=== PATIENT | female | born 1955 | race Caucasian/White ===

== ENCOUNTER → 2020-05-21 | Outpatient (CLI) | payer OTHER ==
--- NOTE | 2020-05-23 15:36 | PE ---
Nuclear medicine PET/CT HISTORY: Cervical cancer, C 53.0, initial Patient received 11.3 mCi F-18 FDG intravenously in delayed scanning was performed from the skull bas e to the mid thighs. Localization and attenuation correction CT scan was performed. Correlation to CT scan 04/16/2020 Chest and neck: There is no suspicious uptake identified. No cervical or supraclavicular adenopathy. Uptake along the focal cords and LT and tonsils is likely physiologic. No mediastinal, axillary, or h ilar adenopathy. No pleural or pericardial effusion, no evident lung mass. ABDOMEN: There is right common iliac chain node with some associated uptake, the node does not appear enlarged, axial image 209. No ascites. There is a stent present in the left kidney extending to the bladder. There is a mass within the pelvis with some central lucency consistent with patient's histor y of cervical carcinoma. There is associated hypermetabolic uptake. No evident inguinal adenopathy. S tomach uptake felt likely to be physiologic. Patient is post cholecystectomy. Osseous structures show no suspicious uptake. IMPRESSION: Findings consistent with patient's history of cervical carcinoma. Right iliac chain node shows some hypermetabolic uptake.
== END | disposition home or self-care (01) ==
LOC: RADPETMAIN 12:06
PROVIDERS: ATTEND Internal Medicine Hematology & Oncology
DX: C53.0 Malignant neoplasm of endocervix (principal)
CPT/HCPCS: 78815; A9552

== ENCOUNTER 2020-08-18 09:11 | Inpatient (IN) | payer OTHER ==
[2020-08-18] MEDS ORDERED: ONDANSETRON 4 MG/2 ML VIAL IVP STA (09:32)
[2020-08-18] MEDS ORDERED: SODIUM CHLORIDE 0.9% 500 ML 500 ML IV STA (09:32)
[2020-08-18] MEDS ORDERED: SODIUM CHLORIDE 0.9% 1,000 ML IV STA (09:32)
--- NOTE | 2020-08-18 09:44 | ED ---
General Adult HPI - General Source: patient, family, RN notes reviewed Mode of arrival: ambulatory Limitations: no limitations <Mihai Abdalla - Last Filed: 08/18/20 13:24> <Mague Main - Last Filed: 08/25/20 07:41> - General Chief complaint: Weakness Stated complaint: Weak/dizzy/dehydrated Time Seen by Provider: 08/18/20 09:18 - History of Present Illness Initial comments: This is a 65-year-old female presents emergency Department chief complaint generalized weakness, dizziness, dehydration. Patient states that she had her last chemo treatment 3 weeks ago in which she's had multiple rounds of chemotherapy and radiation for cervical cancer. Patient states that she has not returned her chemotherapy because she's been so sick. Patient cannot keep anything down she was taking her Zofran and Compazine at home but states now she has ran out. She states she feels so weak that she feels dizzy, lightheaded. No chest pain or shortness of breath. Patient had no prior surgeries for her cervical cancer. Patient denies any fevers chills cough congestion. Patient states her oncologist is Dr. Vargas. Patient denies any other associated complaints. (Mihai Abdalla) - Related Data Home Medications Medication Instructions Recorded Confirmed amLODIPine [Norvasc] 5 mg PO HS 08/18/20 08/18/20 Previous Rx's Medication Instructions Recorded Amoxic-Pot Clav 500-125 mg 1 each PO BID #20 tab 08/24/20 [Augmentin 500-125 mg] Ondansetron [Zofran] 4 mg PO Q6HR PRN #20 tab 08/24/20 Allergies Allergy/AdvReac Type Severity Reaction Status Date / Time No Known Allergies Allergy Verified 08/18/20 10:43 Review of Systems ROS Other: All systems not noted in ROS Statement are negative. <Mihai Abdalla - Last Filed: 08/18/20 13:24> ROS Other: All systems not noted in ROS Statement are negative. <Mague Main - Last Filed: 08/25/20 07:41> ROS Statement: Those systems with pertinent positive or pertinent negative responses have been documented in the HPI. Past Medical History Past Medical History: Cancer, Hypertension History of Any Multi-Drug Resistant Organisms: None Reported Past Surgical History: Section, Cholecystectomy, Tubal Ligation Additional Past Surgical History / Comment(s): Stent in kidney Smoking Status: Current every day smoker Past Alcohol Use History: None Reported Past Drug Use History: None Reported <Mihai Abdalla Radha - Last Filed: 08/18/20 13:24> General Exam Limitations: no limitations General appearance: alert, in no apparent distress Head exam: Present: atraumatic, normocephalic, normal inspection Eye exam: Present: normal appearance, PERRL, EOMI. Absent: scleral icterus, conjunctival injection, periorbital swelling ENT exam: Present: normal oropharynx, mucous membranes dry. Absent: normal exam Neck exam: Present: normal inspection, full ROM. Absent: tenderness, meningismus, lymphadenopathy Respiratory exam: Present: normal lung sounds bilaterally. Absent: respiratory distress, wheezes, rales, rhonchi, stridor Cardiovascular Exam: Present: normal rhythm, tachycardia, normal heart sounds. Absent: systolic murmur, diastolic murmur, rubs, gallop, clicks GI/Abdominal exam: Present: soft, normal bowel sounds. Absent: distended, tenderness, guarding, rebound, rigid Neurological exam: Present: alert, oriented X3 Skin exam: Present: warm, dry, intact, normal color. Absent: rash <Mihai Abdalla M - Last Filed: 08/18/20 13:24> Course Vital Signs 08/18/20 08/18/20 08/18/20 09:13 11:05 16:18 Temperature 98.0 F Pulse Rate 110 H 89 98 Pulse Rate [ Pulse Oximetery ] Respiratory 16 18 18 Rate Blood Pressure 105/68 122/44 127/71 Blood Pressure [Right Arm] O2 Sat by Pulse 100 98 95 Oximetry 08/18/20 08/19/20 08/19/20 20:52 07:33 15:06 Temperature 97.9 F Pulse Rate 89 92 Pulse Rate [ 55 L Pulse Oximetery ] Respiratory 18 18 17 Rate Blood Pressure 103/39 115/59 Blood Pressure 121/55 [Right Arm] O2 Sat by Pulse 95 95 90 L Oximetry Medical Decision Making - Lab Data Result diagrams: 08/18/20 09:46 08/18/20 09:46 <Mihai Abdalla M - Last Filed: 08/18/20 13:24> - Lab Data Result diagrams: 08/24/20 06:23 08/23/20 05:57 <Mague Main - Last Filed: 08/25/20 07:41> - Medical Decision Making 65-year-old presented for nausea vomiting dehydration dizziness. Patient does show evidence of acute kidney injury., Dehydration. Patient is able take her chemotherapy secondary to her symptoms. Patient be admitted for IV fluids. (Mihai Abdalla) I was available for consultation in the emergency department. The history and physical exam were done by the midlevel provider. I was consulted for this patie nts care. I reviewed the case with the midlevel provider and based on their presentation of the patient, I agree with the assessment, medical decision making and plan of care as documented. Chart was dictated using Crosswise dictation software. Attempts were made to correct any dictation errors however some typographical errors may persist. (Mague Main) - Lab Data Lab Results 08/18/20 08/18/20 08/18/20 Range/Units 09:46 09:46 09:46 WBC 9.2 (3.8-10.6) k/uL RBC 3.16 L (3.80-5.40) m/uL Hgb 8.4 L (11.4-16.0) gm/dL Hct 26.1 L (34.0-46.0) % MCV 82.4 (80.0-100.0) fL MCH 26.6 (25.0-35.0) pg MCHC 32.3 (31.0-37.0) g/dL RDW 21.7 H (11.5-15.5) % Plt Count 242 (150-450) k/uL MPV 8.0 Neutrophils % 86 % Lymphocytes % 6 % Monocytes % 5 % Eosinophils % 2 % Basophils % 0 % Neutrophils # 7.9 H (1.3-7.7) k/uL Lymphocytes # 0.5 L (1.0-4.8) k/uL Monocytes # 0.4 (0-1.0) k/uL Eosinophils # 0.1 (0-0.7) k/uL Basophils # 0.0 (0-0.2) k/uL Anisocytosis Moderate Microcytosis Slight PT (9.0-12.0) sec INR (<1.2) APTT (22.0-30.0) sec Sodium 127 L (137-145) mmol/L Potassium 4.7 (3.5-5.1) mmol/L Chloride 93 L (98-107) mmol/L Carbon Dioxide 24 (22-30) mmol/L Anion Gap 10 mmol/L BUN 33 H (7-17) mg/dL Creatinine 1.96 H (0.52-1.04) mg/dL Est GFR (CKD-EPI)AfAm 31 (>60 ml/min/1.73 sqM) Est GFR (CKD-EPI)NonAf 27 (>60 ml/min/1.73 sqM) Glucose 216 H (74-99) mg/dL Lactic Ac Sepsis Rflx Plasma Lactic Acid Xander 2.3 H* (0.7-2.0) mmol/L Calcium 9.3 (8.4-10.2) mg/dL Phosphorus 4.2 (2.5-4.5) mg/dL Magnesium 1.8 (1.6-2.3) mg/dL Total Bilirubin 0.4 (0.2-1.3) mg/dL AST 18 (14-36) U/L ALT 16 (4-34) U/L Alkaline Phosphatase 78 (38-126) U/L Troponin I (0.000-0.034) ng/mL Total Protein 6.7 (6.3-8.2) g/dL Albumin 3.3 L (3.5-5.0) g/dL Urine Color Urine Appearance (Clear) Urine pH (5.0-8.0) Ur Specific [place] (1.001-1.035) Urine Protein (Negative) Urine Glucose (UA) (Negative) Urine Ketones (Negative) Urine Blood (Negative) Urine Nitrite (Negative) Urine Bilirubin (Negative) Urine Urobilinogen (<2.0) mg/dL Ur Leukocyte Esterase (Negative) Urine RBC (0-5) /hpf Urine WBC (0-5) /hpf Urine WBC Clumps (None) /hpf Ur Squamous Epith Cells (0-4) /hpf Urine Bacteria (None) /hpf Coronavirus (PCR) (Not Detectd) 08/18/20 08/18/20 08/18/20 Range/Units 09:46 10:36 10:50 WBC (3.8-10.6) k/uL RBC (3.80-5.40) m/uL Hgb (11.4-16.0) gm/dL Hct (34.0-46.0) % MCV (80.0-100.0) fL MCH (25.0-35.0) pg MCHC (31.0-37.0) g/dL RDW (11.5-15.5) % Plt Count (150-450) k/uL MPV Neutrophils % % Lymphocytes % % Monocytes % % Eosinophils % % Basophils % % Neutrophils # (1.3-7.7) k/uL Lymphocytes # (1.0-4.8) k/uL Monocytes # (0-1.0) k/uL Eosinophils # (0-0.7) k/uL Basophils # (0-0.2) k/uL Anisocytosis Microcytosis PT 11.0 (9.0-12.0) sec INR 1.0 (<1.2) APTT 21.8 L (22.0-30.0) sec Sodium (137-145) mmol/L Potassium (3.5-5.1) mmol/L Chloride (98-107) mmol/L Carbon Dioxide (22-30) mmol/L Anion Gap mmol/L BUN (7-17) mg/dL Creatinine (0.52-1.04) mg/dL Est GFR (CKD-EPI)AfAm (>60 ml/min/1.73 sqM) Est GFR (CKD-EPI)NonAf (>60 ml/min/1.73 sqM) Glucose (74-99) mg/dL Lactic Ac Sepsis Rflx Y Plasma Lactic Acid Xander (0.7-2.0) mmol/L Calcium (8.4-10.2) mg/dL Phosphorus (2.5-4.5) mg/dL Magnesium (1.6-2.3) mg/dL Total Bilirubin (0.2-1.3) mg/dL AST (14-36) U/L ALT (4-34) U/L Alkaline Phosphatase (38-126) U/L Troponin I <0.012 (0.000-0.034) ng/mL Total Protein (6.3-8.2) g/dL Albumin (3.5-5.0) g/dL Urine Color Urine Appearance (Clear) Urine pH (5.0-8.0) Ur Specific [place] (1.001-1.035) Urine Protein (Negative) Urine Glucose (UA) (Negative) Urine Ketones (Negative) Urine Blood (Negative) Urine Nitrite (Negative) Urine Bilirubin (Negative) Urine Urobilinogen (<2.0) mg/dL Ur Leukocyte Esterase (Negative) Urine RBC (0-5) /hpf Urine WBC (0-5) /hpf Urine WBC Clumps (None) /hpf Ur Squamous Epith Cells (0-4) /hpf Urine Bacteria (None) /hpf Coronavirus (PCR) (Not Detectd) 08/18/20 08/18/20 08/18/20 Range/Units 12:13 13:10 13:30 WBC (3.8-10.6) k/uL RBC (3.80-5.40) m/uL Hgb (11.4-16.0) gm/dL Hct (34.0-46.0) % MCV (80.0-100.0) fL MCH (25.0-35.0) pg MCHC (31.0-37.0) g/dL RDW (11.5-15.5) % Plt Count (150-450) k/uL MPV Neutrophils % % Lymphocytes % % Monocytes % % Eosinophils % % Basophils % % Neutrophils # (1.3-7.7) k/uL Lymphocytes # (1.0-4.8) k/uL Monocytes # (0-1.0) k/uL Eosinophils # (0-0.7) k/uL Basophils # (0-0.2) k/uL Anisocytosis Microcytosis PT (9.0-12.0) sec INR (<1.2) APTT (22.0-30.0) sec Sodium (137-145) mmol/L Potassium (3.5-5.1) mmol/L Chloride (98-107) mmol/L Carbon Dioxide (22-30) mmol/L Anion Gap mmol/L BUN (7-17) mg/dL Creatinine (0.52-1.04) mg/dL Est GFR (CKD-EPI)AfAm (>60 ml/min/1.73 sqM) Est GFR (CKD-EPI)NonAf (>60 ml/min/1.73 sqM) Glucose (74-99) mg/dL Lactic Ac Sepsis Rflx Plasma Lactic Acid Xander 1.0 (0.7-2.0) mmol/L Calcium (8.4-10.2) mg/dL Phosphorus (2.5-4.5) mg/dL Magnesium (1.6-2.3) mg/dL Total Bilirubin (0.2-1.3) mg/dL AST (14-36) U/L ALT (4-34) U/L Alkaline Phosphatase (38-126) U/L Troponin I (0.000-0.034) ng/mL Total Protein (6.3-8.2) g/dL Albumin (3.5-5.0) g/dL Urine Color Yellow Urine Appearance Turbid H (Clear) Urine pH 5.5 (5.0-8.0) Ur Specific [place] 1.017 (1.001-1.035) Urine Protein 1+ H (Negative) Urine Glucose (UA) Negative (Negative) Urine Ketones Negative (Negative) Urine Blood Moderate H (Negative) Urine Nitrite Positive H (Negative) Urine Bilirubin Negative (Negative) Urine Urobilinogen <2.0 (<2.0) mg/dL Ur Leukocyte Esterase Large H (Negative) Urine RBC 63 H (0-5) /hpf Urine WBC >182 H (0-5) /hpf Urine WBC Clumps Many H (None) /hpf Ur Squamous Epith Cells 2 (0-4) /hpf Urine Bacteria Moderate H (None) /hpf Coronavirus (PCR) Not Detected (Not Detectd) Disposition <Mihai Abdalla - Last Filed: 08/18/20 13:24> <Mague Main - Last Filed: 08/25/20 07:41> Clinical Impression: Acute kidney injury, Dehydration, Nausea & vomiting Disposition: ADMITTED IP TO THIS HOSP Condition: Good
[2020-08-18 10:09] LABS: Anisocytosis Moderate; Basophils % (A) 0 %; Eosinophils # (A) 0.1 k/uL (0-0.7); Eosinophils % (A) 2 %; HCT 26.1 % (34.0-46.0); HGB 8.4 gm/dL (11.4-16.0); Lymphocytes # (A) 0.5 k/uL (1.0-4.8); Lymphocytes % (A) 6 %; MCH 26.6 pg (25.0-35.0); MCHC 32.3 g/dL (31.0-37.0); MCV 82.4 fL (80.0-100.0); Microcytosis Slight; Monocytes # (A) 0.4 k/uL (0-1.0); Monocytes % (A) 5 %; Neutrophils # (A) 7.9 k/uL (1.3-7.7); Neutrophils % (A) 86 %; Platelet Count 242 k/uL (150-450); RBC 3.16 m/uL (3.80-5.40); RDW 21.7 % (11.5-15.5); WBC 9.2 k/uL (3.8-10.6)
[2020-08-18 10:18] LABS: Albumin 3.3 g/dL (3.5-5.0); Calcium 9.3 mg/dL (8.4-10.2); Magnesium 1.8 mg/dL (1.6-2.3); Phosphorus 4.2 mg/dL (2.5-4.5); Potassium 4.7 mmol/L (3.5-5.1); Total Bilirubin 0.4 mg/dL (0.2-1.3); Total Protein 6.7 g/dL (6.3-8.2)
--- NOTE | 2020-08-18 10:27 | XR ---
EXAMINATION TYPE: XR chest 2V DATE OF EXAM: 08/18/2020 COMPARISON: NONE HISTORY: Weakness, dehydration TECHNIQUE: Frontal and lateral views of the chest are obtained. FINDINGS: There is no focal air space opacity, pleural effusion, or pneumothorax seen. The cardiac silhouette size is within normal limits. The osseous structures are intact, there is thoracic spond ylosis. There are overlying leads. IMPRESSION: No acute cardiopulmonary process.
--- NOTE | 2020-08-18 10:41 | CT ---
EXAMINATION TYPE: CT brain wo con DATE OF EXAM: 08/18/2020 COMPARISON: None HISTORY: 65-year-old female dizziness, weakness, cervical CA TECHNIQUE: Examination was done in axial plane without intravenous contrast. Coronal and sagittal r econstructions performed. CT DLP: 1011.4 mGycm Automated exposure control for dose reduction was used. FINDINGS: There is no evidence of acute intracranial hemorrhage, acute ischemic changes, mass, mass-effect, or extra-axial fluid collection. There is no effacement of cerebral sulci or basal subarachnoid cister ns. There is no hydrocephalus. There is no midline shift. Marshall-white matter distinction is preserv ed. Scattered mild mucosal thickening ethmoid air cells. Slight rightward nasal septal deviation. Visuali zed orbits and globes are intact. Psoas IMPRESSION: No acute intracranial abnormality seen.
[2020-08-18 11:41] LABS: Partial Thromboplastin Time 21.8 sec (22.0-30.0)
[2020-08-18] MEDS: SODIUM CHLORIDE 0.9% 1,000 ML IV SCH (12:13)
[2020-08-18] MEDS ORDERED: NALOXONE 0.4 MG/ML 1 ML VIAL IV PRN (13:25)
[2020-08-18] MEDS ORDERED: ACETAMINOPHEN TAB 325 MG TAB PO PRN (13:25)
[2020-08-18 13:48] LABS: Appearance,Urine Turbid (Clear); Bacteria,Urine Moderate /hpf; Bilirubin,Urine Negative (Negative); Blood,Urine Moderate (Negative); Color,Urine Yellow; Glucose,Urine (UA) Negative (Negative); Ketones,Urine Negative (Negative); Leukocyte Esterase,Urine Large (Negative); Nitrite,Urine Positive (Negative); PH, Urine 5.5 (5.0-8.0); Protein,Urine 1+ (Negative); RBC,Urine 63 /hpf (0-5); Specific Gravity,Urine 1.017 (1.001-1.035); Squamous Epithelial Cell,Urine 2 /hpf (0-4); Urobilinogen,Urine <2.0 mg/dL (<2.0); WBC,Urine >182 /hpf (0-5)
[2020-08-18] MEDS: ONDANSETRON 4 MG/2 ML VIAL IVP PRN (14:59)
[2020-08-19] MEDS: ONDANSETRON 4 MG/2 ML VIAL IVP PRN ×2 (09:27→17:47)
[2020-08-19] MEDS: SODIUM CHLORIDE 0.9% 1,000 ML IV SCH ×3 (09:29→21:12)
--- NOTE | 2020-08-19 14:53 | HP ---
HISTORY AND PHYSICAL CHIEF COMPLAINT: Weakness, dizziness, nausea, vomiting, and history of cervical cancer. HISTORY OF PRESENT ILLNESS: This is another admission for this 65-year-old white female who recently was diagnosed with extensive carcinoma of the cervix for which she has undergone radiation and chemotherapy. She is not being a very compliant patient and not following up on her treatment as carefully as she should be. She has been having some dizziness, weakness and she came to emergency room very dehydrated with nausea and vomiting and she was admitted. She has not had a great deal of abdominal pain and she has had no dysuria, frequency, urgency, vaginal bleeding, rectal bleeding, etc. REVIEW OF SYSTEMS: Other than her weakness, she does not have any specific complaints. Past medical history, family history and personal and social histories reveal that she is on baclofen, Ditropan, Flomax, Norvasc, Zofran, Protonix. She is not allergic to any medication. The remainder of her history is unremarkable. PHYSICAL EXAMINATION: Blood pressure 123/74 with a pulse of 88, respirations of 34 and she is afebrile. In general, she appeared to be pale and chronically ill. She was weak. Head, ears, eyes, nose, mouth and throat were normal except for dry mucous membranes. Neck veins are not distended. Chest was clear to auscultation. Cardiac exam demonstrated sinus tachycardia with no murmurs or extra sounds. The abdomen is protuberant, soft and nontender without any masses or visceromegaly. Extremities are normal. Neurologically, she is intact. She is admitted to the hospital with diagnoses: 1. Dehydration. 2. Prerenal azotemia. 3. Carcinoma of the cervix, status post chemo and radiation. PLAN: 1. Bed rest. 2. IV fluids. 3. Rehydrate. 4. Consult with Oncology. MMODL / IJN: [id number] /
--- NOTE | 2020-08-19 14:58 | PN ---
PROGRESS NOTE DATE OF SERVICE: 08/19/2020. CHIEF COMPLAINT: Dehydration, nausea, vomiting with dizziness. HISTORY OF PRESENT ILLNESS: This lady is doing fairly well, but she still feels extremely weak. She has had no fever, headache, chest pain, abdominal pain, etc. PHYSICAL EXAMINATION: She remains pale and chronically ill in appearance. Skin is dry. Chest is clear. Cardiac exam is normal. Abdomen is soft. IMPRESSION: 1. Dehydration. 2. Nausea and vomiting. 3. Dizziness. 4. Weakness. 5. Carcinoma of the cervix. PLAN: 1. Continue with IV fluids. 2. Await any recommendations from Oncology. MMODL / IJN: [id number] /
--- NOTE | 2020-08-19 16:11 | P.CONS ---
History of Present Illness - Reason for Consult Consult date: 08/19/20 recent treatment for cervical cancer Requesting physician: Mihai Abdalla - Chief Complaint N,V dehydration, diarrhea - History of Present Illness Mrs. Izquierdo is a very pleasant female pt of Dr. Cabrera who presented last fall with urinary symptoms. She went to [facility] for persistent symptoms, found to have L hydronephrosis and large pelvic mass on CT. Referred to Dr. Joshi UX MANAGER/Onc at [facility], thought to have at least stage IIIB. Recommended concurrent chemo/rad with brachytherapy after advised. She required a ureteral stent on the left, this was placed at [facility]. Staging PET at [facility] revealed known mass with uptake, no distant mets, R common iliac chain with "some" uptake reported. She completed 6 cycles of weekly cisplatin 07/14/20, completed XRT week of 07/20/20. She was supposed to have brachytherapy sleeve but, she has been "so sick" that she has not made it back down to [facility] for the same. She c/o persistent N,V, everything smells terrible, moderate oral irritation, she was severely constipated last week, she treated and was ok, as of today had diarrhea bad. Denies fevers, chills, rigors, cough, SOB, chest pain, palpitations, abd pain, bloating, dysuria, hematuria, bleeding, swelling or pain. She will get a stabbing pain in the lower part of her abd intermittently, short duration, not progressive. In ER she told me she did feel a little better with the hydration and after the abx Review of Systems 14 point ROS is negative except as stated in HPI Past Medical History Past Medical History: Cancer, Eye Disorder, GERD/Reflux, Hypertension, Pneumonia Additional Past Medical History / Comment(s): Cervical cancer-pt states she completed chemotherapy and has had radiation treatments-she was to have a cervical sleeve inserted then more radiation but unable to insert/secure sleeve, R ureteral stent d/t cervical tumor causing obstruction, R occular stroke-caused vision changes/received injections, UTI. History of Any Multi-Drug Resistant Organisms: None Reported Past Surgical History: Section, Cholecystectomy, Tubal Ligation Additional Past Surgical History / Comment(s): R ueteral stent, D&C, Past Anesthesia/Blood Transfusion Reactions: No Reported Reaction Smoking Status: Former smoker - Past Family History Father Family Medical History: Cancer, Diabetes Mellitus Additional Family Medical History / Comment(s): Pt thinks father had prostate cancer. Mother Family Medical History: Diabetes Mellitus, Hyperlipidemia, Hypertension, Myocardial Infarction ([place]), Renal Disease Additional Family Medical History / Comment(s): Mother had a [place] in her 50s. She from renal failure during dialysis. Medications and Allergies Home Medications Medication Instructions Recorded Confirmed Type amLODIPine [Norvasc] 5 mg PO HS 08/18/20 08/18/20 History Allergies Allergy/AdvReac Type Severity Reaction Status Date / Time No Known Allergies Allergy Verified 08/18/20 10:43 Physical Exam Vitals: Vital Signs Temp Pulse Resp BP Pulse Ox 08/19/20 07:33 92 18 115/59 95 08/18/20 20:52 89 18 103/39 95 08/18/20 16:18 98 18 127/71 95 08/18/20 11:05 89 18 122/44 98 08/18/20 09:13 98.0 F 110 H 16 105/68 100 Intake and Output 08/18/20 08/19/20 08/19/20 22:59 06:59 14:59 Other: Weight 100.698 kg - Constitutional General appearance: cooperative, mild distress, obese - EENT moderate mucositis Eyes: anicteric sclerae, EOMI, dentition normal ENT: hearing grossly normal - Neck Neck: no lymphadenopathy - Respiratory Respiratory: bilateral: CTA - Cardiovascular Rhythm: regular Heart sounds: normal: S1, S2 Abnormal Heart Sounds: no systolic murmur, no diastolic murmur, no rub, no S3 Gallop, no S4 Gallop, no click, no other leg Peripheral Edema: bilateral: None - Gastrointestinal General gastrointestinal: no absent bowel sounds, no decreased bowel sounds, no distended, no hepatomegaly, no hyperactive bowel sounds, normal bowel sounds, no organomegaly, no rigid, no scaphoid, soft, no splenomegaly, no tenderness, no umbilical hernia, no ventral hernia - Integumentary Integumentary: pale - Neurologic Neurologic: CNII-XII intact - Musculoskeletal Musculoskeletal: strength equal bilaterally - Psychiatric Psychiatric: A&O x's 3, appropriate affect, intact judgment & insight Results CBC & Chem 7: 08/18/20 09:46 08/18/20 09:46 Labs: Abnormal Lab Results - Last 24 Hours (Table) 08/18/20 08/18/20 08/18/20 Range/Units 09:46 09:46 09:46 RBC 3.16 L (3.80-5.40) m/uL Hgb 8.4 L (11.4-16.0) gm/dL Hct 26.1 L (34.0-46.0) % RDW 21.7 H (11.5-15.5) % Neutrophils # 7.9 H (1.3-7.7) k/uL Lymphocytes # 0.5 L (1.0-4.8) k/uL APTT (22.0-30.0) sec Sodium 127 L (137-145) mmol/L Chloride 93 L (98-107) mmol/L BUN 33 H (7-17) mg/dL Creatinine 1.96 H (0.52-1.04) mg/dL Glucose 216 H (74-99) mg/dL Plasma Lactic Acid Xander 2.3 H* (0.7-2.0) mmol/L Albumin 3.3 L (3.5-5.0) g/dL Urine Appearance (Clear) Urine Protein (Negative) Urine Blood (Negative) Urine Nitrite (Negative) Ur Leukocyte Esterase (Negative) Urine RBC (0-5) /hpf Urine WBC (0-5) /hpf Urine WBC Clumps (None) /hpf Urine Bacteria (None) /hpf 08/18/20 08/18/20 Range/Units 10:50 13:10 RBC (3.80-5.40) m/uL Hgb (11.4-16.0) gm/dL Hct (34.0-46.0) % RDW (11.5-15.5) % Neutrophils # (1.3-7.7) k/uL Lymphocytes # (1.0-4.8) k/uL APTT 21.8 L (22.0-30.0) sec Sodium (137-145) mmol/L Chloride (98-107) mmol/L BUN (7-17) mg/dL Creatinine (0.52-1.04) mg/dL Glucose (74-99) mg/dL Plasma Lactic Acid Xander (0.7-2.0) mmol/L Albumin (3.5-5.0) g/dL Urine Appearance Turbid H (Clear) Urine Protein 1+ H (Negative) Urine Blood Moderate H (Negative) Urine Nitrite Positive H (Negative) Ur Leukocyte Esterase Large H (Negative) Urine RBC 63 H (0-5) /hpf Urine WBC >182 H (0-5) /hpf Urine WBC Clumps Many H (None) /hpf Urine Bacteria Moderate H (None) /hpf Microbiology - Last 24 Hours (Table) 08/18/20 13:10 Urine Culture - Preliminary Urine,Voided Chest x-ray: report reviewed CT Scan - head: report reviewed Assessment and Plan (1) Nausea & vomiting Narrative/Plan: IV meds ordered. Mouth care stressed. Supportive meds ordered Current Visit: Yes Status: Acute Priority: High Code(s): R11.2 - NAUSEA WITH VOMITING, UNSPECIFIED SNOMED Code(s): 70002795 (2) Dehydration Narrative/Plan: IV hydration. Diet clear liquids for now due to pt intolerance to smell Current Visit: Yes Status: Acute Priority: High Code(s): E86.0 - DEHYDRATION SNOMED Code(s): 66096589 (3) Cervical ca Narrative/Plan: Pt has completed chemo/XRT, due for brachytherapy. Post treatment restaging PET already sched for 09/03 at 9am Current Visit: Yes Status: Acute Priority: High Code(s): C53.9 - MALIGNANT NEOPLASM OF CERVIX UTERI, UNSPECIFIED SNOMED Code(s): 611177692 (4) Acute kidney injury Narrative/Plan: UA is very suspicious for infection. Pt had lt ureteral stent placed 04/27. May be infected, need removed/replaced. Renal US ordered for evaluation. BUN/Cr 121/1.47 on 07/14/20, this is pt baseline. Last dose of cisplatin-which can be nephrotoxic- 07/14/20. Current Visit: Yes Status: Acute Priority: High Code(s): N17.9 - ACUTE KIDNEY FAILURE, UNSPECIFIED SNOMED Code(s): 44693720 (5) Mucositis Narrative/Plan: Moderate-salt and soda and kools ordered. Would recommend brushing teeth twice a day Current Visit: Yes Status: Acute Priority: Medium Code(s): K12.30 - ORAL MUCOSITIS (ULCERATIVE), UNSPECIFIED SNOMED Code(s): 60879003 Plan: Agree with infection work up. Pt left ureteral stent was placed last year at [facility]. Will have ofc contact Physician who placed-may be time for exchange.
[2020-08-19] MEDS: MAG HYDROX/AL HYDROX/SIMETH 30 ML, LIDOCAINE VISCOUS 30 ML, diphenhydrAMINE ELIXIR 75 M... PO SCH ×8 (17:36→21:44)
[2020-08-19] MEDS: SALT AND SODA MOUTHWASH 1,000 ML PO SCH ×3 (17:36→23:40)
--- NOTE | 2020-08-19 20:06 | US ---
EXAMINATION TYPE: US renals and bladder DATE OF EXAM: 08/19/2020 COMPARISON: PET CT 05/21/2020 CLINICAL HISTORY: Hx of lt ureteral stent, worsening renal function Difficult exam due to patient bod y habitus. EXAM MEASUREMENTS: Right Kidney: 10.2 x 4.9 x 4.4 cm Left Kidney: 10.3 x 5.8 x 4.6 cm Right Kidney: No hydronephrosis or masses seen Left Kidney: Moderate hydronephrosis visualized Bladder: Stent visualized Bilateral Jets seen: No IMPRESSION: Moderate left hydronephrosis with ureteral stent visualized.
[2020-08-19] MEDS ORDERED: SODIUM CHLORIDE 0.9% 500 ML 250 ML IV ONE (21:37)
[2020-08-20] MEDS: SODIUM CHLORIDE 0.9% 1,000 ML IV SCH ×2 (05:22→16:35)
[2020-08-20] MEDS: SALT AND SODA MOUTHWASH 1,000 ML PO SCH ×4 (05:27→20:27)
[2020-08-20] MEDS ORDERED: PANTOPRAZOLE 40 MG/10 ML VIAL IVP SCH (09:00)
[2020-08-20 09:02] LABS: Anisocytosis Moderate; Basophils % (A) 1 %; Eosinophils # (A) 0.2 k/uL (0-0.7); Eosinophils % (A) 3 %; HCT 22.9 % (34.0-46.0); HGB 7.6 gm/dL (11.4-16.0); Hypochromasia Slight; Lymphocytes # (A) 0.4 k/uL (1.0-4.8); Lymphocytes % (A) 6 %; MCH 27.8 pg (25.0-35.0); MCHC 33.1 g/dL (31.0-37.0); Mean Platelet Volume 9.2; Microcytosis Slight; Monocytes # (A) 0.4 k/uL (0-1.0); Monocytes % (A) 6 %; Neutrophils # (A) 5.4 k/uL (1.3-7.7); Neutrophils % (A) 82 %; Platelet Count 194 k/uL (150-450); RBC 2.73 m/uL (3.80-5.40); RDW 21.6 % (11.5-15.5); WBC 6.6 k/uL (3.8-10.6)
[2020-08-20 09:10] LABS: African American GFR (CKD) 34 (>60 ml/min/1.73 sqM); Anion Gap 7 mmol/L; Blood Urea Nitrogen 18 mg/dL (7-17); Calcium 8.5 mg/dL (8.4-10.2); Carbon Dioxide 25 mmol/L (22-30); Chloride 102 mmol/L (98-107); Glucose 145 mg/dL (74-99); Magnesium 1.7 mg/dL (1.6-2.3); Non-African American GFR(CKD) 29 (>60 ml/min/1.73 sqM); Potassium 4.2 mmol/L (3.5-5.1); Sodium 134 mmol/L (137-145)
[2020-08-20] MEDS: HEPARIN SODIUM,PORCINE 5,000 UNIT/ML 1 ML VIAL SQ SCH ×2 (10:45→20:22)
[2020-08-20] MEDS ORDERED: LEVOFLOXACIN 750 MG TAB PO ONE (11:00)
[2020-08-20] MEDS: MAG HYDROX/AL HYDROX/SIMETH 30 ML, LIDOCAINE VISCOUS 30 ML, diphenhydrAMINE ELIXIR 75 M... PO SCH ×8 (11:59→15:28)
--- NOTE | 2020-08-20 12:33 | P.PN ---
Subjective Progress Note Date: 08/20/20 Principal diagnosis: N, V, D, dehydration, KEVIN In f/u today pt mouth is better, she can tolerate the clear liquid diet, she has positive orthostatics and has been placed on bedrest Objective - Vital Signs Vital signs: Vital Signs Temp 98.2 F 08/20/20 05:00 Pulse 76 08/20/20 05:00 Resp 18 08/20/20 05:00 BP 121/66 08/20/20 05:00 Pulse Ox 95 08/20/20 05:00 Intake & Output 08/19/20 08/20/20 08/20/20 18:59 06:59 18:59 Intake Total 1440 Balance 1440 Weight 100.698 kg Intake: Intake, IV Titration 1150 Amount Sodium Chloride 0.9% 1, 900 000 ml @ 100 mls/hr IV . Q10H [facility] Rx#:[id number] Sodium Chloride 0.9% 500 250 ml 250 ml @ 999 mls/hr IV .Q16M ONE Rx#:[id number] Oral 290 Other: Voiding Method Bedside Commode # Voids 1 2 - Constitutional General appearance: Present: cooperative, no acute distress, obese - EENT EENT Comment(s): coated tongue, looks better then yesterday Eyes: Present: anicteric sclerae, edentulous, poor dentition ENT: Present: hearing grossly normal - Respiratory Respiratory: bilateral: CTA - Cardiovascular Rhythm: regular Heart sounds: normal: S1, S2 Abnormal Heart Sounds: Absent: systolic murmur, diastolic murmur, rub, S3 Gallop, S4 Gallop, click, other - Peripheral edema leg Peripheral Edema: bilateral: None - Gastrointestinal General gastrointestinal: Present: normal bowel sounds, soft - Integumentary Integumentary: Present: normal - Neurologic Neurologic: Present: CNII-XII intact - Musculoskeletal Musculoskeletal: Present: strength equal bilaterally - Psychiatric Psychiatric: Present: A&O x's 3, appropriate affect, intact judgment & insight - Labs CBC & Chem 7: 08/20/20 08:43 08/20/20 08:43 Labs: Abnormal Lab Results - Last 24 Hours (Table) 08/20/20 08/20/20 Range/Units 08:43 08:43 RBC 2.73 L (3.80-5.40) m/uL Hgb 7.6 L (11.4-16.0) gm/dL Hct 22.9 L (34.0-46.0) % RDW 21.6 H (11.5-15.5) % Lymphocytes # 0.4 L (1.0-4.8) k/uL Sodium 134 L (137-145) mmol/L BUN 18 H (7-17) mg/dL Creatinine 1.81 H (0.52-1.04) mg/dL Glucose 145 H (74-99) mg/dL Microbiology - Last 24 Hours (Table) 08/19/20 06:35 Blood Culture - Preliminary Blood No Growth after 24 hours 08/18/20 13:10 Urine Culture - Preliminary Urine,Voided Gram Neg Bacilli - Imaging and Cardiology renal US report reviewed Assessment and Plan (1) Nausea & vomiting Narrative/Plan: No vomiting since admit. IV meds ordered. Mouth care stressed. Supportive meds ordered Current Visit: Yes Status: Acute Priority: High Code(s): R11.2 - NAUSEA WITH VOMITING, UNSPECIFIED SNOMED Code(s): 21174912 (2) Dehydration Narrative/Plan: IV hydration. Diet clear liquids for now due to pt intolerance to smell-she is doing ok with this diet Current Visit: Yes Status: Acute Priority: High Code(s): E86.0 - DEHYDRATION SNOMED Code(s): 99956487 (3) Cervical ca Narrative/Plan: Pt has completed chemo/XRT. Pt clarified today that she is not having brachytherapy. Post treatment restaging PET already sched for 09/03 at 9am, f/u with Dr. Cabrera 09/07/20 at 11AM Current Visit: Yes Status: Acute Priority: High Code(s): C53.9 - MALIGNANT NEOPLASM OF CERVIX UTERI, UNSPECIFIED SNOMED Code(s): 597791068 (4) Acute kidney injury Narrative/Plan: Acute on chronic,BUN/Cr 121/1.47 on 07/14/20, this is pt baseline. Nephrology consulted. Renal US shows only mild hydronephrosis on the left. UA is very suspicious for infection. Levaquin started. Pt had lt ureteral stent placed 04/27. Urology consulted. May be infected, need removed/replaced. Last dose of cisplatin-which can be nephrotoxic-1/6/21. Current Visit: Yes Status: Acute Priority: High Code(s): N17.9 - ACUTE KIDNEY FAILURE, UNSPECIFIED SNOMED Code(s): 81478596 (5) Mucositis Narrative/Plan: Looks better today, cont salt and soda and kools. Recommend brushing teeth twice a day. Current Visit: Yes Status: Acute Priority: Medium Code(s): K12.30 - ORAL MUCOSITIS (ULCERATIVE), UNSPECIFIED SNOMED Code(s): 28502146 Plan: Agree with infection work up. Pt left ureteral stent was placed last year at [facility]. Physician who placed stent ofc contacted, may be time for exchange or removal.
[2020-08-20 14:55] VITALS: BMI 43.3
--- NOTE | 2020-08-20 19:33 | CONS ---
CONSULTATION REASON FOR CONSULTATION: Renal failure. HISTORY OF PRESENT ILLNESS: Patient is a 65-year-old female with history of cervical cancer and left hydronephrosis, status post ureteral stent placed at an outside facility at [facility]. The patient was admitted to the hospital with complaints of increasing weakness. She had some diarrhea as well and she felt she was dehydrated. The patient denies having seen a director of student services previously. Her serum creatinine was 1.9 on initial admission, and it is down to 1.8 now. Previous labs show serum creatinine of 1.[address] back to June of 2020. Patient also has an underlying urinary tract infection. She is maintained on radiation therapy for the cervical cancer and is in the midst of chemotherapy. The patient denied use of any nonsteroidal anti-inflammatory agents prior to admission. Her blood pressure has been on the lower side, with systolic around 101 mmHg. She was as low as 83 mmHg on standing for systolic blood pressure. Urine output is well maintained. The patient has a bedside commode. PAST MEDICAL HISTORY: Cervical cancer, left hydronephrosis, status post ureteral stent placement, history of hypertension, possible CKD, history of UTI previously, history of CVA, right ocular stroke. PAST SURGICAL HISTORY: , cholecystectomy, tubal ligation, right ureteral stent, D and C. MEDICATIONS: Medications prior to admission included Norvasc. Patient was maintained on chemotherapy and radiation therapy for cervical cancer. ALLERGIES: NONE. REVIEW OF SYSTEMS: As per HPI. Other systems negative. PHYSICAL EXAMINATION: Patient is comfortable, awake. She is not in any acute distress. Blood pressure was 110/68, heart rate 82 per minute. She is afebrile. EXAMINATION OF THE HEART: S1 and S2. EXAMINATION OF LUNGS: Bilateral breath sounds are heard. ABDOMEN: Soft, obese, non-tender. Examination of lower extremities shows no significant edema. There is no CVA tenderness noted. 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 LABS: Labs show sodium of 134, potassium 4.2, chloride 102, BUN 18, creatinine 1.8, hemoglobin 7.6 g/dL. Coronavirus PCR is negative. UA shows 1+ protein, large leukocyte esterase, WBCs more than 182. ASSESSMENT: 1. Acute kidney injury, prerenal, currently maintained on IV fluids. I will continue with the IV fluids. Check ultrasound of the kidneys. Rule out any other underlying hydronephrosis. 2. History of left hydronephrosis with ureteral obstruction secondary to the cervical cancer, status post left ureteral stent placement. The ultrasound shows moderate hydronephrosis on the left side. 3. Pyuria; rule out underlying urinary tract infection. Patient has been started on antibiotics. 4. Cervical cancer, maintained on chemotherapy and radiation therapy. 5. Anemia, multifactorial. PLAN: Continue IV fluids. Continue antibiotics. Consult Urology. The patient states that she would like to see the urologist locally and does not want to travel out of town. Follow up on the urine cultures. Avoid nephrotoxic agents. Avoid hypotension. Repeat labs in a.m. Thank you for this consultation. Will continue to follow the patient with you during her hospitalization. MMODL / IJN: [id number] /
--- NOTE | 2020-08-20 20:35 | XR ---
EXAM: Abdomen radiograph. HISTORY: Hydronephrosis with left ureteral stent. TECHNIQUE: Supine AP view. COMPARISON: Ultrasound 08/19/2020. FINDINGS: There is insertion of a left ureteral stent. There are nondilated bowel loops with a nonobstructive p attern. There are no obvious pathologic calcifications. No acute osseous abnormality seen. Cholecyste ctomy is seen. IMPRESSION: Left ureteral stent. Otherwise no obvious acute process.
[2020-08-20] MEDS: ONDANSETRON 4 MG TAB PO PRN (21:17)
[2020-08-21] MEDS: MAG HYDROX/AL HYDROX/SIMETH 30 ML, LIDOCAINE VISCOUS 30 ML, diphenhydrAMINE ELIXIR 75 M... PO SCH ×16 (02:46→21:14)
[2020-08-21] MEDS: SALT AND SODA MOUTHWASH 1,000 ML PO SCH ×5 (02:47→21:14)
[2020-08-21] MEDS: SODIUM CHLORIDE 0.9% 1,000 ML IV SCH ×2 (03:22→12:26)
--- NOTE | 2020-08-21 03:33 | P.PN ---
Subjective This is a pleasant 65 years old female with past medical history of cervical cancer with chemo and radiotherapy also she has a right ureter stent which was placed at 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 She presents on 08/18 for generalized weakness and dizziness. Last chemotherapy was 3 weeks earlier, complicated with recurrent nausea vomiting and was taking Zofran and Compazine at home where she ran out of her medication Patient has no vomiting since yesterday however she feels extremely fatigued, her dizziness is better Patient is complaining of from mouth burn but there is no evidence of ulcers or thrush. She is with no respiratory symptoms, no chest pain. But she has some dysuria Her orthostatic hypotension is also improving Vitals are 1 postural hypotension, patient is somewhat tachycardic, resting blood pressure is 121/66. Patient is afebrile. CBC showing only mild anemia. With left shift although WBC is within the reference range at 9.2K. INR is 1.0. Sodium 1 admission was 127 which WILL be 129 if corrected for hyperglycemia. High lactic acid came back to normal. Troponin is negative. Liver enzymes not elevated. Urinalysis is suspicious for infection, coronavirus is not detected. Oncology service already on the case and evaluated the patient Renal ultrasound showing left ureteral stent with moderate hydronephrosis Review of systems Review of systems CONSTITUTIONAL: No fever, no malaise, no fatigue. HEENT: No recent visual problems or hearing problems. Denied any sore throat. CARDIOVASCULAR: No orthopnea, PND, no palpitations, no syncope. PULMONARY: No shortness of breath, no cough, no hemoptysis. GASTROINTESTINAL: No diarrhea, no nausea, no vomiting, no abdominal pain. Normoactive bowel sounds. Active Medications Generic Name Dose Route Start Last Admin Trade Name Freq PRN Reason Stop Dose Admin Acetaminophen 650 mg 08/18/20 13:25 Acetaminophen Tab 325 Mg Tab PO Q6HR PRN Mild Pain or Fever > 100.5 Al Hydroxide/Mg Hydroxide 30 0 ml 08/19/20 17:00 08/21/20 02:46 ml/ Lidocaine HCl 30 ml/ PO Not Given Diphenhydramine HCl 75 mg/ TID [facility] Nystatin 3,000,000 unit Heparin Sodium (Porcine) 5,000 unit 08/20/20 09:00 08/20/20 20:22 Heparin Sodium,Porcine 5,000 Unit/Ml 1 Ml Vial SQ 5,000 unit Q12HR [facility] Administration Sodium Chloride 1,000 mls @ 100 mls/hr 08/18/20 12:15 08/21/20 03:22 Saline 0.9% IV 100 mls/hr .Q10H [facility] Administration Levofloxacin 750 mg 08/21/20 09:00 Levofloxacin 750 Mg Tab PO Q48H [facility] Naloxone HCl 0.2 mg 08/18/20 13:25 Naloxone 0.4 Mg/Ml 1 Ml Vial IV Q2M PRN Opioid Reversal Ondansetron HCl 4 mg 08/19/20 15:50 08/19/20 17:47 Ondansetron 4 Mg/2 Ml Vial IVP 4 mg Q4HR PRN Administration Nausea And Vomiting Ondansetron HCl 4 mg 08/20/20 21:03 08/20/20 21:17 Ondansetron 4 Mg Tab PO 4 mg Q6HR PRN Administration Nausea And Vomiting Pantoprazole Sodium 40 mg 08/21/20 07:30 Pantoprazole 40 Mg Tablet PO AC-BRKFST [facility] Sodium Bicarbonate 5 ml 08/19/20 17:00 08/21/20 02:47 Salt And Soda Mouthwash 1,000 Ml PO Not Given 5XD [facility] Objective - Vital Signs Vital signs: Vital Signs Temp 98.2 F 08/20/20 05:00 Pulse 76 08/20/20 05:00 Resp 18 08/20/20 05:00 BP 121/66 08/20/20 05:00 Pulse Ox 95 08/20/20 05:00 Intake & Output 08/19/20 08/20/20 08/20/20 18:59 06:59 18:59 Intake Total 1440 Balance 1440 Weight 100.698 kg Intake: Intake, IV Titration 1150 Amount Sodium Chloride 0.9% 1, 900 000 ml @ 100 mls/hr IV . Q10H [facility] Rx#:[id number] Sodium Chloride 0.9% 500 250 ml 250 ml @ 999 mls/hr IV .Q16M ONE Rx#:[id number] Oral 290 Other: Voiding Method Bedside Commode # Voids 1 2 - Exam GENERAL: The patient is alert and oriented x3, not in any acute distress. Well developed, well nourished. HEENT: Pupils are round and equally reacting to light. EOMI. No scleral icterus. No conjunctival pallor. Normocephalic, atraumatic. No pharyngeal erythema. No thyromegaly. CARDIOVASCULAR: S1 and S2 present. No murmurs, rubs, or gallops. PULMONARY: Chest is clear to auscultation, no wheezing or crackles. ABDOMEN: Soft, nontender, nondistended, normoactive bowel sounds. No palpable organomegaly. MUSCULOSKELETAL: No joint swelling or deformity. EXTREMITIES: No cyanosis, clubbing, or pedal edema. NEUROLOGICAL: Gross neurological examination did not reveal any focal deficits. SKIN: No rashes. no petechiae. - Labs CBC & Chem 7: 08/20/20 08:43 08/20/20 08:43 Labs: Microbiology - Last 24 Hours (Table) 08/18/20 13:10 Urine Culture - Preliminary Urine,Voided Gram Neg Bacilli Assessment and Plan Assessment: Acute urinary tract infection with moderate left hydronephrosis and status post previous ureteral stent Recurrent nausea and vomiting related to her chemotherapy treatment and infection severe dehydration and hypovolemia with resultant postural hypotension, Possibly secondary to above Moderate left hydronephrosis, with history of ureter stent due to cervical tumor causing obstruction cervical cancer with chemo and radiotherapy history of stroke with resultant vision changes History of gastroesophageal reflux disease Hypertension Plan: This is pleasant 65 years old female who presents with UTI, dehydration and dizziness with postural hypotension. Also she has left hydronephrosis. Currently she is on ceftriaxone with urine culture showing gram-negative bacilli, follow-up final results of the urine culture. Oncology and nephrology team on the case as well. We will consult urologist for her hydronephrosis. Continue with IV fluids. Start the patient on Protonix . Discontinue Norvasc continue with antiemetic medication, clear liquid diet Check labs today and tomorrow Labs and medication were reviewed.. Continue same treatment. Continue with symptomatic treatment. Resume home medication. Monitor lytes and vitals. DVT and GI prophylaxis. Further recommendations depends on the clinical course of the patient DVT prophylaxis: Subcutaneous heparin GI Prophylaxis: Ppi PT/OT: Pending Prognosis is guarded
[2020-08-21] MEDS: HEPARIN SODIUM,PORCINE 5,000 UNIT/ML 1 ML VIAL SQ SCH ×2 (08:51→20:59)
[2020-08-21] MEDS: PANTOPRAZOLE 40 MG TABLET PO SCH (08:51)
[2020-08-21] MEDS ORDERED: LEVOFLOXACIN 750 MG TAB PO SCH (09:00)
[2020-08-21] MEDS ORDERED: ALPRAZolam 0.5 MG TAB PO PRN (09:34)
--- NOTE | 2020-08-21 09:41 | P.PN ---
Subjective Progress Note Date: 08/21/20 Principal diagnosis: N, V, D, dehydration, KEVIN In f/u today pt mouth continues to improve, she asked for advance in her diet, states "pressure" in the suprapubic area after urinating is gone, vomited 1 time yesterday Objective - Vital Signs Vital signs: Vital Signs Temp 97.7 F 08/21/20 04:08 Pulse 78 08/21/20 04:08 Resp 17 08/21/20 04:08 BP 139/67 08/21/20 04:08 Pulse Ox 98 08/21/20 04:08 Intake & Output 08/20/20 08/21/20 08/21/20 18:59 06:59 18:59 Intake Total 120 Output Total 500 Balance 120 -500 Weight 100.698 kg Intake: Oral 120 Output: Urine 500 Other: Voiding Method Bedside Commode Bedside Commode # Voids 3 2 # Bowel Movements 1 - Constitutional General appearance: Present: cooperative, no acute distress, obese - EENT EENT Comment(s): tongue has superficial ulcerations, coated Eyes: Present: anicteric sclerae, EOMI, dentition normal ENT: Present: hearing grossly normal - Respiratory Respiratory: bilateral: CTA - Cardiovascular Rhythm: regular Heart sounds: normal: S1, S2 Abnormal Heart Sounds: Absent: systolic murmur, diastolic murmur, rub, S3 Gallop, S4 Gallop, click, other - Peripheral edema leg Peripheral Edema: bilateral: None - Gastrointestinal General gastrointestinal: Present: normal bowel sounds, soft - Neurologic Neurologic: Present: CNII-XII intact - Musculoskeletal Musculoskeletal: Present: strength equal bilaterally - Psychiatric Psychiatric: Present: A&O x's 3, appropriate affect, intact judgment & insight - Labs CBC & Chem 7: 08/20/20 08:43 08/20/20 08:43 Labs: Microbiology - Last 24 Hours (Table) 08/19/20 06:35 Blood Culture - Preliminary Blood No Growth after 48 hours 08/18/20 13:10 Urine Culture - Final Urine,Voided Escherichia coli - Imaging and Cardiology Abdominal x-ray: report reviewed Assessment and Plan (1) Nausea & vomiting Narrative/Plan: Vomit 1 time last evening, pt attributed to activity, none since IV meds ordered. Mouth care again reviewed Current Visit: Yes Status: Acute Priority: High Code(s): R11.2 - NAUSEA WITH VOMITING, UNSPECIFIED SNOMED Code(s): 42610451 (2) Dehydration Narrative/Plan: IV hydration. Pt requested advancement of her diet to full liquids. Pt still intolerant to smells Current Visit: Yes Status: Acute Priority: High Code(s): E86.0 - DEHYDRATION SNOMED Code(s): 66782515 (3) Cervical ca Narrative/Plan: Pt has completed chemo/XRT. Pt clarified today that she is not having brachytherapy. Post treatment restaging PET already sched for 09/03 at 9am, f/u with Dr. Cabrera 09/07/20 at 11AM Current Visit: Yes Status: Acute Priority: High Code(s): C53.9 - MALIGNANT NEOPLASM OF CERVIX UTERI, UNSPECIFIED SNOMED Code(s): 541307069 (4) Acute kidney injury Narrative/Plan: Acute on chronic, BUN/Cr 121/1.47 on 07/14/20, this is pt baseline. Nephrology consulted. Pt had lt ureteral stent placed 04/27. Urology consulted. May be infected, need removed/replaced. Last dose of cisplatin-which can be nephrotoxic-07/14/20. Current Visit: Yes Status: Acute Priority: High Code(s): N17.9 - ACUTE KIDNEY FAILURE, UNSPECIFIED SNOMED Code(s): 27928214 (5) Mucositis Narrative/Plan: Stable, cont salt and soda and kools. Recommend brushing teeth twice a day. Current Visit: Yes Status: Acute Priority: Medium Code(s): K12.30 - ORAL MUCOSITIS (ULCERATIVE), UNSPECIFIED SNOMED Code(s): 22669497 Plan: Stool specimen ordered as pt states watery diarrhea. Pancultures-urine shows e-coli infection. Abx choice discussed with Nephrology, renal dose adjusted by Pharmacy. Xanax ordered for anxiety
--- NOTE | 2020-08-21 12:07 | P.PN ---
Subjective Patient is seen in follow-up for acute kidney injury. Creatinine 1.8 as of yesterday. Oral intake is fair. No vomiting. Does have intermittent loose bowel movements. Blood pressure stable. Receiving IV fluids. Vital signs are stable. General: The patient appeared well nourished and normally developed. HEENT: Head exam is unremarkable. Neck is without jugular venous distension. LUNGS: Breath sounds decreased. HEART: Rate and Rhythm are regular. ABDOMEN: Soft, nontender. EXTREMITITES: No clubbing, cyanosis, or edema. Objective - Vital Signs Vital signs: Vital Signs Temp 97.7 F 08/21/20 04:08 Pulse 78 08/21/20 04:08 Resp 17 08/21/20 04:08 BP 139/67 08/21/20 04:08 Pulse Ox 98 08/21/20 04:08 Intake & Output 08/20/20 08/21/20 08/21/20 18:59 06:59 18:59 Intake Total 120 Output Total 500 Balance 120 -500 Weight 100.698 kg Intake: Oral 120 Output: Urine 500 Other: Voiding Method Bedside Commode Bedside Commode # Voids 3 2 # Bowel Movements 1 - Labs CBC & Chem 7: 08/20/20 08:43 08/20/20 08:43 Labs: Microbiology - Last 24 Hours (Table) 08/19/20 06:35 Blood Culture - Preliminary Blood No Growth after 48 hours 08/18/20 13:10 Urine Culture - Final Urine,Voided Escherichia coli Assessment and Plan Plan: Assessment: 1. Acute kidney injury mostly prerenal secondary to hypovolemia. Creatinine 1.81 as of yesterday. 2. Left-sided hydronephrosis with history of ureteral stent placement in April 2020. Ultrasound this admission shows left-sided hydronephrosis. 3. Cervical cancer. Last chemotherapy 3 weeks ago. 4. Hypovolemic hyponatremia improved with IV hydration. 5. E. coli UTI maintained on antibiotics. Plan: Maintain IV fluids. Encourage oral intake. Avoid nephrotoxins. Urology has been consulted. Patient states she has not followed up with urology since the left ureteral stent was placed. Labs from today pending
[2020-08-21 12:34] LABS: African American GFR (CKD) 39.3 (60.0-200.0); Anion Gap 6.2 mmol/L (4.00-12.00); BUN/Creat Ratio 8.13 Ratio (12.00-20.00); Calcium 8.1 mg/dL (8.7-10.3); Carbon Dioxide 23.8 mmol/L (21.6-31.8); Magnesium 1.6 mg/dL (1.5-2.4); Non-African American GFR(CKD) 33.9 (60.0-200.0); Potassium 4.1 mmol/L (3.5-5.5)
[2020-08-21 13:12] LABS: Basophils # (A) 0.03 X 10*3/uL (0.00-0.10); Basophils % (A) 0.5 %; Eosinophils % (A) 3.6 %; Lymphocytes # (A) 0.45 X 10*3/uL (0.90-5.00); Monocytes # (A) 0.56 X 10*3/uL (0.20-1.00); Neutrophils # (A) 4.26 X 10*3/uL (1.80-7.70); Neutrophils % (A) 75.8 %
[2020-08-21 13:15] LABS: HCT 20.6 % (37.2-46.3); MCH 27.7 pg (27.0-32.0); MCV 86.6 fL (80.0-97.0); Mean Platelet Volume 10.7 fL (9.5-12.2); Platelet Count 194 X 10*3/uL (140-440); RBC 2.38 X 10*6/uL (4.10-5.20); RDW 22.3 % (11.5-14.5); WBC 5.62 X 10*3/uL (4.50-10.00)
[2020-08-21 13:16] LABS: Acanthocytes 2+; Anisocytosis (M) 2+; Microcytosis (M) 2+
[2020-08-21] MEDS ORDERED: FUROSEMIDE 10 MG/ML 2 ML VIAL IV ONE (14:47)
--- NOTE | 2020-08-21 15:44 | P.GSCN ---
History of Present Illness Consult date: 08/21/20 Reason for Consult: Hydronephrosis Requesting physician: Dontae Cuadra History of present illness: The patient is a 65-year-old white female who presented last fall with urinary symptoms. She was found to have left hydronephrosis and a large pelvic mass on CT scan. She was diagnosed with Cervical Cancer. She was referred to Dr. Joshi SPECIALIST PHYSICIAN/Onc at [facility] and thought to have at least stage IIIB. Recommended concurrent chemoradiation with brachytherapy after advised. She underwent left ureteral stent insertion in April 2020 at [facility] by Dr. Seals. She completed chemoradiation on 07/20/2020. She was supposed to have brachytherapy performed, but she has not been able to undergo this due to persistent nausea, vomiting, lower abdominal pain, and bowel changes. She has experienced pain following micturition for the past 2 weeks, but states that today this has resolved. She denies hematuria. A urine culture has shown pansensitive E. coli. She is currently receiving Levaquin. Review of Systems - Constitutional Denies chills, Denies fever - Genitourinary Genitourinary: Denies dysuria, Denies hematuria Past Medical History Past Medical History: Cancer, Eye Disorder, GERD/Reflux, Hypertension, Pneumonia Additional Past Medical History / Comment(s): Cervical cancer-pt states she completed chemotherapy and has had radiation treatments-she was to have a cervical sleeve inserted then more radiation but unable to insert/secure sleeve, R ureteral stent d/t cervical tumor causing obstruction, R occular stroke-caused vision changes/received injections, UTI. History of Any Multi-Drug Resistant Organisms: None Reported Past Surgical History: Section, Cholecystectomy, Tubal Ligation Additional Past Surgical History / Comment(s): R ueteral stent, D&C, Past Anesthesia/Blood Transfusion Reactions: No Reported Reaction Smoking Status: Former smoker - Past Family History Father Family Medical History: Cancer, Diabetes Mellitus Additional Family Medical History / Comment(s): Pt thinks father had prostate cancer. Mother Family Medical History: Diabetes Mellitus, Hyperlipidemia, Hypertension, Myoca rdial Infarction ([place]), Renal Disease Additional Family Medical History / Comment(s): Mother had a [place] in her 50s. She from renal failure during dialysis. Medications and Allergies Home Medications Medication Instructions Recorded Confirmed Type amLODIPine [Norvasc] 5 mg PO HS 08/18/20 08/18/20 History Allergies Allergy/AdvReac Type Severity Reaction Status Date / Time No Known Allergies Allergy Verified 08/18/20 10:43 Surgical - Exam Vital Signs Temp Pulse Resp BP Pulse Ox 98.0 F 110 H 16 105/68 100 08/18/20 09:13 08/18/20 09:13 08/18/20 09:13 08/18/20 09:13 08/18/20 09:13 - General well developed, well nourished, no distress - Respiratory normal respiratory effort - Abdomen Abdomen: soft, non tender, no guarding, no rigid, no rebound - Psychiatric oriented to time, oriented to person, oriented to place, speech is normal, memory intact Results - Labs 08/21/20 06:32 08/21/20 06:32 Abnormal Lab Results - Last 24 Hours (Table) 08/20/20 08/20/20 Range/Units 08:43 08:43 RBC 2.73 L (3.80-5.40) m/uL Hgb 7.6 L (11.4-16.0) gm/dL Hct 22.9 L (34.0-46.0) % RDW 21.6 H (11.5-15.5) % Lymphocytes # 0.4 L (1.0-4.8) k/uL Sodium 134 L (137-145) mmol/L BUN 18 H (7-17) mg/dL Creatinine 1.81 H (0.52-1.04) mg/dL Glucose 145 H (74-99) mg/dL Microbiology - Last 24 Hours (Table) 08/18/20 13:10 Urine Culture - Final Urine,Voided Escherichia coli 08/19/20 06:35 Blood Culture - Preliminary Blood No Growth after 24 hours Diabetes panel 08/20/20 Range/Units 08:43 Sodium 134 L (137-145) mmol/L Potassium 4.2 (3.5-5.1) mmol/L Chloride 102 (98-107) mmol/L Carbon Dioxide 25 (22-30) mmol/L BUN 18 H (7-17) mg/dL Creatinine 1.81 H (0.52-1.04) mg/dL Glucose 145 H (74-99) mg/dL Calcium 8.5 (8.4-10.2) mg/dL Calcium panel 08/20/20 Range/Units 08:43 Calcium 8.5 (8.4-10.2) mg/dL Pituitary panel 08/20/20 Range/Units 08:43 Sodium 134 L (137-145) mmol/L Potassium 4.2 (3.5-5.1) mmol/L Chloride 102 (98-107) mmol/L Carbon Dioxide 25 (22-30) mmol/L BUN 18 H (7-17) mg/dL Creatinine 1.81 H (0.52-1.04) mg/dL Glucose 145 H (74-99) mg/dL Calcium 8.5 (8.4-10.2) mg/dL Adrenal panel 08/20/20 Range/Units 08:43 Sodium 134 L (137-145) mmol/L Potassium 4.2 (3.5-5.1) mmol/L Chloride 102 (98-107) mmol/L Carbon Dioxide 25 (22-30) mmol/L BUN 18 H (7-17) mg/dL Creatinine 1.81 H (0.52-1.04) mg/dL Glucose 145 H (74-99) mg/dL Calcium 8.5 (8.4-10.2) mg/dL - Imaging US - kidney/bladder: report reviewed Assessment and Plan Plan: Ms. Izquierdo developed left hydronephrosis due to a pelvic mass resulting from her cervical cancer. She has been treated with chemoradiation. It is unclear whether or not she will undergo brachytherapy. She is currently being treated for an E. coli UTI. Based on symptoms, it is much more likely that she has cystitis rather than pyelonephritis. She believes she is scheduled to undergo repeat imaging at the end of this month. Management of the stent will depend on the results of this imaging. If the pelvic mass has resolved, it would be re asonable to remove her stent in the office and monitor her hydronephrosis. Conversely, if a mass is still present, arrangements will be made for her to undergo a stent change. Ultrasound performed during this hospitalization showed moderate left hydronephrosis, but this may be chronic and I do not feel there is an absolute indication for emergent stent change. Incidentally, her E. coli UTI is pansensitive and I would suggest the antibiotics be changed to amoxicillin, which she states she tolerates better. Time with Patient: Greater than 30
--- NOTE | 2020-08-21 16:23 | PN ---
PROGRESS NOTE DATE OF SERVICE: 08/21/2020 I am covering for Dr. Cuadra. INTERVAL HISTORY: This 65-year-old woman was admitted with weakness, dizziness, nausea, dehydration, also had history of cervical cancer. The patient also had chemotherapy and radiation. The patient had diminished p.o. intake. Hemoglobin was found to be 6.6 this morning and 1 unit transfusion is being ordered. No obvious bleeding was noted. Creatinine is 1.96, improved to 1.6. The patient is complaining of weakness. Sodium is also improved from 127-138. UA shows definitely evidence of UTI. PAST MEDICAL HISTORY: Reviewed. REVIEW OF SYSTEM: CARDIOVASCULAR: No angina. RESPIRATORY: As mentioned earlier. GI: As mentioned earlier. : As mentioned earlier. NERVOUS SYSTEM: No numbness or weakness. HEMATOLOGY: As mentioned earlier. CURRENT MEDICATIONS: Reviewed and include Xanax, heparin, Levaquin, Narcan, Zofran, Protonix. PHYSICAL EXAM: GENERAL: Patient is alert, oriented x3. VITAL SIGNS: Pulse is 74, blood pressure is 170/70, respiration 16, temperature 97.4, pulse ox 99% on room air. HEENT: Conjunctivae pale. NECK: No jugular venous distention. No carotid bruits. No lymph node enlargement. RESPIRATORY: Breath sounds diminished at the bases. No rhonchi, no crackles. HEART: S1 and S2, muffled. ABDOMEN: Soft, obese, no tenderness. EXTREMITIES: No edema, no swelling. NERVOUS: No focal deficits. LABS: WBC 5.62, hemoglobin 6.6, sodium 138, potassium 4.1. ASSESSMENT: 1. Dehydration with acute prerenal and acute renal failure possibly acute tubular necrosis. 2. Cancer of the cervix status post chemotherapy and radiation. 3. Anemia multifactorial possibly secondary to malignancy and chemotherapy, status post transfusion. 4. Hyponatremia possibly hypovolemic. 5. Elevated random blood glucose. 6. Acute urinary tract infection present on admission with E-coli. 7. History of gastroesophageal reflux disease. 8. Hypertension. 9. History of pneumonia. 10.History of depression. 11.FULL CODE. 12.Obesity. RECOMMENDATIONS AND DISCUSSION: In this 65-year-old woman who presented with multiple medical problems, we will monitor the patient closely. Continue the current management, continue symptomatic treatment. Continue the antibiotics. The urine culture showed E coli which is poly sensitive. One unit transfusion with Lasix 20 mg after that and repeat CBC in the morning. Closely monitor. Further recommendations to follow. MMODL / IJN: [id number] /
[2020-08-22] MEDS: SALT AND SODA MOUTHWASH 1,000 ML PO SCH ×5 (01:55→22:26)
[2020-08-22] MEDS: SODIUM CHLORIDE 0.9% 1,000 ML IV SCH ×3 (04:15→17:49)
[2020-08-22] MEDS: ONDANSETRON 4 MG/2 ML VIAL IVP PRN (04:35)
[2020-08-22] MEDS: PANTOPRAZOLE 40 MG TABLET PO SCH (08:42)
[2020-08-22] MEDS: HEPARIN SODIUM,PORCINE 5,000 UNIT/ML 1 ML VIAL SQ SCH ×2 (08:43→22:24)
[2020-08-22] MEDS: MAG HYDROX/AL HYDROX/SIMETH 30 ML, LIDOCAINE VISCOUS 30 ML, diphenhydrAMINE ELIXIR 75 M... PO SCH ×12 (08:44→22:26)
--- NOTE | 2020-08-22 09:44 | P.PN ---
Subjective Patient is seen in follow-up for acute kidney injury. Renal function gradually improving. She received a unit of blood yesterday. No active bleeding. Oral intake is fair. No vomiting. Does have intermittent loose bowel movements. Blood pressure stable. Receiving IV fluids. Vital signs are stable. General: The patient appeared well nourished and normally developed. HEENT: Head exam is unremarkable. Neck is without jugular venous distension. LUNGS: Breath sounds decreased. HEART: Rate and Rhythm are regular. ABDOMEN: Soft, nontender. EXTREMITITES: No clubbing, cyanosis, or edema. Objective - Vital Signs Vital signs: Vital Signs Temp 97.8 F 08/22/20 05:00 Pulse 83 08/22/20 05:00 Resp 19 08/22/20 05:00 BP 116/61 08/22/20 05:00 Pulse Ox 100 08/22/20 05:00 Intake & Output 08/21/20 08/22/20 08/22/20 18:59 06:59 18:59 Intake Total 0 273 Balance 0 273 Intake: Blood Product 0 273 Rc Pheresis 2 As3 Unit 0 273 [id number] Other: Voiding Method Bedside Commode # Voids 2 # Bowel Movements 1 - Labs CBC & Chem 7: 08/21/20 06:32 08/21/20 06:32 Labs: Abnormal Lab Results - Last 24 Hours (Table) 08/21/20 08/21/20 08/21/20 Range/Units 06:32 06:32 13:57 RBC 2.38 L (4.10-5.20) X 10*6/uL Hgb 6.6 L* (12.0-15.0) g/dL Hct 20.6 L (37.2-46.3) % RDW 22.3 H (11.5-14.5) % Immature Gran # 0.12 H (0.00-0.04) X 10*3/uL Lymphocytes # 0.45 L (0.90-5.00) X 10*3/uL Creatinine 1.6 H (0.6-1.5) mg/dL Est GFR (CKD-EPI)AfAm 39.3 L (60.0-200.0) Est GFR (CKD-EPI)NonAf 33.9 L (60.0-200.0) BUN/Creatinine Ratio 8.13 L (12.00-20.00) Ratio Calcium 8.1 L (8.7-10.3) mg/dL Crossmatch See Detail Microbiology - Last 24 Hours (Table) 08/19/20 06:35 Blood Culture - Preliminary Blood No Growth after 72 hours 08/21/20 14:18 Stool Culture - Preliminary Stool Assessment and Plan Plan: Assessment: 1. Acute kidney injury mostly prerenal secondary to hypovolemia. Creatinine 1.6 as of yesterday. Creatinine as of 07/07/2020 was 1.49. 2. Left-sided hydronephrosis with history of ureteral stent placement in April 2020. Ultrasound this admission shows left-sided hydronephrosis. Seen by urology. 3. Cervical cancer. Last chemotherapy 3 weeks ago. 4. Hypovolemic hyponatremia improved with IV hydration. 5. E. coli UTI maintained on antibiotics. 6. Acute blood loss anemia status post blood transfusion on August 21. Rule out iron deficiency. Plan: Decrease normal saline to 50 mL an hour. Encourage oral intake. Avoid nephrotoxins. Labs from today pending. Check iron studies.
[2020-08-22 09:59] LABS: Basophils # (A) 0.03 X 10*3/uL (0.00-0.10); Basophils % (A) 0.6 %; Eosinophils # (A) 0.17 X 10*3/uL (0.04-0.35); Eosinophils % (A) 3.3 %; HGB 7.3 g/dL (12.0-15.0); Lymphocytes # (A) 0.43 X 10*3/uL (0.90-5.00); Lymphocytes % (A) 8.4 %; MCH 27.4 pg (27.0-32.0); MCHC 31.7 g/dL (32.0-37.0); MCV 86.5 fL (80.0-97.0); Mean Platelet Volume 10.4 fL (9.5-12.2); Monocytes % (A) 9.8 %; Neutrophils # (A) 3.83 X 10*3/uL (1.80-7.70); Neutrophils % (A) 75.3 %; Platelet Count 198 X 10*3/uL (140-440); RBC 2.66 X 10*6/uL (4.10-5.20); RDW 21.2 % (11.5-14.5); WBC 5.09 X 10*3/uL (4.50-10.00)
[2020-08-22 10:12] LABS: African American GFR (CKD) 39.3 (60.0-200.0); Anion Gap 6.6 mmol/L (4.00-12.00); BUN/Creat Ratio 6.88 Ratio (12.00-20.00); Calcium 8.2 mg/dL (8.7-10.3); Carbon Dioxide 24.4 mmol/L (21.6-31.8); Magnesium 1.5 mg/dL (1.5-2.4); Non-African American GFR(CKD) 33.9 (60.0-200.0)
[2020-08-22 11:37] LABS: % Iron Saturation 21.72 (12.00-45.00)
[2020-08-22 11:52] LABS: Ferritin 487.7 ng/mL (10.0-291.0)
[2020-08-22] MEDS ORDERED: LOPERAMIDE 2 MG CAP PO PRN (12:05)
--- NOTE | 2020-08-22 12:22 | P.PN ---
Subjective Progress Note Date: 08/22/20 Principal diagnosis: N, V, D, dehydration, KEVIN In f/u today pt is feeling much better, mouth, taste and smell are better, she is wanting to advance her diet, no vomiting, she cont to have imcontinence of stool-likely r/t local XRT but, she is noting that stool is less watery. She is up in chair and wants to get moving around. Objective - Vital Signs Vital signs: Vital Signs Temp 97.8 F 08/22/20 05:00 Pulse 83 08/22/20 05:00 Resp 19 08/22/20 05:00 BP 116/61 08/22/20 05:00 Pulse Ox 100 08/22/20 05:00 Intake & Output 08/21/20 08/22/20 08/22/20 18:59 06:59 18:59 Intake Total 0 273 Balance 0 273 Intake: Blood Product 0 273 Rc Pheresis 2 As3 Unit 0 273 [id number] Other: Voiding Method Bedside Commode # Voids 2 # Bowel Movements 1 - Constitutional General appearance: Present: cooperative, no acute distress, obese - EENT EENT Comment(s): scant thrush on the tongue, superficial ulceration Eyes: Present: anicteric sclerae, EOMI ENT: Present: hearing grossly normal - Respiratory Respiratory: bilateral: CTA - Cardiovascular Rhythm: regular Heart sounds: normal: S1, S2 Abnormal Heart Sounds: Absent: systolic murmur, diastolic murmur, rub, S3 Gallop , S4 Gallop, click, other - Peripheral edema leg Peripheral Edema: bilateral: None - Gastrointestinal General gastrointestinal: Present: normal bowel sounds, scaphoid - Neurologic Neurologic: Present: CNII-XII intact - Musculoskeletal Musculoskeletal: Present: generalized weakness - Psychiatric Psychiatric: Present: A&O x's 3, appropriate affect, intact judgment & insight - Labs CBC & Chem 7: 08/22/20 05:18 08/22/20 05:18 Labs: Abnormal Lab Results - Last 24 Hours (Table) 08/21/20 08/21/20 08/21/20 Range/Units 06:32 06:32 13:57 RBC 2.38 L (4.10-5.20) X 10*6/uL Hgb 6.6 L* (12.0-15.0) g/dL Hct 20.6 L (37.2-46.3) % MCHC (32.0-37.0) g/dL RDW 22.3 H (11.5-14.5) % Immature Gran # 0.12 H (0.00-0.04) X 10*3/uL Lymphocytes # 0.45 L (0.90-5.00) X 10*3/uL Creatinine 1.6 H (0.6-1.5) mg/dL Est GFR (CKD-EPI)AfAm 39.3 L (60.0-200.0) Est GFR (CKD-EPI)NonAf 33.9 L (60.0-200.0) BUN/Creatinine Ratio 8.13 L (12.00-20.00) Ratio Glucose (70-110) mg/dL Calcium 8.1 L (8.7-10.3) mg/dL Iron (50-170) ug/dL TIBC (228-460) ug/dL Ferritin (10.0-291.0) ng/mL Crossmatch See Detail 08/22/20 08/22/20 08/22/20 Range/Units 05:18 05:18 05:18 RBC 2.66 L (4.10-5.20) X 10*6/uL Hgb 7.3 L (12.0-15.0) g/dL Hct 23.0 L (37.2-46.3) % MCHC 31.7 L (32.0-37.0) g/dL RDW 21.2 H (11.5-14.5) % Immature Gran # 0.13 H (0.00-0.04) X 10*3/uL Lymphocytes # 0.43 L (0.90-5.00) X 10*3/uL Creatinine 1.6 H (0.6-1.5) mg/dL Est GFR (CKD-EPI)AfAm 39.3 L (60.0-200.0) Est GFR (CKD-EPI)NonAf 33.9 L (60.0-200.0) BUN/Creatinine Ratio 6.88 L (12.00-20.00) Ratio Glucose 117 H (70-110) mg/dL Calcium 8.2 L (8.7-10.3) mg/dL Iron 48 L (50-170) ug/dL TIBC 221 L (228-460) ug/dL Ferritin 487.7 H (10.0-291.0) ng/mL Crossmatch Microbiology - Last 24 Hours (Table) 08/19/20 06:35 Blood Culture - Preliminary Blood No Growth after 72 hours 08/21/20 14:18 Stool Culture - Preliminary Stool Assessment and Plan (1) Nausea & vomiting Narrative/Plan: No further Vomiting to report, pt wanting to advance diet IV meds ordered. Mouth care cont Current Visit: Yes Status: Acute Priority: High Code(s): R11.2 - NAUSEA WITH VOMITING, UNSPECIFIED SNOMED Code(s): 44826319 (2) Dehydration Current Visit: Yes Status: Resolved Priority: High Code(s): E86.0 - DEH YDRATION SNOMED Code(s): 79516787 (3) Cervical ca Narrative/Plan: Pt has completed chemo/XRT. Pt clarified today that she is not having brachytherapy. Post treatment restaging PET already sched for 09/03 at 9am, f/u with Dr. Cabrera 09/07/20 at 11AM Current Visit: Yes Status: Acute Priority: High Code(s): C53.9 - MALIGNANT NEOPLASM OF CERVIX UTERI, UNSPECIFIED SNOMED Code(s): 525752914 (4) Acute kidney injury Narrative/Plan: Acute on chronic, BUN/Cr 121/1.47 on 07/14/20, this is pt baseline. Nephrology has seen pt and monitoring nephrotoxic meds and fluid balance. Pt had lt ureteral stent placed 04/27. Urology seen pt and will decide, based on treatment f/u scans, if pt can have stent removed or if it needs to be exchanged. Abx adjusted based on recommendations. Will send pt info to Urology ofc. Last dose of cisplatin-which can be nephrotoxic-07/14/20. Current Visit: Yes Status: Acute Priority: High Code(s): N17.9 - ACUTE KIDNEY FAILURE, UNSPECIFIED SNOMED Code(s): 16679962 (5) Mucositis Narrative/Plan: Stable, cont salt and soda and kools. Cont diligent oral care Current Visit: Yes Status: Acute Priority: Medium Code(s): K12.30 - ORAL MUCOSITIS (ULCERATIVE), UNSPECIFIED SNOMED Code(s): 43195693 (6) Anemia Narrative/Plan: Unfortunately, anemia work up drawn after transfusion. Suspect iron deficiency. Transfuse to keep Hgb above 7. Will f/u with iron studies outpt and administer iron as appropriate Current Visit: Yes Status: Chronic Priority: Medium Code(s): D64.9 - ANEMIA, UNSPECIFIED SNOMED Code(s): 209079835 Plan: Stool specimen ordered as pt states watery diarrhea, neg for c-diff, culture pending, PRN imodium added as pt states stool consistency is improving. She does have incontinence of stool likely 2/2 radiation Pancultures-urine shows e-coli infection. Nephrology recs for renal dosing, U rology recs for abx adjustment. Cont Xanax ordered for anxiety
[2020-08-22] MEDS: AMOXIC-POT CLAV 500-125 MG 1 EACH TAB PO SCH ×2 (14:16→22:27)
--- NOTE | 2020-08-22 18:35 | PN ---
PROGRESS NOTE DATE OF SERVICE: 08/22/2020 I am covering for Dr. Cuadra. This 65-year-old woman who was admitted with weakness, dizziness, nausea and dehydration is being closely monitored. The patient had anemia. The patient received one unit transfusion. Hemoglobin is currently 7.2, improved from 6.6. The patient also had elevated creatinine 1.6. C difficile negative. PAST MEDICAL HISTORY: Reviewed. REVIEW OF SYSTEMS: CARDIOVASCULAR SYSTEM: No angina. RESPIRATORY: As mentioned earlier. GI: As mentioned earlier. : No dysuria. NERVOUS SYSTEM: No numbness, weakness. CURRENT MEDICATIONS: Reviewed include Tylenol, amoxicillin, Imodium, Narcan, Zofran doses reviewed. PHYSICAL EXAMINATION: Alert and oriented. Pulse 87, blood pressure 120/67, respiration 20, temp 97.2, pulse ox 98% on room air. HEENT: Conjunctivae normal. Oral mucosa moist. NECK: No jugular venous distention. No lymph node enlargement. CARDIOVASCULAR: S1, S2, muffled. No S3, no S4, RESPIRATORY: Diminished breath sounds at the bases. ABDOMEN: Soft, nontender. LEGS: No edema, no swelling. NERVOUS SYSTEM: No focal deficits. LAB: Hemoglobin 7.2. Other labs are noted. Creatinine 1.6. ASSESSMENT: 1. Dehydration with acute prerenal acute tubular necrosis, acute renal failure, present on admission. 2. Anemia, multifactorial, possibly secondary to malignancy status post blood transfusion. 3. Carcinoma of the cervix status post chemotherapy and radiation. 4. Hyponatremia, possibly hypovolemic, present on admission. 5. Elevated random blood glucose. 6. Acute urinary tract infection present on admission with Escherichia coli. 7. History of gastroesophageal reflux disease. 8. Hypertension. 9. History of pneumonia. 10.History of depression. 11.Obesity. 12.FULL CODE. RECOMMENDATIONS AND DISCUSSION: I recommend to continue current management and continue symptomatic treatment. Continue with current medications. Monitor creatinine closely. Otherwise, avoid nephrotoxic medications and I would continue with Protonix and Dr. Cuadra will follow. MMODL / IJN: [id number] /
[2020-08-23] MEDS: SALT AND SODA MOUTHWASH 1,000 ML PO SCH ×5 (00:13→20:47)
[2020-08-23] MEDS: MAG HYDROX/AL HYDROX/SIMETH 30 ML, LIDOCAINE VISCOUS 30 ML, diphenhydrAMINE ELIXIR 75 M... PO SCH ×8 (08:01→15:23)
[2020-08-23] MEDS: AMOXIC-POT CLAV 500-125 MG 1 EACH TAB PO SCH ×2 (08:01→20:47)
[2020-08-23] MEDS: HEPARIN SODIUM,PORCINE 5,000 UNIT/ML 1 ML VIAL SQ SCH ×2 (08:01→20:48)
[2020-08-23] MEDS: PANTOPRAZOLE 40 MG TABLET PO SCH (08:01)
[2020-08-23 09:23] LABS: Basophils # (A) 0.03 X 10*3/uL (0.00-0.10); Basophils % (A) 0.5 %; Eosinophils # (A) 0.24 X 10*3/uL (0.04-0.35); Eosinophils % (A) 4.1 %; HCT 24.2 % (37.2-46.3); HGB 7.5 g/dL (12.0-15.0); Lymphocytes # (A) 0.52 X 10*3/uL (0.90-5.00); Lymphocytes % (A) 8.9 %; MCH 27.1 pg (27.0-32.0); MCV 87.4 fL (80.0-97.0); Mean Platelet Volume 10.5 fL (9.5-12.2); Monocytes # (A) 0.44 X 10*3/uL (0.20-1.00); Monocytes % (A) 7.5 %; Neutrophils # (A) 4.41 X 10*3/uL (1.80-7.70); Neutrophils % (A) 75.7 %; Platelet Count 222 X 10*3/uL (140-440); RBC 2.77 X 10*6/uL (4.10-5.20); RDW 21.9 % (11.5-14.5); WBC 5.83 X 10*3/uL (4.50-10.00)
[2020-08-23 09:42] LABS: African American GFR (CKD) 36.6 (60.0-200.0); BUN/Creat Ratio 5.29 Ratio (12.00-20.00); Calcium 8.4 mg/dL (8.7-10.3); Magnesium 1.6 mg/dL (1.5-2.4); Non-African American GFR(CKD) 31.5 (60.0-200.0); Potassium 3.9 mmol/L (3.5-5.5)
[2020-08-23] MEDS ORDERED: SODIUM FERRIC GLUCONAT-SUCROSE 125 MG in SODIUM CHLORIDE 0.9% 100 ML IVPB ONE (10:40)
--- NOTE | 2020-08-23 10:41 | P.PN ---
Subjective Patient is seen in follow-up for acute kidney injury. Renal function now stable with creatinine in the range of 1.6-1.7 the last 2 days. Diarrhea mostly resolved. Oral intake is good. Vital signs are stable. General: The patient appeared well nourished and normally developed. HEENT: Head exam is unremarkable. Neck is without jugular venous distension. LUNGS: Breath sounds decreased. HEART: Rate and Rhythm are regular. ABDOMEN: Soft, nontender. EXTREMITITES: No clubbing, cyanosis, or edema. Objective - Vital Signs Vital signs: Vital Signs Temp 97.6 F 08/23/20 05:00 Pulse 76 08/23/20 05:00 Resp 16 08/23/20 05:00 BP 161/83 08/23/20 05:00 Pulse Ox 97 08/23/20 05:00 Intake & Output 08/22/20 08/23/20 08/23/20 18:59 06:59 18:59 Intake Total 400 120 Output Total 500 Balance 400 120 -500 Intake: Intake, IV Titration 400 120 Amount Sodium Chloride 0.9% 1, 400 120 000 ml @ 50 mls/hr IV . Q20H [facility] Rx#:[id number] Output: Urine 500 Other: Voiding Method Bedside Commode Bedside Commode # Voids 2 2 # Bowel Movements 0 1 - Labs CBC & Chem 7: 08/23/20 05:57 08/23/20 05:57 Labs: Abnormal Lab Results - Last 24 Hours (Table) 08/22/20 08/22/20 08/23/20 Range/Units 05:18 05:18 05:57 RBC 2.77 L (4.10-5.20) X 10*6/uL Hgb 7.5 L (12.0-15.0) g/dL Hct 24.2 L (37.2-46.3) % MCHC 31.0 L (32.0-37.0) g/dL RDW 21.9 H (11.5-14.5) % Immature Gran # 0.19 H (0.00-0.04) X 10*3/uL Lymphocytes # 0.52 L (0.90-5.00) X 10*3/uL Chloride (96-109) mmol/L Creatinine (0.6-1.5) mg/dL Est GFR (CKD-EPI)AfAm (60.0-200.0) Est GFR (CKD-EPI)NonAf (60.0-200.0) BUN/Creatinine Ratio (12.00-20.00) Ratio Glucose (70-110) mg/dL Calcium (8.7-10.3) mg/dL Iron 48 L (50-170) ug/dL TIBC 221 L (228-460) ug/dL Erythropoietin 32.40 H (2.00-30.00) mIU/mL Ferritin 487.7 H (10.0-291.0) ng/mL 08/23/20 Range/Units 05:57 RBC (4.10-5.20) X 10*6/uL Hgb (12.0-15.0) g/dL Hct (37.2-46.3) % MCHC (32.0-37.0) g/dL RDW (11.5-14.5) % Immature Gran # (0.00-0.04) X 10*3/uL Lymphocytes # (0.90-5.00) X 10*3/uL Chloride 111 H (96-109) mmol/L Creatinine 1.7 H (0.6-1.5) mg/dL Est GFR (CKD-EPI)AfAm 36.6 L (60.0-200.0) Est GFR (CKD-EPI)NonAf 31.5 L (60.0-200.0) BUN/Creatinine Ratio 5.29 L (12.00-20.00) Ratio Glucose 113 H (70-110) mg/dL Calcium 8.4 L (8.7-10.3) mg/dL Iron (50-170) ug/dL TIBC (228-460) ug/dL Erythropoietin (2.00-30.00) mIU/mL Ferritin (10.0-291.0) ng/mL Microbiology - Last 24 Hours (Table) 08/19/20 06:35 Blood Culture - Preliminary Blood No Growth after 96 hours Assessment and Plan Plan: Assessment: 1. Acute kidney injury mostly prerenal secondary to hypovolemia. Creatinine stable at 1.7 today. Creatinine as of 07/07/2020 was 1.49. 2. Left-sided hydronephrosis with history of ureteral stent placement in April 2020. Ultrasound this admission shows left-sided hydronephrosis. Seen by urology. 3. Cervical cancer. Last chemotherapy 3 weeks ago. 4. Hypovolemic hyponatremia improved with IV hydration. 5. E. coli UTI maintained on antibiotics. 6. Acute blood loss anemia status post blood transfusion on August 21. Mild iron deficiency noted. Plan: Hep-Lock IV fluids. Encourage oral intake. Avoid nephrotoxins. I will give her a dose of IV iron today.
--- NOTE | 2020-08-23 12:46 | P.PN ---
Subjective Progress Note Date: 08/23/20 Principal diagnosis: N, V, D, dehydration, KEVIN In f/u today pt is feeling much better, oral "burning" and bad taste is much improved, she is tolerating most oral intake (textures cause her irritability), N,V are controlled, stool is starting to firm up. Objective - Vital Signs Vital signs: Vital Signs Temp 97.8 F 08/23/20 12:08 Pulse 73 08/23/20 12:08 Resp 17 08/23/20 12:08 BP 169/81 08/23/20 12:08 Pulse Ox 99 08/23/20 12:08 Intake & Output 08/22/20 08/23/20 08/23/20 18:59 06:59 18:59 Intake Total 400 120 Output Total 500 Balance 400 120 -500 Intake: Intake, IV Titration 400 120 Amount Sodium Chloride 0.9% 1, 400 120 000 ml @ 50 mls/hr IV . Q20H [facility] Rx#:[id number] Output: Urine 500 Other: Voiding Method Bedside Commode Bedside Commode # Voids 2 2 # Bowel Movements 0 1 - Constitutional General appearance: Present: cooperative, no acute distress, obese - EENT EENT Comment(s): tongue has superficial ulcerations-improving Eyes: Present: anicteric sclerae, EOMI ENT: Present: hearing grossly normal - Respiratory Respiratory: bilateral: CTA - Cardiovascular Rhythm: regular Heart sounds: normal: S1, S2 Abnormal Heart Sounds: Absent: systolic murmur, diastolic murmur, rub, S3 Gallop, S4 Gallop, click, other - Gastrointestinal General gastrointestinal: Present: normal bowel sounds, soft - Integumentary Integumentary: Present: normal, pale - Neurologic Neurologic: Present: CNII-XII intact - Musculoskeletal Musculoskeletal: Present: generalized weakness, strength equal bilaterally - Psychiatric Psychiatric: Present: A&O x's 3, appropriate affect, intact judgment & insight - Labs CBC & Chem 7: 08/23/20 05:57 08/23/20 05:57 Labs: Abnormal Lab Results - Last 24 Hours (Table) 08/22/20 08/23/20 08/23/20 Range/Units 05:18 05:57 05:57 RBC 2.77 L (4.10-5.20) X 10*6/uL Hgb 7.5 L (12.0-15.0) g/dL Hct 24.2 L (37.2-46.3) % MCHC 31.0 L (32.0-37.0) g/dL RDW 21.9 H (11.5-14.5) % Immature Gran # 0.19 H (0.00-0.04) X 10*3/uL Lymphocytes # 0.52 L (0.90-5.00) X 10*3/uL Chloride 111 H (96-109) mmol/L Creatinine 1.7 H (0.6-1.5) mg/dL Est GFR (CKD-EPI)AfAm 36.6 L (60.0-200.0) Est GFR (CKD-EPI)NonAf 31.5 L (60.0-200.0) BUN/Creatinine Ratio 5.29 L (12.00-20.00) Ratio Glucose 113 H (70-110) mg/dL Calcium 8.4 L (8.7-10.3) mg/dL Erythropoietin 32.40 H (2.00-30.00) mIU/mL Microbiology - Last 24 Hours (Table) 08/19/20 06:35 Blood Culture - Preliminary Blood No Growth after 96 hours Assessment and Plan (1) Nausea & vomiting Current Visit: Yes Status: Resolved Priority: High Code(s): R11.2 - NAUSEA WITH VOMITING, UNSPECIFIED SNOMED Code(s): 73246660 (2) Dehydration Current Visit: Yes Status: Resolved Priority: High Code(s): E86.0 - DEHYDRATION SNOMED Code(s): 56781523 (3) Cervical ca Narrative/Plan: Pt has completed chemo/XRT. Pt clarified today that she is not having brachytherapy. Post treatment restaging PET already sched for 09/03 at 9am, f/u with Dr. Cabrera 09/07/20 at 11AM Current Visit: Yes Status: Acute Priority: High Code(s): C53.9 - MALIGNANT NEOPLASM OF CERVIX UTERI, UNSPECIFIED SNOMED Code(s): 923270618 (4) Acute kidney injury Current Visit: Yes Status: Resolved Priority: High Code(s): N17.9 - ACUTE KIDNEY FAILURE, UNSPECIFIED SNOMED Code(s): 90511019 (5) Mucositis Narrative/Plan: Stable, cont salt and soda and kools. Cont diligent oral care Current Visit: Yes Status: Acute Priority: Medium Code(s): K12.30 - ORAL MUCOSITIS (ULCERATIVE), UNSPECIFIED SNOMED Code(s): 12018996 (6) Anemia Narrative/Plan: Unfortunately, anemia work up drawn after transfusion. Suspect iron deficiency. Transfuse to keep Hgb above 7. Nephrology following, ordered parenteral iron. Epo level noted. Level not reflective of degree of anemia. Pt could benefit from epo supplementation but, pending f/u scans for malignancy and will see how iron supplement improves Hgb acutely. Current Visit: Yes Status: Chronic Priority: Medium Code(s): D64.9 - ANEMIA, UNSPECIFIED SNOMED Code(s): 801003251 Plan: Stool specimen ordered as pt states watery diarrhea, neg for c-diff, culture still pending. Stool is stating to firm, PRN imodium. She does have incontinence of stool likely 2/2 radiation, anticipate improvement over time Pancultures-urine shows e-coli infection. Nephrology recs for renal dosing, Urology recs for abx adjustment. Cont Xanax ordered for anxiety
[2020-08-23 13:52] LABS: HGB 6.6 g/dL (12.0-15.0)
[2020-08-24] MEDS: MAG HYDROX/AL HYDROX/SIMETH 30 ML, LIDOCAINE VISCOUS 30 ML, diphenhydrAMINE ELIXIR 75 M... PO SCH ×12 (00:44→15:21)
[2020-08-24] MEDS: SALT AND SODA MOUTHWASH 1,000 ML PO SCH ×4 (03:46→15:21)
[2020-08-24 05:17] VITALS: RESP 16
[2020-08-24] MEDS: ONDANSETRON 4 MG TAB PO PRN (06:11)
[2020-08-24] MEDS: AMOXIC-POT CLAV 500-125 MG 1 EACH TAB PO SCH (07:45)
[2020-08-24] MEDS: HEPARIN SODIUM,PORCINE 5,000 UNIT/ML 1 ML VIAL SQ SCH (07:45)
[2020-08-24] MEDS: PANTOPRAZOLE 40 MG TABLET PO SCH (07:45)
[2020-08-24 11:59] LABS: Basophils # (A) 0.05 X 10*3/uL (0.00-0.10); Basophils % (A) 0.8 %; Eosinophils # (A) 0.24 X 10*3/uL (0.04-0.35); Eosinophils % (A) 3.6 %; HCT 26.1 % (37.2-46.3); HGB 8.3 g/dL (12.0-15.0); Lymphocytes # (A) 0.59 X 10*3/uL (0.90-5.00); Lymphocytes % (A) 8.9 %; MCH 27.6 pg (27.0-32.0); MCHC 31.8 g/dL (32.0-37.0); MCV 86.7 fL (80.0-97.0); Mean Platelet Volume 10.3 fL (9.5-12.2); Monocytes # (A) 0.41 X 10*3/uL (0.20-1.00); Monocytes % (A) 6.2 %; Neutrophils # (A) 5.07 X 10*3/uL (1.80-7.70); Neutrophils % (A) 76.9 %; Platelet Count 262 X 10*3/uL (140-440); RBC 3.01 X 10*6/uL (4.10-5.20); RDW 22.2 % (11.5-14.5)
--- NOTE | 2020-08-24 12:07 | P.PN ---
Subjective Patient is seen in follow-up for acute kidney injury. Renal function now stable with creatinine in the range of 1.6-1.7 the last 2 days. Oral intake fair. Doesn't like the food here. Vital signs are stable. General: The patient appeared well nourished and normally developed. HEENT: Head exam is unremarkable. Neck is without jugular venous distension. LUNGS: Breath sounds decreased. HEART: Rate and Rhythm are regular. ABDOMEN: Soft, nontender. EXTREMITITES: No clubbing, cyanosis, or edema. Objective - Vital Signs Vital signs: Vital Signs Temp 97.9 F 08/24/20 05:00 Pulse 16 L 08/24/20 05:00 Resp 16 08/24/20 05:00 BP 127/82 08/24/20 05:00 Pulse Ox 98 08/24/20 05:00 Intake & Output 08/23/20 08/24/20 08/24/20 18:59 06:59 18:59 Intake Total 1006 590 Output Total 500 Balance 506 590 Weight 100.698 kg Intake: Intake, IV Titration 256 Amount Sodium Chloride 0.9% 1, 150 000 ml @ 50 mls/hr IV . Q20H [facility] Rx#:[id number] Sodium Ferric Gluconat- 106 Sucrose 125 mg In Sodium Chloride 0.9% 100 ml @ 100 mls/hr IVPB ONCE ONE Rx#:[id number] Oral 750 590 Output: Urine 500 Other: Voiding Method Bedside Commode Bedside Commode # Voids 4 2 # Bowel Movements 1 1 - Labs CBC & Chem 7: 08/24/20 06:23 08/23/20 05:57 Labs: Abnormal Lab Results - Last 24 Hours (Table) 08/21/20 08/24/20 Range/Units 06:32 06:23 RBC 3.01 L (4.10-5.20) X 10*6/uL Hgb 6.6 L* 8.3 L (12.0-15.0) g/dL Hct 26.1 L (37.2-46.3) % MCHC 31.8 L (32.0-37.0) g/dL RDW 22.2 H (11.5-14.5) % Immature Gran # 0.24 H (0.00-0.04) X 10*3/uL Lymphocytes # 0.59 L (0.90-5.00) X 10*3/uL Microbiology - Last 24 Hours (Table) 08/19/20 06:35 Blood Culture - Preliminary Blood No Growth after 120 hours 08/21/20 14:18 Stool Culture - Preliminary Stool Assessment and Plan Plan: Assessment: 1. Acute kidney injury mostly prerenal secondary to hypovolemia. Creatinine stable at 1.7 as of yesterday. Creatinine as of 07/07/2020 was 1.49. 2. Left-sided hydronephrosis with history of ureteral stent placement in April 2020. Ultrasound this admission shows left-sided hydronephrosis. Seen by urology. 3. Cervical cancer. Last chemotherapy 3 weeks ago. 4. Hypovolemic hyponatremia improved with IV hydration. 5. E. coli UTI maintained on antibiotics. 6. Acute blood loss anemia status post blood transfusion on August 21. Mild iron deficiency noted Status post IV iron yesterday.- Plan: Encourage oral intake. Avoid nephrotoxins. Anticipate discharge soon. Follow up outpatient in 2 weeks.
[2020-08-24 12:08] VITALS: BP 150/80; PULSE 82; TEMP 97.8
--- NOTE | 2020-08-24 14:32 | P.PN ---
Subjective Progress Note Date: 08/24/20 Principal diagnosis: N, V, D, dehydration, KEVIN In f/u today pt having mild diarrhea, some nausea and dry heaves, feels that she could maybe eat better at home, she is in general feeling decent. Objective - Vital Signs Vital signs: Vital Signs Temp 97.9 F 08/24/20 05:00 Pulse 16 L 08/24/20 05:00 Resp 16 08/24/20 05:00 BP 127/82 08/24/20 05:00 Pulse Ox 98 08/24/20 05:00 Intake & Output 08/23/20 08/24/20 08/24/20 18:59 06:59 18:59 Intake Total 1006 590 Output Total 500 Balance 506 590 Weight 100.698 kg Intake: Intake, IV Titration 256 Amount Sodium Chloride 0.9% 1, 150 000 ml @ 50 mls/hr IV . Q20H [facility] Rx#:[id number] Sodium Ferric Gluconat- 106 Sucrose 125 mg In Sodium Chloride 0.9% 100 ml @ 100 mls/hr IVPB ONCE ONE Rx#:[id number] Oral 750 590 Output: Urine 500 Other: Voiding Method Bedside Commode Bedside Commode # Voids 4 2 # Bowel Movements 1 1 - Constitutional General appearance: Present: cooperative, no acute distress, obese - EENT Eyes: Present: anicteric sclerae, EOMI, poor dentition ENT: Present: hearing grossly normal - Respiratory Respiratory: bilateral: CTA - Cardiovascular Rhythm: regular Heart sounds: normal: S1, S2 Abnormal Heart Sounds: Absent: systolic murmur, diastolic murmur, rub, S3 Gallop, S4 Gallop, click, other - Peripheral edema leg Peripheral Edema: bilateral: None - Gastrointestinal General gastrointestinal: Present: normal bowel sounds, soft - Neurologic Neurologic: Present: CNII-XII intact - Musculoskeletal Musculoskeletal: Present: strength equal bilaterally - Psychiatric Psychiatric: Present: A&O x's 3, appropriate affect, intact judgment & insight - Labs CBC & Chem 7: 08/24/20 06:23 08/23/20 05:57 Labs: Abnormal Lab Results - Last 24 Hours (Table) 08/21/20 Range/Units 06:32 Hgb 6.6 L* (12.0-15.0) g/dL Microbiology - Last 24 Hours (Table) 08/19/20 06:35 Blood Culture - Preliminary Blood No Growth after 120 hours 08/21/20 14:18 Stool Culture - Preliminary Stool Assessment and Plan (1) Nausea & vomiting Narrative/Plan: Pt states nausea and dry heaves attributing to food. Cont antiemetics PRN. Tolerant of most fluids Current Visit: Yes Status: Acute Priority: High Code(s): R11.2 - NAUSEA WITH VOMITING, UNSPECIFIED SNOMED Code(s): 70325933 (2) Dehydration Current Visit: Yes Status: Resolved Priority: High Code(s): E86.0 - DEHYDRATION SNOMED Code(s): 85329794 (3) Cervical ca Narrative/Plan: Pt has completed chemo/XRT. Pt clarified today that she is not having brachytherapy. Post treatment restaging PET already sched for 09/03 at 9am, f/u with Dr. Cabrera 09/07/20 at 11AM Current Visit: Yes Status: Acute Priority: High Code(s): C53.9 - MALIGNANT NEOPLASM OF CERVIX UTERI, UNSPECIFIED SNOMED Code(s): 269607906 (4) Acute kidney injury Narrative/Plan: Acute on chronic, BUN/Cr 121/1.47 on 07/14/20, this is pt baseline. Nephrology has seen and treated pt, improvement of cr back to baseline. Pt had lt ureteral stent placed 04/27. Urology seen pt and will decide, based on treatment f/u scans, if pt can have stent removed or if it needs to be exchanged. Abx adjusted based on recommendations. Pt info/referral sent to [facility]. Last dose of cisplatin-which can be nephrotoxic-07/14/20. Current Visit: Yes Status: Resolved Priority: High Code(s): N17.9 - ACUTE KIDNEY FAILURE, UNSPECIFIED SNOMED Code(s): 76537279 (5) Mucositis Narrative/Plan: Stable, better then on admit, cont salt and soda and kools. Cont oral care. Current Visit: Yes Status: Acute Priority: Medium Code(s): K12.30 - ORAL MUCOSITIS (ULCERATIVE), UNSPECIFIED SNOMED Code(s): 80496098 (6) Anemia Narrative/Plan: Unfortunately, anemia work up drawn after transfusion. Suspect iron deficiency. Transfuse to keep Hgb above 7. Nephrology following, ordered parenteral iron. Epo level noted. Level not reflective of degree of anemia. Pt could benefit from epo supplementation but, pending f/u scans for malignancy and will see how iron supplement improves Hgb acutely. Current Visit: Yes Status: Chronic Priority: Medium Code(s): D64.9 - ANEMIA, UNSPECIFIED SNOMED Code(s): 434620678 Plan: Stool specimen ordered as pt states watery diarrhea, neg for c-diff, culture still pending. PRN imodium. She does have some incontinence of stool, likely 2/2 radiation, anticipate improvement over time Pancultures-urine shows e-coli infection. Nephrology recs for renal dosing, Urology recs for abx adjustment. Cont Xanax ordered for anxiety Doctor attests: I performed a history and physical examination of this patient, developed im pression and plan of care, discussed with dictator. I agree with dictators note, documented as a scribe.
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
--- NOTE | 2020-08-24 20:01 | DS ---
DISCHARGE SUMMARY CHIEF COMPLAINT: Intractable nausea and vomiting and dehydration with a history of carcinoma of the cervix. HISTORY OF PRESENT ILLNESS AND PHYSICAL EXAMINATION: Details of this lady's history and physical can be found in the initial workup. LABORATORY STUDIES: While she was in the hospital she had laboratory studies, details of which can be found in the laboratory section of her chart. COURSE IN THE HOSPITAL: After admission she was placed on bedrest and started on intravenous fluids and antiemetics. Nausea and vomiting stopped. She was rehydrated. She did require transfusion of one unit of packed cells. She was seen by Oncology. She was doing well and was eating and it was felt that she could be discharged on 08/24. She will go home on her usual activity, diet as tolerated, and we will set her up with home care. FINAL DIAGNOSES: 1. Dehydration. 2. Intractable nausea, vomiting, diarrhea. 3. History of carcinoma of the cervix. 4. Anemia. OPERATIONS: None. CONSULTATION: Oncology. She is improved. MMODL / IJN: [id number] /
[2020-08-25 07:01] LABS: Methylmalonic Acid 0.22 umol/L (<0.40)
== END 2020-08-24 16:08 | disposition home health service (06) | DRG 683 ==
LOC: EC 09:11 → 6NMEDSUR 14:07 → OBSVTOIN 14:07 → 6NMEDSUR 16:13 → 5NMEDONC 16:35 → 6NMEDSUR 08-19 08:13 → 5NMEDONC 08-19 09:27
PROVIDERS: ADMIT Family Medicine; ATTEND Family Medicine
PROC: 30233N1 Transfusion of Nonautologous Red Blood Cells into Peripheral Vein, Percutaneous Approach (ICD-10-PCS; principal; 2020-08-18)
DX: N17.0 Acute kidney failure with tubular necrosis (principal); D62 Acute posthemorrhagic anemia; E87.1 Hypo-osmolality and hyponatremia; Z68.41 Body mass index [BMI] 40.0-44.9, adult; C53.9 Malignant neoplasm of cervix uteri, unspecified; B96.20 Unspecified Escherichia coli [E. coli] as the cause of diseases classified elsewhere; D50.9 Iron deficiency anemia, unspecified; N13.6 Pyonephrosis; E86.0 Dehydration; E66.9 Obesity, unspecified; K12.30 Oral mucositis (ulcerative), unspecified; E86.1 Hypovolemia; T45.1X5A Adverse effect of antineoplastic and immunosuppressive drugs, initial encounter; K59.00 Constipation, unspecified; H54.7 Unspecified visual loss; D64.9 Anemia, unspecified; Z20.822 Contact with and (suspected) exposure to COVID-19; I95.1 Orthostatic hypotension; R00.0 Tachycardia, unspecified; K21.9 Gastro-esophageal reflux disease without esophagitis; I10 Essential (primary) hypertension; F32.9 Major depressive disorder, single episode, unspecified; R26.9 Unspecified abnormalities of gait and mobility; F17.200 Nicotine dependence, unspecified, uncomplicated; Z91.14 Patient's other noncompliance with medication regimen; I69.812 Visuospatial deficit and spatial neglect following other cerebrovascular disease; Z96.89 Presence of other specified functional implants; Z90.49 Acquired absence of other specified parts of digestive tract; Z98.891 History of uterine scar from previous surgery; Z98.51 Tubal ligation status; Z79.899 Other long term (current) drug therapy; Z87.01 Personal history of pneumonia (recurrent); Z87.440 Personal history of urinary (tract) infections; Z92.21 Personal history of antineoplastic chemotherapy; Z92.3 Personal history of irradiation; Z83.3 Family history of diabetes mellitus; Z80.42 Family history of malignant neoplasm of prostate; Z82.49 Family history of ischemic heart disease and other diseases of the circulatory system; Z86.73 Personal history of transient ischemic attack (TIA), and cerebral infarction without residual deficits
CPT/HCPCS: 36415; 70450; 71046; 74018; 76770; 80048; 80053; 81001; 82607; 82668; 82728; 82747; 83540; 83550; 83605; 83735; 83921; 84100; 84484; 85025; 85610; 85730; 86850; 86900; 86901; 86920; 87040; 87045; 87046; 87077; 87086; 87186; 87324; 87635; 93005; 96361; 96365; 96375; 96376; 99285

== ENCOUNTER → 2020-10-15 | Outpatient (CLI) | payer OTHER ==
--- NOTE | 2020-10-17 13:52 | CT ---
"EXAMINATION TYPE: CT ChestAbdPelvis w con DATE OF EXAM: 10/15/2020 INDICATION: cervical CA COMPARISON: PET scan 05/21/2020 CT DLP: 2193.2 mGycm CONTRAST: Performed with Oral Contrast and with IV Contrast, patient injected with 100 mL of Isovue 300. TECHNIQUE: Axial images at 5 mm thick sections. Reconstructed images in the coronal plane. Delayed images through the kidneys. FINDINGS: CT CHEST: Portion of the thyroid visualized is normal. There is a 0.7 cm nodule within the posterior. There is a 1 cm nodule within the peripheral posterior right upper lung field. Series 4 image 21. There is a nodule within the anterior left midlung measur ing 1.6 cm. Series 4 image 24. There is a 0.8 cm nodule within the right midlung. Series 4 image 29. There is a 1.2 cm nodule along the major fissure periphery right midlung. Series 4 image 38. Nodules are an interval development of these can be reevaluated and confirmed metastatic with PET scan. No enlarged mediastinal or hilar adenopathy is evident. The ascending aorta diameter at the level of the main pulmonary artery is 3.3 cm. The main pulmonary artery diameter at the bifurcation is 0.[address] ABDOMEN: Liver: Mild fatty infiltration within the liver. Spleen: Normal Pancreas: Normal Adrenal glands: Mild thickening of the adrenal glands is present and appears stable. Gallbladder: Normal Kidneys: No masses are evident. No hydronephrosis is present. No cysts are present. Delayed images were obtained through the kidneys, which remain unremarkable. Left ureteral stent is present. Left k idney is smaller than the right. Aorta: Vascular calcification is within the aorta. Inferior vena cava: Normal. CT PELVIS: Anterior abdominal wall hernia in the upper pelvis with an opening of 4.2 cm. This contain s mesenteric fat. No loops of bowel are involved. Loops of bowel within the abdomen and pelvis are normal. There are loops of bowel which are incom pletely distended or lack oral contrast limiting their evaluation. Appendix: Normal as visualized. Urinary bladder: Normal. Genitourinary structures: Uterus and ovaries appear normal Osseous structures: No suspicious lytic or sclerotic lesions. Advanced Degenerative changes are at th e right hip. Degenerative disc changes are within the lumbar spine. IMPRESSIONS: 1. New lung nodules present bilaterally patible with metastatic disease. Consider restaging with PET/ CT. 2. Mild fatty infiltration of liver. 3. Anterior abdominal wall hernia containing mesenteric fat. A Yellow level critical message alert has been initiated for Pineda Cabrera MD via the [employer] 36 0 | Critical Results System on 10/17/2020 1:50 PM. This message alert has been sent to Pineda Cabrera MD via the preferences provided by the clinician for the receipt of Radiology Critical Findings. [facility] ID [id number]."
== END | disposition home or self-care (01) ==
LOC: RADCTMAIN 08:10
PROVIDERS: ATTEND Internal Medicine Hematology & Oncology
DX: C53.9 Malignant neoplasm of cervix uteri, unspecified (principal); K43.9 Ventral hernia without obstruction or gangrene; K76.0 Fatty (change of) liver, not elsewhere classified
CPT/HCPCS: 71260; 74177; Q9967

== ENCOUNTER → 2021-02-14 | Outpatient (CLI) | payer OTHER ==
--- NOTE | 2021-02-15 08:24 | CT ---
EXAMINATION TYPE: CT ChestAbdPelvis wo con DATE OF EXAM: 02/14/2021 COMPARISON: 10/15/2020 and 05/21/2020 HISTORY: 66-year-old female C53.1 follow-up cervical cancer, Z03.89. TECHNIQUE: Contiguous axial scanning of the chest, abdomen, and pelvis without IV contrast. Coronal a nd sagittal reconstructions performed. IV contrast was not administered due to patient's kidney funct ion. CT DLP: 1499 mGycm Automated exposure control for dose reduction was used. FINDINGS: CHEST: Heart normal size without pericardial effusion. Aorta normal caliber with minimal atherosclerotic arch calcifications and conventional branching linda vivien. No thoracic lymphadenopathy by CT size criteria. Pulmonary nodules are improving, for example, posterior right mid lung measures 5 mm now versus 8 mm, previously. 1 cm right middle lobe nodule previously measured 1.3 cm. 7 mm subpleural posterior right midlung pulmonary nodule previously measured 1 cm. Dominant 1.6 cm anterior left midlung pulmonary nodule while larger 1.9 cm now shows extensive internet marketing consultant al cavitation. No consolidation or pleural effusion. ABDOMEN: Liver enlarged at 20.7 cm. Otherwise, noncontrast appearance of the liver, right adrenal gland, splee n, pancreas within normal limits. Cholecystectomy clips. Interval removal of the left ureteral stent now with at least moderate left hydronephrosis and mild h ydroureter. Moderate-sized periumbilical hernia measuring 5.1 cm wide redemonstrated. No dilated small bowel, fluid, or free air. Low-density 1.6 cm left adrenal nodularity is unchanged suggesting a lipid rich adrenal adenoma. The previously hypermetabolic right common iliac chain lymph node shows further decrease in size now measuring 5 mm, axial image 97 versus 7 mm on 10/15/2020. No progressive mesenteric or retroperitoneal lymphadenopathy. Normal appendix. Oral contrast progressed to the ascending colon. Mild stool burden. The anterior wall of the upper rectum focally contacts the cervix, refer to axial image 110 and 111. There is some air within the upper vaginal canal. In addition, the left ureter extends into some irregular thickening just adjacent, reference axial im ages 107 through 110. PELVIS: Bladder urine distended. Mild periventricular haziness/fat stranding. No abnormal fluid collection in the pelvis. No pelvic lymphadenopathy seen. Uterus anteverted. Ovaries are visualized. Pelvic phlebo lith. Changes to the distal left ureter and anterior wall of the upper rectum as mentioned above. BONES: Moderate degenerative change at the hips. Hypertrophic facet arthropathy mid to lower lumbar spine wi th grade 1 anterolisthesis L4-L5. Anterior endplate spondylosis lower thoracic spine. No osseous dest ructive process. IMPRESSION: 1. PARTIAL TREATMENT RESPONSE. THE PATIENT'S BILATERAL PULMONARY NODULES ARE DECREASING IN SIZE. THE DOMINANT LEFT UPPER LOBE NODULE, WHILE SLIGHTLY LARGER SHOWS EXTENSIVE NEW CENTRAL CAVITATION ALSO FA VORED TO REPRESENT TREATMENT RESPONSE. 2. THE PREVIOUSLY HYPERMETABOLIC RIGHT COMMON ILIAC CHAIN LYMPH NODE SHOWS FURTHER DECREASE IN SIZE N OW 5 MM VERSUS 7 MM, PREVIOUSLY. NO NEW OR PROGRESSIVE LYMPHADENOPATHY. 3. INTERVAL REMOVAL OF THE PATIENT'S LEFT URETERAL STENT NOW WITH NEW MODERATE HYDRONEPHROSIS. URETER AL OBSTRUCTION LIKELY OCCURRING IN THE LEFT SIDE OF THE PELVIS WHERE WE SUSPECT PRIOR NEOPLASTIC INVA CURTIS AND NOW WITH RESIDUAL IRREGULAR TISSUE WHICH COULD REPRESENT TREATED DISEASE/SCAR. 4. FOCAL CONTACT OF THE ANTERIOR WALL OF THE UPPER RECTUM TO THE POSTERIOR WALL OF THE CERVIX. THE PO SSIBILITY OF A SUBTLE UNDERLYING FISTULA HERE IS NOT EXCLUDED AT THIS TIME. OVERALL APPEARANCE IS [facility] HANGED FROM 10/25/2020.
== END | disposition home or self-care (01) ==
LOC: RADCTMAIN 12:48
PROVIDERS: ATTEND Internal Medicine Hematology & Oncology
DX: C53.9 Malignant neoplasm of cervix uteri, unspecified (principal); N13.1 Hydronephrosis with ureteral stricture, not elsewhere classified
CPT/HCPCS: 36415; 71250; 74176; 82565; 84520

== ENCOUNTER → 2021-05-20 | Outpatient (CLI) | payer OTHER ==
--- NOTE | 2021-05-20 14:42 | CT ---
EXAMINATION TYPE: CT ChestAbdPelvis wo con DATE OF EXAM: 05/20/2021 COMPARISON: 02/14/2021 HISTORY: Cervical cancer. CT DLP: 1518.4 mGycm. Automated Exposure Control for Dose Reduction was Utilized. TECHNIQUE: CT scan of the thorax, abdomen and pelvis is performed without IV contrast. FINDINGS: CHEST: Heart normal size without pericardial effusion. Aorta normal caliber with minimal atherosclero tic arch calcifications and conventional branching anatomy. No thoracic lymphadenopathy by CT size cr iteria. Pulmonary nodules are improving, for example, posterior right mid lung measures 4 mm now versus 5 mm, previously. 1 cm right middle lobe nodule previously measured now measures 0.7 cm. 7 mm subpleural posterior right midlung pulmonary nodule now measures 0.4 cm. Dominant 1.5 cm anterior left midlung pulmonary nodule and previously measured 1.8 cm and continues t o show internal cavitation. No consolidation or pleural effusion. Findings a single new area of nodul arity in the right lower lobe axial image 40 measuring 1.2 cm with central lucency. Possibly inflamma tory although neoplastic process not excluded. Subtle groundglass changes in the periphery of the lung could represent atelectasis rather than pneum onitis correlate clinically. ABDOMEN: Liver enlarged at 20.7 cm. Otherwise, noncontrast appearance of the liver, right adrenal gla nd, spleen, pancreas within normal limits. Cholecystectomy clips. Stable left-sided hydronephrosis wi th atrophic change of the left kidney. Moderate-sized periumbilical hernia measuring 5.1 cm wide redemonstrated. No dilated small bowel, flu id, or free air. Low-density 1.6 cm left adrenal nodularity is unchanged suggesting a lipid rich adre nal adenoma. The previously hypermetabolic right common iliac chain lymph node now measuring 5 mm, is stable. No p rogressive mesenteric or retroperitoneal lymphadenopathy. Normal appendix. Bowel gas pattern nonspecific. PELVIS: Bladder urine distended. Mild periventricular haziness/fat stranding. No abnormal fluid colle ction in the pelvis. No pelvic lymphadenopathy seen. Uterus anteverted. Ovaries are visualized. Pelvi c phlebolith. Changes to the distal left ureter and anterior wall of the upper rectum as mentioned ab ove. BONES: Arthropathy of the hips. Hypertrophic facet. Anterior endplate spondylosis lower thoracic spin e. No osseous destructive process. IMPRESSION: 1. PARTIAL TREATMENT RESPONSE. THE PATIENT'S BILATERAL PULMONARY NODULES ARE DECREASING IN SIZE. THE DOMINANT LEFT UPPER LOBE NODULE, NOW SMALLER AND CONTINUES TO DEMONSTRATE NEW CENTRAL CAVITATION ALSO FAVORED TO REPRESENT TREATMENT RESPONSE. THERE IS A SINGLE NEW NODULE SEEN IN THE RIGHT LOWER LOBE A XIAL IMAGE 41 MEASURING 1.2 CM WITH CENTRAL LUCENCY IS NOT DEFINITIVELY SEEN ON PRIOR EXAM POSSIBLY P OSTINFLAMMATORY AND SHORT-TERM FOLLOW-UP RECOMMENDED.. 2. THE PREVIOUSLY HYPERMETABOLIC RIGHT COMMON ILIAC CHAIN LYMPH NODE SHOWS STABLE AND NONPATHOLOGIC I N SIZE. THE. NO NEW OR PROGRESSIVE LYMPHADENOPATHY. 3. STABLE LEFT HYDRONEPHROSIS.
== END | disposition home or self-care (01) ==
LOC: RADCTMAIN 11:56
PROVIDERS: ATTEND Internal Medicine Hematology & Oncology
DX: C53.9 Malignant neoplasm of cervix uteri, unspecified (principal); R91.8 Other nonspecific abnormal finding of lung field; N13.30 Unspecified hydronephrosis
CPT/HCPCS: 82565; 84520; 71250; 74176; 36415; Q9967

== ENCOUNTER → 2021-10-03 | Outpatient (CLI) | payer OTHER ==
--- NOTE | 2021-10-03 20:26 | CT ---
EXAMINATION TYPE: CT ChestAbdPelvis wo con DATE OF EXAM: 10/03/2021 COMPARISON: CT dated 05/20/2021 HISTORY: cervical CA CT DLP: 669 mGycm. Automated Exposure Control for Dose Reduction was Utilized. TECHNIQUE: CT scan of the thorax, abdomen and pelvis is performed without IV contrast. FINDINGS: Suboptimal CT scan with ring artifacts. LUNGS: Smaller left upper lobe anterior cavitary lesion measuring 15 mm compared to 18 mm previously yet with some density within. Stable 7 mm nodule in the right lung base. The described irregular nodu le in the right lung base posteriorly has almost completely resolved in the interim likely represente d an inflammatory/infectious process. Stable 3 mm nodule along the superior aspect of the left obliqu e fissure. The previously seen scattered pulmonary areas of infiltration and groundglass opacities jacinto ve almost completely resolved with residual minimal fibrotic changes/atelectasis at these locations. No new or progressive lung lesion. Patent trachea and main bronchi. No pleural effusion. MEDIASTINUM: No gross cardiomegaly. Scattered arterial atherosclerotic calcifications. No pathologica lly enlarged lymph nodes in the chest. OTHER: No aggressive bone lesion. LIVER/GB: No definite hepatic focal lesion by this nonenhanced CT scan. Previous cholecystectomy. PANCREAS: Atrophic. SPLEEN: No significant abnormality is seen. ADRENALS: No significant abnormality is seen. KIDNEYS: Atrophic left kidney with chronic left-sided hydronephrosis. Unremarkable right kidney with no right-sided hydroureter or hydronephrosis. Grossly unremarkable urinary bladder. BOWEL: Unremarkable stomach, duodenum and small bowel. Scattered uncomplicated colonic diverticulosi s. Normal appendix. REPRODUCTIVE ORGANS: Small uterine cervix. No gross uterine body mass. No gross adnexal mass. LYMPH NODES: No greater than 1 cm abdominal or pelvic lymph nodes are appreciated. OSSEOUS STRUCTURES: Osteopenia. Degenerative changes of the lumbar spine. Severe degenerative changes of the right hip joint. No aggressive bone lesion. OTHER: Scattered arterial atherosclerotic calcifications. No sizable ascites. Large fat-containing um bilical hernia. IMPRESSION: Stable right lung base and left oblique fissure nodules with a smaller left upper lobe cavitary lesio n as described above. Regression of the previously seen bilateral pulmonary areas of infiltration and groundglass opacities with residual changes as described above. No evidence of metastatic disease seen in the chest, abdomen or the pelvis otherwise with the limitat ion of this nonenhanced artifactual CT images. Other interval changes and incidental findings as desc ribed above.
== END | disposition home or self-care (01) ==
LOC: RADCTMAIN 13:08
PROVIDERS: ATTEND Internal Medicine Hematology & Oncology
DX: C53.1 Malignant neoplasm of exocervix (principal); R91.8 Other nonspecific abnormal finding of lung field; J98.4 Other disorders of lung
CPT/HCPCS: 36415; 71250; 74176; 82565; 84520

== ENCOUNTER → 2022-05-02 | Outpatient (CLI) | payer MEDICARE, OTHER ==
--- NOTE | 2022-05-02 11:40 | CT ---
EXAMINATION TYPE: CT ChestAbdPelvis wo con DATE OF EXAM: 05/02/2022 COMPARISON: 10/03/2021, 05/20/2021 HISTORY: 67-year-old female C53.1, cervical cancer, Follow up on cervical ca and spots found on lungs . TECHNIQUE: Contiguous axial scanning of the chest, abdomen, and pelvis without IV contrast. Coronal a nd sagittal reconstructions performed. CT DLP: 2126.3 mGycm Automated exposure control for dose reduction was used. FINDINGS: Lack of IV contrast limits assessment of the mediastinal/hilar structures, solid abdominal viscera, l ymph nodes, and vascular structures. CHEST: Heart normal size without pericardial effusion. Mild LAD coronary artery calcifications are present. Mild atherosclerotic arch calcifications. Conventional arch vessel branching anatomy. No thoracic lymphadenopathy by CT size criteria. Lungs show mild emphysematous change. Mild diffuse bronchial wall thickening. Some strandy and slight ly groundglass areas of probable scarring noted in the lungs, similar to prior. -An 8 to 9 mm nodule lateral right middle lobe axial image 35 is unchanged. -A 4 mm pulmonary nodule left upper lung along the major fissure remains unchanged. -The previous cavitary nodule anterior left upper lobe now shows only minimal residual patchy density , axial image 19. -A 4 mm right upper lobe pulmonary nodule, axial image 18 not seen previously. No new consolidation or pleural effusion. ABDOMEN: A 6 mm right retrocrural lymph node remains unchanged. No other mesenteric or retroperitoneal lymphad enopathy is seen. There is a tight fatty umbilical hernia measuring 5.5 cm wide versus 5.3 cm wide, previously. No asso ciated inflammatory changes. Liver enlarged at 23.0 cm. Otherwise, noncontrast appearance of the liver, right adrenal gland, splee n, and mildly atrophic pancreas show no gross abnormal body. Cholecystectomy clips. Similar nodular thickening of the left adrenal gland. There is persistent moderate to severe left-sided hydronephrosis and left-sided hydroureter with a cu t off of the dilated left ureter near the level of the left lateral cervical fornix, axial image 114. Left kidney is measuring relatively smaller. There is newly developed moderate hydronephrosis on the right with mild perinephric edema. No obstruc ting stone is seen. No dilated small bowel, free fluid, or free air. Normal appendix. Mild to moderate stool burden. Mildly redundant sigmoid colon. Mild proximal to mid sigmoid diverticulosis. No pericolic inflammatory change. PELVIS: There is some pelvic floor relaxation. Bladder is minimally distended. Uterus appears anteverted. Sma ll bilateral ovaries. A few small bilateral pelvic phleboliths. No abnormal fluid collection in the p nuria or pelvic lymphadenopathy seen. Some fluid density again noted at the perineum, either distal u rethra or near the lower vagina. BONES: Moderate to severe degenerative change right hip and moderate at the left hip. Advanced hypertrophic facet arthropathy mid to lower lumbar spine. Moderate degenerative disc disease mid and lower lumbar spine. Trace grade 1 anterolisthesis L4-L5 and L5-S1. Prominent anterior endplate spondylosis lower t horacic spine. No osseous destructive process is seen. IMPRESSION: 1. TWO OF THE PULMONARY NODULES MEASURING UP TO 9 MM REMAIN UNCHANGED. PREVIOUS LEFT UPPER LOBE CAVIT TINO NODULE HAS LARGELY RESOLVED. 2. HOWEVER, THERE IS A 4 MM RIGHT UPPER LOBE PULMONARY NODULE, AXIAL IMAGE 18, NOT CLEARLY SEEN PREVI OUSLY. THIS IS NONSPECIFIC AND ONGOING CLOSE FOLLOW-UP RECOMMENDED. NO OTHER METASTATIC DISEASE SEEN WITHIN THE CHEST, ABDOMEN, OR PELVIS. 3. ONGOING MODERATE TO SEVERE LEFT-SIDED HYDRONEPHROSIS. POSSIBLE DISTAL LEFT URETERAL OBSTRUCTION FR OM SCARRING/STRICTURE. HOWEVER, THERE IS NEW MODERATE RIGHT SIDED HYDRONEPHROSIS. NO OBSTRUCTING STON E IS SEEN. RECOMMEND FURTHER UROLOGY EVALUATION. 4. INCIDENTAL: TIGHT FATTY UMBILICAL HERNIA AT 5.5 CM WIDE VERSUS 5.3 CM, PREVIOUSLY. SIGMOID DIVERTI CULOSIS. MILD PELVIC FLOOR RELAXATION
== END | disposition home or self-care (01) ==
LOC: RADCTMAIN 09:12
PROVIDERS: ATTEND Internal Medicine Hematology & Oncology
DX: Z03.89 Encounter for observation for other suspected diseases and conditions ruled out (principal); C53.1 Malignant neoplasm of exocervix
CPT/HCPCS: 36415; 71250; 74176; 82565; 84520

== ENCOUNTER 2022-05-10 11:39 | Inpatient (IN) | payer MEDICARE, OTHER ==
[2022-05-10 12:16] LABS: Basophils # (A) 0.1 k/uL (0-0.2); Basophils % (A) 2 %; Eosinophils # (A) 0.2 k/uL (0-0.7); Eosinophils % (A) 3 %; HCT 38.9 % (34.0-46.0); HGB 13.1 gm/dL (11.4-16.0); Lymphocytes # (A) 1.2 k/uL (1.0-4.8); Lymphocytes % (A) 17 %; MCH 28.9 pg (25.0-35.0); MCHC 33.7 g/dL (31.0-37.0); MCV 85.7 fL (80.0-100.0); Mean Platelet Volume 8.8; Monocytes # (A) 0.3 k/uL (0-1.0); Monocytes % (A) 5 %; Neutrophils # (A) 4.8 k/uL (1.3-7.7); Neutrophils % (A) 71 %; Platelet Count 369 k/uL (150-450); RBC 4.54 m/uL (3.80-5.40); RDW 14.1 % (11.5-15.5); WBC 6.8 k/uL (3.8-10.6)
[2022-05-10 12:27] LABS: Calcium 9.3 mg/dL (8.4-10.2); Magnesium 1.6 mg/dL (1.6-2.3); Potassium 5.2 mmol/L (3.5-5.1); Total Bilirubin 0.3 mg/dL (0.2-1.3); Total Protein 7.2 g/dL (6.3-8.2)
--- NOTE | 2022-05-10 12:28 | ED ---
Chest Pain HPI - General Chief Complaint: Chest Pain Stated Complaint: chest pain Time Seen by Provider: 05/10/22 12:03 Source: patient Mode of arrival: wheelchair Limitations: no limitations - History of Present Illness Initial Comments: This patient is a 67-year-old woman who presents with complaint that she has not felt well going back approximately 2 weeks now. The patient complains of fatigue, chest pain, nausea and vomiting. She was seen and diagnosed with urinary tract infection then and did have course of antibiotics and states that had cleared her urine but she is not feeling well. She went to follow up and was directed to come to the emergency department. Complaint: chest pain Onset/Timin -: week(s) Onset: during rest Pain Location: substernal Pain Radiation: LUE Severity: mild Quality: heaviness Consistency: intermittent Improves With: nothing Worsens With: nothing Treatments Prior to Arrival: none - Related Data Home Medications Medication Instructions Recorded Confirmed amLODIPine [Norvasc] 5 mg PO HS 08/18/20 05/10/22 Ondansetron [Zofran] 4 mg PO TID PRN 05/10/22 05/10/22 Pantoprazole Sodium [Protonix] 20 mg PO BID 05/10/22 05/10/22 lisinopriL [Zestril] 10 mg PO DAILY 05/10/22 05/10/22 Allergies Allergy/AdvReac Type Severity Reaction Status Date / Time No Known Allergies Allergy Verified 05/10/22 14:40 Review of Systems ROS Statement: Those systems with pertinent positive or pertinent negative responses have been documented in the HPI. ROS Other: All systems not noted in ROS Statement are negative. Constitutional: Reports: weakness. Denies: fever, chills Respiratory: Denies: cough, dyspnea Cardiovascular: Reports: chest pain. Denies: palpitations, orthopnea, edema Gastrointestinal: Reports: nausea, vomiting. Denies: abdominal pain, diarrhea Genitourinary: Denies: dysuria, hematuria Musculoskeletal: Denies: back pain Skin: Denies: rash Neurological: Denies: headache, weakness, numbness EKG Findings - EKG Comments: EKG Findings:: Possible old anterior infarct. - EKG Results: EKG: interpreted by GUCCI, sinus rhythm (Rate 84 bpm) - Blocks, [place], Hypertrophy, ST Abn: QRS axis and voltage: left axis deviation (-30 to -90) Past Medical History Past Medical History: Cancer, CVA/TIA, Eye Disorder, GERD/Reflux, Hypertension, Pneumonia Additional Past Medical History / Comment(s): Cervical cancer-pt states she completed chemotherapy and has had radiation treatments-she was to have a cervical sleeve inserted then more radiation but unable to insert/secure sleeve, R ureteral stent d/t cervical tumor causing obstruction, R occular stroke- caused vision changes/received injections, UTI. History of Any Multi-Drug Resistant Organisms: None Reported Past Surgical History: Section, Cholecystectomy, Tubal Ligation Additional Past Surgical History / Comment(s): R ueteral stent, D&C, Past Anesthesia/Blood Transfusion Reactions: No Reported Reaction Past Psychological History: Depression Smoking Status: Current every day smoker Past Alcohol Use History: None Reported Past Drug Use History: None Reported - Past Family History Father Family Medical History: Cancer, Diabetes Mellitus Additional Family Medical History / Comment(s): Pt thinks father had prostate cancer. Mother Family Medical History: Diabetes Mellitus, Hyperlipidemia, Hypertension, Myocardial Infarction ([place]), Renal Disease Additional Family Medical History / Comment(s): Mother had a [place] in her 50s. She from renal failure during dialysis. General Exam Limitations: no limitations General appearance: alert, in no apparent distress Head exam: Present: atraumatic, normocephalic Eye exam: Present: normal appearance. Absent: scleral icterus, conjunctival injection Neck exam: Present: normal inspection Respiratory exam: Present: normal lung sounds bilaterally. Absent: respiratory distress, wheezes, rales, rhonchi, stridor Cardiovascular Exam: Present: regular rate, normal rhythm, normal heart sounds. Absent: systolic murmur, diastolic murmur, rubs, gallop GI/Abdominal exam: Present: soft. Absent: distended, tenderness, guarding, rebound, rigid, mass Extremities exam: Present: normal inspection, normal capillary refill. Absent: pedal edema, calf tenderness Back exam: Present: normal inspection. Absent: CVA tenderness (R), CVA tenderness (L) Neurological exam: Present: alert Skin exam: Present: warm, dry, intact, normal color. Absent: rash Course Vital Signs 05/10/22 05/10/22 05/10/22 11:42 14:46 17:14 Temperature 97.9 F Pulse Rate 105 H 85 Pulse Rate [ 92 Pulse Oximetery ] Respiratory 18 20 Rate Blood Pressure 95/66 116/66 O2 Sat by Pulse 97 98 Oximetry Disposition Clinical Impression: COVID-19, Dehydration, Acute on chronic renal failure Disposition: ADMITTED IP TO THIS HOSP Condition: Fair Is patient prescribed a controlled substance at d/c from ED?: No
[2022-05-10 12:34] LABS: Partial Thromboplastin Time 24.7 sec (22.0-30.0); Prothrombin Time 11.2 sec (9.0-12.0)
--- NOTE | 2022-05-10 13:10 | XR ---
EXAMINATION TYPE: XR chest 2V DATE OF EXAM: 05/10/2022 COMPARISON: 08/18/2020 TECHNIQUE: PA and lateral views submitted. HISTORY: Chest pain FINDINGS: The lungs are clear and there is no pneumothorax, pleural effusion, or focal pneumonia. Heart size normal. No overt failure. Hypertrophic and degenerative changes of the spine. Arthropathy of the shou lders. Surgical clips in the abdomen. IMPRESSION: 1. No acute process.
[2022-05-10] MEDS ORDERED: NALOXONE 0.4 MG/ML 1 ML VIAL IV PRN (15:52)
[2022-05-10] MEDS ORDERED: MAG HYDROX/AL HYDROX/SIMETH 30 ML CUP PO PRN (15:52)
[2022-05-10] MEDS ORDERED: ACETAMINOPHEN TAB 325 MG TAB PO PRN (15:52)
[2022-05-10] MEDS ORDERED: TEMAZEPAM 15 MG CAP PO PRN (15:52)
[2022-05-10] MEDS: ONDANSETRON 4 MG TAB PO PRN (17:10)
[2022-05-10] MEDS: SODIUM CHLORIDE 0.9% 1,000 ML IV SCH (17:10)
[2022-05-10 17:33] LABS: Creatinine,Urine Random 204.2 mg/dL
[2022-05-10 18:14] LABS: Appearance,Urine Cloudy (Clear); Bacteria,Urine Rare /hpf; Bilirubin,Urine Negative (Negative); Blood,Urine Small (Negative); Color,Urine Yellow; Glucose,Urine (UA) Negative (Negative); Ketones,Urine Negative (Negative); Leukocyte Esterase,Urine Negative (Negative); Mucus,Urine Rare /hpf; Nitrite,Urine Negative (Negative); Protein,Urine 1+ (Negative); RBC,Urine 4 /hpf (0-5); Specific Gravity,Urine 1.015 (1.001-1.035); Squamous Epithelial Cell,Urine 1 /hpf (0-4); Urobilinogen,Urine <2.0 mg/dL (<2.0); WBC,Urine 3 /hpf (0-5)
[2022-05-10] MEDS: FAMOTIDINE 20 MG TAB PO SCH (20:38)
[2022-05-11] MEDS: SODIUM CHLORIDE 0.9% 1,000 ML IV SCH ×2 (04:17→17:21)
[2022-05-11] MEDS: FAMOTIDINE 20 MG TAB PO SCH (08:22)
[2022-05-11] MEDS ORDERED: ONDANSETRON 4 MG TAB PO PRN (11:11)
[2022-05-11 12:54] VITALS: BMI 37.4
[2022-05-11] MEDS: amLODIPine 5 MG TAB PO SCH (20:52)
[2022-05-12] MEDS: SODIUM CHLORIDE 0.9% 1,000 ML IV SCH ×2 (02:59→15:56)
[2022-05-12] MEDS: PANTOPRAZOLE 40 MG TABLET PO SCH (05:47)
[2022-05-12] MEDS: ONDANSETRON 4 MG TAB PO PRN (05:55)
--- NOTE | 2022-05-12 06:40 | HP ---
HISTORY AND PHYSICAL CHIEF COMPLAINT: Dehydration and renal failure. HISTORY OF PRESENT ILLNESS: This is another admission for this 67-year-old somewhat noncompliant female. She presented to the office and then was transferred to the emergency room due to her dehydration and deteriorating renal function. She has been having difficulty with nausea, vomiting, and diarrhea. She has had no hematemesis, melena, or hematochezia. She has a history of having GFR down as low as 21. It recently was up to around 32. She has refused to go to Nephrology. REVIEW OF SYSTEMS: She has had no headaches, neurologic problems, chest pain, shortness of breath, history of heart disease, jaundice, acholic stools, dark urine, diabetes. Past medical history, family history, personal and social histories reveal that she is not allergic to any medication. MEDICATIONS: She is currently on, 1. Ondansetron p.r.n. 2. ProAir HFA. 3. Protonix 20 mg twice a day. 4. Symbicort 160-4.5 two puffs twice a day. 5. Lisinopril 10 mg once a day. 6. Vitamin D. 7. Flexeril. 8. Vicodin. 9. Amlodipine. SOCIAL HISTORY: She does still smoke, but she does not drink. PHYSICAL EXAMINATION: VITAL SIGNS: Blood pressure is 102/60 with a pulse of 95 and regular, respirations of 36, and she is afebrile. GENERAL: She appeared to be pale and chronically ill. HEENT: Head, ears, eyes, nose, mouth and throat were normal except for a cyst on the right lower eyelid and a nevus on her left cheek. NECK: Carotids are normal. Neck veins are not distended. CHEST: Clear. CARDIAC: Exam was normal, sinus rhythm. ABDOMEN: Soft and nontender. There are no masses or visceromegaly. EXTREMITIES: Normal. NEUROLOGICAL: She is intact. DIAGNOSES: She is admitted to the hospital with diagnoses, 1. Nausea, vomiting, diarrhea. 2. Dehydration. 3. Stage IV chronic kidney disease. PLAN: 1. Bedrest. 2. IV fluids. 3. Rehydrate. 4. Consult with Nephrology. MMODL / IJN: [id number] /
[2022-05-12] MEDS: FAMOTIDINE 20 MG TAB PO SCH (08:33)
[2022-05-12] MEDS ORDERED: lisinopriL 10 MG TAB PO SCH (09:00)
[2022-05-12 10:23] LABS: African American GFR (CKD) 16 (>60 ml/min/1.73 sqM); Anion Gap 8 mmol/L; Blood Urea Nitrogen 35 mg/dL (7-17); Calcium 8.5 mg/dL (8.4-10.2); Carbon Dioxide 20 mmol/L (22-30); Chloride 109 mmol/L (98-107); Glucose 107 mg/dL (74-99); Non-African American GFR(CKD) 14 (>60 ml/min/1.73 sqM); Sodium 137 mmol/L (137-145)
--- NOTE | 2022-05-12 11:30 | P.NPCON ---
History of Present Illness - Reason for Consult acute renal failure - History of Present Illness Patient is a 67-year-old female who is admitted to the hospital with complaints of nausea vomiting and diarrhea. She tested positive for COVID-19. Chest x-ray does not show any significant findings. O2 sats are 97% on room air. Patient has underlying CK D and was seen at our office about a year ago. She h as not followed up. Patient states that she she would like to be seen sooner than in July which is her next scheduled appointment. No history of use of NSAIDs No urinary symptoms Serum creatinine was 3.79 admission and decreased to 3.28 today. Maintained on IV fluids. Blood pressure is on the lower side and patient was maintained on SHANE inhibitor's. Previous creatinine 1.8-1.9 from December 2020 and September 2021 Review of Systems As per HPI. Other systems negative Past Medical History Past Medical History: Cancer, CVA/TIA, Eye Disorder, GERD/Reflux, Hypertension, Pneumonia Additional Past Medical History / Comment(s): Cervical cancer-pt states she completed chemotherapy and has had radiation treatments-she was to have a cervical sleeve inserted then more radiation but unable to insert/secure sleeve, R ureteral stent d/t cervical tumor causing obstruction, R occular stroke-caused vision changes/received injections, UTI, walks with walker History of Any Multi-Drug Resistant Organisms: None Reported Past Surgical History: Section, Cholecystectomy, Tubal Ligation Additional Past Surgical History / Comment(s): R ueteral stent, D&C, Past Anesthesia/Blood Transfusion Reactions: No Reported Reaction Past Psychological History: Depression Additional Psychological History / Comment(s): Pt resides with her [facility] and her family. Pt has been very weak, mostly staying in bed. Her heather and family members are her caregivers, manage her meds and take her to appts. Pt states she has increased depression r/t cancer diagnosis and being weak for so long. She denies any thoughts/plans of suicide. Smoking Status: Current every day smoker Past Alcohol Use History: None Reported Additional Past Alcohol Use History / Comment(s): Pt started smoking in 1971 but has not smoked in past 2 months. Past Drug Use History: None Reported - Past Family History Father Family Medical History: Cancer, Diabetes Mellitus Additional Family Medical History / Comment(s): Pt thinks father had prostate cancer. Mother Family Medical History: Diabetes Mellitus, Hyperlipidemia, Hypertension, Myocardial Infarction ([place]), Renal Disease Additional Family Medical History / Comment(s): Mother had a [place] in her 50s. She from renal failure during dialysis. Medications and Allergies Home Medications Medication Instructions Recorded Confirmed Type amLODIPine [Norvasc] 5 mg PO HS 08/18/20 05/10/22 History Ondansetron [Zofran] 4 mg PO TID PRN 05/10/22 05/10/22 History Pantoprazole Sodium [Protonix] 20 mg PO BID 05/10/22 05/10/22 History lisinopriL [Zestril] 10 mg PO DAILY 05/10/22 05/10/22 History Allergies Allergy/AdvReac Type Severity Reaction Status Date / Time No Known Allergies Allergy Verified 05/10/22 14:40 Physical Exam Vitals: Vital Signs Temp Pulse Resp BP Pulse Ox 05/12/22 06:11 97.6 F 73 20 125/69 97 05/12/22 01:24 98.1 F 71 20 110/60 95 05/11/22 22:36 97.6 F 79 16 117/71 96 05/11/22 20:00 97.9 F 76 18 131/76 94 L 05/11/22 14:00 97.7 F 65 18 100/53 96 Intake and Output 05/11/22 05/12/22 05/12/22 22:59 06:59 14:59 Intake Total 1260 Output Total 3 Balance -3 1260 Intake: Intake, IV Titration 900 Amount Sodium Chloride 0.9% 1, 900 000 ml @ 75 mls/hr IV . [id number] [facility] Rx#:[id number] Oral 360 Output: Urine 3 Other: # Voids 3 Patient is comfortable, awake no acute distress Examination of the heart S1 and S2 Examination of the lungs decreased breath sounds at the bases Abdomen is soft nontender Examination lower extremity shows no significant edema [employer] exam grossly intact Results - Lab Results Most recent lab results Calcium 8.5 mg/dL (8.4-10.2) 05/12/22 09:32 Magnesium 1.6 mg/dL (1.6-2.3) 05/10/22 12:08 05/10/22 12:08 05/12/22 09:32 Assessment and Plan Assessment: 1. Acute kidney injury associated with volume depletion and hypotension in the setting of use of SHANE inhibitor's. Currently nonoliguric. UA shows 1+ protein and small blood. Ultrasound of the kidneys in August 2020 showed moderate left hydronephrosis. 2. Chronic kidney disease NKF stage IIIB with baseline creatinine about 1.8-1.9 mg/dL with baseline GFR about 3134 mL per minute. Etiology is likely nephrosclerosis. 3. Left hydronephrosis noted on ultrasound in August 2020. Imaging will be repeated 4. COVID-19 infection with negative chest x-ray. Mostly GI symptoms 5. Hypertension with CK D controlled Plan: Hold Shane inhibitors Continue with IV fluids Repeat ultrasound of the kidneys Repeat labs in a.m. Avoid nephrotoxic agents Patient is advised that she will need follow-up in about 1-2 weeks post discharge. Next Thank you for the consultation. We will continue to follow the patient with you during her hospitalization
--- NOTE | 2022-05-12 12:09 | PN ---
PROGRESS NOTE CHIEF COMPLAINT: Dehydration, nausea, vomiting, diarrhea, and CKD. HISTORY OF PRESENT ILLNESS: This lady is feeling a little bit better. The diarrhea has stopped and nausea is getting better. PHYSICAL EXAMINATION: VITAL SIGNS: Normal. CHEST: Clear. CARDIAC: Normal. ABDOMEN: Soft, nontender. IMPRESSION: 1. Gastroenteritis. 2. Dehydration. 3. Stage IV chronic kidney disease. PLAN: Continue with IV fluids and consult Nephrology. MMODL / IJN: [id number] /
--- NOTE | 2022-05-12 13:08 | US ---
EXAMINATION TYPE: US kidneys/renal and bladder DATE OF EXAM: 05/12/2022 COMPARISON: NONE CLINICAL HISTORY: left hydronephrosis. history of hydronephrosis EXAM MEASUREMENTS: Right Kidney: 11.5 x 5.2 x 4.7 cm Left Kidney: 11.8 x 6.0 x 5.0 cm *technical limitations due to patient's body habitus and large amount of overlying bowel content Right Kidney: mild hydronephrosis Left Kidney: limited evaluation, moderate to severe hydronephrosis Bladder: appears wnl Bilateral Jets seen: no No nephrolithiasis is seen. No masses are identified. The urinary bladder is anechoic. IMPRESSION: Mild right-sided hydronephrosis. Moderate to severe left-sided hydronephrosis.
[2022-05-12] MEDS: amLODIPine 5 MG TAB PO SCH (20:27)
[2022-05-13] MEDS: FAMOTIDINE 20 MG TAB PO SCH (09:27)
[2022-05-13] MEDS: PANTOPRAZOLE 40 MG TABLET PO SCH (09:27)
[2022-05-13] MEDS: SODIUM CHLORIDE 0.9% 1,000 ML IV SCH (13:48)
--- NOTE | 2022-05-13 17:26 | P.PN ---
Subjective Progress Note Date: 05/13/22 Follow-up for acute kidney injury. Denies any nausea vomiting diarrhea. Wants to go home. Tolerating diet. Objective - Vital Signs Vital signs: Vital Signs Temp 98.2 F 05/13/22 14:00 Pulse 64 05/13/22 14:00 Resp 17 05/13/22 14:00 BP 126/60 05/13/22 14:00 Pulse Ox 98 05/13/22 14:00 FiO2 Intake & Output 05/12/22 05/13/22 05/13/22 18:59 06:59 18:59 Other: # Voids 3 1 - Exam No acute distress S1-S2 heard Lungs clear Abdomen soft No edema - Labs CBC & Chem 7: 05/10/22 12:08 05/12/22 09:32 Assessment and Plan Assessment: #1 acute kidney injury suspect prerenal physiology/COVID-19 ATN. -Obstructive uropathy with bilateral hydronephrosis. #2 chronic kidney disease stage IIIB with a baseline creatinine of 1.9 MG per DL. #3 COVID-19 pneumonia #4 hydronephrosis, rule out bladder outlet obstruction Plan: #1 place Sims catheter #2 Urology evaluation #3 agree with holding ELLA inhibitor's. #4 labs in the morning
--- NOTE | 2022-05-13 18:07 | PN ---
PROGRESS NOTE DATE OF SERVICE: 05/12/2022 CHIEF COMPLAINT: Dehydration, COVID, and renal failure. HISTORY OF PRESENT ILLNESS: This lady is doing fairly well. She has had no fever, chills, nausea, vomiting, etc. BUN and creatinine have dropped slightly. She is being seen and followed by Nephrology. PHYSICAL EXAMINATION: GENERAL: She is awake and alert. VITAL SIGNS: Normal. CHEST: Clear. CARDIAC: Normal. ABDOMEN: Soft and nontender. IMPRESSION: 1. Dehydration. 2. Prerenal azotemia. 3. Chronic renal failure. PLAN: Await further recommendations from Nephrology. MMODL / IJN: [id number] /
--- NOTE | 2022-05-13 18:14 | PN ---
PROGRESS NOTE CHIEF COMPLAINT: Dehydration and chronic renal failure. HISTORY OF PRESENT ILLNESS: This lady is being followed by Nephrology. Ultrasound reveals that she has bilateral hydronephrosis. PHYSICAL EXAMINATION: CHEST: Clear. CARDIAC: Normal. ABDOMEN: Soft and nontender. IMPRESSION: 1. Dehydration. 2. Prerenal azotemia. 3. Chronic renal failure. 4. Bilateral hydronephrosis. PLAN: Urology consult. MMODL / IJN: [id number] /
[2022-05-13] MEDS: amLODIPine 5 MG TAB PO SCH (20:54)
[2022-05-14] MEDS: SODIUM CHLORIDE 0.9% 1,000 ML IV SCH ×2 (09:32→15:06)
[2022-05-14] MEDS: FAMOTIDINE 20 MG TAB PO SCH (09:34)
[2022-05-14] MEDS: PANTOPRAZOLE 40 MG TABLET PO SCH (09:34)
--- NOTE | 2022-05-14 10:06 | P.GSCN ---
History of Present Illness Consult date: 05/14/22 History of present illness: 67-year-old female in the hospital with dehydration and apparent positive: With pneumonia. She is found to have renal insufficiency the creatinine in the high 3 range. The patient has a known history of cervical cancer treated at [facility] chemotherapy and radiation therapy in early 2020. She was initially diagnosed her and transferred to [place] because of a large pelvic mass. She had left-sided hydronephrosis at that point in time. Apparently stent was placed but subsequently has been removed. She had a computed tomography scan on this admission showing the chronic hydronephrosis on the left but does not appear to be any worse but some mild hydronephrosis which is new on the right. She is relatively asymptomatic at this point in time. She is being treated with keytruda by Dr. Cabrera. The status of her cancer is clear to me at this point in time. Review of Systems All systems: negative - Constitutional Denies fever, Denies weight loss - EENT Eyes: denies blurred vision Ears, nose, mouth and throat: Denies dysphagia - Cardiovascular Denies chest pain, Denies shortness of breath - Respiratory Denies cough, Denies 7 - Gastrointestinal Reports as per HPI - Genitourinary Genitourinary: Denies dysuria, Denies hematuria - Integumentary Denies rash, Denies unusual bruising - Neurological Denies headaches, Denies syncope - Hematologic/Lymphatic Denies easy bleeding, Denies easy bruising Past Medical History Past Medical History: Cancer, CVA/TIA, Eye Disorder, GERD/Reflux, Hypertension, Pneumonia Additional Past Medical History / Comment(s): Cervical cancer-pt states she completed chemotherapy and has had radiation treatments-she was to have a cervical sleeve inserted then more radiation but unable to insert/secure sleeve, R ureteral stent d/t cervical tumor causing obstruction, R occular stroke-caused vision changes/received injections, UTI, walks with walker History of Any Multi-Drug Resistant Organisms: None Reported Past Surgical History: Section, Cholecystectomy, Tubal Ligation Additional Past Surgical History / Comment(s): R ueteral stent, D&C, Past Anesthesia/Blood Transfusion Reactions: No Reported Reaction Past Psychological History: Depression Additional Psychological History / Comment(s): Pt resides with her Loren romero and her family. Pt has been very weak, mostly staying in bed. Her heather and family members are her caregivers, manage her meds and take her to appts. Pt states she has increased depression r/t cancer diagnosis and being weak for so long. She denies any thoughts/plans of suicide. Smoking Status: Current every day smoker Past Alcohol Use History: None Reported Additional Past Alcohol Use History / Comment(s): Pt started smoking in 1971 but has not smoked in past 2 months. Past Drug Use History: None Reported - Past Family History Father Family Medical History: Cancer, Diabetes Mellitus Additional Family Medical History / Comment(s): Pt thinks father had prostate cancer. Mother Family Medical History: Diabetes Mellitus, Hyperlipidemia, Hypertension, Myocardial Infarction (PR), Renal Disease Additional Family Medical History / Comment(s): Mother had a PR in her 50s. She from renal failure during dialysis. Medications and Allergies Home Medications Medication Instructions Recorded Confirmed Type amLODIPine [Norvasc] 5 mg PO HS 08/18/20 05/10/22 History Ondansetron [Zofran] 4 mg PO TID PRN 05/10/22 05/10/22 History Pantoprazole Sodium [Protonix] 20 mg PO BID 05/10/22 05/10/22 History lisinopriL [Zestril] 10 mg PO DAILY 05/10/22 05/10/22 History Allergies Allergy/AdvReac Type Severity Reaction Status Date / Time No Known Allergies Allergy Verified 05/10/22 14:40 Surgical - Exam Vital Signs Temp Pulse Resp BP Pulse Ox 97.9 F 105 H 18 95/66 97 05/10/22 11:42 05/10/22 11:42 05/10/22 11:42 05/10/22 11:42 05/10/22 11:42 - General well developed, well nourished, no distress - Eyes PERRL - ENT no hearing loss - Neck trachea midline - Respiratory normal expansion, normal respiratory effort - Cardiovascular Rhythm: regular - Abdomen Abdomen: soft, non tender - Neurologic normal sensation - Musculoskeletal normal posture - Psychiatric oriented to time, oriented to person, oriented to place, speech is normal, memory intact Results - Labs 05/10/22 12:08 05/12/22 09:32 - Imaging CT scan - abdomen: report reviewed, image reviewed CT scan - pelvis: report reviewed, image reviewed Assessment and Plan Assessment: Impression: Dehydration resolving. Positive: covid , cervical carcinoma status post radiation and chemotherapy. Chronic left hydronephrosis no onset right hydronephrosis. Renal insufficiency. Recommendations: The patient's labs from today are pending. Assuming her cancer is still in remission then she would probably benefit from double-J catheters to relieve the obstruction which could either be due to metastatic disease or as a result of treatment for the cervical carcinoma. We will discuss with oncology the status of her cancer. The cancer is still treatable then stents at some point in time in the relatively near future would be appropriate. This has been discussed with the patient. If the patient is discharged home today the stent could be done as an outpatient.
[2022-05-14 12:52] LABS: African American GFR (CKD) 17.6 (60.0-200.0); Anion Gap 12.4 mmol/L (10.00-18.00); BUN/Creat Ratio 10.19 Ratio (12.00-20.00); Blood Urea Nitrogen 31.4 mg/dL (9.0-27.0); Calcium 8.5 mg/dL (8.7-10.3); Non-African American GFR(CKD) 15.2 (60.0-200.0); Potassium 5.2 mmol/L (3.5-5.5)
--- NOTE | 2022-05-14 16:45 | P.PN ---
Subjective Progress Note Date: 05/14/22 Follow-up for acute kidney injury. Denies any nausea vomiting diarrhea. Wants to go home. Tolerating diet. Objective - Vital Signs Vital signs: Vital Signs Temp 98.1 F 05/14/22 14:00 Pulse 72 05/14/22 14:00 Resp 18 05/14/22 14:00 BP 167/80 05/14/22 14:00 Pulse Ox 99 05/14/22 14:00 FiO2 Intake & Output 05/13/22 05/14/22 05/14/22 19:59 06:59 18:59 Intake Total Output Total 800 Balance -800 Intake: Intake, IV Titration Amount Sodium Chloride 0.9% 1, 000 ml @ 75 mls/hr IV . [id number] [facility] Rx#:[id number] Oral Output: Urine 800 Other: Voiding Method Indwelling Catheter # Bowel Movements - Exam No acute distress S1-S2 heard Lungs clear Abdomen soft No edema - Labs CBC & Chem 7: 05/10/22 12:08 05/14/22 07:21 Labs: Abnormal Lab Results - Last 24 Hours (Table) 05/14/22 Range/Units 07:21 Chloride 112 H (96-109) mmol/L Carbon Dioxide 13.0 L (20.0-27.5) mmol/L BUN 31.4 H (9.0-27.0) mg/dL Creatinine 3.1 H (0.6-1.5) mg/dL Est GFR (CKD-EPI)AfAm 17.6 L (60.0-200.0) Est GFR (CKD-EPI)NonAf 15.2 L (60.0-200.0) BUN/Creatinine Ratio 10.19 L (12.00-20.00) Ratio Glucose 114 H (70-110) mg/dL Calcium 8.5 L (8.7-10.3) mg/dL Assessment and Plan Assessment: #1 acute kidney injury suspect prerenal physiology/COVID-19 ATN. -Obstructive uropathy with bilateral hydronephrosis. #2 chronic kidney disease stage IIIB with a baseline creatinine of 1.9 MG per DL. #3 COVID-19 pneumonia #4 cervical cancer status post radiation Plan: #1 renal function slightly improvement. #2 appreciate urology input #3 agree with holding ELLA inhibitor's. #4 avoid nephrotoxic agents and hypotensive episodes.
[2022-05-14] MEDS: amLODIPine 5 MG TAB PO SCH (20:01)
[2022-05-15] MEDS: SODIUM CHLORIDE 0.9% 1,000 ML IV SCH (02:30)
[2022-05-15] MEDS: PANTOPRAZOLE 40 MG TABLET PO SCH (08:26)
[2022-05-15] MEDS: FAMOTIDINE 20 MG TAB PO SCH (08:26)
--- NOTE | 2022-05-15 08:58 | P.PN ---
Subjective Progress Note Date: 05/15/22 Principal diagnosis: Pneumonia The patient is [id number] female in the hospital with dehydration and pneumonia. She did test positive for COVID. She wass found to have renal in sufficiency the creatinine in the high 3 range. The patient has a known history of cervical cancer treated at [facility] chemotherapy and radiation therapy in early 2020. She was initially diagnosed her and transferred to [place] because of a large pelvic mass. She had left-sided hydronephrosis at that point in time. Apparently stent was placed but subsequently has been removed. She had a computed tomography scan on this admission showing the chronic hydronephrosis on the left, but does not appear to be any worse. Ther is also some mild hydronephrosis on the right, which is new. She is being treated with keytruda by Dr. Cabrera. Objective - Vital Signs Vital signs: Vital Signs Temp 98.1 F 05/15/22 08:00 Pulse 76 05/15/22 08:00 Resp 18 05/15/22 08:00 BP 145/85 05/15/22 08:00 Pulse Ox 98 05/15/22 08:00 FiO2 Intake & Output 05/14/22 05/15/22 05/15/22 18:59 06:59 18:59 Output Total 1400 1100 Balance -1400 -1100 Output: Urine 1400 1100 Other: Voiding Method Indwelling Catheter Indwelling Catheter # Voids 2 - Exam General: Well developed, well nourished. No acute distress. Chronically ill appearing HEENT: Head is atraumatic, normocephalic. Lungs: Respirations even and nonlabored. Abdomen/GI: Soft. No guarding, rigidity, or abdominal tenderness. : Braden catheter in place draining clear, yellow urine Musculoskeletal/ Extremities: PADILLA, no joint deformity or swelling. No gross atrophy. Skin: Warm and dry, No rash or lesions. Neurologic: Awake, alert and oriented times 3. CN II-XII grossly intact. No focal deficits. Psychiatric: Emotional - Labs CBC & Chem 7: 05/10/22 12:08 05/15/22 09:09 Labs: Abnormal Lab Results - Last 24 Hours (Table) 05/14/22 Range/Units 07:21 Chloride 112 H (96-109) mmol/L Carbon Dioxide 13.0 L (20.0-27.5) mmol/L BUN 31.4 H (9.0-27.0) mg/dL Creatinine 3.1 H (0.6-1.5) mg/dL Est GFR (CKD-EPI)AfAm 17.6 L (60.0-200.0) Est GFR (CKD-EPI)NonAf 15.2 L (60.0-200.0) BUN/Creatinine Ratio 10.19 L (12.00-20.00) Ratio Glucose 114 H (70-110) mg/dL Calcium 8.5 L (8.7-10.3) mg/dL Assessment and Plan Assessment: The patient is sitting on the bedside. She is emotional and stating she just wants to go home. She is afebrile and vitals are stable. She is requesting that her braden catheter be taken out. She reports that she was voiding fine before it was put in. From our stand point it can be removed, but explained to her that nephrology would decide when it can come out. She would probably benefit from double-J catheters to relieve the obstruction which could either be due to metastatic disease or as a result of treatment for the cervical carcinoma. We will discuss with oncology the status of her cancer. If the cancer is still treatable, then stents at some point in time in the relatively near future would be appropriate. This can be done as an outpatient surgery. Plan: - Ok to remove braden from urology standpoint - Monitor Serum Creatinine, BMP ordered for today - Stent placement as outpatient Impression and plan of care have been directed as dictated by the signing physician. Rossy Reid nurse practitioner acting as scribe for signing physician. Rossy Reid [facility] Palliative Care/Urology Spectralink [id number] Email: [email or web address] I personally performed and participated in the history, physical, the decision making, I agree with the assessment and plan of [employer]EL[employer] Time with Patient: Less than 30
[2022-05-15] MEDS ORDERED: SODIUM BICARB 8.4% 50 ML SYR (1 MEQ/ML) IV STA (10:23)
--- NOTE | 2022-05-15 10:24 | P.PN ---
Subjective Patient is seen in follow-up for acute kidney injury on chronic kidney disease. Has a Sims catheter. Nonoliguric. Oral intake fair. No vomiting or diarrhea. Hemodynamically stable. On room air. Vital signs are stable. General: Awake. No acute distress. HEENT: Head exam is unremarkable. LUNGS: Breath sounds decreased. HEART: Rate and Rhythm are regular. ABDOMEN: Soft, obese. EXTREMITITES: No edema. Objective - Vital Signs Vital signs: Vital Signs Temp 98.1 F 05/15/22 08:00 Pulse 76 05/15/22 08:00 Resp 18 05/15/22 08:00 BP 145/85 05/15/22 08:00 Pulse Ox 98 05/15/22 08:00 FiO2 Intake & Output 05/14/22 05/15/22 05/15/22 18:59 06:59 18:59 Output Total 1400 1100 800 Balance -1400 -1100 -800 Output: Urine 1400 1100 800 Uretheral (Sims) 800 Other: Voiding Method Indwelling Catheter Indwelling Catheter # Voids 2 - Labs CBC & Chem 7: 05/10/22 12:08 05/14/22 07:21 Labs: Abnormal Lab Results - Last 24 Hours (Table) 05/14/22 Range/Units 07:21 Chloride 112 H (96-109) mmol/L Carbon Dioxide 13.0 L (20.0-27.5) mmol/L BUN 31.4 H (9.0-27.0) mg/dL Creatinine 3.1 H (0.6-1.5) mg/dL Est GFR (CKD-EPI)AfAm 17.6 L (60.0-200.0) Est GFR (CKD-EPI)NonAf 15.2 L (60.0-200.0) BUN/Creatinine Ratio 10.19 L (12.00-20.00) Ratio Glucose 114 H (70-110) mg/dL Calcium 8.5 L (8.7-10.3) mg/dL Assessment and Plan Plan: Assessment: 1. Acute kidney injury secondary to ATN secondary to COVID-19 infection. Creatinine 3.1 yesterday. 2. Chronic kidney disease stage III. Baseline creatinine near 1.9 secondary to nephrosclerosis. 3. COVID-19 pneumonia. 4. Bilateral hydronephrosis. Urology following. Possible intervention outpati ent. 5. History of cervical cancer. 6. Metabolic acidosis secondary to acute kidney injury and IV fluids. Plan: Decrease rate of normal saline to 50 mL an hour. DC Sims catheter. Monitor bladder scans to make sure no retention. Add oral bicarb. 2 A sodium bicarbonate IV push now. Follow-up morning labs. Avoid nephrotoxins. Continue to hold lisinopril. Increase dose of amlodipine to 5 mg twice daily.
[2022-05-15] MEDS ORDERED: SODIUM BICARBONATE TAB 650 MG TAB PO SCH (10:30)
[2022-05-15 15:52] VITALS: BP 165/58; PULSE 85; RESP 16; TEMP 98.2
[2022-05-15 16:16] LABS: African American GFR (CKD) 18.5 (60.0-200.0); Anion Gap 11.1 mmol/L (10.00-18.00); BUN/Creat Ratio 8.51 Ratio (12.00-20.00); Blood Urea Nitrogen 25.1 mg/dL (9.0-27.0); Calcium 8.7 mg/dL (8.7-10.3); Carbon Dioxide 16.2 mmol/L (20.0-27.5); Potassium 4.6 mmol/L (3.5-5.5)
[2022-05-15] MEDS ORDERED: DEXTROSE 5% IN WATER 1,000 ML with SODIUM BICARB (1 MEQ/ML) 150 ML IV SCH (18:00)
[2022-05-15] MEDS ORDERED: amLODIPine 5 MG TAB PO SCH (21:00)
--- NOTE | 2022-05-16 06:30 | DS ---
DISCHARGE SUMMARY CHIEF COMPLAINT: COVID-19, dehydration, and renal failure. HISTORY OF PRESENT ILLNESS: This lady is feeling chronic. She has had no nausea, back pain, chest pain, etc. She is probably able to go home. Her initial history and physical can be found in her original dictation. LABORATORY STUDIES: Can be found in the laboratory section of her chart. COURSE IN THE HOSPITAL: After admission, she was placed on bedrest, started on intravenous fluids. BUN and creatinine came down slightly. She was seen by Nephrology. It was discovered that she had bilateral hydronephrosis and she was seen by Urology. It was concurred that she could go home, but she may require stenting of the ureters in the future. She will go home on light activity and her Sims catheter will be removed. She will be followed up in the office in several days and then referred to both Nephrology and Urology. FINAL DIAGNOSES: 1. Dehydration. 2. Prerenal azotemia. 3. Chronic kidney disease, stage 5. 4. COVID. OPERATIONS: None. CONSULTATIONS: Urology and Nephrology. MMODL / IJN: [id number] /
--- NOTE | 2022-05-16 12:00 | PN ---
PROGRESS NOTE DATE OF SERVICE: 05/14/2022 CHIEF COMPLAINT: COVID and renal failure. HISTORY OF PRESENT ILLNESS: This lady is doing fairly well. She feels well. GFR has risen slightly. It looks as though she has bilateral hydronephrosis; however, she will be referred to Nephrology. REVIEW OF SYSTEMS: She has had no abdominal pain, chest pain, flank pain, etc. PHYSICAL EXAMINATION: CHEST: Clear. CARDIAC: Normal. ABDOMEN: Soft, nontender. EXTREMITIES: Normal. IMPRESSION: 1. Exacerbation of chronic renal failure. 2. Bilateral hydronephrosis. 3. History of carcinoma of cervix. PLAN: Urology consult regarding the hydronephrosis. MMODL / IJN: [id number] /
== END 2022-05-15 18:45 | disposition home or self-care (01) | DRG 177 ==
LOC: EC 11:39 → 4SSUR 16:05
PROVIDERS: ADMIT Family Medicine; ATTEND Family Medicine
DX: U07.1 COVID-19 (principal); J12.82 Pneumonia due to coronavirus disease 2019; N17.0 Acute kidney failure with tubular necrosis; E87.20 Acidosis, unspecified; I12.0 Hypertensive chronic kidney disease with stage 5 chronic kidney disease or end stage renal disease; N13.6 Pyonephrosis; N18.5 Chronic kidney disease, stage 5; I12.9 Hypertensive chronic kidney disease with stage 1 through stage 4 chronic kidney disease, or unspecified chronic kidney disease; R17 Unspecified jaundice; N13.9 Obstructive and reflux uropathy, unspecified; N18.32 Chronic kidney disease, stage 3b; E11.22 Type 2 diabetes mellitus with diabetic chronic kidney disease; K52.9 Noninfective gastroenteritis and colitis, unspecified; E66.9 Obesity, unspecified; E86.0 Dehydration; K21.9 Gastro-esophageal reflux disease without esophagitis; F32.A Depression, unspecified; F17.210 Nicotine dependence, cigarettes, uncomplicated; Z87.440 Personal history of urinary (tract) infections; Z86.73 Personal history of transient ischemic attack (TIA), and cerebral infarction without residual deficits; Z87.01 Personal history of pneumonia (recurrent); Z85.41 Personal history of malignant neoplasm of cervix uteri; Z92.21 Personal history of antineoplastic chemotherapy; Z92.3 Personal history of irradiation; Z83.3 Family history of diabetes mellitus; Z80.42 Family history of malignant neoplasm of prostate; Z82.49 Family history of ischemic heart disease and other diseases of the circulatory system; Z79.899 Other long term (current) drug therapy; Z91.199 Patient's noncompliance with other medical treatment and regimen due to unspecified reason; Z68.37 Body mass index [BMI] 37.0-37.9, adult; C53.9 Malignant neoplasm of cervix uteri, unspecified; Z90.49 Acquired absence of other specified parts of digestive tract; Z98.51 Tubal ligation status
CPT/HCPCS: 36415; 71046; 76770; 80048; 80053; 81001; 81003; 82570; 83735; 83930; 83935; 84133; 84300; 84484; 85025; 85379; 85610; 85730; 87635; 93005; 99285

== ENCOUNTER → 2022-06-26 | Outpatient (CLI) | payer MEDICARE, OTHER ==
[2022-06-26 14:41] LABS: African American GFR (CKD) 18.9 (60.0-200.0); Blood Urea Nitrogen 33.5 mg/dL (9.0-27.0); Non-African American GFR(CKD) 16.3 (60.0-200.0)
== END | disposition home or self-care (01) ==
LOC: LABWHC1 08:36
PROVIDERS: ATTEND Urology
DX: N13.30 Unspecified hydronephrosis (principal)
CPT/HCPCS: 36415; 82565; 84520

== ENCOUNTER → 2022-08-10 | Outpatient (CLI) | payer MEDICARE, OTHER ==
--- NOTE | 2022-08-10 10:12 | CT ---
EXAMINATION TYPE: CT abdomen pelvis wo con DATE OF EXAM: 08/10/2022 HISTORY: Follow up for cervical and lung cancer. CT DLP: 1247.2 mGycm. Automated Exposure Control for Dose Reduction was Utilized. TECHNIQUE: CT scan of the abdomen and pelvis is performed with oral but without IV contrast. COMPARISON: Prior CT May 02, 2022 and older studies. FINDINGS: Within the limitations of a non-contrast study, the following observations are made. LUNG BASES: Right basilar 10 x 5 mm metastatic nodule axial image 7 is unchanged in size from most re cent CT, smaller in size from much earlier studies LIVER/GB: Cholecystectomy clips are redemonstrated. Prominent right hepatic lobe redemonstrated. PANCREAS: No significant abnormality is seen. SPLEEN: No significant abnormality is seen. ADRENALS: Stable slight thickening to left adrenal gland favoring benign lipid rich hyperplasia. KIDNEYS: Persistent moderate to severe left-sided hydronephrosis. There is new right double-J ureter stent with mild right-sided hydronephrosis though this is improved from prior exam. BOWEL: Oral contrast reaches level of the proximal colon. No suspicious small or large bowel dilatati on. Some diverticula in the left and sigmoid colon are present. No CT evidence for acute diverticulit is. GENITAL ORGANS: Anteverted uterus. Small sized bilateral ovaries redemonstrated. LYMPH NODES: No new greater than 1cm abdominal or pelvic lymph nodes are appreciated. OSSEOUS STRUCTURES: Severe narrowing of the right hip joint with subchondral cystic change and acetab ular spurring is redemonstrated. Multilevel facet arthropathy in the mid to lower lumbar spine is aga in seen. Multilevel spurring in the spine redemonstrated. OTHER: Persistent fat containing ventral wall hernia over the upper pelvis near the midline likely um bilical hernia. IMPRESSION: Stable fairly severe left-sided hydronephrosis not significantly changed from most recent CT. Mild right-sided hydronephrosis is improved from recent CT after ureter stent insertion. Stable right basilar metastatic pulmonary nodule from most recent CT. No new mass or adenopathy seen on curr ent study.
== END | disposition home or self-care (01) ==
LOC: RADCTMAIN 08:13
PROVIDERS: ATTEND Internal Medicine Hematology & Oncology
DX: C78.01 Secondary malignant neoplasm of right lung (principal); C53.1 Malignant neoplasm of exocervix; N13.30 Unspecified hydronephrosis
CPT/HCPCS: 74176

== ENCOUNTER 2022-10-19 13:04 | Inpatient (IN) | payer MEDICARE, OTHER ==
--- NOTE | 2022-10-19 14:01 | ED ---
General Adult HPI - General Source: patient Mode of arrival: wheelchair Limitations: no limitations <Alexis Torres - Last Filed: 10/19/22 15:29> <Mague Main - Last Filed: 10/25/22 12:27> - General Chief complaint: Urogenital Stated complaint: abn labs Time Seen by Provider: 10/19/22 13:40 - History of Present Illness Initial comments: Dictation was produced using [employer] dictation software. please excuse any grammatical, word or spelling errors. Chief Complaint: 67-year-old female with complex pelvic history presents to the ER for elevated renal function History of Present Illness: This 67-year-old female she has past medical history of pseudomonas UTI, bilateral hydronephrosis secondary to cervical cancer, poor functioning left renal system. She had outpatient blood work drawn. She received a call from nephrology stating that she should contact her urologist as soon as possible. Patient's urologist was not in the office. Patient called primary care doctor who then instructed patient that she should come to the emergency department right away. Patient states she's been having dysuria for the last 1-2 days. Denies any fever, chills or night sweats. No flank pain. The ROS documented in this emergency department record has been reviewed and confirmed by me. Those systems with pertinent positive or negative responses have been documented in the HPI. All other systems are other negative and/or noncontributory. (Alexis Torres) - Related Data Home Medications Medication Instructions Recorded Confirmed amLODIPine [Norvasc] 10 mg PO HS 09/05/22 10/19/22 Fluconazole [Diflucan] 150 mg PO ONCE PRN 10/19/22 10/19/22 Previous Rx's Medication Instructions Recorded Cefuroxime [Ceftin] 250 mg PO BID 3 Days #6 tab 10/23/22 Famotidine [Pepcid] 10 mg PO Q12HR #60 tab 10/23/22 Sodium Bicarbonate Tab 650 mg PO BID #60 tab 10/23/22 Allergies Allergy/AdvReac Type Severity Reaction Status Date / Time No Known Allergies Allergy Verified 10/19/22 16:19 Review of Systems ROS Other: All systems not noted in ROS Statement are negative. <Alexis Torres - Last Filed: 10/19/22 15:29> ROS Other: All systems not noted in ROS Statement are negative. <Mague Main Shruti - Last Filed: 10/25/22 12:27> ROS Statement: Those systems with pertinent positive or pertinent negative responses have been documented in the HPI. Past Medical History Past Medical History: Cancer, CVA/TIA, Eye Disorder, GERD/Reflux, Hypertension, Pneumonia Additional Past Medical History / Comment(s): Cervical cancer-pt states she completed chemotherapy and has had radiation treatments-she was to have a cervical sleeve inserted then more radiation but unable to insert/secure sleeve, R ureteral stent d/t cervical tumor causing obstruction, R occular stroke-cau sed vision changes/received injections, UTI. History of Any Multi-Drug Resistant Organisms: None Reported Past Surgical History: Section, Cholecystectomy, Tubal Ligation Additional Past Surgical History / Comment(s): R ueteral stent, D&C, Past Anesthesia/Blood Transfusion Reactions: No Reported Reaction Past Psychological History: Depression Smoking Status: Current every day smoker Past Alcohol Use History: None Reported Past Drug Use History: None Reported - Past Family History Father Family Medical History: Cancer, Diabetes Mellitus Additional Family Medical History / Comment(s): Pt thinks father had prostate cancer. Mother Family Medical History: Diabetes Mellitus, Hyperlipidemia, Hypertension, Myocardial Infarction (ME), Renal Disease Additional Family Medical History / Comment(s): Mother had a ME in her 50s. She from renal failure during dialysis. <Alexis Torres - Last Filed: 10/19/22 15:29> General Exam Limitations: no limitations <Alexis Torres - Last Filed: 10/19/22 15:29> - General Exam Comments Initial Comments: PHYSICAL EXAM: General Impression: Alert and oriented x3, not in acute distress HEENT: Normocephalic atraumatic, extra-ocular movements intact, pupils equal and reactive to light bilaterally, mucous membranes moist. Cardiovascular: Heart regular rate and rhythm Chest: Able to complete full sentences, no retractions, no tachypnea Abdomen: abdomen soft, non-tender, non-distended, no organomegaly Musculoskeletal: Pulses present and equal in all extremities, no peripheral edema Motor: no focal deficits noted Neurological: CN II-XII grossly intact, no focal motor or sensory deficits noted Skin: Intact with no visualized rashes Psych: Normal affect and mood (Alexis Torres) Course Vital Signs 10/19/22 10/19/22 13:32 16:35 Temperature 98.2 F Pulse Rate 90 88 Respiratory 16 18 Rate Blood Pressure 125/78 132/78 O2 Sat by Pulse 97 98 Oximetry Medical Decision Making <Alexis Torres - Last Filed: 10/19/22 15:29> - Lab Data Result diagrams: 10/22/22 11:38 10/23/22 10:13 <EtelvinaMague Shruti - Last Filed: 10/25/22 12:27> - Medical Decision Making Was pt. sent in by a medical professional or institution (, PA, SCHOOL GUIDANCE COUNSELOR, urgent care, hospital, or fdc...) When possible be specific @ -Sent in per instruction by PCPs office Did you speak to anyone other than the patient for history (EMS, parent, family, police, friend...)? What history was obtained from this source @ -No Did you review nursing and triage notes (agree or disagree)? Why? @ -I reviewed and agree with nursing and triage notes Were old charts reviewed (outside hosp., previous admission, EMS record, old EKG, old radiological studies, urgent care reports/EKG's, fdc records)? Report findings @ -Prior urology and discharge summary notes reviewed. Patient has history of chronic kidney disease and complex pelvic history secondary to cervical cancer and bilateral hydronephrosis. Apparently there were multiple times to try and place a stent in the left ureter however unsuccessful. Previous urine studies shows the patient has history of pseudomonas UTI Differential Diagnosis (chest pain, altered mental status, abdominal pain women, abdominal pain men, vaginal bleeding, musculoskeletal, weakness, fever, dyspnea, syncope, headache, dizziness, GI bleed, back pain, seizure, CVA, palpatations, mental health)? @ -Pyelonephritis, cystitis, sepsis EKG interpreted by me (3pts min.). @ -None done X-rays interpreted by me (1pt min.). @ -None done CT interpreted by me (1pt min.). @ -None done U/S interpreted by me (1pt. min.). @ -None done What testing was considered but not performed or refused? (CT, X-rays, U/S, labs)? Why? @ -None What meds were considered but not given or refused? Why? @ -None Did you discuss the management of the patient with other professionals (professionals i.e. , PA, SCHOOL GUIDANCE COUNSELOR, lab, RT, psych nurse, social group worker, medical detail representative, teacher, special assets officer, case management specialist)? Give summary @ -No Was smoking cessation discussed for >3mins.? @ -No Was critical care preformed (if so, how long)? @ -No Were there social determinants of health that impacted care today? How? (Homelessness, low income, unemployed, alcoholism, drug addiction, transportation, low edu. Level, literacy, decrease access to med. care, [place] [facility], rehab)? @ -No Was there de-escalation of care discussed even if they declined (Discuss DNR or withdrawal of care, Hospice)? DNR status @ -No What co-morbidities impacted this encounter? (DM, HTN, Smoking, COPD, CAD, Cancer, CVA, ARF, Chemo, Hep., AIDS, mental health diagnosis, sleep apnea, morbid obesity)? @ -Complex pelvic history Was patient admitted / discharged? Hospital course, mention meds given and route, prescriptions, significant lab abnormalities, going to OR and other pertinent info. @ -67-year-old female sent in prescription by primary care physician's office for abnormal kidney function. Patient has urinary symptoms. Pending urine studies and blood work. Undiagnosed new problem with uncertain prognosis? @ -No Drug Therapy requiring intensive monitoring for toxicity (Heparin, Nitro, Insulin, Cardizem)? @ -No Were any procedures done? @ -No Diagnosis/symptom? Acute, or Chronic, or Acute on Chronic? Uncomplicated (without systemic symptoms) or Complicated (systemic symptoms)? @ -1. Acute dysuria, 2. Acute kidney injury Side effects of treatment? @ -No Exacerbation, Progression, or Severe Exacerbation? @ -No Poses a threat to life or bodily function? How? (Chest pain, USA, ME, pneumonia, PE, COPD, DKA, ARF, appy, cholecystitis, CVA, Diverticulitis, Homicidal, Suicidal, threat to staff... and all critical care pts) @ -yes Patient care signed out to Dr. Main at 3:30 PM (Alexis Torres) Patient was signed out to me. Laboratory studies are remarkable for a creatinine of 5.1. Spoke with the patient's daughter who states that her creatinine was in the threes at her outpatient nephrology appointment a couple weeks ago. She does have a urine which is concerning for urinary tract infection. Patient will be admitted to Dr. Cuadra. Blood cultures obtained and she is started on Zosyn. Nephrology will be consulted (Mague Main) - Lab Data Lab Results 10/19/22 10/19/22 10/19/22 Range/Units 15:13 15:13 15:13 WBC 11.8 H (3.8-10.6) k/uL RBC 3.42 L (3.80-5.40) m/uL Hgb 10.1 L (11.4-16.0) gm/dL Hct 29.0 L (34.0-46.0) % MCV 84.8 (80.0-100.0) fL MCH 29.5 (25.0-35.0) pg MCHC 34.8 (31.0-37.0) g/dL RDW 15.1 (11.5-15.5) % Plt Count 382 (150-450) k/uL MPV 8.2 Neutrophils % 79 % Lymphocytes % 11 % Monocytes % 5 % Eosinophils % 3 % Basophils % 0 % Neutrophils # 9.3 H (1.3-7.7) k/uL Lymphocytes # 1.3 (1.0-4.8) k/uL Monocytes # 0.6 (0-1.0) k/uL Eosinophils # 0.4 (0-0.7) k/uL Basophils # 0.1 (0-0.2) k/uL Sodium 138 (137-145) mmol/L Potassium 4.2 (3.5-5.1) mmol/L Chloride 108 H (98-107) mmol/L Carbon Dioxide 17 L (22-30) mmol/L Anion Gap 13 mmol/L BUN 50 H (7-17) mg/dL Creatinine 5.18 H (0.52-1.04) mg/dL Est GFR (CKD-EPI)AfAm 9 (>60 ml/min/1.73 sqM) Est GFR (CKD-EPI)NonAf 8 (>60 ml/min/1.73 sqM) Glucose 133 H (74-99) mg/dL Calcium 8.8 (8.4-10.2) mg/dL Urine Color Light Yellow Urine Appearance Cloudy H (Clear) Urine pH 5.5 (5.0-8.0) Ur Specific [place] 1.011 (1.001-1.035) Urine Protein 2+ H (Negative) Urine Glucose (UA) Negative (Negative) Urine Ketones Negative (Negative) Urine Blood Moderate H (Negative) Urine Nitrite Negative (Negative) Urine Bilirubin Negative (Negative) Urine Urobilinogen <2.0 (<2.0) mg/dL Ur Leukocyte Esterase Large H (Negative) Urine RBC 12 H (0-5) /hpf Urine WBC >182 H (0-5) /hpf Urine WBC Clumps Many H (None) /hpf Ur Squamous Epith Cells 4 (0-4) /hpf Urine Bacteria Occasional H (None) /hpf Urine Mucus Rare H (None) /hpf Disposition <Alexis Torres - Last Filed: 10/19/22 15:29> Is patient prescribed a controlled substance at d/c from ED?: No Time of Disposition: 16:25 Decision to Admit Reason: Admit from EC Decision Date: 10/19/22 Decision Time: 16:25 <Mague Main - Last Filed: 10/25/22 12:27> Clinical Impression: Acute on chronic renal failure, UTI (urinary tract infection) Disposition: ADMITTED IP TO THIS [facility] Condition: Serious
[2022-10-19] MEDS ORDERED: SODIUM CHLORIDE 0.9% 500 ML 500 ML IV STA (14:05)
[2022-10-19 15:41] LABS: Basophils # (A) 0.1 k/uL (0-0.2); Basophils % (A) 0 %; Eosinophils # (A) 0.4 k/uL (0-0.7); Eosinophils % (A) 3 %; HGB 10.1 gm/dL (11.4-16.0); Lymphocytes # (A) 1.3 k/uL (1.0-4.8); Lymphocytes % (A) 11 %; MCH 29.5 pg (25.0-35.0); MCHC 34.8 g/dL (31.0-37.0); MCV 84.8 fL (80.0-100.0); Mean Platelet Volume 8.2; Monocytes # (A) 0.6 k/uL (0-1.0); Monocytes % (A) 5 %; Neutrophils # (A) 9.3 k/uL (1.3-7.7); Neutrophils % (A) 79 %; Platelet Count 382 k/uL (150-450); RBC 3.42 m/uL (3.80-5.40); RDW 15.1 % (11.5-15.5); WBC 11.8 k/uL (3.8-10.6)
[2022-10-19 15:47] LABS: Appearance,Urine Cloudy (Clear); Bacteria,Urine Occasional /hpf; Bilirubin,Urine Negative (Negative); Blood,Urine Moderate (Negative); Color,Urine Light Yellow; Glucose,Urine (UA) Negative (Negative); Ketones,Urine Negative (Negative); Leukocyte Esterase,Urine Large (Negative); Mucus,Urine Rare /hpf; Nitrite,Urine Negative (Negative); PH, Urine 5.5 (5.0-8.0); Protein,Urine 2+ (Negative); RBC,Urine 12 /hpf (0-5); Specific Gravity,Urine 1.011 (1.001-1.035); Squamous Epithelial Cell,Urine 4 /hpf (0-4); Urobilinogen,Urine <2.0 mg/dL (<2.0); WBC,Urine >182 /hpf (0-5)
[2022-10-19 15:54] LABS: Calcium 8.8 mg/dL (8.4-10.2); Potassium 4.2 mmol/L (3.5-5.1)
[2022-10-19] MEDS ORDERED: PIPERACILLIN-TAZOBACTAM 3.375 GM in SODIUM CHLORIDE 0.9% 100 ML IVPB STA (16:22)
[2022-10-19] MEDS ORDERED: NALOXONE 0.4 MG/ML 1 ML VIAL IV PRN (16:27)
[2022-10-19] MEDS: SODIUM CHLORIDE 0.9% 1,000 ML IV SCH (17:05)
--- NOTE | 2022-10-19 21:06 | US ---
EXAMINATION TYPE: US renals and bladder DATE OF EXAM: 10/19/2022 COMPARISON: 09/06/22 CLINICAL HISTORY: caty. caty EXAM MEASUREMENTS: Right Kidney: 10.8 x 5.1 x 6.0 cm Left Kidney: 11.3 x 3.2 x 5.4 cm Right Kidney: Mildly distended renal pelvis. Left Kidney: Moderate hydronephrosis. Bladder: wnl Bilateral Doppler ureteral Jets seen: No IMPRESSION: Moderate left hydronephrosis.
[2022-10-20] MEDS: PIPERACILLIN-TAZOBACTAM 3.375 GM in SODIUM CHLORIDE 0.9% 100 ML IVPB SCH ×2 (08:38→18:08)
[2022-10-20] MEDS: SODIUM CHLORIDE 0.9% 1,000 ML IV SCH ×2 (08:38→18:29)
--- NOTE | 2022-10-20 10:37 | P.NPCON ---
History of Present Illness - Reason for Consult acute renal failure - History of Present Illness Patient is a 67-year-old male with history of chronic kidney disease NKF stage IV with serum creatinine about 2.8-3 mg/dL as of May 2022. Patient has obstructive uropathy with right ureteral stent which was recently exchanged about a month ago. Patient also has moderate to severe left hydronephrosis but a stent could not be placed on the left side due to significant scarring. Patient follows with Dr. Sheppard. Patient is admitted to the hospital due to worsening labs. She has also been feeling extremely weak and did admit to burning sensation during urination. Serum creatinine has recently been elevated at 6.8 mg/dL in early September and patient was admitted. She had a cystoscopy right stent exchange done on 09/07/2022. Her serum creatinine had decreased to 3.7 mg/dL following discharge from her hospitalization at that time. Repeat labs done during this visit a couple of days ago showed serum creatinine back up to 5 mg/dL and therefore patient was advised admission. Blood pressure has not been significantly low Patient admits to voiding UA shows more than 182 WBCs. Patient is currently maintained on antibiotics and IV fluids. Review of Systems As per HPI Past Medical History Past Medical History: Cancer, CVA/TIA, Eye Disorder, GERD/Reflux, Hypertension, Pneumonia Additional Past Medical History / Comment(s): Cervical cancer-pt states she completed chemotherapy and has had radiation treatments-she was to have a cervical sleeve inserted then more radiation but unable to insert/secure sleeve, R ureteral stent d/t cervical tumor causing obstruction, R occular stroke-caused vision changes/received injections, UTI. History of Any Multi-Drug Resistant Organisms: None Reported Past Surgical History: Section, Cholecystectomy, Tubal Ligation Additional Past Surgical History / Comment(s): R ueteral stent, D&C, Past Anesthesia/Blood Transfusion Reactions: No Reported Reaction Past Psychological History: Depression Additional Psychological History / Comment(s): Pt resides with her daughter, Loren and her family. Histrory of depression. No thoughts of suicide when asked. Smoking Status: Current every day smoker Past Alcohol Use History: None Reported Additional Past Alcohol Use History / Comment(s): Pt started smoking in 1971 but has not smoked in past 2 months. Past Drug Use History: None Reported - Past Family History Father Family Medical History: Cancer, Diabetes Mellitus Additional Family Medical History / Comment(s): Pt thinks father had prostate cancer. Mother Family Medical History: Diabetes Mellitus, Hyperlipidemia, Hypertension, Myocardial Infarction (MS), Renal Disease Additional Family Medical History / Comment(s): Mother had a MS in her 50s. She from renal failure during dialysis. Medications and Allergies Home Medications Medication Instructions Recorded Confirmed Type amLODIPine [Norvasc] 10 mg PO HS 09/05/22 10/19/22 History Ciprofloxacin HCl [Cipro] 500 mg PO BID 10/19/22 10/19/22 History Fluconazole [Diflucan] 150 mg PO ONCE PRN 10/19/22 10/19/22 History Allergies Allergy/AdvReac Type Severity Reaction Status Date / Time No Known Allergies Allergy Verified 10/19/22 16:19 Physical Exam Vitals: Vital Signs Temp Pulse Pulse Resp BP BP Pulse Ox 10/20/22 07:28 97.7 F 72 18 124/74 96 10/20/22 01:48 97.6 F 80 16 133/60 97 10/19/22 20:00 82 16 10/19/22 19:42 97.7 F 82 16 134/71 98 10/19/22 18:10 98.2 F 72 18 120/62 98 10/19/22 16:35 88 18 132/78 98 10/19/22 13:32 98.2 F 90 16 125/78 97 Intake and Output 10/19/22 10/20/22 10/20/22 22:59 06:59 14:59 Intake Total 540 Balance 540 Intake: Oral 540 Other: # Voids 3 Weight 104.326 kg Awake, comfortable, in no acute distress Alert oriented 3 Examination of the heart S1 and S2 Examination of the lungs bilateral breath sounds are heard Abdomen is soft nontender Examination lower extremity shows no edema [employer] exam grossly intact Results - Lab Results Most recent lab results Calcium 8.8 mg/dL (8.4-10.2) 10/19/22 15:13 10/19/22 15:13 10/19/22 15:13 Assessment and Plan Assessment: 1. Acute kidney injury rule possibly related to underlying infection, rule out obstructive uropathy. Ultrasound shows moderate left hydronephrosis with no hydronephrosis on the right side. Status post recent right ureteral stent placement on 09/07/2022. Serum creatinine had decreased from 6.8-3.7 at that ti me. 2.Bilateral hydronephrosis status post right ureteral stent placement on 09/07/[address] left ureteral stent due to scarring. 3. CK D stage IV with baseline creatinine 2.8-3 mg/dL secondary to obstructive uropathy and nephrosclerosis 4. Pyuria rule out UTI 5. Metabolic acidosis associated with acute kidney injury Plan: Continue IV fluids Continue with IV antibiotics Await surgical input Add oral sodium bicarb next Thank you for the consultation. We will continue to follow the patient with you during her hospitalization
[2022-10-20 11:15] LABS: Basophils # (A) 0.09 X 10*3/uL (0.00-0.10); Basophils % (A) 0.9 %; Eosinophils # (A) 0.56 X 10*3/uL (0.04-0.35); Eosinophils % (A) 5.7 %; HCT 25.4 % (37.2-46.3); HGB 8.3 g/dL (12.0-15.0); Immature Grans, Automated 0.4 %; Lymphocytes # (A) 1.22 X 10*3/uL (0.90-5.00); Lymphocytes % (A) 12.3 %; MCHC 32.7 g/dL (32.0-37.0); MCV 85.8 fL (80.0-97.0); Mean Platelet Volume 10.2 fL (9.5-12.2); Monocytes % (A) 6.1 %; NRBC Per 100 WBC 0 /100 WBCS (0.0-0.0); Neutrophils % (A) 74.6 %; Platelet Count 349 X 10*3/uL (140-440); RBC 2.96 X 10*6/uL (4.10-5.20); RDW 14.9 % (11.5-14.5); WBC 9.91 X 10*3/uL (4.50-10.00)
[2022-10-20 11:27] LABS: African American GFR (CKD) 9.9 (60.0-200.0); Anion Gap 12.1 mmol/L (10.00-18.00); BUN/Creat Ratio 9.27 Ratio (12.00-20.00); Blood Urea Nitrogen 45.8 mg/dL (9.0-27.0); Calcium 8.6 mg/dL (8.7-10.3); Carbon Dioxide 15.8 mmol/L (20.0-27.5); Non-African American GFR(CKD) 8.6 (60.0-200.0); Potassium 4.5 mmol/L (3.5-5.5)
--- NOTE | 2022-10-20 13:14 | P.GSCN ---
History of Present Illness Consult date: 10/20/22 Reason for Consult: Hydronephrosis Requesting physician: Moreno E Sheet History of present illness: The patient is a 67-year-old female with past medical history of, hypertension, CKD stage IV, recurrent UTI's, and cervical cancer. The patient had outpatient blood work drawn. She was contacted by her funeral service practitioner/embalmer to see her urologist as soon as possible. The patient has a known history of cercival cancer diagnosed in early 2020 and treated with chemotherapy and radiation at [facility]. She had left-sided hydronephrosis at that point in time. Apparently a left ureteral stent was placed in April 2021, but subsequently had been removed. In May 2022 the patient had obstructive uropathy with right ureteral stent placement. She also had moderate to severe left hydronephrosis but a stent could not be placed due to significant scarring. In September 2022 the patient was admitted with concerns of renal failure and UTI. Her serum creatinine was 6.8. Ultrasound kidneys/bladder was performed that showed no evidence of nephrolithiasis, moderate right hydronephrosis and severe left hydronephrosis. However, A CT revealed her left kidney was atrophic and with minimal function. The right stent was in good position, but was due to be exchanged. The patient underwent a right ureteral stent exchange and attempted left stent placement with Dr. Tomlinson on 09/14/2022. Her serum creatinine had decreased to 3.7 following the stent exchange. Her creatinine was back up to 5.18 upon presentation to the emergency department. The patient also reports burning with urination for the past 1-2 days and generalized weakness. Review of Systems - Constitutional Reports fatigue, Reports weakness, Denies chills, Denies fever - Cardiovascular Denies chest pain - Gastrointestinal Denies nausea, Denies vomiting - Genitourinary Genitourinary: Reports dysuria, Reports urinary frequency, Denies flank pain, Denies hematuria Past Medical History Past Medical History: Cancer, CVA/TIA, Eye Disorder, GERD/Reflux, Hypertension, Pneumonia Additional Past Medical History / Comment(s): Cervical cancer-pt states she completed chemotherapy and has had radiation treatments-she was to have a cervical sleeve inserted then more radiation but unable to insert/secure sleeve, R ureteral stent d/t cervical tumor causing obstruction, R occular stroke-caused vision changes/received injections, UTI. History of Any Multi-Drug Resistant Organisms: None Reported Past Surgical History: Section, Cholecystectomy, Tubal Ligation Additional Past Surgical History / Comment(s): R ueteral stent, D&C, Past Anesthesia/Blood Transfusion Reactions: No Reported Reaction Past Psychological History: Depression Additional Psychological History / Comment(s): Pt resides with her daughter, Loren and her family. Histrory of depression. No thoughts of suicide when asked. Smoking Status: Current every day smoker Past Alcohol Use History: None Reported Additional Past Alcohol Use History / Comment(s): Pt started smoking in 1971 but has not smoked in past 2 months. Past Drug Use History: None Reported - Past Family History Father Family Medical History: Cancer, Diabetes Mellitus Additional Family Medical History / Comment(s): Pt thinks father had prostate cancer. Mother Family Medical History: Diabetes Mellitus, Hyperlipidemia, Hypertension, Myocardial Infarction ([place]), Renal Disease Additional Family Medical History / Comment(s): Mother had a [place] in her 50s. She from renal failure during dialysis. Medications and Allergies Home Medications Medication Instructions Recorded Confirmed Type amLODIPine [Norvasc] 10 mg PO HS 09/05/22 10/19/22 History Ciprofloxacin HCl [Cipro] 500 mg PO BID 10/19/22 10/19/22 History Fluconazole [Diflucan] 150 mg PO ONCE PRN 10/19/22 10/19/22 History Allergies Allergy/AdvReac Type Severity Reaction Status Date / Time No Known Allergies Allergy Verified 10/19/22 16:19 Surgical - Exam Vital Signs Temp Pulse Resp BP Pulse Ox 98.2 F 90 16 125/78 97 10/19/22 13:32 10/19/22 13:32 10/19/22 13:32 10/19/22 13:32 10/19/22 13:32 General: Well developed, well nourished. No acute distress. HEENT: Head is atraumatic, normocephalic. Lungs: Respirations even and nonlabored. On RA. Abdomen/GI: Soft, obese, non-distended. No abdominal tenderness. : Suprapubic tenderness. Skin: Warm and dry Neurologic: Alert and oriented 3, CN II-XII grossly intact. No focal deficits. Psychiatric: Appropriate mood and affect. Results - Labs 10/20/22 06:19 10/20/22 06:19 Abnormal Lab Results - Last 24 Hours (Table) 10/19/22 10/19/22 10/19/22 Range/Units 15:13 15:13 15:13 WBC 11.8 H (3.8-10.6) k/uL RBC 3.42 L (3.80-5.40) m/uL Hgb 10.1 L (11.4-16.0) gm/dL Hct 29.0 L (34.0-46.0) % RDW (11.5-14.5) % Neutrophils # 9.3 H (1.3-7.7) k/uL Eosinophils # (0.04-0.35) X 10*3/uL Chloride 108 H (98-107) mmol/L Carbon Dioxide 17 L (22-30) mmol/L BUN 50 H (7-17) mg/dL Creatinine 5.18 H (0.52-1.04) mg/dL Est GFR (CKD-EPI)AfAm (60.0-200.0) Est GFR (CKD-EPI)NonAf (60.0-200.0) BUN/Creatinine Ratio (12.00-20.00) Ratio Glucose 133 H (74-99) mg/dL Calcium (8.7-10.3) mg/dL Urine Appearance Cloudy H (Clear) Urine Protein 2+ H (Negative) Urine Blood Moderate H (Negative) Ur Leukocyte Esterase Large H (Negative) Urine RBC 12 H (0-5) /hpf Urine WBC >182 H (0-5) /hpf Urine WBC Clumps Many H (None) /hpf Urine Bacteria Occasional H (None) /hpf Urine Mucus Rare H (None) /hpf 10/20/22 10/20/22 Range/Units 06:19 06:19 WBC (3.8-10.6) k/uL RBC 2.96 L (3.80-5.40) m/uL Hgb 8.3 L (11.4-16.0) gm/dL Hct 25.4 L (34.0-46.0) % RDW 14.9 H (11.5-14.5) % Neutrophils # (1.3-7.7) k/uL Eosinophils # 0.56 H (0.04-0.35) X 10*3/uL Chloride 111 H (98-107) mmol/L Carbon Dioxide 15.8 L (22-30) mmol/L BUN 45.8 H (7-17) mg/dL Creatinine 4.9 H (0.52-1.04) mg/dL Est GFR (CKD-EPI)AfAm 9.9 L (60.0-200.0) Est GFR (CKD-EPI)NonAf 8.6 L (60.0-200.0) BUN/Creatinine Ratio 9.27 L (12.00-20.00) Ratio Glucose (74-99) mg/dL Calcium 8.6 L (8.7-10.3) mg/dL Urine Appearance (Clear) Urine Protein (Negative) Urine Blood (Negative) Ur Leukocyte Esterase (Negative) Urine RBC (0-5) /hpf Urine WBC (0-5) /hpf Urine WBC Clumps (None) /hpf Urine Bacteria (None) /hpf Urine Mucus (None) /hpf Microbiology - Last 24 Hours (Table) 10/19/22 15:13 Urine Culture - Preliminary Urine,Voided Diabetes panel 10/19/22 10/20/22 Range/Units 15:13 06:19 Sodium 138 139 (137-145) mmol/L Potassium 4.2 4.5 (3.5-5.1) mmol/L Chloride 108 H 111 H (98-107) mmol/L Carbon Dioxide 17 L 15.8 L (22-30) mmol/L BUN 50 H 45.8 H (7-17) mg/dL Creatinine 5.18 H 4.9 H (0.52-1.04) mg/dL Glucose 133 H 92 (74-99) mg/dL Calcium 8.8 8.6 L (8.4-10.2) mg/dL Calcium panel 10/19/22 10/20/22 Range/Units 15:13 06:19 Calcium 8.8 8.6 L (8.4-10.2) mg/dL Pituitary panel 10/19/22 10/20/22 Range/Units 15:13 06:19 Sodium 138 139 (137-145) mmol/L Potassium 4.2 4.5 (3.5-5.1) mmol/L Chloride 108 H 111 H (98-107) mmol/L Carbon Dioxide 17 L 15.8 L (22-30) mmol/L BUN 50 H 45.8 H (7-17) mg/dL Creatinine 5.18 H 4.9 H (0.52-1.04) mg/dL Glucose 133 H 92 (74-99) mg/dL Calcium 8.8 8.6 L (8.4-10.2) mg/dL Adrenal panel 10/19/22 10/20/22 Range/Units 15:13 06:19 Sodium 138 139 (137-145) mmol/L Potassium 4.2 4.5 (3.5-5.1) mmol/L Chloride 108 H 111 H (98-107) mmol/L Carbon Dioxide 17 L 15.8 L (22-30) mmol/L BUN 50 H 45.8 H (7-17) mg/dL Creatinine 5.18 H 4.9 H (0.52-1.04) mg/dL Glucose 133 H 92 (74-99) mg/dL Calcium 8.8 8.6 L (8.4-10.2) mg/dL - Imaging US - kidney/bladder: report reviewed Assessment and Plan Assessment: The patient denies any hematuria. She reports burning with urination, frequency, and cloudy urine with a strong odor. She states she feels as if the infection never cleared since her last admission. She denies any abdominal pain or flank pain. She does have some incontinence and states she leaks all the time. She is afebrile and vitals are stable. Her WBC is trending down and is 9.91 today. Urinalysis is suggestive of infection, culture pending. She has been started on Zosyn. Creatinine was 5.18 on admission and is 4.9 today. Renal ultrasound is showing moderate left hydronephrosis, no right sided hydronephrosis. She has a known atrophic minimally functioning left kidney with chronic left hydronephrosis due to extrinsic compression from her turmor. No surgical intervention warranted at this time. She will need her right ureteral stent exchanged in 3-6 months. (1) Hydronephrosis Current Visit: No Status: Acute Code(s): N13.30 - UNSPECIFIED HYDRONEPHROSIS SNOMED Code(s): 46469127 Plan: - Awaiting urine culture - Antibiotics per ID - Monitor serum creatinine - No surgical interventions at this time - Right stent exchange in 3-6 months - Further recommendations forthcoming from surgeon Thank you for this consultation Impression and plan of care have been directed as dictated by the signing physician. Rossy Reid nurse practitioner acting as scribe for signing physician. Rossy Reid [facility] Palliative Care/Urology Spectralink [phone] Email: [email or web address] I have personally seen and examined the patient, reviewed the documentation and agree with the assessment and plan as written. Number of minutes spent on the visit: 30. Narayan Garzon MD
--- NOTE | 2022-10-20 21:13 | P.CONS ---
History of Present Illness - Reason for Consult Consult date: 10/20/22 - History of Present Illness Patient is a 67-year-old female with a past medical history significant for hypertension cervical cancer history of chronic kidney disease patient did have a history of bilateral hydronephrosis and did have a right ureteral stent placement previous history of left ureteral stent which was subsequently removed however apparently the patient did have significant scarring and repeat stenting could not be done patient apparently was noticed to have a worsening of her kidney function for the patient was advised to go to the hospital patient also complaining of urinary burning and pain on urination symptom has been going on for the last few days describes the pain to be sharp and was almost 10 or 10 in severity with no radiation denies any blood in the urine or any flank pain some nausea but no vomiting no chest pain shortness of breath or cough no diarrhea on presentation to the hospital the patient was afebrile and no fever has been recorded subsequently patient did have white count of 11.8 with a left shift did have elevated BUN/creatinine urine was positive cultures are pending patient did have a kidney ultrasound moderate left hydronephrosis patient was started on Zosyn infectious disease was consulted for further management of antibiotic therapy Past Medical History Past Medical History: Cancer, CVA/TIA, Eye Disorder, GERD/Reflux, Hypertension, Pneumonia Additional Past Medical History / Comment(s): Cervical cancer-pt states she completed chemotherapy and has had radiation treatments-she was to have a cervical sleeve inserted then more radiation but unable to insert/secure sleeve, R ureteral stent d/t cervical tumor causing obstruction, R occular stroke-caused vision changes/received injections, UTI. History of Any Multi-Drug Resistant Organisms: None Reported Past Surgical History: Section, Cholecystectomy, Tubal Ligation Additional Past Surgical History / Comment(s): R ueteral stent, D&C, Past Anesthesia/Blood Transfusion Reactions: No Reported Reaction Past Psychological History: Depression Additional Psychological History / Comment(s): Pt resides with her daughter, Loren and her family. Histrory of depression. No thoughts of suicide when asked. Smoking Status: Current every day smoker Past Alcohol Use History: None Reported Additional Past Alcohol Use History / Comment(s): Pt started smoking in 1971 but has not smoked in past 2 months. Past Drug Use History: None Reported - Past Family History Father Family Medical History: Cancer, Diabetes Mellitus Additional Family Medical History / Comment(s): Pt thinks father had prostate c ancer. Mother Family Medical History: Diabetes Mellitus, Hyperlipidemia, Hypertension, Myocardial Infarction ([place]), Renal Disease Additional Family Medical History / Comment(s): Mother had a [place] in her 50s. She from renal failure during dialysis. Medications and Allergies Home Medications Medication Instructions Recorded Confirmed Type amLODIPine [Norvasc] 10 mg PO HS 09/05/22 10/19/22 History Ciprofloxacin HCl [Cipro] 500 mg PO BID 10/19/22 10/19/22 History Fluconazole [Diflucan] 150 mg PO ONCE PRN 10/19/22 10/19/22 History Allergies Allergy/AdvReac Type Severity Reaction Status Date / Time No Known Allergies Allergy Verified 10/19/22 16:19 Physical Exam Vitals: Vital Signs Temp Pulse Pulse Resp BP BP Pulse Ox 10/20/22 07:28 97.7 F 72 18 124/74 96 10/20/22 01:48 97.6 F 80 16 133/60 97 10/19/22 20:00 82 16 10/19/22 19:42 97.7 F 82 16 134/71 98 10/19/22 18:10 98.2 F 72 18 120/62 98 10/19/22 16:35 88 18 132/78 98 10/19/22 13:32 98.2 F 90 16 125/78 97 Intake and Output 10/19/22 10/20/22 10/20/22 22:59 06:59 14:59 Intake Total 540 Balance 540 Intake: Oral 540 Other: # Voids 3 1 Weight 104.326 kg Results CBC & Chem 7: 10/20/22 06:19 10/20/22 06:19 Labs: Abnormal Lab Results - Last 24 Hours (Table) 10/19/22 10/19/22 10/19/22 Range/Units 15:13 15:13 15:13 WBC 11.8 H (3.8-10.6) k/uL RBC 3.42 L (3.80-5.40) m/uL Hgb 10.1 L (11.4-16.0) gm/dL Hct 29.0 L (34.0-46.0) % RDW (11.5-14.5) % Neutrophils # 9.3 H (1.3-7.7) k/uL Eosinophils # (0.04-0.35) X 10*3/uL Chloride 108 H (98-107) mmol/L Carbon Dioxide 17 L (22-30) mmol/L BUN 50 H (7-17) mg/dL Creatinine 5.18 H (0.52-1.04) mg/dL Est GFR (CKD-EPI)AfAm (60.0-200.0) Est GFR (CKD-EPI)NonAf (60.0-200.0) BUN/Creatinine Ratio (12.00-20.00) Ratio Glucose 133 H (74-99) mg/dL Calcium (8.7-10.3) mg/dL Urine Appearance Cloudy H (Clear) Urine Protein 2+ H (Negative) Urine Blood Moderate H (Negative) Ur Leukocyte Esterase Large H (Negative) Urine RBC 12 H (0-5) /hpf Urine WBC >182 H (0-5) /hpf Urine WBC Clumps Many H (None) /hpf Urine Bacteria Occasional H (None) /hpf Urine Mucus Rare H (None) /hpf 10/20/22 10/20/22 Range/Units 06:19 06:19 WBC (3.8-10.6) k/uL RBC 2.96 L (3.80-5.40) m/uL Hgb 8.3 L (11.4-16.0) gm/dL Hct 25.4 L (34.0-46.0) % RDW 14.9 H (11.5-14.5) % Neutrophils # (1.3-7.7) k/uL Eosinophils # 0.56 H (0.04-0.35) X 10*3/uL Chloride 111 H (98-107) mmol/L Carbon Dioxide 15.8 L (22-30) mmol/L BUN 45.8 H (7-17) mg/dL Creatinine 4.9 H (0.52-1.04) mg/dL Est GFR (CKD-EPI)AfAm 9.9 L (60.0-200.0) Est GFR (CKD-EPI)NonAf 8.6 L (60.0-200.0) BUN/Creatinine Ratio 9.27 L (12.00-20.00) Ratio Glucose (74-99) mg/dL Calcium 8.6 L (8.7-10.3) mg/dL Urine Appearance (Clear) Urine Protein (Negative) Urine Blood (Negative) Ur Leukocyte Esterase (Negative) Urine RBC (0-5) /hpf Urine WBC (0-5) /hpf Urine WBC Clumps (None) /hpf Urine Bacteria (None) /hpf Urine Mucus (None) /hpf Microbiology - Last 24 Hours (Table) 10/19/22 15:13 Urine Culture - Preliminary Urine,Voided Assessment and Plan Plan: 1patient with a history of complicated urinary tract infection as a patient to have a history of bilateral hydronephrosis with right ureteral stent however left sided stent could not be placed because of the scarring now with the ultrasound shows significant hydronephrosis and a positive UA likely from enteric gram-negative pathogen 2-patient to continue with the Zosyn while waiting for the culture to finalize in the patient having previous exposed antibiotics and possible resistant pathogen We will follow on clinical condition and cultures to further adjust medication if needed Thank you for this consultation we will follow the patient along with you Time with Patient: Greater than 30
[2022-10-20] MEDS: SODIUM BICARBONATE TAB 650 MG TAB PO SCH (21:44)
[2022-10-20] MEDS: amLODIPine 10 MG TAB PO SCH (21:44)
--- NOTE | 2022-10-20 22:53 | HP ---
HISTORY AND PHYSICAL CHIEF COMPLAINT: Chronic renal failure and carcinoma of the cervix. HISTORY OF PRESENT ILLNESS: This is another admission for this 67-year-old unfortunate female. She has carcinoma of the cervix, spread through the pelvis which caused ureteral obstruction and secondary renal failure. One ureter was completely blocked and the stent was recently placed in the other. However, her creatinine is continuing to rise and it was 5.1 in the emergency room. She also has urinary tract infection, dysuria, and hematuria. REVIEW OF SYSTEMS: Otherwise unremarkable, noncontributory. She has had no confusion, headaches, chest pain, nausea, vomiting, diarrhea, melena, constipation, etc. Past medical history, family history, personal and social histories are all otherwise unremarkable and unchanged from her recent admitting and discharge summaries. PHYSICAL EXAMINATION: VITAL SIGNS: Blood pressure 136/80 with a pulse of 79, respirations of 34, and she is afebrile. GENERAL: She appeared to be overweight, in no acute distress. SKIN: Color is normal. Skin is warm and dry. LYMPHATICS: Lymph nodes are not enlarged. HEENT: Head, ears, eyes, nose, mouth and throat are normal. NECK: Veins are not distended. Thyroid is not enlarged. CHEST: Clear. CARDIAC: Normal. ABDOMEN: Soft and slightly protuberant. She is not tender. EXTREMITIES: Normal. Neurologically, she is intact. IMPRESSION: 1. 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 2. Carcinoma of the cervix. 3. History of chronic obstructive pulmonary disease. 4. Hypertension. PLAN: 1. Bedrest. 2. IV fluids. 3. Consult with Urology and Nephrology. MMODL / IJN: [id number] /
--- NOTE | 2022-10-20 22:56 | PN ---
PROGRESS NOTE DATE OF SERVICE: 10/20/2022 CHIEF COMPLAINT: Chronic renal failure and carcinoma of the cervix. HISTORY OF PRESENT ILLNESS: This lady is doing fairly well. She is not nauseated. She is not having any pain. PHYSICAL EXAMINATION: VITAL SIGNS: Normal. CHEST: Clear. CARDIAC: Normal. ABDOMEN: Soft and nontender. IMPRESSION: 1. Chronic renal failure. 2. Carcinoma of the cervix. PLAN: Await consults from both Urology and Nephrology. MMODL / IJN: [id number] /
[2022-10-21] MEDS: SODIUM BICARBONATE TAB 650 MG TAB PO SCH ×2 (08:25→22:44)
[2022-10-21] MEDS: SODIUM CHLORIDE 0.9% 1,000 ML IV SCH ×2 (08:25→22:45)
[2022-10-21] MEDS: PIPERACILLIN-TAZOBACTAM 3.375 GM in SODIUM CHLORIDE 0.9% 100 ML IVPB SCH ×2 (08:25→18:48)
--- NOTE | 2022-10-21 15:56 | P.PN ---
Subjective Progress Note Date: 10/21/22 Principal diagnosis: UTI and bacteremia Patient is a 67-year-old female with a past medical history significant for hypertension cervical cancer history of chronic kidney disease patient did have a history of bilateral hydronephrosis and did have a right ureteral stent placement previous history of left ureteral stent which was subsequently removed however apparently the patient did have significant scarring and repeat stenting could not be done , patient presented to the hospital with worsening of the kidney function and did have urinary symptoms suggestive of complicated UTI. On today's evaluation that is 10/22/2019, the patient denies having any fever or any chills, the patient is still complaining of urinary burning but overall pain has decreased in intensity no chest pain shortness of breath or cough no abdominal pain or diarrhea Objective - Vital Signs Vital signs: Vital Signs Temp 97.9 F 10/21/22 13:35 Pulse 71 10/21/22 13:35 Resp 18 10/21/22 13:35 BP 155/76 10/21/22 13:35 Pulse Ox 97 10/21/22 13:35 FiO2 Intake & Output 10/20/22 10/21/22 10/21/22 18:59 06:59 18:59 Intake Total 900 Balance 900 Intake: Intake, IV Titration 900 Amount Sodium Chloride 0.9% 1, 900 000 ml @ 75 mls/hr IV . [id number] Rx#:[id number] Other: # Voids 3 3 - Exam GENERAL DESCRIPTION: An elderly female lying in bed in no distress RESPIRATORY SYSTEM: Unlabored breathing , decreased breath sounds at bases HEART: S1 S2 regular rate and rhythm , ABDOMEN: Soft , no tenderness EXTREMITIES: No edema feet - Labs CBC & Chem 7: 10/20/22 06:19 10/20/22 06:19 Labs: Microbiology - Last 24 Hours (Table) 10/19/22 16:50 Blood Culture Gram Stain - Preliminary Blood Blood Culture - Preliminary Staphylococcus epidermidis 10/19/22 15:13 Urine Culture - Final Urine,Voided 10/19/22 16:50 Blood Culture - Final Blood Assessment and Plan (1) Positive blood culture Current Visit: Yes Status: Acute Code(s): R78.81 - BACTEREMIA SNOMED Code(s): 261039525 (2) UTI (urinary tract infection) Current Visit: Yes Status: Acute Code(s): N39.0 - URINARY TRACT INFECTION, SITE NOT SPECIFIED SNOMED Code(s): 41036584 Plan: 1patient with a history of complicated urinary tract infection as a patient to have a history of bilateral hydronephrosis with right ureteral stent however left sided stent could not be placed because of the scarring now with the ultrasound shows significant hydronephrosis and a positive UA likely from enteric gram-negative pathogen, culture however has been reported negative we will repeat her UA in view of the clinical response to continue with the Zosyn 2-patient did have a positive blood culture with staph epi possibly skin contamination as the patient seemed to have shown clinical improvement without any treatment for it blood cultures will be repeated document clearance Time with Patient: Less than 30
--- NOTE | 2022-10-21 16:27 | P.PN ---
Subjective Progress Note Date: 10/21/22 Principal diagnosis: Dysuria, renal failure The patient is currently receiving Zosyn. She states that her dysuria is considerably improved. Objective - Vital Signs Vital signs: Vital Signs Temp 97.9 F 10/21/22 13:35 Pulse 71 10/21/22 13:35 Resp 18 10/21/22 13:35 BP 155/76 10/21/22 13:35 Pulse Ox 97 10/21/22 13:35 FiO2 Intake & Output 10/20/22 10/21/22 10/21/22 18:59 06:59 18:59 Intake Total 900 Balance 900 Intake: Intake, IV Titration 900 Amount Sodium Chloride 0.9% 1, 900 000 ml @ 75 mls/hr IV . [id number] COUNT INCLUDES THE [facility] Rx#:[id number] Other: # Voids 3 3 - Constitutional General appearance: Present: average body habitus, no acute distress - Gastrointestinal Gastrointestinal Comment(s): Soft, non-distended, non-tender, no mass. - Psychiatric Psychiatric: Present: A&O x's 3 - Labs CBC & Chem 7: 10/20/22 06:19 10/20/22 06:19 Labs: Microbiology - Last 24 Hours (Table) 10/19/22 16:50 Blood Culture Gram Stain - Preliminary Blood Blood Culture - Preliminary Staphylococcus epidermidis 10/19/22 15:13 Urine Culture - Final Urine,Voided 10/19/22 16:50 Blood Culture - Final Blood Assessment and Plan Assessment: The patient reports burning with urination, frequency, and cloudy urine with a strong odor. She states she feels as if the infection never cleared since her last admission. Her urine culture showed mixed genital rick, but she states that her symptoms have improved significantly as a result of taking Zosyn. Renal ultrasound shows minimal fullness of the right renal pelvis, moderate left hydronephrosis. The serum creatinine level was somewhat improved yesterday at 4.9. (1) Hydronephrosis Current Visit: No Status: Acute Code(s): N13.30 - UNSPECIFIED HYDRONEPHROSIS SNOMED Code(s): 44813601 Plan: - Continue Zosyn - Monitor serum creatinine - No surgical interventions at this time - Right stent exchange in 3-6 months
--- NOTE | 2022-10-21 16:49 | P.PN ---
Subjective Pt is seen for f/u for KEVIN on top of CKD. No hydronephrosis on R kidney. Left kidney shows hydronephrosis, not new. Stent placement in left ureter was unsuccessful last month. Maintained on IVF. U/A is suggestive of UTI. Labs not done today. Feels better. Good UOP. Objective - Vital Signs Vital signs: Vital Signs Temp 97.9 F 10/21/22 13:35 Pulse 71 10/21/22 13:35 Resp 18 10/21/22 13:35 BP 155/76 10/21/22 13:35 Pulse Ox 97 10/21/22 13:35 FiO2 Intake & Output 10/20/22 10/21/22 10/21/22 18:59 06:59 18:59 Intake Total 900 Balance 900 Intake: Intake, IV Titration 900 Amount Sodium Chloride 0.9% 1, 900 000 ml @ 75 mls/hr IV . [id number] [facility] Rx#:[id number] Other: # Voids 3 3 - Exam Awake, comfortable. A and O x3 Euvolemic No edema Abdomen is soft, obese. - Labs CBC & Chem 7: 10/20/22 06:19 10/20/22 06:19 Labs: Microbiology - Last 24 Hours (Table) 10/19/22 16:50 Blood Culture Gram Stain - Preliminary Blood Blood Culture - Preliminary Staphylococcus epidermidis 10/19/22 15:13 Urine Culture - Final Urine,Voided 10/19/22 16:50 Blood Culture - Final Blood Assessment and Plan Assessment: 1. Acute kidney injury rule possibly related to underlying infection, rule out obstructive uropathy. Ultrasound shows moderate left hydronephrosis with no hydronephrosis on the right side. Status post recent right ureteral stent placement on 09/07/2022. Serum creatinine had decreased from 6.8-3.7 at that time. 2.Bilateral hydronephrosis status post right ureteral stent placement on 09/07/[address] left ureteral stent due to scarring. 3. CK D stage IV with baseline creatinine 2.8-3 mg/dL secondary to obstructive uropathy and nephrosclerosis 4. Pyuria rule out UTI 5. Metabolic acidosis associated with acute kidney injury Plan: Check labs today Continue IVF and IV antibiotics. F/u on urine culture.
[2022-10-21 17:21] LABS: African American GFR (CKD) 13 (>60 ml/min/1.73 sqM); Anion Gap 8 mmol/L; Blood Urea Nitrogen 39 mg/dL (7-17); Calcium 8.3 mg/dL (8.4-10.2); Carbon Dioxide 18 mmol/L (22-30); Chloride 113 mmol/L (98-107); Glucose 103 mg/dL (74-99); Non-African American GFR(CKD) 11 (>60 ml/min/1.73 sqM); Potassium 4.1 mmol/L (3.5-5.1); Sodium 139 mmol/L (137-145)
[2022-10-21 17:21] LABS: Appearance,Urine Cloudy (Clear); Bacteria,Urine Few /hpf; Bilirubin,Urine Negative (Negative); Blood,Urine Small (Negative); Color,Urine Light Yellow; Glucose,Urine (UA) Negative (Negative); Ketones,Urine Negative (Negative); Leukocyte Esterase,Urine Large (Negative); Mucus,Urine Rare /hpf; Nitrite,Urine Negative (Negative); Protein,Urine 1+ (Negative); RBC,Urine 11 /hpf (0-5); Specific Gravity,Urine 1.008 (1.001-1.035); Squamous Epithelial Cell,Urine <1 /hpf (0-4); Urobilinogen,Urine <2.0 mg/dL (<2.0); WBC,Urine >182 /hpf (0-5)
--- NOTE | 2022-10-21 20:15 | P.PN ---
Subjective This is a pleasant 67 years old female with past medical history of Cancer, CVA/TIA, GERD/Reflux, Hypertension, Cervical cancer-pt states she completed chemotherapy and has had radiation treatments-, R ureteral stent d/t cervical tumor causing obstruction, , Current every day smoker Patient was sent by her doctor Venecia for elevated creatinine. It was progressive over 4-5 days. Patient was informed dysuria on admission and she has some evidence of UTI and she is currently covered with Zosyn, her dysuria states is improving to great extent. No abdominal pain or vomiting. No chest pain. No headache weakness or perfusion. No change in bowel habits. Vitas looks stable and patient is afebrile CBC showed marked leukocytosis of 11.8, hemoglobin 10.1 BMP showing elevated creatinine 5.1 however last month her creatinine was sent in 5-6 Urine analysis is suspicious for infection Renal ultrasound showing moderate left hydronephrosis Emergency room patient was started on Zosyn and normal saline 75 mL/h neurologis t was consulted Objective - Vital Signs Vital signs: Vital Signs Temp 97.6 F 10/21/22 07:50 Pulse 75 10/21/22 07:50 Resp 18 10/21/22 07:50 BP 124/55 10/21/22 07:50 Pulse Ox 96 10/21/22 07:50 FiO2 Intake & Output 10/20/22 10/21/22 10/21/22 18:59 06:59 18:59 Intake Total 900 Balance 900 Intake: Intake, IV Titration 900 Amount Sodium Chloride 0.9% 1, 900 000 ml @ 75 mls/hr IV . [id number] [facility] Rx#:[id number] Other: # Voids 3 3 - Exam GENERAL: The patient is alert and oriented x3, not in any acute distress. Well developed, well nourished. HEENT: Pupils are round and equally reacting to light. EOMI. No scleral icterus. No conjunctival pallor. Normocephalic, atraumatic. No pharyngeal erythema. No thyromegaly. CARDIOVASCULAR: S1 and S2 present. No murmurs, rubs, or gallops. PULMONARY: Chest is clear to auscultation, no wheezing or crackles. ABDOMEN: Soft, nontender, nondistended, normoactive bowel sounds. No palpable organomegaly. MUSCULOSKELETAL: No joint swelling or deformity. EXTREMITIES: No cyanosis, clubbing, or pedal edema. NEUROLOGICAL: Gross neurological examination did not reveal any focal deficits. SKIN: No rashes. no petechiae. - Labs CBC & Chem 7: 10/20/22 06:19 10/21/22 16:37 Labs: Abnormal Lab Results - Last 24 Hours (Table) 10/20/22 10/20/22 Range/Units 06:19 06:19 RBC 2.96 L (4.10-5.20) X 10*6/uL Hgb 8.3 L (12.0-15.0) g/dL Hct 25.4 L (37.2-46.3) % RDW 14.9 H (11.5-14.5) % Eosinophils # 0.56 H (0.04-0.35) X 10*3/uL Chloride 111 H (96-109) mmol/L Carbon Dioxide 15.8 L (20.0-27.5) mmol/L BUN 45.8 H (9.0-27.0) mg/dL Creatinine 4.9 H (0.6-1.5) mg/dL Est GFR (CKD-EPI)AfAm 9.9 L (60.0-200.0) Est GFR (CKD-EPI)NonAf 8.6 L (60.0-200.0) BUN/Creatinine Ratio 9.27 L (12.00-20.00) Ratio Calcium 8.6 L (8.7-10.3) mg/dL Microbiology - Last 24 Hours (Table) 10/19/22 16:50 Blood Culture Gram Stain - Preliminary Blood Blood Culture - Preliminary Staphylococcus epidermidis 10/19/22 15:13 Urine Culture - Final Urine,Voided 10/19/22 16:50 Blood Culture - Final Blood Assessment and Plan Assessment: Acute kidney injury Acute urinary tract infection Moderate left hydronephrosis History of right ureteral stent History of cervical cancer status post chemotherapy and radiation therapy Hypertension History of GERD History of CVA/TIA Plan: Continue with Zosyn Continue with normal saline 75 mL/h Follow-up creatinine Consulting urologist Infectious disease and hydro generation manager on the case as well Continue with antibiotic and switch antibiotics to ceftriaxone and follow-up urine culture Labs and medication were reviewed.. Continue same treatment. Continue with symptomatic treatment. Resume home medication. Monitor labs and vitals. DVT and GI prophylaxis. Further recommendations as per clinical course of the patient DVT prophylaxis: Subcutaneous heparin GI Prophylaxis: Pepcid PT/OT: Pending Prognosis is guarded
[2022-10-21] MEDS: HEPARIN SODIUM,PORCINE/PF 5,000 UNIT/0.5 ML SYRINGE SQ SCH (22:43)
[2022-10-21] MEDS: FAMOTIDINE 20 MG/2 ML VIAL IV SCH (22:44)
[2022-10-21] MEDS: amLODIPine 10 MG TAB PO SCH (22:44)
[2022-10-22] MEDS: PIPERACILLIN-TAZOBACTAM 3.375 GM in SODIUM CHLORIDE 0.9% 100 ML IVPB SCH ×2 (06:18→17:06)
[2022-10-22] MEDS: SODIUM BICARBONATE TAB 650 MG TAB PO SCH ×2 (08:26→21:31)
[2022-10-22] MEDS: FAMOTIDINE 20 MG/2 ML VIAL IV SCH (08:26)
[2022-10-22] MEDS: HEPARIN SODIUM,PORCINE/PF 5,000 UNIT/0.5 ML SYRINGE SQ SCH ×2 (08:27→21:30)
[2022-10-22 09:34] LABS: ALT 7 U/L (4-34); AST 12 U/L (14-36); African American GFR (CKD) 13 (>60 ml/min/1.73 sqM); Albumin 2.9 g/dL (3.5-5.0); Alkaline Phosphatase 73 U/L (38-126); Anion Gap 10 mmol/L; Blood Urea Nitrogen 35 mg/dL (7-17); C Reactive Protein 4.1 mg/dL (<1.0); Calcium 8.4 mg/dL (8.4-10.2); Carbon Dioxide 14 mmol/L (22-30); Chloride 116 mmol/L (98-107); Globulin 2.8 g/dL; Glucose 90 mg/dL (74-99); Non-African American GFR(CKD) 11 (>60 ml/min/1.73 sqM); Potassium 4.5 mmol/L (3.5-5.1); Sodium 140 mmol/L (137-145); Total Bilirubin 0.2 mg/dL (0.2-1.3); Total Protein 5.7 g/dL (6.3-8.2)
--- NOTE | 2022-10-22 10:11 | P.PN ---
Subjective Progress Note Date: 10/22/22 Principal diagnosis: Dysuria, renal failure The patient is currently receiving Zosyn. She states that her dysuria is considerably improved. Objective - Vital Signs Vital signs: Vital Signs Temp 97.5 F L 10/22/22 07:44 Pulse 66 10/22/22 07:44 Resp 18 10/22/22 07:44 BP 148/76 10/22/22 07:44 Pulse Ox 92 L 10/22/22 07:44 FiO2 Intake & Output 10/21/22 10/22/22 10/22/22 18:59 06:59 18:59 Intake Total 1000 Balance 1000 Intake: Intake, IV Titration 1000 Amount Piperacillin-Tazobactam 3 100 .375 gm In Sodium Chloride 0.9% 100 ml @ 25 mls/hr IVPB Q12H [facility] Rx# :[id number] Sodium Chloride 0.9% 1, 900 000 ml @ 75 mls/hr IV . [id number] [facility] Rx#:[id number] Other: # Voids 3 3 - Constitutional General appearance: Present: average body habitus, no acute distress - Respiratory Details: Normal respiratory effort. Breathing is non-labored. - Gastrointestinal Gastrointestinal Comment(s): Soft, non-tender, non-distended. - Psychiatric Psychiatric: Present: A&O x's 3 - Labs CBC & Chem 7: 10/20/22 06:19 10/22/22 07:36 Labs: Abnormal Lab Results - Last 24 Hours (Table) 10/21/22 10/21/22 10/22/22 Range/Units 16:37 16:50 07:36 Chloride 113 H 116 H (98-107) mmol/L Carbon Dioxide 18 L 14 L (22-30) mmol/L BUN 39 H 35 H (7-17) mg/dL Creatinine 4.06 H 3.93 H (0.52-1.04) mg/dL Glucose 103 H (74-99) mg/dL Calcium 8.3 L (8.4-10.2) mg/dL AST 12 L (14-36) U/L C-Reactive Protein 4.1 H (<1.0) mg/dL Total Protein 5.7 L (6.3-8.2) g/dL Albumin 2.9 L (3.5-5.0) g/dL Urine Appearance Cloudy H (Clear) Urine Protein 1+ H (Negative) Urine Blood Small H (Negative) Ur Leukocyte Esterase Large H (Negative) Urine RBC 11 H (0-5) /hpf Urine WBC >182 H (0-5) /hpf Urine WBC Clumps Many H (None) /hpf Urine Bacteria Few H (None) /hpf Urine Mucus Rare H (None) /hpf Microbiology - Last 24 Hours (Table) 10/19/22 16:50 Blood Culture Gram Stain - Final Blood Blood Culture - Final Staphylococcus epidermidis Coagulase Negative Staph 10/19/22 15:13 Urine Culture - Final Urine,Voided Assessment and Plan Assessment: The patient reported burning with urination, frequency, and cloudy urine with a strong odor. She states she feels as if the infection never cleared since her last admission. Her urine culture showed mixed genital rick, but she states that her symptoms have improved significantly as a result of taking Zosyn. Renal ultrasound shows minimal fullness of the right renal pelvis, moderate left hydronephrosis. The serum creatinine level improved today to 3.93. (1) Hydronephrosis Current Visit: No Status: Acute Code(s): N13.30 - UNSPECIFIED HYDRONEPHROSIS SNOMED Code(s): 20379097 Plan: From a urologic standpoint, the patient may be discharged home on oral antibio tics. Unfortunately, her urine culture was non-diagnostic. Previous cultures here at [facility] which have shown infection have revealed organisms sensitive to ciprofloxacin. It would be my suggestion that she be empirically discharged home on ciprofloxacin, though I will defer to Dr. Morris.
--- NOTE | 2022-10-22 10:58 | P.PN ---
Subjective Pt is seen for f/u for KEVIN on top of CKD. No hydronephrosis on R kidney. Left kidney shows hydronephrosis, not new. Stent placement in left ureter was unsuccessful last month. Maintained on IVF. U/A is suggestive of UTI. Creatinine decreased to 3.9 Feels better. Good UOP. Objective - Vital Signs Vital signs: Vital Signs Temp 97.5 F L 10/22/22 07:44 Pulse 66 10/22/22 07:44 Resp 18 10/22/22 07:44 BP 148/76 10/22/22 07:44 Pulse Ox 92 L 10/22/22 07:44 FiO2 Intake & Output 10/21/22 10/22/22 10/22/22 18:59 06:59 18:59 Intake Total 1000 Balance 1000 Intake: Intake, IV Titration 1000 Amount Piperacillin-Tazobactam 3 100 .375 gm In Sodium Chloride 0.9% 100 ml @ 25 mls/hr IVPB Q12H [facility] Rx# :[id number] Sodium Chloride 0.9% 1, 900 000 ml @ 75 mls/hr IV . [id number] [facility] Rx#:[id number] Other: # Voids 3 3 - Exam Awake, comfortable. A and O x3 Euvolemic No edema Abdomen is soft, obese. - Labs CBC & Chem 7: 10/20/22 06:19 10/22/22 07:36 Labs: Abnormal Lab Results - Last 24 Hours (Table) 10/21/22 10/21/22 10/22/22 Range/Units 16:37 16:50 07:36 Chloride 113 H 116 H (98-107) mmol/L Carbon Dioxide 18 L 14 L (22-30) mmol/L BUN 39 H 35 H (7-17) mg/dL Creatinine 4.06 H 3.93 H (0.52-1.04) mg/dL Glucose 103 H (74-99) mg/dL Calcium 8.3 L (8.4-10.2) mg/dL AST 12 L (14-36) U/L C-Reactive Protein 4.1 H (<1.0) mg/dL Total Protein 5.7 L (6.3-8.2) g/dL Albumin 2.9 L (3.5-5.0) g/dL Urine Appearance Cloudy H (Clear) Urine Protein 1+ H (Negative) Urine Blood Small H (Negative) Ur Leukocyte Esterase Large H (Negative) Urine RBC 11 H (0-5) /hpf Urine WBC >182 H (0-5) /hpf Urine WBC Clumps Many H (None) /hpf Urine Bacteria Few H (None) /hpf Urine Mucus Rare H (None) /hpf Microbiology - Last 24 Hours (Table) 10/19/22 16:50 Blood Culture Gram Stain - Final Blood Blood Culture - Final Staphylococcus epidermidis Coagulase Negative Staph 10/19/22 15:13 Urine Culture - Final Urine,Voided Assessment and Plan Assessment: 1. Acute kidney injury rule possibly related to underlying infection, rule out obstructive uropathy. Ultrasound shows moderate left hydronephrosis with no hydronephrosis on the right side. Status post recent right ureteral stent placement on 09/07/2022. Serum creatinine had decreased from 6.8-3.7 at that time. 2.Bilateral hydronephrosis status post right ureteral stent placement on [address] left ureteral stent due to scarring. 3. CK D stage IV with baseline creatinine 2.8-3 mg/dL secondary to obstructive uropathy and nephrosclerosis 4. Pyuria rule out UTI. Urine culture showed skin rick 5. Metabolic acidosis associated with acute kidney injury and IV fluids 6. Staph epi bacteremia Plan: Switch to IV bicarb Continue with oral sodium bicarb as well
[2022-10-22 12:15] LABS: Basophils % (A) 0 %; Eosinophils # (A) 0.5 k/uL (0-0.7); Eosinophils % (A) 6 %; HCT 30.1 % (34.0-46.0); HGB 9.7 gm/dL (11.4-16.0); Lymphocytes # (A) 1.4 k/uL (1.0-4.8); Lymphocytes % (A) 16 %; MCH 28.5 pg (25.0-35.0); MCHC 32.4 g/dL (31.0-37.0); MCV 87.8 fL (80.0-100.0); Mean Platelet Volume 7.9; Monocytes # (A) 0.4 k/uL (0-1.0); Monocytes % (A) 4 %; Neutrophils # (A) 6.4 k/uL (1.3-7.7); Neutrophils % (A) 72 %; Platelet Count 406 k/uL (150-450); RBC 3.42 m/uL (3.80-5.40); RDW 15.3 % (11.5-15.5); WBC 8.8 k/uL (3.8-10.6)
[2022-10-22] MEDS: DEXTROSE 5% IN WATER 1,000 ML with SODIUM BICARB (1 MEQ/ML) 150 ML IV SCH (12:25)
--- NOTE | 2022-10-22 17:01 | P.PN ---
Subjective Progress Note Date: 10/22/22 Principal diagnosis: UTI and bacteremia Patient is a 67-year-old female with a past medical history significant for hypertension cervical cancer history of chronic kidney disease patient did have a history of bilateral hydronephrosis and did have a right ureteral stent placement previous history of left ureteral stent which was subsequently removed however apparently the patient did have significant scarring and repeat stenting could not be done , patient presented to the hospital with worsening of the kidney function and did have urinary symptoms suggestive of complicated UTI. On today's evaluation that is 10/22/2022, the patient remains to be afebrile, the patient symptom of urinary burning seems to have decreased in intensity , the patient denies chest pain shortness of breath or cough no abdominal pain or diarrhea Objective - Vital Signs Vital signs: Vital Signs Temp 97.5 F L 10/22/22 07:44 Pulse 66 10/22/22 08:40 Resp 18 10/22/22 08:40 BP 148/76 10/22/22 07:44 Pulse Ox 92 L 10/22/22 07:44 FiO2 Intake & Output 10/21/22 10/22/22 10/22/22 18:59 06:59 18:59 Intake Total 1000 Balance 1000 Intake: Intake, IV Titration 1000 Amount Piperacillin-Tazobactam 3 100 .375 gm In Sodium Chloride 0.9% 100 ml @ 25 mls/hr IVPB Q12H [facility] Rx# :[id number] Sodium Chloride 0.9% 1, 900 000 ml @ 75 mls/hr IV . [id number] [facility] Rx#:[id number] Other: # Voids 3 3 2 - Exam GENERAL DESCRIPTION: An elderly female lying in bed in no distress RESPIRATORY SYSTEM: Unlabored breathing , decreased breath sounds at bases HEART: S1 S2 regular rate and rhythm , ABDOMEN: Soft , no tenderness EXTREMITIES: No edema feet - Labs CBC & Chem 7: 10/22/22 11:38 10/22/22 07:36 Labs: Abnormal Lab Results - Last 24 Hours (Table) 10/21/22 10/21/22 10/22/22 Range/Units 16:37 16:50 07:36 RBC (3.80-5.40) m/uL Hgb (11.4-16.0) gm/dL Hct (34.0-46.0) % Chloride 113 H 116 H (98-107) mmol/L Carbon Dioxide 18 L 14 L (22-30) mmol/L BUN 39 H 35 H (7-17) mg/dL Creatinine 4.06 H 3.93 H (0.52-1.04) mg/dL Glucose 103 H (74-99) mg/dL Calcium 8.3 L (8.4-10.2) mg/dL AST 12 L (14-36) U/L C-Reactive Protein 4.1 H (<1.0) mg/dL Total Protein 5.7 L (6.3-8.2) g/dL Albumin 2.9 L (3.5-5.0) g/dL Urine Appearance Cloudy H (Clear) Urine Protein 1+ H (Negative) Urine Blood Small H (Negative) Ur Leukocyte Esterase Large H (Negative) Urine RBC 11 H (0-5) /hpf Urine WBC >182 H (0-5) /hpf Urine WBC Clumps Many H (None) /hpf Urine Bacteria Few H (None) /hpf Urine Mucus Rare H (None) /hpf 10/22/22 Range/Units 11:38 RBC 3.42 L (3.80-5.40) m/uL Hgb 9.7 L (11.4-16.0) gm/dL Hct 30.1 L (34.0-46.0) % Chloride (98-107) mmol/L Carbon Dioxide (22-30) mmol/L BUN (7-17) mg/dL Creatinine (0.52-1.04) mg/dL Glucose (74-99) mg/dL Calcium (8.4-10.2) mg/dL AST (14-36) U/L C-Reactive Protein (<1.0) mg/dL Total Protein (6.3-8.2) g/dL Albumin (3.5-5.0) g/dL Urine Appearance (Clear) Urine Protein (Negative) Urine Blood (Negative) Ur Leukocyte Esterase (Negative) Urine RBC (0-5) /hpf Urine WBC (0-5) /hpf Urine WBC Clumps (None) /hpf Urine Bacteria (None) /hpf Urine Mucus (None) /hpf Microbiology - Last 24 Hours (Table) 10/19/22 16:50 Blood Culture Gram Stain - Final Blood Blood Culture - Final Staphylococcus epidermidis Coagulase Negative Staph Assessment and Plan (1) Positive blood culture Current Visit: Yes Status: Acute Code(s): R78.81 - BACTEREMIA SNOMED Code(s): 939565426 (2) UTI (urinary tract infection) Current Visit: Yes Status: Acute Code(s): N39.0 - URINARY TRACT INFECTION, SITE NOT SPECIFIED SNOMED Code(s): 19912156 Plan: 1patient with a history of complicated urinary tract infection as a patient to have a history of bilateral hydronephrosis with right ureteral stent however left sided stent could not be placed because of the scarring now with the ultrasound shows significant hydronephrosis and a positive UA likely from enteric gram-negative pathogen, culture however has been reported negative , repeat UA still positive cultures are pending antibiotic was switched over to Rocephin and see clinical response 2-patient did have a positive blood culture with staph epi possibly skin contamination as the patient seemed to have shown clinical improvement without any treatment for it blood cultures has been repeated and will follow the results Time with Patient: Less than 30
[2022-10-22] MEDS: amLODIPine 10 MG TAB PO SCH (21:31)
[2022-10-22] MEDS: FAMOTIDINE 20 MG TAB PO SCH (21:31)
--- NOTE | 2022-10-23 00:31 | P.PN ---
Subjective Progress Note Date: 10/22/22 This is a pleasant 67 years old female with past medical history of Cancer, CVA/TIA, GERD/Reflux, Hypertension, Cervical cancer-pt states she completed chemotherapy and has had radiation treatments-, R ureteral stent d/t cervical tumor causing obstruction, , Current every day smoker Patient was sent by her doctor Venecia for elevated creatinine. It was progressive over 4-5 days. Patient was informed dysuria on admission and she has some evidence of UTI and she is currently covered with Zosyn, her dysuria states is improving to great extent. No abdominal pain or vomiting. No chest pain. No headache weakness or perfusion. No change in bowel habits. Vitas looks stable and patient is afebrile CBC showed marked leukocytosis of 11.8, hemoglobin 10.1 BMP showing elevated creatinine 5.1 however last month her creatinine was sent in 5-6 Urine analysis is suspicious for infection Renal ultrasound showing moderate left hydronephrosis Emergency room patient was started on Zosyn and normal saline 75 mL/h gun barrel finisher was consulted 10/22/2022 Patient is currently resting in the bed. Awake alert and oriented x3. No complaints of abdominal pain. No nausea or vomiting. Symptomatically improving. Urine culture showed skin rick. Blood culture showed Staph epidermidis. Antibiotics changed to ceftriaxone. Patient has been afebrile. Renal function is improving with creatinine level 3.98 today. Laboratory showed WBC 8.8 hemoglobin 9.7 and platelets 406 Sodium 140 potassium 4.5 chloride 116 bicarb is 14 BUN 35 and creatinine 3.93 CRP 4.1 Current medications reviewed. Objective - Vital Signs Vital signs: Vital Signs Temp 97.5 F L 10/22/22 07:44 Pulse 66 10/22/22 08:40 Resp 18 10/22/22 08:40 BP 148/76 10/22/22 07:44 Pulse Ox 92 L 10/22/22 07:44 FiO2 Intake & Output 10/21/22 10/22/22 10/22/22 18:59 06:59 18:59 Intake Total 1000 Balance 1000 Intake: Intake, IV Titration 1000 Amount Piperacillin-Tazobactam 3 100 .375 gm In Sodium Chloride 0.9% 100 ml @ 25 mls/hr IVPB Q12H [facility] Rx# :[id number] Sodium Chloride 0.9% 1, 900 000 ml @ 75 mls/hr IV . [id number] [facility] Rx#:[id number] Other: # Voids 3 3 2 - Exam PHYSICAL EXAMINATION: Patient is lying in the bed comfortably, no acute distress, awake alert and oriented.. HEENT: Normocephalic. Neck is supple. Pupils reactive. Nostrils clear. Oral cavity is moist. Neck reveals no JVD, carotid bruits, or thyromegaly. CHEST EXAMINATION: Trachea is central. Symmetrical expansion. Lung navarro clear to auscultation and percussion. CARDIAC: Normal S1, S2 with no gallops. No murmurs ABDOMEN: Soft. Bowel sounds present. Nontender. No organomegaly. No abdominal bruits. Extremities: reveal no edema. No clubbing or cyanosis Neurologically awake, alert, oriented x3 with well-coordinated movements. No focal deficits noted Skin: No rash or skin lesions. Psychiatric: Coperative. Nonsuicidal, Musculoskeletal: No joint swelling or deformity. Normal range of motion. - Labs CBC & Chem 7: 10/22/22 11:38 10/22/22 07:36 Labs: Abnormal Lab Results - Last 24 Hours (Table) 10/21/22 10/21/22 10/22/22 Range/Units 16:37 16:50 07:36 RBC (3.80-5.40) m/uL Hgb (11.4-16.0) gm/dL Hct (34.0-46.0) % Chloride 113 H 116 H (98-107) mmol/L Carbon Dioxide 18 L 14 L (22-30) mmol/L BUN 39 H 35 H (7-17) mg/dL Creatinine 4.06 H 3.93 H (0.52-1.04) mg/dL Glucose 103 H (74-99) mg/dL Calcium 8.3 L (8.4-10.2) mg/dL AST 12 L (14-36) U/L C-Reactive Protein 4.1 H (<1.0) mg/dL Total Protein 5.7 L (6.3-8.2) g/dL Albumin 2.9 L (3.5-5.0) g/dL Urine Appearance Cloudy H (Clear) Urine Protein 1+ H (Negative) Urine Blood Small H (Negative) Ur Leukocyte Esterase Large H (Negative) Urine RBC 11 H (0-5) /hpf Urine WBC >182 H (0-5) /hpf Urine WBC Clumps Many H (None) /hpf Urine Bacteria Few H (None) /hpf Urine Mucus Rare H (None) /hpf 10/22/22 Range/Units 11:38 RBC 3.42 L (3.80-5.40) m/uL Hgb 9.7 L (11.4-16.0) gm/dL Hct 30.1 L (34.0-46.0) % Chloride (98-107) mmol/L Carbon Dioxide (22-30) mmol/L BUN (7-17) mg/dL Creatinine (0.52-1.04) mg/dL Glucose (74-99) mg/dL Calcium (8.4-10.2) mg/dL AST (14-36) U/L C-Reactive Protein (<1.0) mg/dL Total Protein (6.3-8.2) g/dL Albumin (3.5-5.0) g/dL Urine Appearance (Clear) Urine Protein (Negative) Urine Blood (Negative) Ur Leukocyte Esterase (Negative) Urine RBC (0-5) /hpf Urine WBC (0-5) /hpf Urine WBC Clumps (None) /hpf Urine Bacteria (None) /hpf Urine Mucus (None) /hpf Microbiology - Last 24 Hours (Table) 10/19/22 16:50 Blood Culture Gram Stain - Final Blood Blood Culture - Final Staphylococcus epidermidis Coagulase Negative Staph Assessment and Plan Assessment: Acute kidney injury due to underlying infection. Rule out obstructive uropathy. Creatinine 6.8 improved to 3.7 today. Moderate left hydronephrosis with no hydronephrosis on the right side. Recent history of right ureteral stent placement. On 09/07/2022. Acute urinary tract infection culture showed normal rick. History of cervical cancer status post chemotherapy and radiation therapy Hypertension History of GERD History of CVA/TIA Plan: Patient will be continued on antibiotics in the form of ceftriaxone. Dose Zosyn has been discontinued. Patient was started on bicarb drip. Follow-up renal function closely. Nephrology and ID is on board. DVT and GI prophylaxis. DVT prophylaxis: Subcutaneous heparin GI Prophylaxis: Pepcid PT/OT: Pending Prognosis is guarded Time with Patient: Greater than 30
[2022-10-23] MEDS: DEXTROSE 5% IN WATER 1,000 ML with SODIUM BICARB (1 MEQ/ML) 150 ML IV SCH (01:36)
[2022-10-23] MEDS: FAMOTIDINE 20 MG TAB PO SCH (09:12)
[2022-10-23] MEDS: SODIUM BICARBONATE TAB 650 MG TAB PO SCH (09:13)
[2022-10-23] MEDS: HEPARIN SODIUM,PORCINE/PF 5,000 UNIT/0.5 ML SYRINGE SQ SCH (09:13)
[2022-10-23 11:21] LABS: African American GFR (CKD) 15 (>60 ml/min/1.73 sqM); Anion Gap 10 mmol/L; Blood Urea Nitrogen 32 mg/dL (7-17); Calcium 8.5 mg/dL (8.4-10.2); Carbon Dioxide 21 mmol/L (22-30); Chloride 109 mmol/L (98-107); Glucose 157 mg/dL (74-99); Non-African American GFR(CKD) 13 (>60 ml/min/1.73 sqM); Potassium 3.9 mmol/L (3.5-5.1); Sodium 140 mmol/L (137-145)
--- NOTE | 2022-10-23 12:10 | P.PN ---
Subjective Patient is seen in follow-up for acute kidney injury on chronic kidney disease. Renal function better. Has been waiting. Hemodynamically stable. No vomiting or diarrhea. Vital signs are stable. General: No acute distress. HEENT: Head exam is unremarkable. LUNGS: No audible rhonchi or wheezes. HEART: Rate and Rhythm are regular. ABDOMEN: Nontender. EXTREMITITES: No edema. Objective - Vital Signs Vital signs: Vital Signs Temp 97.5 F L 10/23/22 07:41 Pulse 69 10/23/22 07:41 Resp 18 10/23/22 07:41 BP 146/68 10/23/22 07:41 Pulse Ox 96 10/23/22 07:41 FiO2 Intake & Output 10/22/22 10/23/22 10/23/22 18:59 06:59 18:59 Intake Total 480 1700 Balance 480 1700 Intake: Intake, IV Titration 900 Amount Sodium Chloride 0.9% 1, 900 000 ml @ 75 mls/hr IV . [id number] [facility] Rx#:[id number] Oral 480 800 Other: # Voids 3 3 - Labs CBC & Chem 7: 10/22/22 11:38 10/23/22 10:13 Labs: Abnormal Lab Results - Last 24 Hours (Table) 10/22/22 10/23/22 Range/Units 11:38 10:13 RBC 3.42 L (3.80-5.40) m/uL Hgb 9.7 L (11.4-16.0) gm/dL Hct 30.1 L (34.0-46.0) % Chloride 109 H (98-107) mmol/L Carbon Dioxide 21 L (22-30) mmol/L BUN 32 H (7-17) mg/dL Creatinine 3.56 H (0.52-1.04) mg/dL Glucose 157 H (74-99) mg/dL Microbiology - Last 24 Hours (Table) 10/21/22 16:50 Urine Culture - Final Urine,Clean Catch 10/21/22 16:37 Blood Culture - Preliminary Blood No Growth after 24 hours 10/19/22 16:50 Blood Culture Gram Stain - Final Blood Blood Culture - Final Staphylococcus epidermidis Coagulase Negative Staph Assessment and Plan Plan: Assessment: 1. Acute kidney injury mostly prerenal secondary to infection improved with IV hydration. Creatinine was 5.18 on admission and is 3.56 today 2. Chronic bilateral hydronephrosis with right ureteral stent placed 09/07/2022 . Left stent could not be placed due to scarring. Urology following. 3. Chronic kidney disease stage IV with baseline creatinine near 3 secondary to obstructive uropathy and nephrosclerosis. 4. Complicated UTI with bacteremia being followed by infectious disease. On antibiotics. 5. Hypertension with chronic any disease. Stable. 6. Metabolic acidosis secondary to acute kidney injury. On bicarb drip. Better. Also on oral bicarbonate. Plan: Change IV fluids to normal saline at 50 mL an hour. Encourage oral intake. Avoid nephrotoxins. Repeat BMP and magnesium level 2-3 days postdischarge. Follow-up outpatient in 1 week.
[2022-10-23] MEDS ORDERED: SODIUM CHLORIDE 0.9% 1,000 ML IV SCH (12:15)
[2022-10-23 12:56] VITALS: BP 160/79; PULSE 66; RESP 16; TEMP 97.8
--- NOTE | 2022-10-25 08:35 | DS ---
DISCHARGE SUMMARY CHIEF COMPLAINT: Renal failure. HISTORY OF PRESENT ILLNESS AND PHYSICAL EXAMINATION: Details of this lady's history and physical can be found in the initial workup. LABORATORY STUDIES: While she was in the hospital, she had laboratory studies, details of which can be found in the laboratory section of her chart. COURSE IN THE HOSPITAL: After admission, she was placed on bedrest, started on intravenous fluids and frequent monitoring of her renal function. She was seen and followed by Nephrology. While in the hospital, her urinary output started to increase and her GFR rickie slightly. She is also seen by Urology, who plan nothing further and her stent was still open and draining. She is doing well. It was felt that she could go home on the and she will go home on her usual activity, diet, and medication and she will follow up with us in several days. FINAL DIAGNOSES: 1. Chronic renal failure. 2. Advanced carcinoma of the cervix. 3. Anemia. OPERATIONS: None. CONSULTATIONS: Nephrology and urology. She is improved. MMODL / IJN: [id number] /
== END 2022-10-23 18:48 | disposition home or self-care (01) | DRG 683 ==
LOC: EC 13:04 → 5NMEDONC 16:29
PROVIDERS: ADMIT Family Medicine; ATTEND Family Medicine
DX: N17.9 Acute kidney failure, unspecified (principal); E87.20 Acidosis, unspecified; E11.22 Type 2 diabetes mellitus with diabetic chronic kidney disease; N13.6 Pyonephrosis; C53.9 Malignant neoplasm of cervix uteri, unspecified; Z92.21 Personal history of antineoplastic chemotherapy; Z92.3 Personal history of irradiation; I12.9 Hypertensive chronic kidney disease with stage 1 through stage 4 chronic kidney disease, or unspecified chronic kidney disease; Z87.891 Personal history of nicotine dependence; Z87.01 Personal history of pneumonia (recurrent); R32 Unspecified urinary incontinence; N18.4 Chronic kidney disease, stage 4 (severe); Z82.49 Family history of ischemic heart disease and other diseases of the circulatory system; Z83.3 Family history of diabetes mellitus; I69.398 Other sequelae of cerebral infarction; H53.9 Unspecified visual disturbance
CPT/HCPCS: 36415; 76770; 80048; 80053; 81001; 85025; 86140; 87040; 87086; 96361; 96365; 99285

== ENCOUNTER 2022-12-13 17:43 | Inpatient (IN) | payer MEDICARE, OTHER ==
--- NOTE | 2022-12-13 18:21 | ED ---
General Adult HPI - General Source: patient, RN notes reviewed Mode of arrival: ambulatory Limitations: no limitations <Helen Cortez - Last Filed: 12/13/22 18:23> - General Source: RN notes reviewed, old records reviewed Limitations: no limitations - History of Present Illness -: hour(s) Location: head (No complaints) Radiation: non-radiation Severity scale (1-10): 0 Consistency: constant Improves with: none Worsens with: none Associated Symptoms: denies other symptoms <Eliu Bustamante - Last Filed: 12/16/22 15:03> - General Chief complaint: Recheck/Abnormal Lab/Rx Stated complaint: kidney Failure - History of Present Illness Initial comments: 67-year-old female presents to the emergency department chief complaint of low kidney function. Patient states that she was sent in by her doctor. She states that her GFR was 5 when it was checked. Patient reports pain with urination. Patient denies urinary retention, hematuria, fever, chills. (Helen Cortez) This is a 67-year-old female to the emergency department for evaluation of abnormal outpatient lab studies regards to kidney function, kidney failure patient states his acidosis. Patient was sent to ER for admission (Gale Bustamante) - Related Data Home Medications Medication Instructions Recorded Confirmed amLODIPine [Norvasc] 10 mg PO HS 09/05/22 12/13/22 Allergies Allergy/AdvReac Type Severity Reaction Status Date / Time No Known Allergies Allergy Verified 12/13/22 21:42 Review of Systems ROS Other: All systems not noted in ROS Statement are negative. <Helen Cortez - Last Filed: 12/13/22 18:23> ROS Other: All systems not noted in ROS Statement are negative. <Eliu Bustamante - Last Filed: 12/16/22 15:03> ROS Statement: Those systems with pertinent positive or pertinent negative responses have been documented in the HPI. Past Medical History Past Medical History: Cancer, CVA/TIA, Eye Disorder, GERD/Reflux, Hypertension, Pneumonia Additional Past Medical History / Comment(s): Cervical cancer-pt states she completed chemotherapy and has had radiation treatments-she was to have a cervical sleeve inserted then more radiation but unable to insert/secure sleeve, R ureteral stent d/t cervical tumor causing obstruction, R occular stroke- caused vision changes/received injections, UTI. History of Any Multi-Drug Resistant Organisms: None Reported Past Surgical History: Section, Cholecystectomy, Tubal Ligation Additional Past Surgical History / Comment(s): R ueteral stent, D&C, Past Anesthesia/Blood Transfusion Reactions: No Reported Reaction Past Psychological History: Depression Smoking Status: Current every day smoker Past Alcohol Use History: None Reported Past Drug Use History: None Reported - Past Family History Father Family Medical History: Cancer, Diabetes Mellitus Additional Family Medical History / Comment(s): Pt thinks father had prostate cancer. Mother Family Medical History: Diabetes Mellitus, Hyperlipidemia, Hypertension, Myocardial Infarction ([place]), Renal Disease Additional Family Medical History / Comment(s): Mother had a [place] in her 50s. She from renal failure during dialysis. <Helen Cortez - Last Filed: 12/13/22 18:23> General Exam Limitations: no limitations <Helen Cortez - Last Filed: 12/13/22 18:23> General appearance: alert, in no apparent distress Head exam: Present: atraumatic, normocephalic, normal inspection Eye exam: Present: normal appearance, PERRL, EOMI. Absent: scleral icterus, conjunctival injection, periorbital swelling ENT exam: Present: normal exam, mucous membranes moist Neck exam: Present: normal inspection. Absent: tenderness, meningismus, lymphadenopathy Respiratory exam: Present: normal lung sounds bilaterally. Absent: respiratory distress, wheezes, rales, rhonchi, stridor Cardiovascular Exam: Present: regular rate, normal rhythm, normal heart sounds. Absent: systolic murmur, diastolic murmur, rubs, gallop, clicks GI/Abdominal exam: Present: soft, normal bowel sounds. Absent: distended, tenderness, guarding, rebound, rigid Extremities exam: Present: normal inspection, full ROM, normal capillary refill. Absent: tenderness, pedal edema, joint swelling, calf tenderness Back exam: Present: normal inspection Neurological exam: Present: alert, oriented X3, CN II-XII intact Psychiatric exam: Present: normal affect, normal mood Skin exam: Present: warm, dry, intact, normal color. Absent: rash <Eliu Bustamante - Last Filed: 12/16/22 15:03> - General Exam Comments Initial Comments: Visual Physical Exam Vital signs reviewed General: Well-appearing, nontoxic, no acute distress. Head: Normocephalic, atraumatic Eyes: PERRLA, EOMI ENT: Airway patent Chest: Nonlabored breathing Skin: No visual rash, normal skin tone Neuro: Alert and oriented 3 Musculoskeletal: No gross abnormalities (Helen Cortez) Course <Eilu Bustamante - Last Filed: 12/16/22 15:03> Vital Signs 12/13/22 12/14/22 12/14/22 18:06 01:18 08:52 Temperature 97.9 F Pulse Rate 109 H 85 Respiratory 22 18 Rate Blood Pressure 138/75 118/65 O2 Sat by Pulse 99 96 98 Oximetry 12/14/22 12/14/22 12/14/22 09:00 10:00 11:00 Temperature 97.5 F L Pulse Rate 82 82 Respiratory 18 Rate Blood Pressure 137/59 137/59 158/88 O2 Sat by Pulse 98 97 Oximetry 12/14/22 13:00 Temperature 97.2 F L Pulse Rate 80 Respiratory 18 Rate Blood Pressure 141/59 O2 Sat by Pulse 94 L Oximetry - Reevaluation(s) Reevaluation #1: 12/13/22 22:54 Medical records reviewed (Eliu Bustamante) Reevaluation #2: 12/13/22 22:54 Patient has no changes symptoms remains asymptomatic (Eliu Bustamante) Reevaluation #3: 12/13/22 22:55 Patient informed results questions answered (Eliu Bustamante) Reevaluation #4: 12/13/22 22:54 Was pt. sent in by a medical professional or institution? 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 @ -no Did you review nursing and triage notes? @ -agree Were old charts reviewed? @ -no Differential Diagnosis? @ -prior EKG interpreted by me (3pts min.)? @ -yes X-rays interpreted by me (1pt min.)? @ -no CT interpreted by me (1pt min.)? @ -no U/S interpreted by me (1pt. min.)? @ -no What testing was considered but not performed? (CT, X-rays, U/S, labs)? Why? @ -no What meds were considered but not given? Why? @ -no Did you discuss the management of the patient with other professionals? @ -no Did you reconcile home meds? @ -no Was smoking cessation discussed for >3mins.? @ -no Was critical care preformed (if so, how long)? @ -no Were there social determinants of health that impacted care today? How? (Homelessness, low income, unemployed, alcoholism, drug addiction, villalobos sportation, low edu. Level, literacy, decrease access to med. care, usp, rehab)? @ -no Was there de-escalation of care discussed even if they declined? (Discuss DNR or withdrawal of care, Hospice)? @ -no What co-morbidities impacted this encounter? (DM, HTN, Smoking, COPD, CAD, Cancer, CVA, Hep., AIDS, mental health diagnosis, sleep apnea, morbid obesity)? @ -none Was patient admitted / discharged? @ -67 female to the emergency department for evaluation regarding renal failure and acidosis abnormal outpatient lab testing. Patient's labs continue to be abnormal here in the ER and will admit for nephrology to evaluate and treat Admitted Undiagnosed new problem with uncertain prognosis? @ -no Drug Therapy requiring intensive monitoring for toxicity (Heparin, Nitro, Insulin, Cardizem)? @ -no Were any procedures done? @ -no Diagnosis/symptom? @ -Acute renal failure and acidosis Acute, or Chronic, or Acute on Chronic? @ -no Uncomplicated (without systemic symptoms) or Complicated (systemic symptoms)? @ -uncomplicated Side effects of treatment? @ -no Exacerbation, Progression, or Severe Exacerbation] @ -no Poses a threat to life or bodily function? @ -yes secondary to electrolyte derangement (Eliu Bustamante) Reevaluation #5: 12/13/22 22:55 Differential Weakness: Hypoglycemia, shock, sepsis, hyponatremia, anemia, infection, [place], ETOH, adverse medicine reaction, overdose, stroke, this is not meant to be an all-inclusive list. (Eliu Bustamante) - Consultations Consultation #1: Spoke with admitting physicians who agree to admit this patient (Eliu Bustamante) EKG Findings - EKG Comments: EKG Findings:: EKG shows sinus rate of 91 MS 153 QRS86 QTc 412 - EKG Results: EKG: interpreted by ERMD <Eliu Bustamante - Last Filed: 12/16/22 15:03> Medical Decision Making - Lab Data Result diagrams: 12/13/22 19:10 12/16/22 11:01 - EKG Data -: EKG Interpreted by Me (EKG shows sinus rhythm rate of 91 MS 153 QRS 86 QTc 422) <Eliu Bustamante - Last Filed: 12/16/22 15:03> - Medical Decision Making 67 female ER. Patient has known history of kidney disease and kidney failure which she believes maybe related to chemotherapy versus cervical tumor and cancer. Patient will be admitted for further evaluation monitoring regarding kidney failure (Eliu Bustamante) - Lab Data Lab Results 12/13/22 12/13/22 12/13/22 Range/Units 19:10 19:10 20:20 WBC 13.9 H (3.8-10.6) k/uL RBC 3.67 L (3.80-5.40) m/uL Hgb 10.3 L (11.4-16.0) gm/dL Hct 31.1 L (34.0-46.0) % MCV 84.7 (80.0-100.0) fL MCH 28.1 (25.0-35.0) pg MCHC 33.1 (31.0-37.0) g/dL RDW 14.2 (11.5-15.5) % Plt Count 491 H (150-450) k/uL MPV 8.1 Neutrophils % 79 % Lymphocytes % 10 % Monocytes % 5 % Eosinophils % 5 % Basophils % 0 % Neutrophils # 10.9 H (1.3-7.7) k/uL Lymphocytes # 1.4 (1.0-4.8) k/uL Monocytes # 0.6 (0-1.0) k/uL Eosinophils # 0.7 (0-0.7) k/uL Basophils # 0.0 (0-0.2) k/uL Sodium 139 (137-145) mmol/L Potassium 4.5 (3.5-5.1) mmol/L Chloride 107 (98-107) mmol/L Carbon Dioxide 16 L (22-30) mmol/L Anion Gap 16 mmol/L BUN 78 H (7-17) mg/dL Creatinine 7.30 H* (0.52-1.04) mg/dL Est GFR (CKD-EPI)AfAm 6 (>60 ml/min/1.73 sqM) Est GFR (CKD-EPI)NonAf 5 (>60 ml/min/1.73 sqM) Glucose 113 H (74-99) mg/dL Calcium 9.2 (8.4-10.2) mg/dL Total Bilirubin 0.2 (0.2-1.3) mg/dL AST 12 L (14-36) U/L ALT 10 (4-34) U/L Alkaline Phosphatase 90 (38-126) U/L Total Protein 7.2 (6.3-8.2) g/dL Albumin 3.7 (3.5-5.0) g/dL Urine Color Light Yellow Urine Appearance Turbid H (Clear) Urine pH 5.5 (5.0-8.0) Ur Specific [place] 1.015 (1.001-1.035) Urine Protein 2+ H (Negative) Urine Glucose (UA) 1+ H (Negative) Urine Ketones Negative (Negative) Urine Blood Moderate H (Negative) Urine Nitrite Negative (Negative) Urine Bilirubin Negative (Negative) Urine Urobilinogen <2.0 (<2.0) mg/dL Ur Leukocyte Esterase Large H (Negative) Urine RBC 15 H (0-5) /hpf Urine WBC >182 H (0-5) /hpf Urine WBC Clumps Many H (None) /hpf Ur Squamous Epith Cells 2 (0-4) /hpf Urine Bacteria Occasional H (None) /hpf Disposition <Helen Cortez - Last Filed: 12/13/22 18:23> Is patient prescribed a controlled substance at d/c from ED?: No Time of Disposition: 21:30 <Eliu Bustamante - Last Filed: 12/16/22 15:03> Clinical Impression: Dehydration, UTI (urinary tract infection), Acute on chronic renal failure, Acute renal failure, Cervical ca Disposition: ADMITTED IP TO THIS HOSP Condition: Fair
[2022-12-13 19:31] LABS: Basophils % (A) 0 %; Eosinophils # (A) 0.7 k/uL (0-0.7); Eosinophils % (A) 5 %; HCT 31.1 % (34.0-46.0); HGB 10.3 gm/dL (11.4-16.0); Lymphocytes # (A) 1.4 k/uL (1.0-4.8); Lymphocytes % (A) 10 %; MCH 28.1 pg (25.0-35.0); MCHC 33.1 g/dL (31.0-37.0); MCV 84.7 fL (80.0-100.0); Mean Platelet Volume 8.1; Monocytes # (A) 0.6 k/uL (0-1.0); Monocytes % (A) 5 %; Neutrophils # (A) 10.9 k/uL (1.3-7.7); Neutrophils % (A) 79 %; Platelet Count 491 k/uL (150-450); RBC 3.67 m/uL (3.80-5.40); RDW 14.2 % (11.5-15.5); WBC 13.9 k/uL (3.8-10.6)
[2022-12-13 19:54] LABS: ALT 10 U/L (4-34); AST 12 U/L (14-36); African American GFR (CKD) 6 (>60 ml/min/1.73 sqM); Albumin 3.7 g/dL (3.5-5.0); Alkaline Phosphatase 90 U/L (38-126); Anion Gap 16 mmol/L; Blood Urea Nitrogen 78 mg/dL (7-17); Calcium 9.2 mg/dL (8.4-10.2); Carbon Dioxide 16 mmol/L (22-30); Chloride 107 mmol/L (98-107); Glucose 113 mg/dL (74-99); Non-African American GFR(CKD) 5 (>60 ml/min/1.73 sqM); Potassium 4.5 mmol/L (3.5-5.1); Sodium 139 mmol/L (137-145); Total Bilirubin 0.2 mg/dL (0.2-1.3); Total Protein 7.2 g/dL (6.3-8.2)
[2022-12-13 20:40] LABS: Appearance,Urine Turbid (Clear); Bacteria,Urine Occasional /hpf; Bilirubin,Urine Negative (Negative); Blood,Urine Moderate (Negative); Color,Urine Light Yellow; Glucose,Urine (UA) 1+ (Negative); Ketones,Urine Negative (Negative); Leukocyte Esterase,Urine Large (Negative); Nitrite,Urine Negative (Negative); PH, Urine 5.5 (5.0-8.0); Protein,Urine 2+ (Negative); RBC,Urine 15 /hpf (0-5); Specific Gravity,Urine 1.015 (1.001-1.035); Squamous Epithelial Cell,Urine 2 /hpf (0-4); Urobilinogen,Urine <2.0 mg/dL (<2.0); WBC,Urine >182 /hpf (0-5)
[2022-12-13] MEDS ORDERED: SODIUM CHLORIDE 0.9% 1,000 ML IV STA ×2 (21:35)
[2022-12-14] MEDS ORDERED: NALOXONE 0.4 MG/ML 1 ML VIAL IV PRN (03:03)
[2022-12-14] MEDS ORDERED: ONDANSETRON 4 MG/2 ML VIAL IVP PRN (23:29)
[2022-12-15] MEDS: SODIUM CHLORIDE 0.9% 1,000 ML IV SCH ×2 (01:56→13:46)
--- NOTE | 2022-12-15 10:39 | US ---
EXAMINATION TYPE: US kidneys/renal and bladder DATE OF EXAM: 12/15/2022 COMPARISON: 10/19/2022 CLINICAL INDICATION: Female, 67 years old with history of hydronephrosis; known hydronephrosis bilate rally, stent on the right renal, UTI, RF EXAM MEASUREMENTS: Right Kidney: 10.4 x 5.0 x 5.4 cm Left Kidney: 9.4 x 4.4 x 5.9 cm Right Kidney: [id number] hydronephrosis with stent seen. The degree of hydronephrosis appears t o be worsened from 10/19/2022. Left Kidney: Moderate to severe left-sided hydronephrosis, similar to slightly increased from prior e xam. Bladder: Partial distention Limited evaluation. IMPRESSION: 1. Right-sided ureteral stent seen. There is mild to moderate hydronephrosis on the right that appear s to have worsened from 10/19/2022. 2. Moderate to severe left-sided hydronephrosis, similar to slightly increased from prior exam.
--- NOTE | 2022-12-15 12:01 | P.NPCON ---
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 Patient is status post right ureteral stent placement on 09/07/[address] left ureteral stent due to scarring during that admission in October. Serum creatinine had decreased to 3.5 mg/dL on 10/23/2022. On Outpatient labs showed serum creatinine of 7.3 and therefore patient was advised to come into the hospital. Patient denies any fever chills nausea vomiting abdominal pain or diarrhea. She states she has had good urine output. Blood pressure is not low. No new medications noted. UA is suggestive of UTI and patient is started on antibiotics. Review of Systems As per HPI Past Medical History Past Medical History: Cancer, CVA/TIA, Eye Disorder, GERD/Reflux, Hypertension, Pneumonia, Renal Disease Additional Past Medical History / Comment(s): Cervical cancer diagnosed 2019-pt states she completed chemotherapy and has had radiation treatments in 2019&2020- she was to have a cervical sleeve inserted then more radiation but the doctors were unable to insert/secure sleeve, Adm. 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, R occular stroke-caused vision changes/received injections, UTI, CKD stage 4, neuropathy in legs and walks with a walker History of Any Multi-Drug Resistant Organisms: None Reported Past Surgical History: Section, Cholecystectomy, Tubal Ligation Additional Past Surgical History / Comment(s): Right ureteral stent, D&C Past Anesthesia/Blood Transfusion Reactions: No Reported Reaction Past Psychological History: Depression Additional Psychological History / Comment(s): Pt resides with her daughter, Loren and her family. Histrory of depression. No thoughts of suicide when asked. Smoking Status: Current every day smoker Past Alcohol Use History: None Reported Additional Past Alcohol Use History / Comment(s): Pt started smoking in 1971 but has not smoked in past 2 months. Past Drug Use History: None Reported - Past Family History Father Family Medical History: Cancer, Diabetes Mellitus Additional Family Medical History / Comment(s): Pt thinks father had prostate cancer. Mother Family Medical History: Diabetes Mellitus, Hyperlipidemia, Hypertension, Myocardial Infarction ([place]), Renal Disease Additional Family Medical History / Comment(s): Mother had a [place] in her 50s. She from renal failure during dialysis. Medications and Allergies Home Medications Medication Instructions Recorded Confirmed Type amLODIPine [Norvasc] 10 mg PO HS 09/05/22 12/13/22 History Allergies Allergy/AdvReac Type Severity Reaction Status Date / Time No Known Allergies Allergy Verified 12/13/22 21:42 Physical Exam Vitals: Vital Signs Temp Pulse Pulse Resp BP BP Pulse Ox 12/15/22 07:46 98.1 F 85 18 134/55 97 12/15/22 02:58 97.9 F 86 16 146/68 98 12/14/22 20:00 98 16 12/14/22 19:10 97.9 F 98 16 132/69 97 12/14/22 14:35 97.5 F L 83 18 161/82 95 12/14/22 14:15 80 18 134/74 99 12/14/22 13:00 97.2 F L 80 18 141/59 94 L Intake and Output 12/14/22 12/15/22 12/15/22 22:59 06:59 14:59 Intake Total 900 Balance 900 Intake: Intake, IV Titration 900 Amount Sodium Chloride 0.9% 1, 900 000 ml @ 75 mls/hr IV . 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 Acute kidney injury secondary to most likely obstructive uropathy as well as UTI. Repeat labs are pending from today. Continue with IV fluids and IV antibiotics and check ultrasound of the kidneys. Urology has been consulted as well. 2. Chronic kidney disease NKF stage 4-5. Baseline creatinine around 3 mg/dL with multiple episodes of acute kidney injury mostly related to obstructive uropathy 3. Obstructive uropathy with history of bilateral hydronephrosis status post right ureteral stent placement in September [address] left ureteral stent due to scarring. 4. Pyuria rule out UTI 5. Metabolic acidosis secondary to acute kidney injury Plan: Continue with IV fluids Add oral sodium bicarb Continue with IV antibiotics Consult urology Okay an ultrasound of the kidneys No indication for acute hemodialysis. Thank you for the consultation. We will continue to follow the patient with you during
[2022-12-15 13:23] LABS: African American GFR (CKD) 8 (>60 ml/min/1.73 sqM); Anion Gap 14 mmol/L; Blood Urea Nitrogen 65 mg/dL (7-17); Calcium 8.6 mg/dL (8.4-10.2); Carbon Dioxide 14 mmol/L (22-30); Chloride 112 mmol/L (98-107); Glucose 136 mg/dL (74-99); Non-African American GFR(CKD) 7 (>60 ml/min/1.73 sqM); Sodium 140 mmol/L (137-145)
[2022-12-15] MEDS: SODIUM BICARBONATE TAB 650 MG TAB PO SCH ×2 (13:45→21:30)
--- NOTE | 2022-12-15 16:39 | P.GSCN ---
History of Present Illness Reason for Consult: bilateral hydronephrosis History of present illness: The patient is a 67-year-old female patient of Dr Mejia. The patient has a known history of cercival cancer diagnosed in early 2020 and treated with chemotherapy and radiation at [facility]. She had left-sided hydronephrosis at that point in time. Apparently a left ureteral stent was placed in April 2021, but subsequently had been removed. In May 2022 the patient had obstructive uropathy with right ureteral stent placement. She also had moderate to severe left hydronephrosis but a stent could not be placed due to significant scarring. Patient stent on right was last changed in 09/2022. At that time minimal encrustation of the stent. She is admitted to the hospital with renal failure and creat of 7.3, which improved today at 6.2. Her baseline is around 4. Patient also had evidence of UTI.. Renal U/S on admission showed slight worsening of hydronephrosis on the right sided compared to U/S from 10/2022. She denies any flank pain, and indicated is having adequate urine output Review of Systems - Constitutional Denies fever, Denies weight loss - Respiratory Denies cough, Denies 7 - Gastrointestinal Reports as per HPI - Genitourinary Genitourinary: Reports dysuria, Reports pelvic pain, Denies flank pain - Integumentary Denies rash, Denies unusual bruising - Neurological Denies headaches, Denies syncope - Hematologic/Lymphatic Denies easy bleeding, Denies easy bruising Past Medical History Past Medical History: Cancer, CVA/TIA, Eye Disorder, GERD/Reflux, Hypertension, Pneumonia, Renal Disease Additional Past Medical History / Comment(s): Cervical cancer diagnosed 2019-pt states she completed chemotherapy and has had radiation treatments in 2019&2020- she was to have a cervical sleeve inserted then more radiation but the doctors were unable to insert/secure sleeve, Adm. 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, R occular stroke-caused vision changes/received injections, UTI, CKD stage 4, neuropathy in legs and walks with a walker History of Any Multi-Drug Resistant Organisms: None Reported Past Surgical History: Section, Cholecystectomy, Tubal Ligation Additional Past Surgical History / Comment(s): Right ureteral stent, D&C Past Anesthesia/Blood Transfusion Reactions: No Reported Reaction Past Psychological History: Depression Additional Psychological History / Comment(s): Pt resides with her daughterLoren and her family. Histrory of depression. No thoughts of suicide when asked. Smoking Status: Current every day smoker Past Alcohol Use History: None Reported Additional Past Alcohol Use History / Comment(s): Pt started smoking in 1971 but has not smoked in past 2 months. Past Drug Use History: None Reported - Past Family History Father Family Medical History: Cancer, Diabetes Mellitus Additional Family Medical History / Comment(s): Pt thinks father had prostate cancer. Mother Family Medical History: Diabetes Mellitus, Hyperlipidemia, Hypertension, Myocardial Infarction ([place]), Renal Disease Additional Family Medical History / Comment(s): Mother had a [place] in her 50s. She from renal failure during dialysis. Medications and Allergies Home Medications Medication Instructions Recorded Confirmed Type amLODIPine [Norvasc] 10 mg PO HS 09/05/22 12/13/22 History Allergies Allergy/AdvReac Type Severity Reaction Status Date / Time No Known Allergies Allergy Verified 12/13/22 21:42 Surgical - Exam Vital Signs Temp Pulse Resp BP Pulse Ox 97.9 F 109 H 22 138/75 99 12/13/22 18:06 12/13/22 18:06 12/13/22 18:06 12/13/22 18:06 12/13/22 18:06 - General no distress, no pain - Eyes normal ocular movement, no pale - ENT normal nares, normal mucosa - Respiratory normal expansion, normal respiratory effort - Abdomen Abdomen: soft, non tender - Psychiatric oriented to time, oriented to person, oriented to place Results - Labs 12/13/22 19:10 12/15/22 12:34 Abnormal Lab Results - Last 24 Hours (Table) 12/15/22 Range/Units 01:05 Plasma Lactic Acid Xander <0.5 L (0.7-2.0) mmol/L Assessment and Plan Assessment: 67-year-old female history of cervical cancer, and chronic right-sided hydronephrosis being managed with stemt amd atrophy of the left kidney. admitted to the hospital with a UTI and acute kidney injury, creatinine of 7.3 which improved 6.2 today her baseline is around 4., stent was last changed 3/2/23. -Continue to trend creatinine, if creatinine returns back to baseline then we'll plan on doing stent exchange as an outpatient in 1-2 months , but if creatinine is persistently elevated and fails to return to her baseline then we will plan on changing the stent during his hospital admission. -Recommend treatment of the UTI prior stent exchange
--- NOTE | 2022-12-16 00:31 | PN ---
PROGRESS NOTE DATE OF SERVICE: 12/15/2022 CHIEF COMPLAINT: Chronic renal failure and nausea. HISTORY OF PRESENT ILLNESS: This lady is having some nausea. She has not had any significant abdominal or back pain. PHYSICAL EXAMINATION: CHEST: Clear. CARDIAC: Normal. ABDOMEN: Protuberant and soft. IMPRESSION: 1. Chronic renal failure due to ureteral obstruction secondary to carcinoma of the cervix. 2. Nausea. PLAN: 1. Antiemetics. 2. Wait further recommendations from Nephrology and Urology. Her prognosis is definitely concerning. MMODL / IJN: [id number] /
[2022-12-16] MEDS: SODIUM CHLORIDE 0.9% 1,000 ML IV SCH (00:40)
--- NOTE | 2022-12-16 09:56 | P.PN ---
Subjective Patient is seen in follow-up for acute kidney injury on chronic kidney. Creatinine 7.3 on admission and was down to 6.2 yesterday. Admits to good urine output. Oral intake fair. No vomiting or diarrhea. Hemodynamically stable. Vital signs are stable. General: No acute distress. HEENT: Head exam is unremarkable. LUNGS: No audible rhonchi or wheezes. HEART: Rate and Rhythm are regular. ABDOMEN: Nontender. EXTREMITITES: No edema. Objective - Vital Signs Vital signs: Vital Signs Temp 97.5 F L 12/16/22 07:25 Pulse 81 12/16/22 07:25 Resp 18 12/16/22 07:25 BP 145/75 12/16/22 07:25 Pulse Ox 98 12/16/22 07:25 FiO2 Intake & Output 12/15/22 12/16/22 12/16/22 18:59 06:59 18:59 Intake Total 1200 900 Balance 1200 900 Intake: Intake, IV Titration 900 Amount Sodium Chloride 0.9% 1, 900 000 ml @ 75 mls/hr IV . [id number] [facility] Rx#:[id number] Oral 1200 Other: Voiding Method Diaper Toilet Diaper Incontinent - Labs CBC & Chem 7: 12/13/22 19:10 12/15/22 12:34 Labs: Abnormal Lab Results - Last 24 Hours (Table) 12/15/22 Range/Units 12:34 Chloride 112 H (98-107) mmol/L Carbon Dioxide 14 L (22-30) mmol/L BUN 65 H (7-17) mg/dL Creatinine 6.22 H (0.52-1.04) mg/dL Glucose 136 H (74-99) mg/dL Assessment and Plan Plan: Assessment: 1. Acute kidney injury secondary to obstructive uropathy as well as UTI. Creatinine 7.3 on admission and was 6.2 yesterday. Renal ultrasound shows mild to moderate right hydronephrosis and moderate to severe left hydronephrosis. 2. 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 3. Status post right ureteral stent. 4. Metabolic acidosis secondary to acute kidney injury. 5. Hypertension with chronic kidney disease. 6. UTI on antibiotics. Plan: Change IV fluids to bicarb drip. Resume amlodipine. Follow-up cultures. Avoid nephrotoxins. Continue to monitor renal function and urine output. Continue to assess daily for need for renal replacement therapy. Check phosphorus level.
[2022-12-16] MEDS: SODIUM BICARBONATE TAB 650 MG TAB PO SCH ×2 (09:59→20:54)
[2022-12-16] MEDS: amLODIPine 5 MG TAB PO SCH (10:06)
[2022-12-16] MEDS: DEXTROSE 5% IN WATER 1,000 ML with SODIUM BICARB (1 MEQ/ML) 150 ML IV SCH (11:50)
[2022-12-16 12:07] LABS: African American GFR (CKD) 8 (>60 ml/min/1.73 sqM); Anion Gap 14 mmol/L; Blood Urea Nitrogen 58 mg/dL (7-17); Calcium 8.5 mg/dL (8.4-10.2); Carbon Dioxide 13 mmol/L (22-30); Chloride 113 mmol/L (98-107); Glucose 85 mg/dL (74-99); Magnesium 1.6 mg/dL (1.6-2.3); Non-African American GFR(CKD) 7 (>60 ml/min/1.73 sqM); Potassium 4.6 mmol/L (3.5-5.1); Sodium 140 mmol/L (137-145)
[2022-12-16] MEDS ORDERED: SODIUM BICARB 8.4% 50 ML SYR (1 MEQ/ML) IV STA (14:44)
[2022-12-17 01:13] VITALS: RESP 18
[2022-12-17] MEDS: DEXTROSE 5% IN WATER 1,000 ML with SODIUM BICARB (1 MEQ/ML) 150 ML IV SCH ×2 (02:03→18:09)
[2022-12-17] MEDS: SODIUM BICARBONATE TAB 650 MG TAB PO SCH ×2 (09:15→21:11)
[2022-12-17] MEDS: amLODIPine 5 MG TAB PO SCH (09:15)
--- NOTE | 2022-12-17 10:36 | P.PN ---
Subjective Patient is seen in follow-up for acute kidney injury on chronic kidney. Creatinine 7.3 on admission and was down to 5.9 yesterday. Admits to good urine output. Oral intake fair. No vomiting or diarrhea. Hemodynamically stable. Vital signs are stable. General: No acute distress. HEENT: Head exam is unremarkable. LUNGS: No audible rhonchi or wheezes. HEART: Rate and Rhythm are regular. ABDOMEN: Nontender. EXTREMITITES: No edema. Objective - Vital Signs Vital signs: Vital Signs Temp 97.9 F 12/17/22 07:30 Pulse 83 12/17/22 07:30 Resp 18 12/17/22 07:30 BP 139/62 12/17/22 07:30 Pulse Ox 95 12/17/22 07:30 FiO2 Intake & Output 12/16/22 12/17/22 12/17/22 18:59 06:59 18:59 Intake Total 960 Balance 960 Intake: Intake, IV Titration 960 Amount Dextrose 5% in Water 1, 960 000 ml @ 80 mls/hr IV . [id number] [facility] with Sodium Bicarb (1 Meq/ml) 150 ml Rx#:[id number] Other: Voiding Method Toilet Toilet Diaper Diaper Incontinent Incontinent # Voids 3 # Bowel Movements 1 - Labs CBC & Chem 7: 12/13/22 19:10 12/16/22 11:01 Labs: Abnormal Lab Results - Last 24 Hours (Table) 12/16/22 Range/Units 11:01 Chloride 113 H (98-107) mmol/L Carbon Dioxide 13 L (22-30) mmol/L BUN 58 H (7-17) mg/dL Creatinine 5.90 H (0.52-1.04) mg/dL Microbiology - Last 24 Hours (Table) 12/15/22 01:05 Blood Culture - Preliminary Blood 12/13/22 20:20 Urine Culture - Final Urine,Voided Assessment and Plan Plan: Assessment: 1. Acute kidney injury secondary to obstructive uropathy as well as UTI. Creatinine 7.3 on admission and was 5.9 yesterday. Renal ultrasound shows mild to moderate right hydronephrosis and moderate to severe left hydronephrosis. Urology following. 2. 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 3. Status post right ureteral stent. 4. Metabolic acidosis secondary to acute kidney injury. On bicarb drip and oral bicarb as well. 5. Hypertension with chronic kidney disease. Stable. 6. UTI on antibiotics. Plan: Maintain bicarb drip. Avoid nephrotoxins. Continue to monitor renal function and urine output. Continue to assess daily for need for renal replacement therapy. Follow-up morning labs. Consult ID due to recurrent UTIs.
--- NOTE | 2022-12-17 11:30 | P.PN ---
Subjective Creatinine yesterday was 5.9, continues to have good urine output denies any gross hematuria, dysuria bladder pressure improved with antibiotics Objective - Vital Signs Vital signs: Vital Signs Temp 97.9 F 12/17/22 07:30 Pulse 83 12/17/22 07:30 Resp 18 12/17/22 07:30 BP 139/62 12/17/22 07:30 Pulse Ox 95 12/17/22 07:30 FiO2 Intake & Output 12/16/22 12/17/22 12/17/22 18:59 06:59 18:59 Intake Total 960 Balance 960 Intake: Intake, IV Titration 960 Amount Dextrose 5% in Water 1, 960 000 ml @ 80 mls/hr IV . [id number] [facility] with Sodium Bicarb (1 Meq/ml) 150 ml Rx#:[id number] Other: Voiding Method Toilet Toilet Toilet Diaper Diaper Diaper Incontinent Incontinent Incontinent # Voids 3 # Bowel Movements 1 - Labs CBC & Chem 7: 12/13/22 19:10 12/16/22 11:01 Labs: Abnormal Lab Results - Last 24 Hours (Table) 12/16/22 Range/Units 11:01 Chloride 113 H (98-107) mmol/L Carbon Dioxide 13 L (22-30) mmol/L BUN 58 H (7-17) mg/dL Creatinine 5.90 H (0.52-1.04) mg/dL Microbiology - Last 24 Hours (Table) 12/15/22 01:05 Blood Culture - Preliminary Blood 12/13/22 20:20 Urine Culture - Final Urine,Voided Assessment and Plan Assessment: 67-year-old female history of cervical cancer, and chronic right-sided hydronephrosis being managed with stent and atrophy of the left kidney. admitted to the hospital with a UTI and acute kidney injury, creatinine of 7.3 which improved 5.9 to yesterday her baseline is around 4., stent was last changed 09/07/22. -Advised to follow-up as an outpatient with Dr. Mejia, we will she will need stent exchange in the next 1-3 months
[2022-12-17 13:45] LABS: African American GFR (CKD) 9 (>60 ml/min/1.73 sqM); Anion Gap 11 mmol/L; Blood Urea Nitrogen 55 mg/dL (7-17); Calcium 8.3 mg/dL (8.4-10.2); Carbon Dioxide 21 mmol/L (22-30); Chloride 106 mmol/L (98-107); Glucose 130 mg/dL (74-99); Magnesium 1.5 mg/dL (1.6-2.3); Non-African American GFR(CKD) 8 (>60 ml/min/1.73 sqM); Phosphorus 5.3 mg/dL (2.5-4.5); Potassium 3.6 mmol/L (3.5-5.1); Sodium 138 mmol/L (137-145)
[2022-12-17] MEDS: MAGNESIUM OXIDE 400 MG TAB PO SCH (21:11)
--- NOTE | 2022-12-17 22:33 | P.CONS ---
History of Present Illness - Reason for Consult Consult date: 12/17/22 Recurrent UTI, stents Requesting physician: Jm Easton - Chief Complaint Burning of urine and not feeling well x days - History of Present Illness Patient is a 67-year-old female with a past medical history negative for cervical cancer diagnosed early 2020 patient did have a chemoradiation therapy subsidy developing left-sided hydronephrosis that has been treated with left ureteral stent subsequently removed however patient subsequently have a obstructive uropathy and right ureteral stent placement and the right stent was changed in September 2022 left sided stent could not be placed because of the significant scarring patient did have admission to the hospital back in October 2022 urine culture negative blood culture with staph epi likely contamination t he patient was discharged on oral Ceftin patient now presenting back to the hospital about 4 days ago patient was sent in by her physician as the patient was noted to have worsening of the kidney function patient has been complaining of pain on urination however denies any suprapubic or flank pain some nausea but no vomiting no chest pain no shortness of breath or cough on presentation to the hospital the patient was afebrile in the fair have been recorded subsequently patient did however count 13.9 with a left shift creatinine was 7.30 subsequently creatinine has improved down to 5.49 patient did have a positive UA however culture has been negative so far and blood cultures been negative lissa urvashi is currently treated with Rocephin 2 g daily infectious disease was consulted today concern for recurrent UTI with the right-sided ureteral stent patient did have a abdominal bladder ultrasound during this admission which shows right-sided ureteral stone seen mild to moderate hydronephrosis moderate to severe left-sided hydronephrosis patient has been evaluated by urology recommending no surgical intervention at this point Review of Systems Positive point and negatives has been mentioned in the HPI, complete review of systems was performed and all other systems are negative Past Medical History Past Medical History: Cancer, CVA/TIA, Eye Disorder, GERD/Reflux, Hypertension, Pneumonia, Renal Disease Additional Past Medical History / Comment(s): Cervical cancer diagnosed 2019-pt states she completed chemotherapy and has had radiation treatments in 2019&2020- she was to have a cervical sleeve inserted then more radiation but the doctors were unable to insert/secure sleeve, Adm. 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, R occular stroke-caused vision changes/received injections, UTI, CKD stage 4, neuropathy in legs and walks with a walker History of Any Multi-Drug Resistant Organisms: None Reported Past Surgical History: Section, Cholecystectomy, Tubal Ligation Additional Past Surgical History / Comment(s): Right ureteral stent, D&C Past Anesthesia/Blood Transfusion Reactions: No Reported Reaction Past Psychological History: Depression Additional Psychological History / Comment(s): Pt resides with her daughterLoren and her family. Histrory of depression. No thoughts of suicide when asked. Smoking Status: Current every day smoker Past Alcohol Use History: None Reported Additional Past Alcohol Use History / Comment(s): Pt started smoking in 1971 but has not smoked in past 2 months. Past Drug Use History: None Reported - Past Family History Father Family Medical History: Cancer, Diabetes Mellitus Additional Family Medical History / Comment(s): Pt thinks father had prostate cancer. Mother Family Medical History: Diabetes Mellitus, Hyperlipidemia, Hypertension, Myocardial Infarction ([place]), Renal Disease Additional Family Medical History / Comment(s): Mother had a [place] in her 50s. She from renal failure during dialysis. Medications and Allergies Home Medications Medication Instructions Recorded Confirmed Type amLODIPine [Norvasc] 10 mg PO HS 09/05/22 12/20/22 History Cefuroxime [Ceftin] 250 mg PO DAILY #14 tab 12/18/22 12/20/22 Rx Magnesium Oxide [Mag-Ox] 400 mg PO BID #60 tab 12/18/22 12/20/22 Rx Sodium Bicarbonate Tab 650 mg PO BID #60 tab 12/18/22 12/20/22 Rx Allergies Allergy/AdvReac Type Severity Reaction Status Date / Time No Known Allergies Allergy Verified 12/20/22 09:54 Physical Exam Vitals: Vital Signs Temp Pulse Resp BP Pulse Ox 12/17/22 13:08 98.4 F 72 18 164/71 98 12/17/22 07:30 97.9 F 83 18 139/62 95 12/17/22 01:12 97.9 F 89 18 145/78 98 12/16/22 20:24 98.8 F 75 16 153/75 97 Intake and Output 12/16/22 12/17/22 12/17/22 22:59 06:59 14:59 Intake Total 960 Balance 960 Intake: Intake, IV Titration 960 Amount Dextrose 5% in Water 1, 960 000 ml @ 80 mls/hr IV . [id number] [facility] with Sodium Bicarb (1 Meq/ml) 150 ml Rx#:[id number] Other: Voiding Method Toilet Toilet Diaper Diaper Incontinent Incontinent # Voids 3 # Bowel Movements 1 GENERAL DESCRIPTION: Elderly female lying in bed, no distress. No tachypnea or accessory muscle of respiration use. HEENT: Shows Pallor , no scleral icterus. Oral mucous membrane is dry. No pharyngeal erythema or thrush NECK: Trachea central, no thyromegaly. LUNGS: Unlabored breathing. Clear to auscultation anteriorly. No wheeze or crack le. HEART: S1, S2, regular rate and rhythm. No loud murmur ABDOMEN: Soft, no tenderness , guarding or rigidity, no organomegaly EXTREMITIES: No edema of feet. SKIN: No rash, no masses palpable. NEUROLOGICAL: The patient is awake, alert, oriented x3, mood and affect normal. Results CBC & Chem 7: 12/13/22 19:10 12/18/22 04:51 Labs: Microbiology - Last 24 Hours (Table) 12/15/22 01:05 Blood Culture - Preliminary Blood 12/13/22 20:20 Urine Culture - Final Urine,Voided Assessment and Plan (1) UTI (urinary tract infection) Status: Acute Code(s): N39.0 - URINARY TRACT INFECTION, SITE NOT SPECIFIED SNOMED Code(s): 05300848 Plan: 1patient with recurrent worsening of her kidney function which apparently has been intubated to the recurrent infection patient did have a history of cervical cancer treated with chemoradiation therapy and did have a bilateral hydronephrosis left side stenting could not be done because of scarring in the right ureter stent was changed on September of 2022 subsequently admitted to the hospital with worsening kidney function positive UA did have elevated white count however subsequently a culture has been negative so far 2-we will repeat a UA and a culture 3-check inflammatory markers 4-continue with Rocephin 2 g daily 5-May suggest long antibiotic course if infection is being planned for these recurrent worsening of the kidney function and will see clinical response to it versus change of her stent and possible left-sided percutaneous drainage We will follow on clinical condition and cultures to further adjust medication if needed Thank you for this consultation we will follow the patient along with you Time with Patient: Greater than 30
[2022-12-18] MEDS: DEXTROSE 5% IN WATER 1,000 ML with SODIUM BICARB (1 MEQ/ML) 150 ML IV SCH (03:40)
[2022-12-18 06:24] LABS: African American GFR (CKD) 9 (>60 ml/min/1.73 sqM); Anion Gap 10 mmol/L; Blood Urea Nitrogen 50 mg/dL (7-17); Calcium 8.4 mg/dL (8.4-10.2); Carbon Dioxide 22 mmol/L (22-30); Chloride 108 mmol/L (98-107); Glucose 87 mg/dL (74-99); Magnesium 1.6 mg/dL (1.6-2.3); Non-African American GFR(CKD) 8 (>60 ml/min/1.73 sqM); Potassium 3.7 mmol/L (3.5-5.1); Sodium 140 mmol/L (137-145)
--- NOTE | 2022-12-18 08:14 | PN ---
PROGRESS NOTE DATE OF SERVICE: 12/17/2022 CHIEF COMPLAINT: Acute on chronic renal failure. HISTORY OF PRESENT ILLNESS: This lady is doing fairly well and she has had no abdominal pain, shortness of breath, nausea, etc. GFR remains about the same. She is being seen and followed by Nephrology and Urology. She may require a changing of the right stent. PHYSICAL EXAMINATION: GENERAL: She is awake and alert. She is not nauseated. CHEST: Clear. CARDIAC: Normal. ABDOMEN: Protuberant. There are no masses. IMPRESSION: 1. Chronic renal failure. 2. Nausea. 3. CA of the cervix. PLAN: No change in program and await any further recommendations from Urology or Nephrology. MMODL / IJN: [id number] /
[2022-12-18 08:22] VITALS: TEMP 97.9
--- NOTE | 2022-12-18 08:30 | PN ---
PROGRESS NOTE DATE OF SERVICE: 12/16/2022 CHIEF COMPLAINT: Chronic renal failure due to ureteral obstruction secondary to carcinoma of the cervix. HISTORY OF PRESENT ILLNESS: This lady is doing fairly well and is anxious to get more information from Urology and Nephrology. She is complaining a little bit of back pain, but has no other complaints. She is no longer nauseated. PHYSICAL EXAMINATION: CHEST: Clear. CARDIAC: Normal. ABDOMEN: Soft and protuberant. IMPRESSION: 1. Chronic renal failure. 2. Ureteral obstruction. 3. CA of the cervix. PLAN: Repeat laboratory studies, and Nephrology and Urology are considering whether or not to intervene and possibly change the right ureteral stent. MMODL / IJN: [id number] /
[2022-12-18] MEDS: MAGNESIUM OXIDE 400 MG TAB PO SCH (08:38)
[2022-12-18] MEDS: SODIUM BICARBONATE TAB 650 MG TAB PO SCH (08:38)
[2022-12-18] MEDS: amLODIPine 5 MG TAB PO SCH (08:38)
--- NOTE | 2022-12-18 08:38 | HP ---
HISTORY AND PHYSICAL CHIEF COMPLAINT: Renal failure. 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 The left ureter is blocked. Right ureter has a stent placed. Kidney function has been deteriorating and Nephrology sent to the hospital. REVIEW OF SYSTEMS: She has had some nausea, but no other complaints. She has had no headaches, chest pain, shortness of breath, abdominal pain, pruritus, etc. PAST MEDICAL HISTORY, FAMILY HISTORY, AND PERSONAL AND SOCIAL HISTORIES: All otherwise unchanged and unremarkable from her recent admitting and discharge summaries. In the emergency room, her BUN was 78 with a creatinine of 7.3. PHYSICAL EXAMINATION: GENERAL: She appeared to be obese, in no acute distress. SKIN: Color is normal. Skin is warm, dry. LYMPHATICS: Lymph nodes are not enlarged. HEENT: Head, ears, eyes, nose, mouth and throat were normal. NECK: Veins are not distended. Thyroid was not enlarged. CHEST: Clear. CARDIAC: Normal. ABDOMEN: Slightly distended, protuberant, soft and nontender without any masses. EXTREMITIES: Normal. NEUROLOGIC: She is intact. DIAGNOSES: She is admitted to the hospital with diagnoses: 1. Acute exacerbation of chronic renal failure. 2. CA of the cervix with ureteral obstruction. PLAN: 1. Bedrest. 2. IV fluids. 3. Consult with Nephrology and Urology. NICO / CARLOYNEN: [id number] /
[2022-12-18 11:40] VITALS: BP 138/69; PULSE 84
--- NOTE | 2022-12-18 12:36 | P.PN ---
Subjective Patient is seen in follow-up for acute kidney injury on chronic kidney. Creatinine 7.3 on admission and is stable at 5.52 today. Admits to good urine output. Oral intake fair. No vomiting or diarrhea. Hemodynamically stable. Wants to go home. Vital signs are stable. General: No acute distress. HEENT: Head exam is unremarkable. LUNGS: No audible rhonchi or wheezes. HEART: Rate and Rhythm are regular. ABDOMEN: Nontender. EXTREMITITES: No edema. Objective - Vital Signs Vital signs: Vital Signs Temp 97.9 F 12/18/22 11:25 Pulse 84 12/18/22 11:25 Resp 18 12/18/22 11:25 BP 138/69 12/18/22 11:25 Pulse Ox 98 12/18/22 11:25 FiO2 Intake & Output 12/17/22 12/18/22 12/18/22 18:59 06:59 18:59 Intake Total 120 Balance 120 Intake: Oral 120 Other: Voiding Method Toilet Toilet Toilet Diaper Diaper Diaper Incontinent Incontinent Incontinent # Voids 2 - Labs CBC & Chem 7: 12/13/22 19:10 12/18/22 04:51 Labs: Abnormal Lab Results - Last 24 Hours (Table) 12/17/22 12/18/22 Range/Units 13:25 04:51 Chloride 108 H (98-107) mmol/L Carbon Dioxide 21 L (22-30) mmol/L BUN 55 H 50 H (7-17) mg/dL Creatinine 5.49 H 5.52 H (0.52-1.04) mg/dL Glucose 130 H (74-99) mg/dL Calcium 8.3 L (8.4-10.2) mg/dL Phosphorus 5.3 H (2.5-4.5) mg/dL Magnesium 1.5 L (1.6-2.3) mg/dL Microbiology - Last 24 Hours (Table) 12/15/22 01:05 Blood Culture - Preliminary Blood Assessment and Plan Plan: Assessment: 1. Acute kidney injury secondary to obstructive uropathy as well as UTI. Creatinine 7.3 on admission and is 5.52 today. Renal ultrasound shows mild to moderate right hydronephrosis and moderate to severe left hydronephrosis. Urology following. 2. 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 3. Status post right ureteral stent. 4. Metabolic acidosis secondary to acute kidney injury. On bicarb drip and oral bicarb as well. 5. Hypertension with chronic kidney disease. Stable. 6. UTI on antibiotics. ID following. Plan: Maintain bicarb drip for another day. Encouraged oral intake. Avoid nephrotoxins. Maintain oral magnesium oxide. Continue to monitor renal function and urine output. Case discussed with urology. Plan to exchange ureteral stent in the next 1-2 weeks while she is on antibiotics. I discussed initiating replacement therapy now due to significantly depressed GFR. Patient states she feels well and is refusing to start dialysis at this time. Continue to monitor renal function and expect some improvement after catheter exchanged. Advised to follow up outpatient 1 week post discharge. To return to ER if develops any signs or symptoms of uremia which were discussed in detail with the patient.
[2022-12-18 14:22] LABS: Appearance,Urine Cloudy (Clear); Bilirubin,Urine Negative (Negative); Blood,Urine Small (Negative); Color,Urine Colorless; Glucose,Urine (UA) Trace (Negative); Ketones,Urine Negative (Negative); Leukocyte Esterase,Urine Large (Negative); Nitrite,Urine Negative (Negative); PH, Urine 7.5 (5.0-8.0); Protein,Urine 1+ (Negative); RBC,Urine 4 /hpf (0-5); Specific Gravity,Urine 1.007 (1.001-1.035); Squamous Epithelial Cell,Urine <1 /hpf (0-4); Urobilinogen,Urine <2.0 mg/dL (<2.0); WBC,Urine >182 /hpf (0-5)
--- NOTE | 2022-12-18 20:30 | P.PN ---
Subjective Progress Note Date: 12/18/22 Principal diagnosis: Hydronephrosis, renal failure The patient is a 67-year-old white female with chronic hydronephrosis. She has a right ureteral stent in place. Renal ultrasound earlier this hospitalization have shown mild to moderate right hydronephrosis, moderate to severe left hydronephrosis. She has been treated for recurrent UTIs and currently reports a feeling of "itching". Objective - Vital Signs Vital signs: Vital Signs Temp 98.7 F 12/18/22 01:41 Pulse 81 12/18/22 01:41 Resp 18 12/18/22 01:41 BP 160/70 12/18/22 01:41 Pulse Ox 100 12/18/22 01:41 FiO2 Intake & Output 12/17/22 12/18/22 12/18/22 18:59 06:59 18:59 Intake Total 120 Balance 120 Intake: Oral 120 Other: Voiding Method Toilet Toilet Diaper Diaper Incontinent Incontinent # Voids 2 - Constitutional General appearance: Present: average body habitus, no acute distress - Psychiatric Psychiatric: Present: A&O x's 3 - Labs CBC & Chem 7: 12/13/22 19:10 12/18/22 04:51 Labs: Abnormal Lab Results - Last 24 Hours (Table) 12/17/22 12/18/22 Range/Units 13:25 04:51 Chloride 108 H (98-107) mmol/L Carbon Dioxide 21 L (22-30) mmol/L BUN 55 H 50 H (7-17) mg/dL Creatinine 5.49 H 5.52 H (0.52-1.04) mg/dL Glucose 130 H (74-99) mg/dL Calcium 8.3 L (8.4-10.2) mg/dL Phosphorus 5.3 H (2.5-4.5) mg/dL Magnesium 1.5 L (1.6-2.3) mg/dL Microbiology - Last 24 Hours (Table) 12/15/22 01:05 Blood Culture - Preliminary Blood Assessment and Plan (1) Hydronephrosis Status: Acute Code(s): N13.30 - UNSPECIFIED HYDRONEPHROSIS SNOMED Code(s): 63053414 Plan: Urine culture shows mixed general rick. The serum creatinine level has failed to decline as desired. The patient may be discharged home, and arrangements will be made for her to undergo outpatient right ureteral stent change soon. Time with Patient: Less than 30
--- NOTE | 2022-12-19 23:12 | DS ---
DISCHARGE SUMMARY CHIEF COMPLAINT: CKD. HISTORY OF PRESENT ILLNESS AND PHYSICAL EXAMINATION: Details of this lady's history and physical can be found in the initial workup. LABORATORY STUDIES: While she is in the hospital, she had laboratory studies, details of which can be found in laboratory section of her chart. COURSE IN THE HOSPITAL: After admission, she was placed on bedrest on intravenous fluids. She had some difficulty initially with nausea, however, this cleared. She was seen and followed by Urology and Nephrology. Her numbers stabilized and she is doing well and it was felt that she could go home and be followed. She may require replacement of the stent in the right ureter and she may eventually be going on dialysis, which she understands. FINAL DIAGNOSES: 1. Stage 5 CKD. 2. Carcinoma of the cervix. 3. Obstructive nephropathy. OPERATIONS: None. CONSULTATIONS: Nephrology and urology, she is improved. MMKEVINL / CAROLYNEN: [id number] /
--- NOTE | 2022-12-20 07:06 | CDI ---
Documentation Clarification Form Date: 12/20/2022 06:45:52 AM From: Glenny Franco RN CCDS Phone: [phone] Admit Date: 12/14/2022 03:04:00 AM Patient Name: Monika Izquierdo Visit Number: [id number] Discharge Date: 12/18/2022 04:51:00 PM ATTENTION: The Clinical Documentation Specialists (CDI) and [facility] Coding Staff appreciate your assistance in clarifying documentation. Please respond to the clarification below the line at the bottom and electronically sign. The CDI & [facility] Coding staff will review the response and follow-up if needed. Please note: Queries are made part of the Legal Health Record. If you have any questions, please contact the author of this message via ITS. Dr. Dontae Cuadra UTI is documented 12/15, Urology consult. Additional clarification regarding this diagnosis is requested. History/Risk Factors: 67-year-old female admitted with renal failure and worsening hydronephrosis. Medical history: Cervical cancer, chemotherapy and radiation, chronic right sided hydronephrosis being managed with stent and atrophy of the kidney, last stent exchange 09/2022. 12/15, Urology consult. Clinical Indicators: 12/15, Urology consult: Recommend treatment of the UTI prior to stent exchange. Vital Signs: 12/13 B/P 138/75; HR 109; Temp 97.9 F Oral; RR 22; SpO2 99% ra WBC, 12/13: 13.9 Creatinine, 12/13: 7.30 Urinalysis, 12/13: Color, light yellow; appearance, turbid; Protein 2+ glucose 1+; Blood, moderate; Leukocyte esterase, Large; Rbc, 15; Wbc >182; Wbc clumps, many: urine bacteria, Occasional. Urine Culture, 12/13: >1000,000 CFU/mL apparent skin and or genital rick Treatment: 12/13 0.9NS 1L bolus followed by 130cc/hr; Antibiotics 12/13 Ceftriaxone IVPB x 1; 12/14 -12/18 Ceftriaxone IVPB Q12HR Please clarify if there is an additional diagnosis associated with the UTI: [ ] UTI secondary to ureteral stent poa [ ] UTI only poa [ ] Other, please specify [ ] Unable to determine (Template Last Revised: September 2020) MTDD
--- NOTE | 2022-12-24 16:51 | P.PN ---
Subjective Progress Note Date: 12/18/22 Principal diagnosis: Recurrent urinary tract infection Patient is a 67-year-old female with a past medical history negative for cervical cancer diagnosed early 2020 patient did have a chemoradiation therapy subsidy developing left-sided hydronephrosis that has been treated with left ureteral stent subsequently removed however patient subsequently have a obstructive uropathy and right ureteral stent placement and the right stent was changed in September 2022 left sided stent could not be placed because of the significant scarring, patient did have history of recurrent worsening of the kidney function that has been attributed recurrent UTIs and was admitted with another such episode. On today's evaluation and that is 12/18/2022, the patient denies having any fever, chills, the patient is feeling better, denies any chest pain or shortness of cough no nausea no vomiting no abdominal pain or diarrhea Objective - Vital Signs Vital signs: Vital Signs Temp 97.9 F 12/18/22 08:20 Pulse 79 12/18/22 08:20 Resp 18 12/18/22 08:20 BP 133/69 12/18/22 08:20 Pulse Ox 97 12/18/22 08:20 FiO2 Intake & Output 12/17/22 12/18/22 12/18/22 18:59 06:59 18:59 Intake Total 120 Balance 120 Intake: Oral 120 Other: Voiding Method Toilet Toilet Diaper Diaper Incontinent Incontinent # Voids 2 - Labs CBC & Chem 7: 12/13/22 19:10 12/18/22 04:51 Labs: Abnormal Lab Results - Last 24 Hours (Table) 12/17/22 12/18/22 Range/Units 13:25 04:51 Chloride 108 H (98-107) mmol/L Carbon Dioxide 21 L (22-30) mmol/L BUN 55 H 50 H (7-17) mg/dL Creatinine 5.49 H 5.52 H (0.52-1.04) mg/dL Glucose 130 H (74-99) mg/dL Calcium 8.3 L (8.4-10.2) mg/dL Phosphorus 5.3 H (2.5-4.5) mg/dL Magnesium 1.5 L (1.6-2.3) mg/dL Microbiology - Last 24 Hours (Table) 12/15/22 01:05 Blood Culture - Preliminary Blood Assessment and Plan (1) UTI (urinary tract infection) Status: Acute Code(s): N39.0 - URINARY TRACT INFECTION, SITE NOT SPECIFIED SNOMED Code(s): 69525916 Plan: 1patient with recurrent worsening of her kidney function which apparently has been intubated to the recurrent infection patient did have a history of cervical cancer treated with chemoradiation therapy and did have a bilateral hydronephrosis left side stenting could not be done because of scarring in the right ureter stent was changed on September of 2022 subsequently admitted to the [facility] with worsening kidney function positive UA did have elevated white count however subsequently a culture has been negative so far 2-plan is for exchange of the ureteral stent in the outpatient setting he will consider suppressive oral antibiotic therapy in the form of Ceftin, prescription was sent to the pharmacy and close outpatient follow-up discussed with the patient Time with Patient: Less than 30
--- NOTE | 2023-01-04 15:59 | MISC ---
MISCELLANOUS REPORT ADDITIONAL DIAGNOSIS: Metastatic cervical carcinoma with ureteral obstruction. MMODL / IJN: [id number] /
== END 2022-12-18 16:51 | disposition home or self-care (01) | DRG 683 ==
LOC: EC 17:43 → 5NMEDONC 12-14 03:04
PROVIDERS: ADMIT Family Medicine; ATTEND Family Medicine
DX: N17.9 Acute kidney failure, unspecified (principal); C79.9 Secondary malignant neoplasm of unspecified site; E87.20 Acidosis, unspecified; I12.0 Hypertensive chronic kidney disease with stage 5 chronic kidney disease or end stage renal disease; N13.6 Pyonephrosis; E86.0 Dehydration; N18.5 Chronic kidney disease, stage 5; K21.9 Gastro-esophageal reflux disease without esophagitis; F32.A Depression, unspecified; F17.200 Nicotine dependence, unspecified, uncomplicated; Z96.0 Presence of urogenital implants; C53.9 Malignant neoplasm of cervix uteri, unspecified; Z92.21 Personal history of antineoplastic chemotherapy; Z92.3 Personal history of irradiation; Z86.73 Personal history of transient ischemic attack (TIA), and cerebral infarction without residual deficits; Z79.899 Other long term (current) drug therapy; Z87.01 Personal history of pneumonia (recurrent)
CPT/HCPCS: 36415; 76770; 80048; 80053; 81001; 83605; 83735; 84100; 85025; 87040; 87086; 93005; 96361; 96365; 96366; 99285

== ENCOUNTER 2022-12-20 09:25 | Day surgery (SDC) | payer MEDICARE, OTHER ==
[2022-12-19 09:29] VITALS: BMI 34.9
--- NOTE | 2022-12-19 18:13 | P.GSHP ---
History of Present Illness H&P Date: 12/19/22 67 yo female with a history of of metastatic cervial cancer. She was introduced to me last winter with bilateral hydronephrosis. she underwent cysto with eventaul right stent placement but I was unable to intubate the left ureteral orifice. She hasd previous stent in the left side prior to treatment of her cancer at [facility]. The stent was eventually removed at [facility]. THe patient declined a nephrostomy tube on the left. She presented recently with worsening renal failure. Her us showed hydronephrosis, left greater that right. She comes for replacement of the right stent. - Constitutional Constitutional: Denies chills, Denies fever - EENT Eyes: denies blurred vision, denies pain Ears, nose, mouth and throat: Denies headache, Denies sore throat - Cardiovascular Cardiovascular: Denies chest pain, Denies shortness of breath - Respiratory Respiratory: Denies cough, Denies 7 - Gastrointestinal Gastrointestinal: Denies abdominal pain, Denies diarrhea, Denies nausea, Denies vomiting - Genitourinary (Female) Genitourinary: Denies dysuria, Denies hematuria - Genitourinary (Male) Genitourinary: Denies dysuria, Denies hematuria - Musculoskeletal Musculoskeletal: Denies myalgias - Integumentary Integumentary: Denies pruritus, Denies rash - Neurological Neurological: Denies numbness, Denies weakness - Psychiatric Psychiatric: Denies anxiety, Denies depression - Endocrine Endocrine: Denies fatigue, Denies weight change Past Medical History Past Medical History: Cancer, CVA/TIA, Eye Disorder, GERD/Reflux, Hypertension, Pneumonia, Renal Disease Additional Past Medical History / Comment(s): Cervical cancer diagnosed 2019-pt states she completed chemotherapy and has had radiation treatments in 2019&2020- she was to have a cervical sleeve inserted then more radiation but the doctors were unable to insert/secure sleeve, Adm. 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, R occular stroke-caused vision changes/received injections, UTI, CKD stage 4, neuropathy in legs and walks with a walker History of Any Multi-Drug Resistant Organisms: None Reported Past Surgical History: Section, Cholecystectomy, Tubal Ligation Additional Past Surgical History / Comment(s): Right ureteral stent, D&C Past Anesthesia/Blood Transfusion Reactions: No Reported Reaction Past Psychological History: Depression Additional Psychological History / Comment(s): Pt resides with her daughterLoren and her family. Histrory of depression. No thoughts of suicide when asked. Smoking Status: Current every day smoker Past Alcohol Use History: None Reported Additional Past Alcohol Use History / Comment(s): Pt started smoking in 1971 but has not smoked in past 2 months. Past Drug Use History: None Reported - Past Family History Father Family Medical History: Cancer, Diabetes Mellitus Additional Family Medical History / Comment(s): Pt thinks father had prostate cancer. Mother Family Medical History: Diabetes Mellitus, Hyperlipidemia, Hypertension, Myocardial Infarction (ND), Renal Disease Additional Family Medical History / Comment(s): Mother had a ND in her 50s. She from renal failure during dialysis. Medications and Allergies Home Medications Medication Instructions Recorded Confirmed Type amLODIPine [Norvasc] 10 mg PO HS 09/05/22 12/19/22 History Cefuroxime [Ceftin] 250 mg PO DAILY #14 tab 12/18/22 12/19/22 Rx Magnesium Oxide [Mag-Ox] 400 mg PO BID #60 tab 12/18/22 12/19/22 Rx Sodium Bicarbonate Tab 650 mg PO BID #60 tab 12/18/22 12/19/22 Rx Allergies Allergy/AdvReac Type Severity Reaction Status Date / Time No Known Allergies Allergy Verified 12/19/22 09:20 Surgical - Exam - General well developed, well nourished, no distress - Eyes normal ocular movement, no icteric - ENT no hearing loss, no congestion - Neck no masses, trachea midline - Respiratory normal respiratory effort, clear to auscultation - Abdomen Abdomen: soft, non tender, no guarding, no rigid, no rebound - Integumentary no rash, no abnormal pigmentation - Neurologic no disoriented, no combative - Psychiatric oriented to time, oriented to person, oriented to place, speech is normal, memory intact Results - Imaging US - kidney/bladder: report reviewed, image reviewed Assessment and Plan Assessment: Impression: bilateral hydronephrosis,left greater than right. metastatic cervical cancer Plan: cysto with right stent exchange
[2022-12-20] MEDS ORDERED: ONDANSETRON 4 MG/2 ML VIAL ONE (09:39)
[2022-12-20] MEDS ORDERED: LACTATED RINGERS 1,000 ML IV ONE (09:48)
[2022-12-20] MEDS ORDERED: LIDOCAINE 2% INJ 20 MG/ML (2 ML VIAL) ONE (10:45)
[2022-12-20] MEDS ORDERED: fentaNYL (PF) 50 MCG/ML 2 ML AMP ONE (10:45)
[2022-12-20] MEDS ORDERED: SUCCINYLCHOLINE CHLORIDE 200 MG/10 ML VIAL IV ONE (10:45)
[2022-12-20] MEDS ORDERED: MIDAZOLAM 2 MG/2 ML VIAL ONE (10:45)
[2022-12-20] MEDS ORDERED: PROPOFOL 10 MG/ML 20 ML VIAL IV ONE (10:45)
[2022-12-20] MEDS ORDERED: DEXAMETHASONE SOD PHOSPHATE 4 MG/ML 1 ML VIAL IVP ONE (10:51)
[2022-12-20] MEDS ORDERED: ONDANSETRON 4 MG/2 ML VIAL IVP ONE (10:51)
--- NOTE | 2022-12-20 11:29 | P.OP ---
Date of Procedure: 12/20/22 Preoperative Diagnosis: I lateral hydronephrosis secondary to metastatic cervical cancer Postoperative Diagnosis: Same Procedure(s) Performed: Cystoscopy with exchange of double-J catheter right (7 x 26) Anesthesia: TANYA Surgeon: Benny Mejia Estimated Blood Loss (ml): 0 Pathology: none sent Condition: stable Disposition: PACU Indications for Procedure: Patient has metastatic cervical cancer. She has bilateral hydronephrosis. A right double-J catheters previously been placed. She has obstructed left ureter due to the cancer. I I have been unable place a stent. She has declined a nephrostomy tube. Her creatinine recently was up to 5. She comes for exchange of stent on the right side and reinspection of the left ureteral orifice. Description of Procedure: Patient brought operating suite. Given general anesthesia. Placed lithotomy position with sterile prep and drape. Cystoscopy with a Foroblique lens and 22- Faroese sheath identifies a normal urethra. The bladder shows a right double-J catheter which is pulled to the urethral meatus. An 035 wires passed through this up into the kidney. The stent is removed and a new 7 x 26 double-J catheters passed over the wire that coils in the renal pelvis and the bladder. I then inspect the left hemitrigone and cannot see an orifice. There appears to be probable cobblestoning of the area consistent with carcinoma. The bladder strain the patient is awakened and returned recovery room good condition. Impression the patient had a successful double-J catheter replacement on the right. I was unable to intubate the left ureteral orifice. Again I have discussed with the patient and family about a left nephrostomy tube. At this stage it may be of little value. We will see what her creatinine is postoperatively.
[2022-12-20 11:33] VITALS: TEMP 97
--- NOTE | 2022-12-20 11:38 | FL ---
EXAMINATION TYPE: FL guidance operating room DATE OF EXAM: 12/20/2022 HISTORY: Fluoroscopy time Total dose area product (DAP) in uGy*m?, mGy*cm? (or similar): 1.8181 IMPRESSION: 1. Fluoroscopy time.
[2022-12-20 13:20] VITALS: BP 165/78; PULSE 82; RESP 18
== END 2022-12-20 13:28 | disposition home or self-care (01) ==
LOC: OR 09:25
PROVIDERS: ATTEND Urology
DX: N13.1 Hydronephrosis with ureteral stricture, not elsewhere classified (principal); K21.9 Gastro-esophageal reflux disease without esophagitis; J18.9 Pneumonia, unspecified organism; I12.9 Hypertensive chronic kidney disease with stage 1 through stage 4 chronic kidney disease, or unspecified chronic kidney disease; N18.4 Chronic kidney disease, stage 4 (severe); F32.A Depression, unspecified; F17.200 Nicotine dependence, unspecified, uncomplicated; Z86.73 Personal history of transient ischemic attack (TIA), and cerebral infarction without residual deficits; Z87.440 Personal history of urinary (tract) infections; Z98.51 Tubal ligation status; Z98.891 History of uterine scar from previous surgery; Z90.49 Acquired absence of other specified parts of digestive tract; Z83.3 Family history of diabetes mellitus; Z80.8 Family history of malignant neoplasm of other organs or systems; Z82.49 Family history of ischemic heart disease and other diseases of the circulatory system; Z83.49 Family history of other endocrine, nutritional and metabolic diseases
CPT/HCPCS: 52332; C2625; C1769; J2250; J0330; J1100; J2405; J0690; J3010; J2704; J2001

== ENCOUNTER → 2023-01-11 | Outpatient (CLI) | payer MEDICARE, OTHER ==
[2023-01-11 16:32] LABS: Blood Urea Nitrogen 39.2 mg/dL (9.0-27.0); Calcium 9.3 mg/dL (8.7-10.3); Carbon Dioxide 18.5 mmol/L (21.6-31.8); Chloride 109 mmol/L (96-109); Glucose 97 mg/dL (70-110); Potassium 4.5 mmol/L (3.5-5.5); Sodium 143 mmol/L (135-145)
== END | disposition home or self-care (01) ==
LOC: LABWHC1 10:53
PROVIDERS: ATTEND Internal Medicine
DX: N18.5 Chronic kidney disease, stage 5 (principal)
CPT/HCPCS: 36415; 80048

== ENCOUNTER → 2023-03-26 | Outpatient (CLI) | payer MEDICARE, OTHER ==
--- NOTE | 2023-03-28 08:25 | CT ---
EXAMINATION TYPE: CT ChestAbdPelvis wo con DATE OF EXAM: 03/26/2023 COMPARISON: HISTORY: Hx of cervical and lung CA r/o mets. CT DLP: 1492.8mGycm Unenhanced CT of the Chest, Abdomen and Pelvis Unenhanced CT of the chest ,abdomen and pelvis is performed. The lack of intravenous contrast limits evaluation of the solid and hollow viscera. Oral contrast: Yes CT Chest: LUNGS: Pulmonary nodule right lower lobe image 40 appears smaller in size and measures 7 mm versus 10 mm previously. Stable 3 mm pulmonary nodule left lower lobe laterally image 48. 3 mm pulmonary nodul e left lower lobe image 28. Left upper lobe pulmonary nodule measuring 3 mm image 26. There are scatt ered nonspecific interstitial prominence and bronchial wall thickening at the basilar regions right g reater than left. No focal consolidation. MEDIASTINUM: Thoracic aorta is of normal caliber. The heart is not enlarged. No evidence for media stinal mass or adenopathy. HILAR STRUCTURES: No evidence for mass. No hilar adenopathy is appreciated. OTHER: No significant abnormality. CONTRAST CT ABDOMEN AND PELVIS: LIVER/GB: No calcified gallstones. No space occupying hepatic lesion. Biliary tree is of normal ca liber. PANCREAS: No inflammation. No distinct mass. SPLEEN: No splenic enlargement. No lesion seen. ADRENALS: No nodule. No thickening. KIDNEYS/BLADDER: Severe left-sided hydronephrosis unchanged from prior study. Right ureteral stent is unchanged in position and continues to be in place. Mild fullness right renal collecting system pers ists. No nephrolithiasis. No distinct renal mass. BOWEL: Normal appendix. Normal bowel caliber. No inflammation. GENITAL ORGANS: Anteverted uterus. Small sized bilateral ovaries redemonstrated. LYMPH NODES: No greater than 1cm abdominal or pelvic lymph nodes are appreciated. AORTA: No significant abnormality. OSSEOUS STRUCTURES: No significant abnormality is seen. OTHER: No significant additional abnormality is seen. IMPRESSION: 1. Pulmonary nodules as described. Metastatic disease is not excluded. Right basilar nodule previousl y slightly smaller in size. 2. Stable severe left-sided hydronephrosis. 2. Mild but improved residual hydronephrosis right kidney with ureteral stent in place.
== END | disposition home or self-care (01) ==
LOC: RADCTMAIN 14:48
PROVIDERS: ATTEND Internal Medicine Hematology & Oncology
DX: Z03.89 Encounter for observation for other suspected diseases and conditions ruled out (principal); C53.1 Malignant neoplasm of exocervix; N13.30 Unspecified hydronephrosis; R91.8 Other nonspecific abnormal finding of lung field; Z96.0 Presence of urogenital implants
CPT/HCPCS: 71250; 74176

== ENCOUNTER 2024-02-10 11:54 | Inpatient (IN) | payer MEDICARE ==
--- NOTE | 2024-02-10 13:03 | ED ---
Abdominal Pain HPI - General Chief Complaint: Abdominal Pain Stated Complaint: Abd pain Time Seen by Provider: 02/10/24 12:57 Source: patient, RN notes reviewed, old records reviewed Mode of arrival: ambulatory Limitations: no limitations - History of Present Illness Initial Comments: This is a 69-year-old female is presenting today for evaluation of abdominal pain severe. Severe and significant persistent abdominal pain here in the emergency department with dysuria patient feels like she could have urinary tract infection recently treated for urinary tract infection with completion of antibiotics but pain started after she stopped home treatment. Patient is been feeling a little bit weak today with severe abdominal pain and difficulty urinating this morning patient has complicated medical history including cervical cancer with stent placement secondary to hydronephrosis MD Complaint: abdominal pain, flank pain, other (Suprapubic pain) -: days(s) Location: suprapubic Radiation: suprapubic Migration to: suprapubic Severity: severe Severity scale (1-10): 8 Quality: stabbing Consistency: constant Improves With: nothing Worsens With: nothing Associated Symptoms: nausea Treatments Prior to Arrival: other (0) - Related Data Home Medications Medication Instructions Recorded Confirmed Pembrolizumab [Keytruda] 200 mg IV Q21D 02/10/24 02/10/24 amLODIPine [Norvasc] 5 mg PO HS 02/10/24 02/10/24 Allergies Allergy/AdvReac Type Severity Reaction Status Date / Time No Known Allergies Allergy Verified 02/10/24 17:26 Review of Systems ROS Statement: Those systems with pertinent positive or pertinent negative responses have been documented in the HPI. ROS Other: All systems not noted in ROS Statement are negative. Past Medical History Past Medical History: Cancer, CVA/TIA, Eye Disorder, GERD/Reflux, Hypertension, Pneumonia, Renal Disease Additional Past Medical History / Comment(s): Cervical cancer diagnosed 2019-pt states she completed chemotherapy and has had radiation treatments in 2019&2020- she was to have a cervical sleeve inserted then more radiation but the doctors were unable to insert/secure sleeve, Adm. 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, R occular stroke-caused vision changes/received injections, UTI, CKD stage 4, neuropathy in legs and walks with a walker History of Any Multi-Drug Resistant Organisms: None Reported Past Surgical History: Section, Cholecystectomy, Tubal Ligation Additional Past Surgical History / Comment(s): Right ureteral stent, D&C Past Anesthesia/Blood Transfusion Reactions: No Reported Reaction Past Psychological History: Depression Smoking Status: Current every day smoker Past Alcohol Use History: None Reported Past Drug Use History: None Reported - Past Family History Father Family Medical History: Cancer, Diabetes Mellitus Additional Family Medical History / Comment(s): Pt thinks father had prostate cancer. Mother Family Medical History: Diabetes Mellitus, Hyperlipidemia, Hypertension, Myocardial Infarction (UT), Renal Disease Additional Family Medical History / Comment(s): Mother had a UT in her 50s. She from renal failure during dialysis. General Exam Limitations: no limitations General appearance: alert, in no apparent distress, anxious Head exam: Present: atraumatic, normocephalic, normal inspection Eye exam: Present: normal appearance, PERRL, EOMI. Absent: scleral icterus, conjunctival injection, periorbital swelling ENT exam: Present: normal exam, mucous membranes moist Neck exam: Present: normal inspection. Absent: tenderness, meningismus, lymphadenopathy Respiratory exam: Present: normal lung sounds bilaterally. Absent: respiratory distress, wheezes, rales, rhonchi, stridor Cardiovascular Exam: Present: normal rhythm, tachycardia, normal heart sounds. Absent: systolic murmur, diastolic murmur, rubs, gallop, clicks GI/Abdominal exam: Present: soft, normal bowel sounds. Absent: distended, tenderness, guarding, rebound, rigid Extremities exam: Present: normal inspection, full ROM, normal capillary refill. Absent: tenderness, pedal edema, joint swelling, calf tenderness Back exam: Present: normal inspection Neurological exam: Present: alert, oriented X3, CN II-XII intact Psychiatric exam: Present: normal affect, normal mood Skin exam: Present: warm, dry, intact, normal color. Absent: rash Course Vital Signs 02/10/24 02/10/24 02/10/24 12:00 15:15 16:46 Temperature 97.7 F 98 F Pulse Rate 103 H 84 93 Respiratory 18 16 16 Rate Blood Pressure 113/68 138/74 115/69 O2 Sat by Pulse 96 96 96 Oximetry 02/10/24 19:31 Temperature Pulse Rate 89 Respiratory 16 Rate Blood Pressure 127/67 O2 Sat by Pulse 97 Oximetry - Reevaluation(s) Reevaluation #1: 02/10/24 17:05 Records reviewed Reevaluation #2: 02/10/24 17:05 Patient symptoms are improved here in the ER Reevaluation #3: 02/10/24 17:05 Patient informed of results and questions answered Reevaluation #4: Was pt. sent in by a medical professional or institution (, RACHAEL, OPERATIONS CLERK, urgent care, hospital, or alf...) When possible be specific @ -no Did you speak to anyone other than the patient for history (EMS, parent, family, police, friend...)? What history was obtained from this source @ -no Did you review nursing and triage notes (agree or disagree)? Why? @ -agree Are old charts reviewed (outside hosp., previous admission, EMS record, old EKG, old radiological studies, urgent care reports/EKG's, alf records)? Report findings @ -yes Differential Diagnosis (chest pain, altered mental status, abdominal pain women, abdominal pain men, vaginal bleeding, weakness, fever, dyspnea, syncope, headache, dizziness, GI bleed, back pain, seizure, CVA, palpatations, mental health, musculoskeletal)? @ -prior EKG interpreted by me (3pts min.). @ -yes X-rays interpreted by me (1pt min.). @ -no CT interpreted by me (1pt min.). @ -yes negative for acute disease U/S interpreted by me (1pt. min.). @ -no What testing was considered but not performed or refused? (CT, X-rays, U/S, labs)? Why? @ -none What meds were considered but not given or refused? Why? @ -none Did you discuss the management of the patient with other professionals (professionals i.e. RACHAEL Sharpe, OPERATIONS CLERK, lab, RT, psych nurse, social science research assistant, supervisor telephone answering service, teacher, forest fire management officer, sample case porter)? Give summary @ -no Was smoking cessation discussed for >3mins.? @ -no Was critical care preformed (if so, how long)? @ -yes31 Were there social determinants of health that impacted care today? How? (Homelessness, low income, unemployed, alcoholism, drug addiction, transpo rtation, low edu. Level, literacy, decrease access to med. care, half-way, rehab)? @ -none Was there de-escalation of care discussed even if they declined (Discuss DNR or withdrawal of care, Hospice)? DNR status @ -no What co-morbidities impacted this encounter? (DM, HTN, Smoking, COPD, CAD, Cancer, CVA, ARF, Chemo, Hep., AIDS, mental health diagnosis, sleep apnea, morbid obesity)? @ -none Was patient admitted / discharged? Hospital course, mention meds given and route, prescriptions, significant lab abnormalities, going to OR and other pertinent info. @ - 69 female to ER for evaluation of severe pain with urination. Significant UTI with sepsis patient will admit for IV antibiotics Admitted Undiagnosed new problem with uncertain prognosis? @ -no Drug Therapy requiring intensive monitoring for toxicity (Heparin, Nitro, Insulin, Cardizem)? @ -no Were any procedures done? @ -no Diagnosis/symptom? @ -UTI with sepsis Acute, or Chronic, or Acute on Chronic? @ -Acute Uncomplicated (without systemic symptoms) or Complicated (systemic symptoms)? @ -Complicated Side effects of treatment? @ -no Exacerbation, Progression, or Severe Exacerbation? @ -exacerbation Poses a threat to life or bodily function? How? (Chest pain, USA, UT, pneumonia, PE, COPD, DKA, ARF, appy, cholecystitis, CVA, Diverticulitis, Homicidal, Suicidal, threat to staff... and all critical care pts) @ -yes with sepsis Reevaluation #5: Differential Abdominal Pain Women: Appendicitis, Cholecystitis, diverticulosis, ischemic bowel, pancreatitis, hepatitis, UTI, gastroenteritis, AAA, incarcerated hernia, bowel obstruction, constipation, inflammatory bowel, hepatitis, peptic ulcer disease, splenic infarction, perforated viscus, vulvitis, ovarian torsion, PID, kidney stone, placenta abruption, this is not meant to be an all-inclusive list - Consultations Consultation #1: With [facility] who agrees to admit this patient Medical Decision Making - Medical Decision Making 69 female to ER for evaluation of severe pain with urination. Significant UTI with sepsis patient will admit for IV antibiotics - Lab Data Result diagrams: 02/10/24 13:37 02/10/24 13:37 Lab Results 02/10/24 02/10/24 02/10/24 Range/Units 13:37 13:37 15:23 WBC 19.3 H (3.8-10.6) k/uL RBC 4.21 (3.80-5.40) m/uL Hgb 12.0 (11.4-16.0) gm/dL Hct 37.7 (34.0-46.0) % MCV 89.4 (80.0-100.0) fL MCH 28.4 (25.0-35.0) pg MCHC 31.8 (31.0-37.0) g/dL RDW 14.7 (11.5-15.5) % Plt Count 338 (150-450) k/uL MPV 8.3 Neutrophils % 87 % Lymphocytes % 7 % Monocytes % 4 % Eosinophils % 1 % Basophils % 0 % Neutrophils # 16.8 H (1.3-7.7) k/uL Lymphocytes # 1.3 (1.0-4.8) k/uL Monocytes # 0.8 (0-1.0) k/uL Eosinophils # 0.3 (0-0.7) k/uL Basophils # 0.1 (0-0.2) k/uL Hypochromasia Slight Sodium 138 (137-145) mmol/L Potassium 4.2 (3.5-5.1) mmol/L Chloride 111 H (98-107) mmol/L Carbon Dioxide 17 L (22-30) mmol/L Anion Gap 10 mmol/L BUN 39 H (7-17) mg/dL Creatinine 4.86 H (0.52-1.04) mg/dL Est GFR (CKD-EPI)AfAm 10 (>60 ml/min/1.73 sqM) Est GFR (CKD-EPI)NonAf 9 (>60 ml/min/1.73 sqM) Glucose 103 H (74-99) mg/dL Calcium 9.4 (8.4-10.2) mg/dL Phosphorus 4.2 (2.5-4.5) mg/dL Magnesium 2.0 (1.6-2.3) mg/dL Total Bilirubin 0.5 (0.2-1.3) mg/dL AST 12 L (14-36) U/L ALT 7 (4-34) U/L Alkaline Phosphatase 107 (38-126) U/L Total Protein 6.8 (6.3-8.2) g/dL Albumin 3.8 (3.5-5.0) g/dL Amylase 35 (30-110) U/L Lipase 16 L (23-300) U/L Urine Color Colorless Urine Appearance Turbid H (Clear) Urine pH 6.0 (5.0-8.0) Ur Specific [place] 1.014 (1.001-1.035) Urine Protein 2+ H (Negative) Urine Glucose (UA) Negative (Negative) Urine Ketones Negative (Negative) Urine Blood Moderate H (Negative) Urine Nitrite Positive H (Negative) Urine Bilirubin Negative (Negative) Urine Urobilinogen <2.0 (<2.0) mg/dL Ur Leukocyte Esterase Large H (Negative) Urine RBC 24 H (0-5) /hpf Urine WBC >182 H (0-5) /hpf Urine WBC Clumps Many H (None) /hpf Ur Squamous Epith Cells 2 (0-4) /hpf Urine Bacteria Occasional H (None) /hpf - Radiology Data Radiology results: report reviewed (CT of the abdomen pelvis is positive for infection), image reviewed Disposition Clinical Impression: UTI (urinary tract infection), Acute on chronic renal failure, Leukocytosis, Ureteral stenosis, left Disposition: ADMITTED IP TO THIS HOSP Condition: Serious Is patient prescribed a controlled substance at d/c from ED?: No Time of Disposition: 17:00
[2024-02-10] MEDS: SODIUM CHLORIDE 0.9% 1,000 ML IV STA (14:40)
[2024-02-10 14:51] LABS: Basophils # (A) 0.1 k/uL (0-0.2); Basophils % (A) 0 %; Eosinophils # (A) 0.3 k/uL (0-0.7); Eosinophils % (A) 1 %; HCT 37.7 % (34.0-46.0); Hypochromasia Slight; Lymphocytes # (A) 1.3 k/uL (1.0-4.8); Lymphocytes % (A) 7 %; MCH 28.4 pg (25.0-35.0); MCHC 31.8 g/dL (31.0-37.0); MCV 89.4 fL (80.0-100.0); Mean Platelet Volume 8.3; Monocytes # (A) 0.8 k/uL (0-1.0); Monocytes % (A) 4 %; Neutrophils # (A) 16.8 k/uL (1.3-7.7); Neutrophils % (A) 87 %; Platelet Count 338 k/uL (150-450); RBC 4.21 m/uL (3.80-5.40); RDW 14.7 % (11.5-15.5); WBC 19.3 k/uL (3.8-10.6)
[2024-02-10 14:56] LABS: ALT 7 U/L (4-34); AST 12 U/L (14-36); African American GFR (CKD) 10 (>60 ml/min/1.73 sqM); Albumin 3.8 g/dL (3.5-5.0); Alkaline Phosphatase 107 U/L (38-126); Amylase 35 U/L (30-110); Anion Gap 10 mmol/L; Blood Urea Nitrogen 39 mg/dL (7-17); Calcium 9.4 mg/dL (8.4-10.2); Carbon Dioxide 17 mmol/L (22-30); Chloride 111 mmol/L (98-107); Glucose 103 mg/dL (74-99); Lipase 16 U/L (23-300); Non-African American GFR(CKD) 9 (>60 ml/min/1.73 sqM); Phosphorus 4.2 mg/dL (2.5-4.5); Potassium 4.2 mmol/L (3.5-5.1); Sodium 138 mmol/L (137-145); Total Bilirubin 0.5 mg/dL (0.2-1.3); Total Protein 6.8 g/dL (6.3-8.2)
--- NOTE | 2024-02-10 15:36 | CT ---
EXAMINATION TYPE: CT abdomen pelvis wo con CT DLP: 685.5 mGycm, Automated exposure control for dose reduction was used. DATE OF EXAM: 02/10/2024 3:19 PM COMPARISON: CT abdomen pelvis most recent from 03/26/2023 CLINICAL INDICATION:Female, 69 years old with history of abdominal pain; lower abdominal pain/groin p ain and states unable to urinat TECHNIQUE: Axial CT of the abdomen and pelvis. Sagittal and coronal reformats were created on a [employer] workstation. Contrast used: (none if empty) Oral contrast used: without Oral Contrast (none if empty) FINDINGS: LOWER CHEST: Unremarkable ABDOMEN LIVER: Unremarkable GALLBLADDER AND BILE DUCTS: The gallbladder is not visualized. No evidence of biliary duct dilation. PANCREAS: Unremarkable. SPLEEN: Unremarkable. ADRENAL GLANDS: Unremarkable. KIDNEYS AND URETERS: Redemonstration of mild right-sided hydronephrosis with ureteral stent in place which courses through the ureter and terminates in the bladder. The proximal aspect of the right uret eral stent is within the renal pelvis. Increased surrounding inflammatory change seen involving the p roximal ureter when compared to the prior study. There remains moderate left-sided hydronephrosis which is grossly stable in appearance compared to th e prior exam. PELVIS BLADDER: Mildly distended. REPRODUCTIVE: Unremarkable. ABDOMEN & PELVIS STOMACH AND BOWEL: Stomach and duodenum are unremarkable. Scattered colonic diverticula are identifie d. No evidence of bowel obstruction. PERITONEUM/RETROPERITONEUM: No evidence of pneumoperitoneum or free fluid. VASCULATURE: Moderate atherosclerotic calcifications are present throughout the abdominal aorta and i ts branches. No evidence of aortic aneurysm. MUSCULOSKELETAL: No acute osseous abnormalities. Moderate disc degeneration changes are present throu ghout the thoracolumbar spine. Moderate right hip osteoarthritis. LYMPH NODES: No gross evidence for lymphadenopathy. SOFT TISSUE/ABDOMINAL WALL: Right anterior abdominal wall ventral hernia with defect measuring 1.4 cm . IMPRESSION: 1. Stable right mild to moderate hydronephrosis with ureteral stent in place, interval increase in in flammatory changes involving the right proximal ureter may represent developing infection, correlate with urinalysis findings. 2. Stable moderate left hydronephrosis. 3. Colonic diverticulosis. 4. Small fat filled ventral hernia.
[2024-02-10 15:53] LABS: Appearance,Urine Turbid (Clear); Bacteria,Urine Occasional /hpf; Bilirubin,Urine Negative (Negative); Blood,Urine Moderate (Negative); Color,Urine Colorless; Glucose,Urine (UA) Negative (Negative); Ketones,Urine Negative (Negative); Leukocyte Esterase,Urine Large (Negative); Nitrite,Urine Positive (Negative); Protein,Urine 2+ (Negative); RBC,Urine 24 /hpf (0-5); Specific Gravity,Urine 1.014 (1.001-1.035); Squamous Epithelial Cell,Urine 2 /hpf (0-4); Urobilinogen,Urine <2.0 mg/dL (<2.0); WBC,Urine >182 /hpf (0-5)
[2024-02-10] MEDS ORDERED: NALOXONE 0.4 MG/ML 1 ML VIAL IV PRN (17:01)
[2024-02-10] MEDS ORDERED: MORPHINE SULFATE 4 MG/ML SYRINGE IV PRN (17:01)
[2024-02-10] MEDS ORDERED: ONDANSETRON 4 MG/2 ML VIAL IVP PRN (17:01)
[2024-02-10] MEDS: SODIUM CHLORIDE 0.9% 1,000 ML IV SCH (17:32)
[2024-02-10] MEDS: AMPICILLIN-SULBACTAM 3 GM in SODIUM CHLORIDE 0.9% 100 ML IVPB STA (17:33)
--- NOTE | 2024-02-10 19:05 | P.HPIM ---
History of Present Illness H&P Date: 02/10/24 Chief Complaint: Abdominal pain 69-year-old female, history of hypertension, cervical cancer, gastroesophageal reflux disease, CVA/TIA, is presenting today for evaluation of abdominal pain severe. Severe and significant persistent abdominal pain here in the emergency department with dysuria patient feels like she could have urinary tract infection recently treated for urinary tract infection with completion of antibiotics but pain started after she stopped home treatment. Patient is been feeling a little bit weak today with severe abdominal pain and difficulty urina ting this morning patient has complicated medical history including cervical cancer with stent placement secondary to hydronephrosis Blood work reveals WBC of 19.3, hemoglobin of 12 and platelet count of 338, sodium 138, potassium 4.2, BUNs/creatinine of 39/4.86 and blood glucose of 103, UA reveals many WBCs, bacteria, leukocyte esterase and nitrites Abdominal x-ray completed in ED is negative for any acute process Review of Systems REVIEW OF SYSTEMS: CONSTITUTIONAL: No fever, no malaise, no fatigue. HEENT: No recent visual problems or hearing problems. Denied any sore throat. CARDIOVASCULAR: No chest pain, orthopnea, PND, no palpitations, no syncope. PULMONARY: No shortness of breath, no cough, no hemoptysis. GASTROINTESTINAL: No diarrhea, no nausea, no vomiting, no abdominal pain. NEUROLOGICAL: No headaches, no weakness, no numbness. HEMATOLOGICAL: Denies any bleeding or petechiae. GENITOURINARY: Denies any burning micturition, frequency, or urgency. MUSCULOSKELETAL/RHEUMATOLOGICAL: Denies any joint pain, swelling, or any muscle pain. ENDOCRINE: Denies any polyuria or polydipsia. The rest of the 14-point review of systems is negative. Past Medical History Past Medical History: Cancer, CVA/TIA, Eye Disorder, GERD/Reflux, Hypertension, Pneumonia, Renal Disease Additional Past Medical History / Comment(s): Cervical cancer diagnosed 2019-pt states she completed chemotherapy and has had radiation treatments in 2019&2020- she was to have a cervical sleeve inserted then more radiation but the doctors were unable to insert/secure sleeve, Adm. 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, R occular stroke-caused vision changes/received injections, UTI, CKD stage 4, neuropathy in legs and walks with a walker History of Any Multi-Drug Resistant Organisms: None Reported Past Surgical History: Section, Cholecystectomy, Tubal Ligation Additional Past Surgical History / Comment(s): Right ureteral stent, D&C Past Anesthesia/Blood Transfusion Reactions: No Reported Reaction Past Psychological History: Depression Smoking Status: Current every day smoker Past Alcohol Use History: None Reported Past Drug Use History: None Reported - Past Family History Father Family Medical History: Cancer, Diabetes Mellitus Additional Family Medical History / Comment(s): Pt thinks father had prostate cancer. Mother Family Medical History: Diabetes Mellitus, Hyperlipidemia, Hypertension, Myocardial Infarction (ID), Renal Disease Additional Family Medical History / Comment(s): Mother had a ID in her 50s. She from renal failure during dialysis. Medications and Allergies Home Medications Medication Instructions Recorded Confirmed Type Pembrolizumab [Keytruda] 200 mg IV Q21D 02/10/24 02/10/24 History amLODIPine [Norvasc] 5 mg PO HS 02/10/24 02/10/24 History Allergies Allergy/AdvReac Type Severity Reaction Status Date / Time No Known Allergies Allergy Verified 02/10/24 17:26 Physical Exam Vitals: Vital Signs Temp Pulse Resp BP Pulse Ox 02/10/24 16:46 93 16 115/69 96 02/10/24 15:15 98 F 84 16 138/74 96 02/10/24 12:00 97.7 F 103 H 18 113/68 96 Intake and Output 02/10/24 02/10/24 02/10/24 06:59 14:59 22:59 Other: Weight 83.915 kg General appearance: alert, in no apparent distress Head exam: Present: atraumatic, normocephalic, normal inspection Eye exam: Present: normal appearance, PERRL, EOMI. Absent: scleral icterus, conjunctival injection, periorbital swelling ENT exam: Present: normal exam, mucous membranes moist Neck exam: Present: normal inspection. Absent: tenderness, meningismus, lymphadenopathy Respiratory exam: Present: normal lung sounds bilaterally. Absent: respiratory distress, wheezes, rales, rhonchi, stridor Cardiovascular Exam: Present: regular rate, normal rhythm, normal heart sounds. Absent: systolic murmur, diastolic murmur, rubs, gallop, clicks GI/Abdominal exam: Present: soft, normal bowel sounds. Absent: distended, tenderness, guarding, rebound, rigid Extremities exam: Present: normal inspection, full ROM, normal capillary refill. Absent: tenderness, pedal edema, joint swelling, calf tenderness Back exam: Present: normal inspection Neurological exam: Present: alert, oriented X3, CN II-XII intact Psychiatric exam: Present: normal affect, normal mood Skin exam: Present: warm, dry, intact, normal color. Absent: rash Results CBC & Chem 7: 02/10/24 13:37 02/10/24 13:37 Labs: Abnormal Lab Results - Last 24 Hours (Table) 02/10/24 02/10/24 02/10/24 Range/Units 13:37 13:37 15:23 WBC 19.3 H (3.8-10.6) k/uL Neutrophils # 16.8 H (1.3-7.7) k/uL Chloride 111 H (98-107) mmol/L Carbon Dioxide 17 L (22-30) mmol/L BUN 39 H (7-17) mg/dL Creatinine 4.86 H (0.52-1.04) mg/dL Glucose 103 H (74-99) mg/dL AST 12 L (14-36) U/L Lipase 16 L (23-300) U/L Urine Appearance Turbid H (Clear) Urine Protein 2+ H (Negative) Urine Blood Moderate H (Negative) Urine Nitrite Positive H (Negative) Ur Leukocyte Esterase Large H (Negative) Urine RBC 24 H (0-5) /hpf Urine WBC >182 H (0-5) /hpf Urine WBC Clumps Many H (None) /hpf Urine Bacteria Occasional H (None) /hpf Assessment and Plan Assessment: 1. UTI/sepsis; has been placed on IV Unasyn 3 g IV 8 hours -Blood cultures and urine cultures obtained; further recommendations on antibiotics once culture results are available -Consult ID 2. Chronic kidney disease; patient has a baseline creatinine between 4.5-5.5; creatinine at 4.86 this morning; we will monitor strict ZOEY's, daily weights, renal function electrolytes; avoid nephrotoxins and hypotension 3. Leukocytosis; related to UTI/sepsis; she has been placed on IV antibiotics; blood cultures and urine cultures obtained -We will consult ID for further evaluation -Monitor CBC, CRP and procalcitonin 4. Left ureteral stenosis/hydronephrosis; related to cervical cancer patient is status post stent placement 5. Hypertension; amlodipine 5 mg daily 6. Cervical cancer; patient is currently on Keytruda; continue as outpatient DVT prophylaxis; SCDs/subcu heparin CODE STATUS; full code
[2024-02-10] MEDS: amLODIPine 5 MG TAB PO SCH (20:03)
[2024-02-10] MEDS: HEPARIN SODIUM,PORCINE 5,000 UNIT/ML 1 ML VIAL SQ SCH (20:03)
[2024-02-10] MEDS: AMPICILLIN-SULBACTAM 3 GM in SODIUM CHLORIDE 0.9% 100 ML IVPB SCH (23:11)
[2024-02-11 02:00] VITALS: BP 102/57; PULSE 70; RESP 16; TEMP 99.3
[2024-02-11] MEDS ORDERED: MORPHINE SULFATE 4 MG/ML SYRINGE ONE (11:41)
[2024-02-11] MEDS ORDERED: TAMSULOSIN 0.4 MG CAP.ER.24H PO ONE (11:59)
[2024-02-11] MEDS ORDERED: AMPICILLIN-SULBACTAM 3 GM VIAL ONE ×2 (15:40→23:42)
[2024-02-11] MEDS ORDERED: SODIUM CHLORIDE 0.9% 100 ML ONE ×2 (15:41→23:42)
[2024-02-11] MEDS ORDERED: HEPARIN SODIUM,PORCINE 5,000 UNIT/ML 1 ML VIAL ONE (20:53)
[2024-02-11] MEDS ORDERED: amLODIPine 5 MG TAB ONE (20:53)
[2024-02-12] MEDS ORDERED: SODIUM CHLORIDE 0.9% 1,000 ML BAG ONE (02:10)
[2024-02-12] MEDS ORDERED: SODIUM CHLORIDE 0.9% 100 ML ONE ×4 (09:00→23:57)
[2024-02-12] MEDS ORDERED: AMPICILLIN-SULBACTAM 3 GM VIAL ONE ×4 (09:00→23:57)
[2024-02-12] MEDS ORDERED: HEPARIN SODIUM,PORCINE 5,000 UNIT/ML 1 ML VIAL ONE ×2 (09:00→21:35)
[2024-02-12] MEDS ORDERED: PANTOPRAZOLE 40 MG TABLET PO ONE ×2 (13:24)
[2024-02-12] MEDS ORDERED: amLODIPine 5 MG TAB ONE (21:36)
[2024-02-13] MEDS ORDERED: DEXTROSE 5% IN WATER 1,000 ML BAG ONE (00:01)
[2024-02-13] MEDS ORDERED: SODIUM CHLORIDE 0.9% 1,000 ML BAG ONE (00:01)
[2024-02-13] MEDS ORDERED: SODIUM BICARB 8.4% 50 ML VIAL (1 MEQ/ML) ONE (00:01)
[2024-02-13] MEDS ORDERED: PANTOPRAZOLE 40 MG TABLET PO ONE ×2 (08:16)
[2024-02-13] MEDS ORDERED: TAMSULOSIN 0.4 MG CAP.ER.24H PO ONE (08:16)
[2024-02-13] MEDS ORDERED: AMPICILLIN-SULBACTAM 3 GM VIAL ONE ×3 (08:17→23:29)
[2024-02-13] MEDS ORDERED: HEPARIN SODIUM,PORCINE 5,000 UNIT/ML 1 ML VIAL ONE ×2 (08:17→20:49)
[2024-02-13] MEDS ORDERED: SODIUM CHLORIDE 0.9% 100 ML ONE ×3 (08:17→23:29)
[2024-02-13] MEDS ORDERED: SODIUM BICARBONATE TAB 650 MG TAB ONE ×2 (18:05→20:49)
[2024-02-13] MEDS ORDERED: amLODIPine 5 MG TAB ONE (20:49)
[2024-02-14] MEDS ORDERED: TAMSULOSIN 0.4 MG CAP.ER.24H PO ONE (07:52)
[2024-02-14] MEDS ORDERED: HEPARIN SODIUM,PORCINE 5,000 UNIT/ML 1 ML VIAL ONE ×2 (07:52→21:22)
[2024-02-14] MEDS ORDERED: SODIUM CHLORIDE 0.9% 100 ML ONE ×2 (07:52→16:07)
[2024-02-14] MEDS ORDERED: PANTOPRAZOLE 40 MG TABLET PO ONE ×2 (07:52)
[2024-02-14] MEDS ORDERED: SODIUM BICARBONATE TAB 650 MG TAB ONE ×3 (07:52→21:22)
[2024-02-14] MEDS ORDERED: AMPICILLIN-SULBACTAM 3 GM VIAL ONE ×2 (07:52→16:07)
[2024-02-14] MEDS ORDERED: SODIUM BICARB 8.4% 50 ML SYR (1 MEQ/ML) ONE ×3 (08:08→16:07)
[2024-02-14] MEDS ORDERED: DEXTROSE 5% IN WATER 1,000 ML BAG ONE (08:08)
[2024-02-14] MEDS ORDERED: SODIUM BICARB 8.4% 50 ML VIAL (1 MEQ/ML) ONE (08:08)
[2024-02-14] MEDS ORDERED: MAGNESIUM SULFATE-D5W PMX 100 ML IVPB ONE (14:33)
[2024-02-14] MEDS ORDERED: POTASSIUM CHLORIDE ER 20 MEQ TAB.ER PO ONE ×2 (14:33)
[2024-02-14] MEDS ORDERED: amLODIPine 5 MG TAB ONE (21:22)
[2024-02-15] MEDS ORDERED: SODIUM CHLORIDE 0.9% 100 ML ONE ×2 (00:27→08:14)
[2024-02-15] MEDS ORDERED: AMPICILLIN-SULBACTAM 3 GM VIAL ONE ×2 (00:27→08:14)
[2024-02-15] MEDS ORDERED: PANTOPRAZOLE 40 MG TABLET PO ONE ×2 (08:14)
[2024-02-15] MEDS ORDERED: SODIUM BICARBONATE TAB 650 MG TAB ONE (08:14)
[2024-02-15] MEDS ORDERED: TAMSULOSIN 0.4 MG CAP.ER.24H PO ONE (08:14)
[2024-02-15] MEDS ORDERED: HEPARIN SODIUM,PORCINE 5,000 UNIT/ML 1 ML VIAL ONE (08:14)
--- NOTE | 2024-02-29 15:51 | HP ---
HISTORY AND PHYSICAL HISTORY OF PRESENT ILLNESS: The patient is a 69-year-old female who had multiple UTIs in the past, came in with UTI symptoms including dysuria, increased urinary frequency. Denied any fevers. The patient has leukocytosis with white count of 19,300 and she was also found to have elevated creatinine of 4.86. I do not have any baseline creatinine available at this time. The patient had a CT of the abdomen which showed stable bilateral hydronephrosis. REVIEW OF SYSTEMS: All other review of systems are negative except those mentioned above. PAST MEDICAL HISTORY: Significant for chronic kidney disease, although I do not know the baseline at this time. Recurrent UTIs in the past. Hypertension. Cervical cancer in the past. Gastroesophageal reflux disease. 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 PAST SURGICAL HISTORY: The patient also had a ureteral stent and cholecystectomy in the past. SOCIAL HISTORY: Not known at this time. PHYSICAL EXAMINATION: VITALS: Current vitals are not available. PHYSICAL EXAMINATION: GENERAL: The patient is alert and oriented x3, not in any acute distress. Well developed, well nourished. HEENT: Pupils are round and equally reacting to light. EOMI. No scleral icterus. No conjunctival pallor. Normocephalic, atraumatic. No pharyngeal erythema. No thyromegaly. CARDIOVASCULAR: S1 and S2 present. No murmurs, rubs, or gallops. PULMONARY: Chest is clear to auscultation, no wheezing or crackles. ABDOMEN: Soft, nontender, nondistended, normoactive bowel sounds. No palpable organomegaly. MUSCULOSKELETAL: No joint swelling or deformity. EXTREMITIES: No cyanosis, clubbing, or pedal edema. NEUROLOGICAL: Gross neurological examination did not reveal any focal deficits. SKIN: No rashes. ASSESSMENT AND PLAN: 1. UTI/sepsis secondary to urinary tract infection. Patient has stable bilateral hydronephrosis. No further intervention regarding this, patient is on Unasyn at this time. Infectious Disease is following the patient. Patient is receiving fluids at 75 mL/hr. 2. Chronic kidney disease, stage is unknown. 3. Acute renal failure with elevated creatinine of 4.86. The patient will be continued on IV fluids. We will recheck the creatinine tomorrow. 4. Hypertension. Continue with amlodipine, monitor the blood pressures. 5. DVT prophylaxis. Lovenox. MMODL / IJN: [id number] / [facility]
== END 2024-02-15 16:43 | disposition home or self-care (01) | DRG 872 ==
LOC: EC 11:54 → 5NMEDONC 17:02
PROVIDERS: ADMIT Hospitalist; ATTEND Hospitalist
DX: A41.9 Sepsis, unspecified organism (principal); N13.6 Pyonephrosis; N18.4 Chronic kidney disease, stage 4 (severe); N17.9 Acute kidney failure, unspecified; C53.9 Malignant neoplasm of cervix uteri, unspecified; F32.A Depression, unspecified; F17.210 Nicotine dependence, cigarettes, uncomplicated; I12.9 Hypertensive chronic kidney disease with stage 1 through stage 4 chronic kidney disease, or unspecified chronic kidney disease; K21.9 Gastro-esophageal reflux disease without esophagitis; R35.0 Frequency of micturition; Z82.49 Family history of ischemic heart disease and other diseases of the circulatory system; Z86.73 Personal history of transient ischemic attack (TIA), and cerebral infarction without residual deficits; Z87.440 Personal history of urinary (tract) infections; Z90.49 Acquired absence of other specified parts of digestive tract; Z98.51 Tubal ligation status; Z87.01 Personal history of pneumonia (recurrent)
CPT/HCPCS: 36415; 74176; 80048; 80053; 81001; 82150; 83690; 83735; 84100; 85025

== ENCOUNTER 2024-07-27 10:58 | Inpatient (IN) | payer MEDICARE, OTHER ==
--- NOTE | 2024-07-27 11:42 | ED ---
Abdominal Pain HPI - General Chief Complaint: Abdominal Pain Stated Complaint: urogential Time Seen by Provider: 07/27/24 11:07 Source: patient Mode of arrival: wheelchair Limitations: no limitations - History of Present Illness Initial Comments: 69-year-old female presenting with chief complaint of abdominal pain. Patient is having inability to urinate. Patient was having constipation yesterday, she took a laxative and her daughter states that she had a large bowel movement this morning. Now the patient states that she has not been able to urinate and is getting colicky suprapubic pain. No fevers. No nausea or vomiting. No hematochezia or melena. No chest pain or difficulty breathing. Patient does have history of ureteral stent, follows with urologist Dr. Mejia - Related Data Home Medications Medication Instructions Recorded Confirmed No Known Home Medications 07/27/24 07/27/24 Allergies Allergy/AdvReac Type Severity Reaction Status Date / Time No Known Allergies Allergy Verified 07/27/24 13:48 Review of Systems ROS Statement: Those systems with pertinent positive or pertinent negative responses have been documented in the HPI. ROS Other: All systems not noted in ROS Statement are negative. Past Medical History Past Medical History: Cancer, CVA/TIA, Eye Disorder, GERD/Reflux, Hypertension, Pneumonia, Renal Disease Additional Past Medical History / Comment(s): Cervical cancer diagnosed 2019-pt states she completed chemotherapy and has had radiation treatments in 2019&2020- she was to have a cervical sleeve inserted then more radiation but the doctors were unable to insert/secure sleeve, Adm. 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, R occular stroke-caused vision changes/received injections, UTI, CKD stage 4, neuropathy in legs and walks with a walker History of Any Multi-Drug Resistant Organisms: None Reported Past Surgical History: Section, Cholecystectomy, Tubal Ligation Additional Past Surgical History / Comment(s): Right ureteral stent, D&C Past Anesthesia/Blood Transfusion Reactions: No Reported Reaction Past Psychological History: Depression Smoking Status: Current every day smoker Past Alcohol Use History: None Reported Past Drug Use History: None Reported - Past Family History Father Family Medical History: Cancer, Diabetes Mellitus Additional Family Medical History / Comment(s): Pt thinks father had prostate cancer. Mother Family Medical History: Diabetes Mellitus, Hyperlipidemia, Hypertension, Myocardial Infarction ([place]), Renal Disease Additional Family Medical History / Comment(s): Mother had a [place] in her 50s. She from renal failure during dialysis. General Exam Limitations: no limitations General appearance: alert, in no apparent distress Head exam: Present: atraumatic, normocephalic, normal inspection Eye exam: Present: normal appearance, EOMI Neck exam: Present: normal inspection. Absent: meningismus Respiratory exam: Present: normal lung sounds bilaterally. Absent: respiratory distress, wheezes, rales, rhonchi, stridor Cardiovascular Exam: Present: regular rate, normal rhythm, normal heart sounds. Absent: systolic murmur, diastolic murmur, rubs, gallop, clicks GI/Abdominal exam: Present: soft, tenderness. Absent: distended, guarding, rebound, rigid Neurological exam: Present: alert, oriented X3 Psychiatric exam: Present: normal affect, normal mood Skin exam: Present: warm, dry Course Vital Signs 07/27/24 07/27/24 07/27/24 11:01 16:34 17:33 Temperature 98.8 F 97.6 F 97.8 F Pulse Rate 98 74 77 Respiratory 18 18 18 Rate Blood Pressure 126/75 115/49 122/54 O2 Sat by Pulse 98 97 98 Oximetry Medical Decision Making - Medical Decision Making Was pt. sent in by a medical professional or institution (Dr. PA, DOCUMENT REVIEW SPECIALIST, urgent care, hospital, or alf...) When possible be specific @ -No Did you speak to anyone other than the patient for history (EMS, parent, family, police, friend...)? What history was obtained from this source @ -No Did you review nursing and triage notes (agree or disagree)? Why? @ -I reviewed and agree with nursing and triage notes Were old charts reviewed (outside hosp., previous admission, EMS record, old EKG, old radiological studies, urgent care reports/EKG's, alf records)? Report findings @ -No old charts were reviewed Differential Diagnosis (chest pain, altered mental status, abdominal pain women, abdominal pain men, vaginal bleeding, weakness, fever, dyspnea, syncope, headache, dizziness, GI bleed, back pain, seizure, CVA, palpatations, mental health, musculoskeletal)? @ -[facility] Differential Abdominal Pain Women: Appendicitis, Cholecystitis, diverticulosis, ischemic bowel, pancreatitis, hepatitis, UTI, gastroenteritis, AAA, incarcerated hernia, bowel obstruction, constipation, inflammatory bowel, hepatitis, peptic ulcer disease, splenic infarction, perforated viscus, vulvitis, ovarian torsion, PID, kidney stone, placenta abruption... This is not meant to be an all-inclusive list EKG interpreted by me (3pts min.). @ -As above X-rays interpreted by me (1pt min.). @ -None done CT interpreted by me (1pt min.). @ -CT shows right ureteral stent and Sims catheter in place. There is a mild urothelial thickening and mild left hydronephrosis. Correlate for urinary tract infection/ascending infection. Fat-containing umbilical hernia. Colonic divert iculosis. U/S interpreted by me (1pt. min.). @ -None done What testing was considered but not performed or refused? (CT, X-rays, U/S, labs)? Why? @ -None What meds were considered but not given or refused? Why? @ -None Did you discuss the management of the patient with other professionals (sharon khoury i.e. , PA, DOCUMENT REVIEW SPECIALIST, lab, RT, psych nurse, rn social work, airborne operations superintendent, teacher, chief mechanical officer, piano case maker)? Give summary @ -Spoke with Dr. Cuadra who accepts admission Was smoking cessation discussed for >3mins.? @ -No Was critical care preformed (if so, how long)? @ -No Were there social determinants of health that impacted care today? How? (Homelessness, low income, unemployed, alcoholism, drug addiction, transportation, low edu. Level, literacy, decrease access to med. care, penitentiary, rehab)? @ -No Was there de-escalation of care discussed even if they declined (Discuss DNR or withdrawal of care, Hospice)? DNR status @ -No What co-morbidities impacted this encounter? (DM, HTN, Smoking, COPD, CAD, Cancer, CVA, ARF, Chemo, Hep., AIDS, mental health diagnosis, sleep apnea, morbid obesity)? @ -None Was patient admitted / discharged? Hospital course, mention meds given and route, prescriptions, significant lab abnormalities, going to OR and other pertinent info. @ -69-year-old female presenting with chief complaint of abdominal pain and inability to urinate. Bladder scan showed greater than 300 mL, Sims was placed and output of 507 mL. UA comes back positive for UTI. CT shows no acute process. White count of 17.4. Patient has acute on chronic renal disease, creatinine 5.27 and BUN of 69, she is clearly still producing urine. She states that in the past she has refused dialysis. Patient will be admitted, she is started on Zosyn. Nephrology consulted for acute on chronic kidney disease and urology consulted as patient has history of stent placement in the setting of urinary retention and UTIs. Patient is agreeable with this plan. I discussed this case with my attending Dr. Torres Undiagnosed new problem with uncertain prognosis? @ -No Drug Therapy requiring intensive monitoring for toxicity (Heparin, Nitro, Insulin, Cardizem)? @ -No Were any procedures done? @ -No Diagnosis/symptom? @ -UTI Acute, or Chronic, or Acute on Chronic? @ -Acute Uncomplicated (without systemic symptoms) or Complicated (systemic symptoms)? @ -Complicated Side effects of treatment? @ -No Exacerbation, Progression, or Severe Exacerbation? @ -No Poses a threat to life or bodily function? How? (Chest pain, [place], [place], pneumonia, PE, COPD, DKA, ARF, appy, cholecystitis, CVA, Diverticulitis, Homicidal, Suicidal, threat to staff... and all critical care pts) @ -Yes - Lab Data Result diagrams: 07/27/24 12:32 07/27/24 12:32 Lab Results 07/27/24 07/27/24 07/27/24 Range/Units 11:30 12:32 12:32 WBC 17.4 H (3.8-10.6) k/uL RBC 4.43 (3.80-5.40) m/uL Hgb 12.0 (11.4-16.0) gm/dL Hct 37.8 (34.0-46.0) % MCV 85.3 (80.0-100.0) fL MCH 27.1 (25.0-35.0) pg MCHC 31.8 (31.0-37.0) g/dL RDW 16.2 H (11.5-15.5) % Plt Count 536 H (150-450) k/uL MPV 8.1 Neutrophils % 91 % Lymphocytes % 5 % Monocytes % 3 % Eosinophils % 0 % Basophils % 0 % Neutrophils # 15.9 H (1.3-7.7) k/uL Lymphocytes # 0.8 L (1.0-4.8) k/uL Monocytes # 0.5 (0-1.0) k/uL Eosinophils # 0.1 (0-0.7) k/uL Basophils # 0.1 (0-0.2) k/uL Hypochromasia Slight Poikilocytosis Slight Anisocytosis Slight Sodium 136 L (137-145) mmol/L Potassium 3.4 L (3.5-5.1) mmol/L Chloride 109 H (98-107) mmol/L Carbon Dioxide 12 L (22-30) mmol/L Anion Gap 15 mmol/L BUN 69 H (7-17) mg/dL Creatinine 5.27 H (0.52-1.04) mg/dL Est GFR (CKD-EPI)AfAm 9 (>60 ml/min/1.73 sqM) Est GFR (CKD-EPI)NonAf 8 (>60 ml/min/1.73 sqM) Glucose 130 H (74-99) mg/dL Plasma Lactic Acid Xander (0.7-2.0) mmol/L Calcium 9.6 (8.4-10.2) mg/dL Total Bilirubin <0.1 L (0.2-1.3) mg/dL AST 15 (14-36) U/L ALT 14 (4-34) U/L Alkaline Phosphatase 104 (38-126) U/L Total Protein 6.4 (6.3-8.2) g/dL Albumin 3.3 L (3.5-5.0) g/dL Amylase 56 (30-110) U/L Lipase 21 L (23-300) U/L Urine Color Colorless Urine Appearance Turbid H (Clear) Urine pH 5.5 (5.0-8.0) Ur Specific [place] 1.010 (1.001-1.035) Urine Protein 2+ H (Negative) Urine Glucose (UA) Negative (Negative) Urine Ketones Negative (Negative) Urine Blood Moderate H (Negative) Urine Nitrite Positive H (Negative) Urine Bilirubin Negative (Negative) Urine Urobilinogen <2.0 (<2.0) mg/dL Ur Leukocyte Esterase Large H (Negative) Urine RBC 11 H (0-5) /hpf Urine WBC >182 H (0-5) /hpf Urine WBC Clumps Few H (None) /hpf Ur Squamous Epith Cells 2 (0-4) /hpf Urine Bacteria Occasional H (None) /hpf 07/27/24 Range/Units 12:32 WBC (3.8-10.6) k/uL RBC (3.80-5.40) m/uL Hgb (11.4-16.0) gm/dL Hct (34.0-46.0) % MCV (80.0-100.0) fL MCH (25.0-35.0) pg MCHC (31.0-37.0) g/dL RDW (11.5-15.5) % Plt Count (150-450) k/uL MPV Neutrophils % % Lymphocytes % % Monocytes % % Eosinophils % % Basophils % % Neutrophils # (1.3-7.7) k/uL Lymphocytes # (1.0-4.8) k/uL Monocytes # (0-1.0) k/uL Eosinophils # (0-0.7) k/uL Basophils # (0-0.2) k/uL Hypochromasia Poikilocytosis Anisocytosis Sodium (137-145) mmol/L Potassium (3.5-5.1) mmol/L Chloride (98-107) mmol/L Carbon Dioxide (22-30) mmol/L Anion Gap mmol/L BUN (7-17) mg/dL Creatinine (0.52-1.04) mg/dL Est GFR (CKD-EPI)AfAm (>60 ml/min/1.73 sqM) Est GFR (CKD-EPI)NonAf (>60 ml/min/1.73 sqM) Glucose (74-99) mg/dL Plasma Lactic Acid Xander 0.9 (0.7-2.0) mmol/L Calcium (8.4-10.2) mg/dL Total Bilirubin (0.2-1.3) mg/dL AST (14-36) U/L ALT (4-34) U/L Alkaline Phosphatase (38-126) U/L Total Protein (6.3-8.2) g/dL Albumin (3.5-5.0) g/dL Amylase (30-110) U/L Lipase (23-300) U/L Urine Color Urine Appearance (Clear) Urine pH (5.0-8.0) Ur Specific [place] (1.001-1.035) Urine Protein (Negative) Urine Glucose (UA) (Negative) Urine Ketones (Negative) Urine Blood (Negative) Urine Nitrite (Negative) Urine Bilirubin (Negative) Urine Urobilinogen (<2.0) mg/dL Ur Leukocyte Esterase (Negative) Urine RBC (0-5) /hpf Urine WBC (0-5) /hpf Urine WBC Clumps (None) /hpf Ur Squamous Epith Cells (0-4) /hpf Urine Bacteria (None) /hpf Disposition Clinical Impression: UTI (urinary tract infection) Disposition: ADMITTED IP TO THIS HOSP Condition: Fair Time of Disposition: 13:15
[2024-07-27 11:57] LABS: Appearance,Urine Turbid (Clear); Bacteria,Urine Occasional /hpf; Bilirubin,Urine Negative (Negative); Blood,Urine Moderate (Negative); Color,Urine Colorless; Glucose,Urine (UA) Negative (Negative); Ketones,Urine Negative (Negative); Leukocyte Esterase,Urine Large (Negative); Nitrite,Urine Positive (Negative); PH, Urine 5.5 (5.0-8.0); Protein,Urine 2+ (Negative); RBC,Urine 11 /hpf (0-5); Squamous Epithelial Cell,Urine 2 /hpf (0-4); Urobilinogen,Urine <2.0 mg/dL (<2.0); WBC,Urine >182 /hpf (0-5)
[2024-07-27 12:38] LABS: Anisocytosis Slight; Basophils # (A) 0.1 k/uL (0-0.2); Basophils % (A) 0 %; Eosinophils # (A) 0.1 k/uL (0-0.7); Eosinophils % (A) 0 %; HCT 37.8 % (34.0-46.0); Hypochromasia Slight; Lymphocytes # (A) 0.8 k/uL (1.0-4.8); Lymphocytes % (A) 5 %; MCH 27.1 pg (25.0-35.0); MCHC 31.8 g/dL (31.0-37.0); MCV 85.3 fL (80.0-100.0); Mean Platelet Volume 8.1; Monocytes # (A) 0.5 k/uL (0-1.0); Monocytes % (A) 3 %; Neutrophils # (A) 15.9 k/uL (1.3-7.7); Neutrophils % (A) 91 %; Platelet Count 536 k/uL (150-450); Poikilocytosis Slight; RBC 4.43 m/uL (3.80-5.40); RDW 16.2 % (11.5-15.5); WBC 17.4 k/uL (3.8-10.6)
[2024-07-27] MEDS: PIPERACILLIN-TAZOBACTAM 3.375 GM in SODIUM CHLORIDE 0.9% 100 ML IVPB STA (12:39)
[2024-07-27 12:47] LABS: ALT 14 U/L (4-34); AST 15 U/L (14-36); African American GFR (CKD) 9 (>60 ml/min/1.73 sqM); Albumin 3.3 g/dL (3.5-5.0); Alkaline Phosphatase 104 U/L (38-126); Amylase 56 U/L (30-110); Anion Gap 15 mmol/L; Blood Urea Nitrogen 69 mg/dL (7-17); Calcium 9.6 mg/dL (8.4-10.2); Carbon Dioxide 12 mmol/L (22-30); Chloride 109 mmol/L (98-107); Glucose 130 mg/dL (74-99); Lipase 21 U/L (23-300); Non-African American GFR(CKD) 8 (>60 ml/min/1.73 sqM); Potassium 3.4 mmol/L (3.5-5.1); Sodium 136 mmol/L (137-145); Total Bilirubin <0.1 mg/dL (0.2-1.3); Total Protein 6.4 g/dL (6.3-8.2)
--- NOTE | 2024-07-27 12:56 | CT ---
EXAMINATION TYPE: CT abdomen pelvis wo con DATE OF EXAM: 07/27/2024 12:28 PM COMPARISON: CT abdomen pelvis most recent from 02/10/2024 CLINICAL INDICATION: Female, 69 years old with history of abdominal pain; Abdominal pain, unspecified . TECHNIQUE: Axial CT abdomen pelvis wo con;Sagittal and coronal reformats were created on a separate workstation. Contrast used: mL of , (none if empty) Oral contrast used: without Oral Contrast (none if empty) CT DLP: 423 mGycm, Automated exposure control for dose reduction was used. FINDINGS: LOWER CHEST: Unremarkable ABDOMEN LIVER: Unremarkable GALLBLADDER AND BILE DUCTS: The gallbladder is surgically absent. PANCREAS: Unremarkable. SPLEEN: Unremarkable. ADRENAL GLANDS: Unremarkable. KIDNEYS AND URETERS: No evidence of hydronephrosis or renal calculus. The ureters are unremarkable. Right ureteral stent with superior and inferior tips in appropriate position. There remains mild righ t hydronephrosis. Mild urothelial thickening bilaterally mild left hydronephrosis. PELVIS BLADDER: Nondistended with Sims catheter in place. REPRODUCTIVE: Unremarkable. ABDOMEN & PELVIS STOMACH AND BOWEL: . Scattered diverticula are noted throughout the colon. No evidence of bowel obstr uction. PERITONEUM/RETROPERITONEUM: No evidence of pneumoperitoneum or free fluid. VASCULATURE: Mild atherosclerotic calcifications are present throughout the abdominal aorta and its b ranches. No evidence of aortic aneurysm. MUSCULOSKELETAL: No acute osseous abnormalities. Moderate disc degeneration changes are present throu ghout the thoracolumbar spine., severe degeneration changes of the hips with subchondral cystic thomas e. LYMPH NODES: No gross evidence for lymphadenopathy. SOFT TISSUE/ABDOMINAL WALL: Fat-containing umbilical hernia. IMPRESSION: 1. Right ureteral stent and Sims catheter in place. There is mild urothelial thickening and mild le ft hydronephrosis. Correlate for urinary tract infection/ascending infection. 2. Fat-containing umbilical hernia. 3. Colonic diverticulosis. [facility], , 07/27/2024 12:53 PM
[2024-07-27] MEDS: SODIUM CHLORIDE 0.9% 500 ML 500 ML IV ONE (13:04)
[2024-07-27] MEDS ORDERED: NALOXONE 0.4 MG/ML 1 ML VIAL IV PRN (13:40)
[2024-07-27] MEDS: SODIUM CHLORIDE 0.9% 1,000 ML IV SCH (13:59)
[2024-07-27] MEDS: HYDROCORTISONE 1% CREAM 30 GM TUBE TOPICAL PRN (16:35)
[2024-07-27] MEDS: ZINC OXIDE PASTE (Z-GUARD) 1 APPLIC TOPICAL PRN (16:36)
[2024-07-27] MEDS: POTASSIUM CHLORIDE ER 20 MEQ TAB.ER PO STA (20:14)
[2024-07-27] MEDS: DEXTROSE 5% IN WATER 1,000 ML with SODIUM BICARB (1 MEQ/ML) 150 ML IV SCH (21:07)
--- NOTE | 2024-07-27 22:21 | HP ---
HISTORY AND PHYSICAL CHIEF COMPLAINT: Abdominal pain. HISTORY OF PRESENT ILLNESS: This is another admission for this patient who has a history of carcinoma of the bladder. She came into the emergency room with lower abdominal discomfort, dysuria, and difficulty voiding. She was found to have urinary tract infection and she was admitted. REVIEW OF SYSTEMS: Unremarkable otherwise. Past medical history, family history, personal and social histories are basically unchanged. She continues to do fairly well considering her pelvic neoplasm. PHYSICAL EXAMINATION: VITAL SIGNS: Normal. HEAD, EARS, EYES, NOSE, MOUTH AND THROAT: Normal. CHEST: Clear. CARDIAC: Normal. ABDOMEN: Soft and protuberant. She is tender over the lower abdomen. EXTREMITIES: No edema. IMPRESSION: 1. Urinary tract infection. 2. History of carcinoma of the cervix and bladder. PLAN: 1. Bedrest. 2. IV fluids. 3. IV antibiotics. NICO / RONALD: [id number] /
[2024-07-28 08:58] LABS: Basophils # (A) 0.13 X 10*3/uL (0.00-0.10); Basophils % (A) 0.9 %; Eosinophils # (A) 0.34 X 10*3/uL (0.04-0.35); Eosinophils % (A) 2.2 %; HCT 30.5 % (37.2-46.3); HGB 9.4 g/dL (12.0-15.0); Lymphocytes # (A) 0.98 X 10*3/uL (0.90-5.00); Lymphocytes % (A) 6.5 %; MCHC 30.8 g/dL (32.0-37.0); MCV 87.6 FL (80.0-97.0); Mean Platelet Volume 11.1 FL (9.5-12.2); Monocytes # (A) 0.75 X 10*3/uL (0.20-1.00); NRBC Per 100 WBC 0 X 10*3/uL (0.00-0.01); Neutrophils # (A) 12.84 X 10*3/uL (1.80-7.70); Neutrophils % (A) 84.8 %; Platelet Count 398 X 10*3/uL (140-440); RBC 3.48 X 10*6/uL (4.10-5.20); RDW 16.5 % (11.5-14.5); WBC 15.13 X 10*3/uL (4.50-10.00)
[2024-07-28 09:14] LABS: ALT 10 U/L (8-44); AST 9 U/L (13-35); Albumin 2.5 g/dL (3.8-4.9); Albumin/Globulin Ratio 1.09 Ratio (1.60-3.17); Alkaline Phosphatase 79 U/L (41-126); BUN/Creat Ratio 12.73 Ratio (12.00-20.00); Blood Urea Nitrogen 64.9 mg/dL (9.0-27.0); Calcium 8.5 mg/dL (8.7-10.3); Carbon Dioxide 11.8 mmol/L (21.6-31.8); Chloride 112 mmol/L (96-109); Globulin 2.3 g/dL (1.6-3.3); Glucose 117 mg/dL (70-110); Magnesium 2.5 mg/dL (1.5-2.4); Potassium 3.3 mmol/L (3.5-5.5); Sodium 138 mmol/L (135-145); Total Bilirubin <0.2 mg/dL (0.3-1.2); Total Protein 4.8 g/dL (6.2-8.2)
[2024-07-28] MEDS: PIPERACILLIN-TAZOBACTAM 3.375 GM in SODIUM CHLORIDE 0.9% 100 ML IVPB SCH ×2 (10:24→22:11)
[2024-07-28 11:35] LABS: Influenza A Not Detected (Not Detectd); Influenza B Not Detected (Not Detectd); RSV Not Detected (Not Detectd)
[2024-07-28] MEDS: POTASSIUM CHLORIDE ER 20 MEQ TAB.ER PO STA (11:50)
[2024-07-28] MEDS: SODIUM BICARB 8.4% 50 ML SYR (1 MEQ/ML) IV STA (15:18)
--- NOTE | 2024-07-28 16:18 | P.NPCON ---
History of Present Illness - Reason for Consult chronic renal failure - History of Present Illness Reason for consultation: Chronic kidney disease History of present illness: Patient is a 69-year-old female seen in renal consultation for chronic kidney disease. 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 Creatinine today is 5.1. Patient came to the hospital due to constipation. Patient states she was severely constipated for the last few days and took milk of magnesia with no relief. She also noticed decreased urine output. Patient has a right ureteral stent which is exchanged every 6 months. She is being followed by urology. Patient is not sure the last time the stent was exchanged. She currently has a Sims catheter and has been voiding. She denies history of diabetes or coronary artery disease. Denies use of nonsteroidals. Denies vomiting or diarrhea. Oral intake has been fair. She is currently on bicarb drip. Remains quite acidotic with a bicarb level of 11.8 this morning. Vital signs are stable. General: No acute distress. HEENT: Head exam is unremarkable. LUNGS: No audible rhonchi or wheezes. HEART: Rate and Rhythm are regular. ABDOMEN: Nontender. EXTREMITITES: No edema. Past Medical History Past Medical History: Cancer, CVA/TIA, Eye Disorder, GERD/Reflux, Hypertension, Pneumonia, Renal Disease Additional Past Medical History / Comment(s): Cervical cancer diagnosed 2019-pt states she completed chemotherapy and has had radiation treatments in 2019&2020- she was to have a cervical sleeve inserted then more radiation but the doctors were unable to insert/secure sleeve, Adm. 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, R occular stroke-caused vision changes/received injections, UTI, CKD stage 4, neuropathy in legs and walks with a walker History of Any Multi-Drug Resistant Organisms: None Reported Past Surgical History: Section, Cholecystectomy, Tubal Ligation Additional Past Surgical History / Comment(s): Right ureteral stent, D&C Past Anesthesia/Blood Transfusion Reactions: No Reported Reaction Past Psychological History: Depression Smoking Status: Current every day smoker Past Alcohol Use History: None Reported Past Drug Use History: None Reported - Past Family History Father Family Medical History: Cancer, Diabetes Mellitus Additional Family Medical History / Comment(s): Pt thinks father had prostate cancer. Mother Family Medical History: Diabetes Mellitus, Hyperlipidemia, Hypertension, Myocardial Infarction ([place]), Renal Disease Additional Family Medical History / Comment(s): Mother had a [place] in her 50s. She from renal failure during dialysis. Medications and Allergies Home Medications Medication Instructions Recorded Confirmed Type No Known Home Medications 07/27/24 07/27/24 History Allergies Allergy/AdvReac Type Severity Reaction Status Date / Time No Known Allergies Allergy Verified 07/27/24 13:48 Physical Exam Vitals: Vital Signs Temp Pulse Pulse Resp BP BP Pulse Ox 07/28/24 14:06 97.7 F 60 16 121/63 95 07/28/24 07:00 98 F 79 16 110/60 98 07/28/24 02:00 98.7 F 78 17 118/70 97 07/27/24 21:38 98.6 F 80 108/64 07/27/24 20:17 97 07/27/24 17:33 97.8 F 77 18 122/54 98 07/27/24 16:34 97.6 F 74 18 115/49 97 Intake and Output 07/28/24 07/28/24 07/28/24 06:59 14:59 22:59 Intake Total 118 Output Total 400 Balance -400 118 Intake: Oral 118 Output: Urine 400 Other: Voiding Method Indwelling Catheter Indwelling Catheter # Voids 1 # Bowel Movements 1 Results - Lab Results Most recent lab results Calcium 8.5 mg/dL (8.7-10.3) L 07/28/24 04:36 Magnesium 2.5 mg/dL (1.5-2.4) H 07/28/24 04:36 07/28/24 04:36 07/28/24 04:36 Assessment and Plan Plan: Assessment: 1. 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 2. Right-sided hydronephrosis with ureteral stent in place being followed by urology. 3. Metabolic acidosis secondary to chronic kidney disease. Currently on bicarb drip. 4. Hypokalemia from poor intake and intracellular shifting from bicarb drip. 5. Complicated UTI on antibiotics. Plan: Maintain bicarb drip. 2 A bicarb IV push given this morning. Replace potassium. Avoid nephrotoxins. Continue to monitor renal function and urine output. Renal replacement therapy has been discussed with the patient multiple times and she continues to refuse. Thank you for the consultation. I will continue to follow the patient with you during her hospital stay.
--- NOTE | 2024-07-28 17:10 | P.GSCN ---
History of Present Illness Consult date: 07/28/24 Reason for Consult: Left hydronephrosis History of present illness: This is a 69-year-old female with a history of cervical cancer, and bilateral hydronephrosis right kidney has been managed with chronic stent and she follows up with Dr. Mejia for that. She is unsure when her stent was last exchanged but indicated was less than 6 months ago. Urologist consulted for evidence of left- sided hydronephrosis, of note the hydronephrosis is chronic in atrophic left kidney. Denies any left flank pain. Hydronephrosis is stable in size. Her cr eatinine is at 5.1 which is at her baseline. She denies any dysuria or gross hematuria at this time. Previous attempt to place left stent was unsuccessful due to nonvisualization of the left ureteral orifice. Review of Systems - Constitutional Denies fever, Denies weight loss - Respiratory Denies cough, Denies 7 - Gastrointestinal Reports as per HPI - Genitourinary Genitourinary: Denies dysuria, Denies hematuria - Neurological Denies headaches, Denies syncope Past Medical History Past Medical History: Cancer, CVA/TIA, Eye Disorder, GERD/Reflux, Hypertension, Pneumonia, Renal Disease Additional Past Medical History / Comment(s): Cervical cancer diagnosed 2019-pt states she completed chemotherapy and has had radiation treatments in 2019&2020- she was to have a cervical sleeve inserted then more radiation but the doctors were unable to insert/secure sleeve, Adm. 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, R occular stroke-caused vision changes/received injections, UTI, CKD stage 4, neuropathy in legs and walks with a walker History of Any Multi-Drug Resistant Organisms: None Reported Past Surgical History: Section, Cholecystectomy, Tubal Ligation Additional Past Surgical History / Comment(s): Right ureteral stent, D&C Past Anesthesia/Blood Transfusion Reactions: No Reported Reaction Past Psychological History: Depression Smoking Status: Current every day smoker Past Alcohol Use History: None Reported Past Drug Use History: None Reported - Past Family History Father Family Medical History: Cancer, Diabetes Mellitus Additional Family Medical History / Comment(s): Pt thinks father had prostate cancer. Mother Family Medical History: Diabetes Mellitus, Hyperlipidemia, Hypertension, Myocardial Infarction ([place]), Renal Disease Additional Family Medical History / Comment(s): Mother had a [place] in her 50s. She from renal failure during dialysis. Medications and Allergies Home Medications Medication Instructions Recorded Confirmed Type No Known Home Medications 07/27/24 07/27/24 History Allergies Allergy/AdvReac Type Severity Reaction Status Date / Time No Known Allergies Allergy Verified 07/27/24 13:48 Surgical - Exam Vital Signs Temp Pulse Resp BP Pulse Ox 98.8 F 98 18 126/75 98 07/27/24 11:01 07/27/24 11:01 07/27/24 11:01 07/27/24 11:01 07/27/24 11:01 - General no distress, moderate pain - Eyes normal ocular movement, no pale - ENT normal nares, normal mucosa - Respiratory normal expansion, normal respiratory effort - Abdomen Abdomen: soft, non tender, no distended - Psychiatric oriented to time, oriented to person, oriented to place Results - Labs 07/28/24 04:36 07/28/24 04:36 Abnormal Lab Results - Last 24 Hours (Table) 07/28/24 07/28/24 Range/Units 04:36 04:36 WBC 15.13 H (4.50-10.00) X 10*3/uL RBC 3.48 L (4.10-5.20) X 10*6/uL Hgb 9.4 L (12.0-15.0) g/dL Hct 30.5 L (37.2-46.3) % MCHC 30.8 L (32.0-37.0) g/dL RDW 16.5 H (11.5-14.5) % Immature Gran # 0.09 H (0.00-0.04) X 10*3/uL Neutrophils # 12.84 H (1.80-7.70) X 10*3/uL Basophils # 0.13 H (0.00-0.10) X 10*3/uL Potassium 3.3 L (3.5-5.5) mmol/L Chloride 112 H (96-109) mmol/L Carbon Dioxide 11.8 L (21.6-31.8) mmol/L Anion Gap 14.20 H (4.00-12.00) mmol/L BUN 64.9 H (9.0-27.0) mg/dL Creatinine 5.1 H (0.6-1.5) mg/dL Est GFR (CKD-EPI) 9 L (>=60) Glucose 117 H (70-110) mg/dL Calcium 8.5 L (8.7-10.3) mg/dL Magnesium 2.5 H (1.5-2.4) mg/dL Total Bilirubin <0.2 L (0.3-1.2) mg/dL AST 9 L (13-35) U/L Total Protein 4.8 L (6.2-8.2) g/dL Albumin 2.5 L (3.8-4.9) g/dL Albumin/Globulin Ratio 1.09 L (1.60-3.17) Ratio Diabetes panel 07/28/24 Range/Units 04:36 Sodium 138 (135-145) mmol/L Potassium 3.3 L (3.5-5.5) mmol/L Chloride 112 H (96-109) mmol/L Carbon Dioxide 11.8 L (21.6-31.8) mmol/L BUN 64.9 H (9.0-27.0) mg/dL Creatinine 5.1 H (0.6-1.5) mg/dL Glucose 117 H (70-110) mg/dL Calcium 8.5 L (8.7-10.3) mg/dL AST 9 L (13-35) U/L ALT 10 (8-44) U/L Alkaline Phosphatase 79 (41-126) U/L Total Protein 4.8 L (6.2-8.2) g/dL Albumin 2.5 L (3.8-4.9) g/dL Calcium panel 07/28/24 Range/Units 04:36 Calcium 8.5 L (8.7-10.3) mg/dL Albumin 2.5 L (3.8-4.9) g/dL Pituitary panel 07/28/24 Range/Units 04:36 Sodium 138 (135-145) mmol/L Potassium 3.3 L (3.5-5.5) mmol/L Chloride 112 H (96-109) mmol/L Carbon Dioxide 11.8 L (21.6-31.8) mmol/L BUN 64.9 H (9.0-27.0) mg/dL Creatinine 5.1 H (0.6-1.5) mg/dL Glucose 117 H (70-110) mg/dL Calcium 8.5 L (8.7-10.3) mg/dL Adrenal panel 07/28/24 Range/Units 04:36 Sodium 138 (135-145) mmol/L Potassium 3.3 L (3.5-5.5) mmol/L Chloride 112 H (96-109) mmol/L Carbon Dioxide 11.8 L (21.6-31.8) mmol/L BUN 64.9 H (9.0-27.0) mg/dL Creatinine 5.1 H (0.6-1.5) mg/dL Glucose 117 H (70-110) mg/dL Calcium 8.5 L (8.7-10.3) mg/dL Total Bilirubin <0.2 L (0.3-1.2) mg/dL AST 9 L (13-35) U/L ALT 10 (8-44) U/L Alkaline Phosphatase 79 (41-126) U/L Total Protein 4.8 L (6.2-8.2) g/dL Albumin 2.5 L (3.8-4.9) g/dL Assessment and Plan Assessment: This is a 69-year-old female history of chronic right hydro being managed with a stent, and chronic left hydro and atrophic kidney, failed attempted stent insertion due to non visualization of the left ureteral orifice. Her creatinine is at baseline she is asymptomatic. This time no further intervention is needed for the hydronephrosis this is a chronic finding and atrophic left kidney. I did advise her to follow-up with Dr. Mejia as an outpatient to arrange for right-sided stent exchange
--- NOTE | 2024-07-29 08:43 | P.CONS ---
History of Present Illness - Reason for Consult Consult date: 07/28/24 Hx cervical carcinoma Requesting physician: Dontae Cuadra - Chief Complaint anuria, constipation, abd pain - History of Present Illness Patient is a pleasant 69-year-old female of Dr. Pineda Cabrera with a history of cervical carcinoma. She presented with UTI, found to have left hydronephrosis and a large pelvic mass. She was seen by [facility] Dr. Joshi, felt to have at least stage IIIb. She was treated with concurrent chemo/radiation and brachytherapy. Left ureteral stent was placed. PET scan showed no distant mets, right common iliac chain with "some" uptake reported. She completed concurrent radiation/chemotherapy early July 2020. She unfortunately had bilateral lung lesions noted on follow-up imaging 10/2020, was started on Keytruda. She remained on Keytruda. In May 2022 she was diagnosed with COVID, new right sided hydronephrosis was reported. She had right stent placement continued on Keytruda. She was noted to have progressive chronic kidney disease. Last time patient received treatment was March 2024. She is had multiple illnesses, not related to malignancy. She is stating that she does want to resume treatment. Patient is currently admitted with anuria and constipation. She has noted to have positive urine. She is also due for right ureteral stent replacement. She had associated abdominal pain that was persistent and progressive. She denied any fevers, chills, nausea or vomiting, no respiratory symptoms to report. Creatinine 5.1, stable for her.CT AP reporting right ureteral stent and Sims catheter in place, mild urothelial thickening and mild left hydronephrosis, colonic diverticulosis. Neutrophilic leukocytosis, moderate anemia, normocytic, normochromic Review of Systems 10 point ROS is neg except as stated in HPI Past Medical History Past Medical History: Cancer, CVA/TIA, Eye Disorder, GERD/Reflux, Hypertension, Pneumonia, Renal Disease Additional Past Medical History / Comment(s): Cervical cancer diagnosed 2019-pt states she completed chemotherapy and has had radiation treatments in 2019&2020- she was to have a cervical sleeve inserted then more radiation but the doctors were unable to insert/secure sleeve, Adm. 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, R occular stroke-caused vision changes/received injections, UTI, CKD stage 4, neuropathy in legs and walks with a walker History of Any Multi-Drug Resistant Organisms: None Reported Past Surgical History: Section, Cholecystectomy, Tubal Ligation Additional Past Surgical History / Comment(s): Right ureteral stent, D&C Past Anesthesia/Blood Transfusion Reactions: No Reported Reaction Past Psychological History: Depression Smoking Status: Current every day smoker Past Alcohol Use History: None Reported Past Drug Use History: None Reported - Past Family History Father Family Medical History: Cancer, Diabetes Mellitus Additional Family Medical History / Comment(s): Pt thinks father had prostate cancer. Mother Family Medical History: Diabetes Mellitus, Hyperlipidemia, Hypertension, Myocardial Infarction ([place]), Renal Disease Additional Family Medical History / Comment(s): Mother had a [place] in her 50s. She from renal failure during dialysis. Medications and Allergies Home Medications Medication Instructions Recorded Confirmed Type No Known Home Medications 07/27/24 07/27/24 History Allergies Allergy/AdvReac Type Severity Reaction Status Date / Time No Known Allergies Allergy Verified 07/27/24 13:48 Physical Exam Vitals: Vital Signs Temp Pulse Pulse Resp BP BP Pulse Ox 07/28/24 07:00 98 F 79 16 110/60 98 07/28/24 02:00 98.7 F 78 17 118/70 97 07/27/24 21:38 98.6 F 80 108/64 07/27/24 20:17 97 07/27/24 17:33 97.8 F 77 18 122/54 98 07/27/24 16:34 97.6 F 74 18 115/49 97 07/27/24 11:01 98.8 F 98 18 126/75 98 Intake and Output 07/27/24 07/28/24 07/28/24 22:59 06:59 14:59 Output Total 100 400 Balance -100 -400 Output: Urine 100 400 Uretheral (Sims) 100 Other: Voiding Method Indwelling Catheter Indwelling Catheter Indwelling Catheter # Bowel Movements 1 Weight 73.028 kg - Constitutional General appearance: average body habitus, cooperative, no acute distress - EENT Eyes: anicteric sclerae, EOMI ENT: hearing grossly normal - Respiratory Respiratory: bilateral: CTA - Cardiovascular Rhythm: regular Heart sounds: normal: S1, S2 Abnormal Heart Sounds: no systolic murmur, no diastolic murmur, no rub, no S3 Gallop, no S4 Gallop, no click, no other leg Peripheral Edema: bilateral: None - Gastrointestinal General gastrointestinal: soft - Integumentary Integumentary: normal - Neurologic Neurologic: CNII-XII intact - Musculoskeletal Musculoskeletal: strength equal bilaterally - Psychiatric Psychiatric: A&O x's 3, appropriate affect, intact judgment & insight Results CBC & Chem 7: 07/28/24 04:36 07/28/24 04:36 Labs: Abnormal Lab Results - Last 24 Hours (Table) 07/27/24 07/27/24 07/27/24 Range/Units 11:30 12:32 12:32 WBC 17.4 H (3.8-10.6) k/uL RBC (4.10-5.20) X 10*6/uL Hgb (12.0-15.0) g/dL Hct (37.2-46.3) % MCHC (32.0-37.0) g/dL RDW 16.2 H (11.5-15.5) % Plt Count 536 H (150-450) k/uL Immature Gran # (0.00-0.04) X 10*3/uL Neutrophils # 15.9 H (1.3-7.7) k/uL Lymphocytes # 0.8 L (1.0-4.8) k/uL Basophils # (0.00-0.10) X 10*3/uL Sodium 136 L (137-145) mmol/L Potassium 3.4 L (3.5-5.1) mmol/L Chloride 109 H (98-107) mmol/L Carbon Dioxide 12 L (22-30) mmol/L Anion Gap (4.00-12.00) mmol/L BUN 69 H (7-17) mg/dL Creatinine 5.27 H (0.52-1.04) mg/dL Est GFR (CKD-EPI) (>=60) Glucose 130 H (74-99) mg/dL Calcium (8.7-10.3) mg/dL Magnesium (1.5-2.4) mg/dL Total Bilirubin <0.1 L (0.2-1.3) mg/dL AST (13-35) U/L Total Protein (6.2-8.2) g/dL Albumin 3.3 L (3.5-5.0) g/dL Albumin/Globulin Ratio (1.60-3.17) Ratio Lipase 21 L (23-300) U/L Urine Appearance Turbid H (Clear) Urine Protein 2+ H (Negative) Urine Blood Moderate H (Negative) Urine Nitrite Positive H (Negative) Ur Leukocyte Esterase Large H (Negative) Urine RBC 11 H (0-5) /hpf Urine WBC >182 H (0-5) /hpf Urine WBC Clumps Few H (None) /hpf Urine Bacteria Occasional H (None) /hpf 07/28/24 07/28/24 Range/Units 04:36 04:36 WBC 15.13 H (3.8-10.6) k/uL RBC 3.48 L (4.10-5.20) X 10*6/uL Hgb 9.4 L (12.0-15.0) g/dL Hct 30.5 L (37.2-46.3) % MCHC 30.8 L (32.0-37.0) g/dL RDW 16.5 H (11.5-15.5) % Plt Count (150-450) k/uL Immature Gran # 0.09 H (0.00-0.04) X 10*3/uL Neutrophils # 12.84 H (1.3-7.7) k/uL Lymphocytes # (1.0-4.8) k/uL Basophils # 0.13 H (0.00-0.10) X 10*3/uL Sodium (137-145) mmol/L Potassium 3.3 L (3.5-5.1) mmol/L Chloride 112 H (98-107) mmol/L Carbon Dioxide 11.8 L (22-30) mmol/L Anion Gap 14.20 H (4.00-12.00) mmol/L BUN 64.9 H (7-17) mg/dL Creatinine 5.1 H (0.52-1.04) mg/dL Est GFR (CKD-EPI) 9 L (>=60) Glucose 117 H (74-99) mg/dL Calcium 8.5 L (8.7-10.3) mg/dL Magnesium 2.5 H (1.5-2.4) mg/dL Total Bilirubin <0.2 L (0.2-1.3) mg/dL AST 9 L (13-35) U/L Total Protein 4.8 L (6.2-8.2) g/dL Albumin 2.5 L (3.5-5.0) g/dL Albumin/Globulin Ratio 1.09 L (1.60-3.17) Ratio Lipase (23-300) U/L Urine Appearance (Clear) Urine Protein (Negative) Urine Blood (Negative) Urine Nitrite (Negative) Ur Leukocyte Esterase (Negative) Urine RBC (0-5) /hpf Urine WBC (0-5) /hpf Urine WBC Clumps (None) /hpf Urine Bacteria (None) /hpf CT scan - abdomen: report reviewed CT scan - pelvis: report reviewed Assessment and Plan (1) UTI (urinary tract infection) Current Visit: Yes Status: Acute Code(s): N39.0 - URINARY TRACT INFECTION, SITE NOT SPECIFIED SNOMED Code(s): 47846581 (2) Cervical ca Current Visit: No Status: Acute Priority: High Code(s): C53.9 - MALIGNANT NEOPLASM OF CERVIX UTERI, UNSPECIFIED SNOMED Code(s): 510909381 Plan: Urinary tract infection -Patient is being treated for the same. Defer treatment to internal medicine Cervical carcinoma -Patient's last treatment was in March 2024. She is had multiple recent illnesses and poor performance status that have prevented her from continuing. She states that she would like to resume treatment. -Plans for restaging scans and a follow-up appointment prior to reinitiating any treatment. Not currently suspecting any disease progression. -Agree with treatment of infection. Patient encouraged for rehabilitation and improving performance status Doctor attests: I performed a history and physical examination of this patient, developed impression and plan of care. Discussed with dictator. I agree with dictators note, documented as a scribe.
[2024-07-29] MEDS: DIPHENOX-ATROP 2.5-0.025 MG 1 EACH TAB PO SCH (20:19)
--- NOTE | 2024-07-29 22:20 | P.PN ---
Subjective Patient is seen for follow-up for chronic kidney disease. Complaining of fatigue otherwise no other significant complaints. Maintained on bicarb drip. No labs available from today. Patient has been evaluated by urology with no plans for intervention as left kidney is atrophied and renal function is at baseline. Patient has a right ureteral stent. Objective - Vital Signs Vital signs: Vital Signs Temp 97.8 F 07/29/24 19:40 Pulse 57 L 07/29/24 19:40 Resp 15 07/29/24 19:40 BP 113/70 07/29/24 19:40 Pulse Ox 95 07/29/24 19:40 FiO2 Intake & Output 07/29/24 07/29/24 07/30/24 06:59 18:59 06:59 Intake Total 1180 Output Total 450 300 Balance -450 880 Intake: Oral 1180 Output: Urine 450 300 Other: Voiding Method Indwelling Catheter Indwelling Catheter Indwelling Catheter # Bowel Movements 6 - Exam Patient is awake, comfortable, no acute distress Examination of the heart S1 and S2 Examination of the lungs bilateral breath sounds are heard Abdomen is soft nontender Examination of lower extremities shows chronic skin changes edema 1+ bilaterally - Labs CBC & Chem 7: 07/28/24 04:36 07/28/24 04:36 Labs: Microbiology - Last 24 Hours (Table) 07/27/24 12:32 Blood Culture - Preliminary Blood 07/27/24 11:30 Urine Culture - Preliminary Urine,Voided Assessment and Plan Assessment: 1. 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 2. Right-sided hydronephrosis with ureteral stent in place being followed by urology. Atrophic left kidney 3. Metabolic acidosis secondary to chronic kidney disease. Currently on bicarb drip. 4. Hypokalemia from poor intake and intracellular shifting from bicarb drip. 5. Complicated UTI on antibiotics. Plan: Repeat labs Continue with bicarb drip Patient remains adamant that she does not want to proceed with renal replacement therapy.
[2024-07-30] MEDS ORDERED: DIPHENOX-ATROP 2.5-0.025 MG 1 EACH TAB PO PRN (00:42)
--- NOTE | 2024-07-30 03:26 | HP ---
HISTORY AND PHYSICAL CHIEF COMPLAINT: Lower abdominal pain, difficulty urinating and dysuria with a history of an extensive CA of the cervix. HISTORY OF PRESENT ILLNESS: This lady comes into the emergency room with the above-mentioned complaints. She has metastatic carcinoma of the cervix. She was on treatment up until sometime last fall and then she elected to stop. Now she is having more discomfort in the lower abdomen and a poor appetite. REVIEW OF SYSTEMS: She has had no fever, chills, nausea, vomiting, vaginal bleeding, etc. Past medical history, family history, personal and social histories are otherwise essentially unremarkable and noncontributory from her prior admissions. She does have a history of hypertension. She also has renal failure secondary to her pelvic disease. She has not been seen in the office for some time. Past medical history, family history, personal and social histories are otherwise unchanged. She does not take any medication. She is definitely failing. PHYSICAL EXAMINATION: VITAL SIGNS: Normal. HEAD, EARS, EYES, NOSE, MOUTH, AND THROAT: Normal. CHEST: Clear. CARDIAC: Normal. ABDOMEN: Soft and flat. She is tender over the lower abdomen, where there is a firmness. EXTREMITIES: Normal. NEUROLOGIC: She seems to be intact. GENERAL APPEARANCE: ill health. ASSESSMENT: Admitted to the hospital with diagnoses of, 1. Difficulty voiding. 2. Urinary tract infection. 3. Lower abdominal pain. 4. Advanced carcinoma of the cervix involving both ureters with renal failure. PLAN: 1. Bedrest. 2. IV fluids. 3. IV antibiotics. 4. Sims catheter drainage. 5. Consult with Urology and Pulmonology. NICO / RONALD: [id number] /
--- NOTE | 2024-07-30 03:50 | PN ---
PROGRESS NOTE DATE OF SERVICE: 07/28/2024 CHIEF COMPLAINT: 1. Urinary tract infection. 2. Metastatic cancer of the cervix. 3. Tumor cachexia. 4. Dehydration. LABORATORY STUDIES: White count 17,400 with a hemoglobin 9.4. Potassium 3.4. BUN 69 with a creatinine of 5.27. PHYSICAL EXAM: GENERAL: She is pale and chronically ill in appearance. She is very weak. CHEST: Clear. CARDIAC EXAM: Unremarkable. ABDOMEN: Soft, nontender. Sims catheter is in place. EXTREMITIES: Are unremarkable except for poor muscle bulk. IMPRESSION: 1. Urinary tract infection. 2. Urinary retention. 3. History of carcinoma of the cervix. 4. Ureteral obstruction. 5. Renal failure. 6. Anemia. 7. Hypokalemia. PLAN: 1. Continue with IV fluids and Sims catheter drainage. 2. She will be seen by Urology and Oncology. MMKEVINL / CAROLYNEN: [id number] /
--- NOTE | 2024-07-30 04:26 | PN ---
PROGRESS NOTE DATE OF SERVICE: 07/29/2024 CHIEF COMPLAINT: Lower abdominal pain, urinary tract infection, renal failure, and advanced carcinoma of the cervix. HISTORY OF PRESENT ILLNESS: This lady is not feeling well. Appetite is poor. She is still having some lower abdominal discomfort. PHYSICAL EXAM: GENERAL: She remains pale and chronically ill in appearance. CHEST: Clear. CARDIAC: Normal. ABDOMEN: Tender in the lower abdomen. IMPRESSION: 1. Difficulty urinating. 2. Urinary tract infection. 3. Advanced carcinoma of the cervix, metastatic to the pelvis. 4. Ureteral obstruction. PLAN: 1. Continue with Sims catheter drainage. 2. Continue with IV fluids. 3. Continue with antibiotics. 4. She is being evaluated by Oncology and Urology. MMODL / IJN: [id number] /
[2024-07-30 05:36] LABS: African American GFR (CKD) 11 (>60 ml/min/1.73 sqM); Anion Gap 8 mmol/L; Blood Urea Nitrogen 58 mg/dL (7-17); Calcium 7.8 mg/dL (8.4-10.2); Carbon Dioxide 23 mmol/L (22-30); Chloride 104 mmol/L (98-107); Glucose 88 mg/dL (74-99); Non-African American GFR(CKD) 9 (>60 ml/min/1.73 sqM); Sodium 135 mmol/L (137-145)
[2024-07-30 06:00] LABS: Potassium 2.7 mmol/L (3.5-5.1)
[2024-07-30] MEDS: POTASSIUM CHLORIDE ER 20 MEQ TAB.ER PO SCH (06:56)
--- NOTE | 2024-07-30 18:29 | P.PN ---
Subjective Progress Note Date: 07/30/24 Principal diagnosis: Cervical carcinoma In follow-up today patient is reporting that she is not feeling well. Diarrhea is improved, she only had 1 episode today and it was soft, not watery. She is being treated with antibiotics for Pseudomonas urinary tract infection. There a re plans for stent exchange on the right after discharge. Patient denies fevers, she has an appetite but not finding the food appealing, she was encouraged to have someone bring her food. Objective - Vital Signs Vital signs: Vital Signs Temp 98.5 F 07/30/24 15:35 Pulse 66 07/30/24 15:35 Resp 16 07/30/24 15:35 BP 125/87 07/30/24 15:35 Pulse Ox 98 07/30/24 15:35 FiO2 Intake & Output 07/29/24 07/30/24 07/30/24 18:59 06:59 18:59 Intake Total 1180 720 Output Total 300 440 Balance 880 280 Intake: Oral 1180 720 Output: Urine 300 440 Other: Voiding Method Indwelling Catheter Indwelling Catheter Indwelling Catheter # Bowel Movements 6 1 - Constitutional General appearance: Present: average body habitus, cooperative, no acute distress - EENT Eyes: Present: anicteric sclerae, EOMI ENT: Present: hearing grossly normal - Respiratory Respiratory: bilateral: CTA - Cardiovascular Rhythm: regular - Gastrointestinal General gastrointestinal: Present: soft - Integumentary Integumentary: Present: flushed - Neurologic Neurologic: Present: CNII-XII intact - Musculoskeletal Musculoskeletal: Present: generalized weakness - Psychiatric Psychiatric: Present: A&O x's 3, appropriate affect, intact judgment & insight - Labs CBC & Chem 7: 07/28/24 04:36 07/30/24 04:23 Labs: Abnormal Lab Results - Last 24 Hours (Table) 07/30/24 Range/Units 04:23 Sodium 135 L (137-145) mmol/L Potassium 2.7 L* (3.5-5.1) mmol/L BUN 58 H (7-17) mg/dL Creatinine 4.61 H (0.52-1.04) mg/dL Calcium 7.8 L (8.4-10.2) mg/dL Microbiology - Last 24 Hours (Table) 07/27/24 12:32 Blood Culture - Preliminary Blood 07/27/24 11:30 Urine Culture - Final Urine,Voided Pseudomonas aeruginosa Assessment and Plan (1) UTI (urinary tract infection) Current Visit: Yes Status: Acute Code(s): N39.0 - URINARY TRACT INFECTION, SITE NOT SPECIFIED SNOMED Code(s): 51353936 (2) Cervical ca Current Visit: No Status: Acute Priority: High Code(s): C53.9 - MALIGNANT NEOPLASM OF CERVIX UTERI, UNSPECIFIED SNOMED Code(s): 872436587 Plan: Urinary tract infection -Patient is being treated for the same. Defer treatment to IM Cervical carcinoma -Patient's last treatment was in March 2024. She is had multiple recent illnesses and poor performance status that have prevented her from continuing. She states that she would like to resume treatment. -Plans for restaging scans and a follow-up appointment prior to reinitiating any treatment. Not currently suspecting any disease progression. -Agree with treatment of infection. Patient encouraged for rehabilitation and improving performance status
--- NOTE | 2024-07-30 20:52 | P.PN ---
Subjective Patient is seen for follow-up for chronic kidney disease. Complaining of fatigue otherwise no other significant complaints. Maintained on bicarb drip. Serum creatinine decreased to 4.6 Patient has been evaluated by urology with no plans for intervention as left kidney is atrophied and renal function is at baseline. Patient has a right ureteral stent. Objective - Vital Signs Vital signs: Vital Signs Temp 97.7 F 07/30/24 19:49 Pulse 88 07/30/24 19:49 Resp 17 07/30/24 19:49 BP 103/67 07/30/24 19:49 Pulse Ox 99 07/30/24 19:49 FiO2 Intake & Output 07/30/24 07/30/24 07/31/24 06:59 18:59 06:59 Intake Total 960 240 Output Total 880 Balance 80 240 Intake: Oral 960 240 Output: Urine 880 Other: Voiding Method Indwelling Catheter Indwelling Catheter # Bowel Movements 1 - Exam Patient is awake, comfortable, no acute distress Examination of the heart S1 and S2 Examination of the lungs bilateral breath sounds are heard Abdomen is soft nontender Examination of lower extremities shows chronic skin changes edema 1+ bilaterally - Labs CBC & Chem 7: 07/28/24 04:36 07/30/24 04:23 Labs: Abnormal Lab Results - Last 24 Hours (Table) 07/30/24 Range/Units 04:23 Sodium 135 L (137-145) mmol/L Potassium 2.7 L* (3.5-5.1) mmol/L BUN 58 H (7-17) mg/dL Creatinine 4.61 H (0.52-1.04) mg/dL Calcium 7.8 L (8.4-10.2) mg/dL Microbiology - Last 24 Hours (Table) 07/27/24 12:32 Blood Culture - Preliminary Blood 07/27/24 11:30 Urine Culture - Final Urine,Voided Pseudomonas aeruginosa Assessment and Plan Assessment: 1. 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 2. Right-sided hydronephrosis with ureteral stent in place being followed by urology. Atrophic left kidney 3. Metabolic acidosis secondary to chronic kidney disease. Currently on bicarb drip. 4. Hypokalemia from poor intake and intracellular shifting from bicarb drip. 5. Complicated UTI on antibiotics. Plan: Replace potassium DC bicarb drip Switch to Ringer lactate.
[2024-07-30] MEDS: LACTATED RINGERS 1,000 ML IV SCH (21:34)
--- NOTE | 2024-07-31 02:44 | PN ---
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 HISTORY OF PRESENT ILLNESS: This lady still feels quite weak. She is not vomiting. LABORATORY DATA: Her laboratory studies reveal her potassium to be low at 2.7 and this will be corrected. BUN is 58 and creatinine of 4.61. PHYSICAL EXAMINATION: GENERAL: She is pale and chronically ill in appearance. CARDIAC: Normal. ABDOMEN: Soft and nontender. IMPRESSION: 1. Advanced carcinoma of the cervix with renal failure secondary to bilateral ureteral obstruction. 2. Renal failure. 3. Hypokalemia. PLAN: 1. Replace potassium. 2. Wait for further recommendations from Oncology. MMODL / IJN: [id number] /
[2024-07-31 08:21] VITALS: BP 100/53; PULSE 79; TEMP 97.6
[2024-07-31 11:31] LABS: African American GFR (CKD) 11 (>60 ml/min/1.73 sqM); Anion Gap 6 mmol/L; Blood Urea Nitrogen 49 mg/dL (7-17); Calcium 8.3 mg/dL (8.4-10.2); Carbon Dioxide 29 mmol/L (22-30); Chloride 101 mmol/L (98-107); Glucose 106 mg/dL (74-99); Non-African American GFR(CKD) 9 (>60 ml/min/1.73 sqM); Potassium 3.7 mmol/L (3.5-5.1); Sodium 136 mmol/L (137-145)
[2024-07-31 14:43] VITALS: RESP 17
--- NOTE | 2024-07-31 17:36 | P.PN ---
Subjective Patient is seen for follow-up for chronic kidney disease. Patient has been evaluated by urology with no plans for intervention as left kidney is atrophied and renal function is at baseline. Patient has a right ureteral stent. No significant complaints today. Serum creatinine staying at 4.6. Patient wants to go home. Objective - Vital Signs Vital signs: Vital Signs Temp 97.6 F 07/31/24 14:00 Pulse 79 07/31/24 14:00 Resp 17 07/31/24 14:00 BP 100/53 07/31/24 14:00 Pulse Ox 97 07/31/24 14:00 FiO2 Intake & Output 07/30/24 07/31/24 07/31/24 18:59 06:59 18:59 Intake Total 960 240 700 Output Total 880 300 600 Balance 80 -60 100 Intake: Oral 960 240 700 Output: Urine 880 300 600 Uretheral (Sims) 600 Other: Voiding Method Indwelling Catheter Indwelling Catheter Indwelling Catheter # Voids 1 - Exam Patient is awake, comfortable, no acute distress Examination of the heart S1 and S2 Examination of the lungs bilateral breath sounds are heard Abdomen is soft nontender Examination of lower extremities shows chronic skin changes edema trace bilaterally - Labs CBC & Chem 7: 07/28/24 04:36 07/31/24 11:05 Labs: Abnormal Lab Results - Last 24 Hours (Table) 07/31/24 Range/Units 11:05 Sodium 136 L (137-145) mmol/L BUN 49 H (7-17) mg/dL Creatinine 4.60 H (0.52-1.04) mg/dL Glucose 106 H (74-99) mg/dL Calcium 8.3 L (8.4-10.2) mg/dL Microbiology - Last 24 Hours (Table) 07/27/24 12:32 Blood Culture - Preliminary Blood Assessment and Plan Assessment: 1. 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 2. Right-sided hydronephrosis with ureteral stent in place being followed by urology. Atrophic left kidney. No plans for intervention as renal function is at baseline. 3. Metabolic acidosis secondary to chronic kidney disease. Currently on bicarb drip. 4. Hypokalemia from poor intake and intracellular shifting from bicarb drip. 5. Complicated UTI on antibiotics. Plan: Replace potassium. DC potassium after today's doses. Okay for discharge from nephrology standpoint. Close follow-up as outpatient.
--- NOTE | 2024-08-04 10:37 | P.DS ---
Providers Date of admission: 07/28/24 15:14 Expected date of discharge: 07/31/24 Attending physician: Dontae Cuadra Consults: 07/27/24 13:40 Consult Physician Urgent Consulting Provider: Jm Easton Consult Reason/Comments: Acute on chronic kidney disease Do you want consulting provider notified?: Yes Consult Physician Urgent Consulting Provider: Nils Tomlinson Consult Reason/Comments: Left-sided hydronephrosis, history of ureteral stent Do you want consulting provider notified?: Yes 07/28/24 09:53 Consult Physician Routine Consulting Provider: Luc Mariee Consult Reason/Comments: hx of cervical cancer Do you want consulting provider notified?: Yes Primary care physician: Dontae Cuadra Hospital Course: Final diagnosis Advanced carcinoma of the cervix with renal failure, secondary to bilateral ureteral obstruction Renal failure with chronic kidney disease stage IV, secondary to obstructive uropathy Right side hydronephrosis, status post ureteral stent with atrophic left kidney Hypokalemia History of CVA GERD Hypertension History of depression Continued ongoing nicotine dependence Discharge disposition Patient is being discharged in a stable condition with guarded prognosis to home. Patient will follow-up with Dr. Cuadra in the outpatient setting upon discharge. Patient is to continue with current medication regimen and close out patient follow-up with urology, nephrology, and oncology as scheduled. Total time taken is greater than 35 minutes. Hospital course This is a 69-year-old female who was recently admitted with renal failure with acute on chronic kidney disease secondary to obstructive uropathy with right- sided hydronephrosis status post ureteral stent placement recently with severe electrolyte abnormalities admitted and being closely monitored with nephrology, urology, oncology following. Patient was noted to have a low potassium today and being replaced and is persistently keen on going home. Patient will continue a short course of oral antibiotics and strongly recommend outpatient follow-up with primary care provider as well as nephrology, urology, oncology outpatient. Patient reports she is going home with her daughter who takes care of her. Please refer to other consultation notes for further HPI. Currently no reports of chest pain, shortness of breath, or palpitations. Patient is afebrile. No reports of nausea or vomiting and patient is tolerating diet. Patient will be discharged home today. Guarded prognosis and high risk for readmissions given significant comorbidities Physical exam: Gen: This is a 69-year-old female who is awake, alert and oriented x 3, well- developed, elderly appearing, ill-appearing HEENT: Head is atraumatic, normocephalic. Pupils equal, round. Sclerae is anicteric. NECK: Supple. No JVD. No lymphadenopathy. No thyromegaly. LUNGS: Diminished breath sounds bilaterally otherwise clear to auscultation. No wheezes or rhonchi. No intercostal retractions. HEART: S1, S2 are muffled ABDOMEN: Soft. Thin. Bowel sounds are present. No masses. No tenderness. EXTREMITIES: No pedal edema. No calf tenderness. NEUROLOGICAL: Patient is awake, alert and oriented x3. Cranial nerves 2 through 12 are grossly intact. Diffusely weak Please refer to medication reconciliation sheet for a list of medications. The impression and plan of care has been dictated by Serena Ocasio, Nurse Practitioner as directed. Dr. Brien MD I have performed a history and examination and MDM of this patient, discussed the same with the dictator, and agree with the dictator's assessment and plan as written ,documented as a scribe. Based on total visit time, I have performed more than 50% of the visit. Patient Condition at Discharge: Fair Plan - Discharge Summary New Discharge Prescriptions: New Amoxic-Pot Clav 500-125 mg [Augmentin 500-125 mg] 1 tab PO Q12HR 5 Days #10 tab Hydrocortisone Cream [Hydrocortisone 1% Cream] 1 applic TOPICAL BID PRN each PRN Reason: Skin Irritation Diphenox-Atrop 2.5-0.025 mg [Lomotil] 1 - 2 each PO QID PRN tab PRN Reason: Diarrhea Discharge Medication List Amoxic-Pot Clav 500-125 mg [Augmentin 500-125 mg] 1 tab PO Q12HR 5 Days #10 tab 07/31/24 [Rx] Diphenox-Atrop 2.5-0.025 mg [Lomotil] 1 - 2 each PO QID PRN tab 07/31/24 [Rx] Hydrocortisone Cream [Hydrocortisone 1% Cream] 1 applic TOPICAL BID PRN each 07/31/24 [Rx] Follow up Appointment(s)/Referral(s): Dontae Cuadra MD [Primary Care Provider] - 1-2 days Pineda Cabrera MD [STAFF PHYSICIAN] - 2 Weeks (Pending ordering or restaging CT scan. Pt will be contacted with appt date and time. Follow up with Dr. Cabrera will be sched once scan date known) Ambulatory/Diagnostic Orders: Basic Metabolic Panel [LAB.AMB] Time Frame: 3 Days, Location: None Selected Patient Instructions/Handouts: Acute Kidney Injury (DC), Urinary Tract Infection in Women (ED), Hypokalemia (DC) Activity/Diet/Wound Care/Special Instructions: Activity limited until follow-up Follow-up with primary care provider on discharge Follow-up with nephrology outpatient Continue taking medications as prescribed Complete antibiotic course Repeat labs in 2 days Discharge Disposition: HOME SELF-CARE
== END 2024-07-31 18:18 | disposition home or self-care (01) | DRG 690 ==
LOC: EC 10:58 → 5NMEDONC 13:40 → 6NMEDSUR 15:36 → OBSVTOIN 07-28 15:14
PROVIDERS: ADMIT Family Medicine; ATTEND Family Medicine
DX: N13.6 Pyonephrosis (principal); C79.89 Secondary malignant neoplasm of other specified sites; E87.20 Acidosis, unspecified; E88.A Wasting disease (syndrome) due to underlying condition; N13.8 Other obstructive and reflux uropathy; N18.5 Chronic kidney disease, stage 5; C53.9 Malignant neoplasm of cervix uteri, unspecified; I10 Essential (primary) hypertension; D63.0 Anemia in neoplastic disease; B96.5 Pseudomonas (aeruginosa) (mallei) (pseudomallei) as the cause of diseases classified elsewhere; E86.0 Dehydration; E87.6 Hypokalemia; R19.00 Intra-abdominal and pelvic swelling, mass and lump, unspecified site; K59.00 Constipation, unspecified; F17.210 Nicotine dependence, cigarettes, uncomplicated; N26.1 Atrophy of kidney (terminal); Z96.0 Presence of urogenital implants; D72.828 Other elevated white blood cell count; Z86.16 Personal history of COVID-19; Z87.440 Personal history of urinary (tract) infections; Z68.25 Body mass index [BMI] 25.0-25.9, adult; Z86.73 Personal history of transient ischemic attack (TIA), and cerebral infarction without residual deficits
CPT/HCPCS: 36415; 51702; 74176; 80048; 80053; 81001; 82150; 83605; 83690; 83735; 85025; 87040; 87077; 87086; 87186; 87636; 96361; 96365; 99285

== ENCOUNTER 2024-08-20 05:11 | Observation (INO) | payer MEDICARE ==
[2024-08-20 07:13] LABS: Basophils # (A) 0.1 k/uL (0-0.2); Basophils % (A) 1 %; Eosinophils # (A) 0.1 k/uL (0-0.7); Eosinophils % (A) 1 %; HCT 37.6 % (34.0-46.0); HGB 11.7 gm/dL (11.4-16.0); Hypochromasia Marked; Lymphocytes # (A) 1.1 k/uL (1.0-4.8); Lymphocytes % (A) 7 %; MCH 27.8 pg (25.0-35.0); MCV 89.5 fL (80.0-100.0); Mean Platelet Volume 7.7; Monocytes # (A) 0.5 k/uL (0-1.0); Monocytes % (A) 3 %; Neutrophils # (A) 13.4 k/uL (1.3-7.7); Neutrophils % (A) 88 %; Platelet Count 459 k/uL (150-450); RBC 4.21 m/uL (3.80-5.40); RDW 14.7 % (11.5-15.5); WBC 15.3 k/uL (3.8-10.6)
[2024-08-20 07:18] LABS: ALT 15 U/L (4-34); African American GFR (CKD) 10 (>60 ml/min/1.73 sqM); Albumin 2.8 g/dL (3.5-5.0); Anion Gap 11 mmol/L; Blood Urea Nitrogen 30 mg/dL (7-17); Calcium 8.9 mg/dL (8.4-10.2); Carbon Dioxide 16 mmol/L (22-30); Chloride 111 mmol/L (98-107); Glucose 96 mg/dL (74-99); Non-African American GFR(CKD) 9 (>60 ml/min/1.73 sqM); Potassium 4.4 mmol/L (3.5-5.1); Sodium 138 mmol/L (137-145); Total Bilirubin 0.5 mg/dL (0.2-1.3); Total Protein 6.3 g/dL (6.3-8.2)
[2024-08-20 07:19] LABS: AST 24 U/L (14-36); Alkaline Phosphatase 102 U/L (38-126)
--- NOTE | 2024-08-20 08:06 | ED ---
General Adult HPI - General Source: family Mode of arrival: wheelchair <Smita Bone - Last Filed: 08/20/24 22:34> - General Source: family, RN notes reviewed, old records reviewed Mode of arrival: wheelchair Limitations: no limitations <Eliu Bustamante - Last Filed: 08/23/24 22:00> - General Chief complaint: Urogenital Stated complaint: Urogenital Time Seen by Provider: 08/20/24 05:24 - History of Present Illness Initial comments: Patient is a 69-year-old female past medical history of CKD, cervical cancer presenting today for difficulty urinating. History provided by patient and daughter. They state that last time patient urinated was yesterday. She typically wears a depends. This evening began experiencing suprapubic fullness and unable to urinate. On arrival to the ER she was able to pass small out of urine spontaneously however continues to have suprapubic pain. Endorses generalized malaise though denies fevers and chills. Endorses nausea and had 1 episode of nonbloody nonbilious emesis. Endorses diarrhea since her recent hospital mission. States that she was admitted at the end of July for similar issue, had presented for difficulty urinating, was diagnosed with a UTI and ultimately admitted. Denies dysuria or hematuria, melena or hematochezia. (Smita Bone) 69 female with recurrent issue, difficulty with urination in the setting of chronic kidney disease, decreased appetite and malnutrition (Eliu Bustamante) - Related Data Home Medications Medication Instructions Recorded Confirmed No Known Home Medications 08/20/24 08/20/24 Allergies Allergy/AdvReac Type Severity Reaction Status Date / Time piperacillin [From Zosyn] Allergy Rash/Hives Verified 08/20/24 17:42 tazobactam [From Zosyn] Allergy Rash/Hives Verified 08/20/24 17:42 Review of Systems ROS Other: All systems not noted in ROS Statement are negative. <Smita Bone - Last Filed: 08/20/24 22:34> ROS Other: All systems not noted in ROS Statement are negative. <Eliu Bustamante - Last Filed: 08/23/24 22:00> ROS Statement: Those systems with pertinent positive or pertinent negative responses have been documented in the HPI. Past Medical History Past Medical History: Cancer, CVA/TIA, Eye Disorder, GERD/Reflux, Hypertension, Pneumonia, Renal Disease Additional Past Medical History / Comment(s): Cervical cancer diagnosed 2019-pt states she completed chemotherapy and has had radiation treatments in 2019&2020- she was to have a cervical sleeve inserted then more radiation but the doctors were unable to insert/secure sleeve, Adm. 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, R occular stroke-caused vision changes/received injections, UTI, CKD stage 4, neuropathy in legs and walks with a walker History of Any Multi-Drug Resistant Organisms: None Reported Past Surgical History: Section, Cholecystectomy, Tubal Ligation Additional Past Surgical History / Comment(s): Right ureteral stent, D&C Past Anesthesia/Blood Transfusion Reactions: No Reported Reaction Past Psychological History: Depression Smoking Status: Current every day smoker Past Alcohol Use History: None Reported Past Drug Use History: None Reported - Past Family History Father Family Medical History: Cancer, Diabetes Mellitus Additional Family Medical History / Comment(s): Pt thinks father had prostate cancer. Mother Family Medical History: Diabetes Mellitus, Hyperlipidemia, Hypertension, Myocardial Infarction ([place]), Renal Disease Additional Family Medical History / Comment(s): Mother had a [place] in her 50s. She from renal failure during dialysis. <Smita Bone - Last Filed: 08/20/24 22:34> General Exam <DjiboutianSmita - Last Filed: 08/20/24 22:34> General appearance: alert, in no apparent distress Head exam: Present: atraumatic, normocephalic, normal inspection Eye exam: Present: normal appearance, PERRL, EOMI. Absent: scleral icterus, conjunctival injection, periorbital swelling ENT exam: Present: normal exam, mucous membranes moist Neck exam: Present: normal inspection. Absent: tenderness, meningismus, lymphadenopathy Respiratory exam: Present: normal lung sounds bilaterally. Absent: respiratory distress, wheezes, rales, rhonchi, stridor Cardiovascular Exam: Present: regular rate, normal rhythm, normal heart sounds. Absent: systolic murmur, diastolic murmur, rubs, gallop, clicks GI/Abdominal exam: Present: soft, normal bowel sounds. Absent: distended, tenderness, guarding, rebound, rigid Extremities exam: Present: normal inspection, full ROM, normal capillary refill. Absent: tenderness, pedal edema, joint swelling, calf tenderness Back exam: Present: normal inspection Neurological exam: Present: alert, oriented X3, CN II-XII intact Psychiatric exam: Present: normal affect, normal mood Skin exam: Present: warm, dry, intact, normal color. Absent: rash <Eliu Bustamante - Last Filed: 08/23/24 22:00> - General Exam Comments Initial Comments: PE: CONSTITUTIONAL: No apparent distress, chronically ill appearing, nontoxic SKIN: Warm, dry, no jaundice, hives or petechiae EYES: Pupils are equally round, extraocular movements intact without nystagmus, clear conjunctiva, non-icteric sclera HENT: Normocephalic, atraumatic, moist mucus membranes, oropharynx clear without exudates NECK: , Full range of motion, normal appearance PULMONARY: Clear to auscultation without wheezes, rhonchi, or rales, normal excursion, no accessory muscle use and no stridor CARDIOVASCULAR: Regular rate, rhythm, normal S1 and S2. No appreciated murmurs, rubs or gallops. Strong radial pulses with intact distal perfusion. No lower extremity edema GASTROINTESTINAL: Soft, active bowel sounds throughout, mild suprapubic TTP and fullness, guarding with palpation of suprapubic area, non-distended, No hepatosplenomegaly GENITOURINARY: MUSCULOSKELETAL: Extremities have no gross deformity NEUROLOGIC:_a/o x 3, GCS 15, normal mentation and speech. Moves all extremities x 4 without motor or sensory deficit PSYCHIATRIC:_normal mood and affect, thought process is clear and linear (Djiboutian,Smita) Course <Eliu Bustamante - Last Filed: 08/23/24 22:00> Vital Signs 08/20/24 08/20/24 08/20/24 05:14 09:27 12:05 Temperature 97.7 F 98.0 F Pulse Rate 106 H 84 72 Respiratory 18 20 20 Rate Blood Pressure 107/73 107/70 150/82 O2 Sat by Pulse 99 99 98 Oximetry 08/20/24 08/20/24 14:51 16:00 Temperature 97.8 F 97.4 F L Pulse Rate 82 83 Respiratory 18 20 Rate Blood Pressure 128/80 130/79 O2 Sat by Pulse 96 98 Oximetry - Reevaluation(s) Reevaluation #1: 08/20/24 09:05 Medical records reviewed (Eliu Bustamante) Reevaluation #2: 08/20/24 09:05 Patient was able to urinate on her own (Eliu Bustamante) - Consultations Consultation #1: Spoke with Dr. Cuadra agrees to admit this patient (Eliu Bustamante) Medical Decision Making - Lab Data Result diagrams: 08/20/24 06:56 08/20/24 06:56 <Smita Bone - Last Filed: 08/20/24 22:34> - Lab Data Result diagrams: 08/21/24 05:15 08/21/24 05:15 <Eliu Bustamante - Last Filed: 08/23/24 22:00> - Medical Decision Making Was pt. sent in by a medical professional or institution (, PA, LEAD FABRICATOR, urgent care, hospital, or snf...) When possible be specific @ -No Did you speak to anyone other than the patient for history (EMS, parent, family, police, friend...)? What history was obtained from this source @ -Spoke with patient's daughter who is at bedside with patient-states patient was recently admitted for similar symptoms in July Did you review nursing and triage notes (agree or disagree)? Why? @ -I reviewed nursing and triage notes Were old charts reviewed (outside hosp., previous admission, EMS record, old EKG, old radiological studies, urgent care reports/EKG's, snf records)? Report findings @ -Medical records reviewed-Patient here 07/27/2024, CT abdomen pelvis was done at that time that showed a right ureteral stent and Sims catheter in place, mild urethral thickening, mild left hydronephrosis possible UTI, otherwise no acute process; Reviewed discharge summary stating that patient was admitted for renal failure with acute on chronic kidney disease due to obstructive uropathy Differential Diagnosis (chest pain, altered mental status, abdominal pain women, abdominal pain men, vaginal bleeding, weakness, fever, dyspnea, syncope, head ache, dizziness, GI bleed, back pain, seizure, CVA, palpatations, mental health, musculoskeletal)? @Differential diagnosis remains broad however top considerations include urinary tract obstruction, UTI, ureterolithiasis, neurogenic bladder, ARF, this is not an all inclusive list EKG interpreted by me (3pts min.). @ -As above X-rays interpreted by me (1pt min.). @ -None done CT interpreted by me (1pt min.). @ -None done U/S interpreted by me (1pt. min.). @ -None done What testing was considered but not performed or refused? (CT, X-rays, U/S, labs)? Why? @ -None What meds were considered but not given or refused? Why? @ -None Did you discuss the management of the patient with other professionals (professionals i.e. , PA, LEAD FABRICATOR, lab, RT, psych nurse, social service director, work distributor, teacher, credit risk review officer, rn case manager hospice)? Give summary @ -No Was smoking cessation discussed for >3mins.? @ -No Was critical care preformed (if so, how long)? @ -No Were there social determinants of health that impacted care today? How? (Homelessness, low income, unemployed, alcoholism, drug addiction, transportatio n, low edu. Level, literacy, decrease access to med. care, retirement, rehab)? @ -No Was there de-escalation of care discussed even if they declined (Discuss DNR or withdrawal of care, Hospice)? @ -No What co-morbidities impacted this encounter? (DM, HTN, Smoking, COPD, CAD, Cancer, CVA, ARF, Chemo, Hep., AIDS, mental health diagnosis, sleep apnea, morbid obesity)? @CKD , cervical cancer Was patient admitted / discharged? Hospital course, mention meds given and route, prescriptions, significant lab abnormalities, going to OR and other pertinent info. @Signed out to oncoming physician- patient is a 69-year-old female past medical history CKD, cervical cancer presenting today for difficulty urinating.Patient mildly tachycardic arrived on arrival however otherwise vital signs within acceptable limits. History obtained from patient and daughter at bedside. Patient had a bladder scan on arrival that showed about 500 cc of urine in her bladder. Complete history of physical exam were obtained and performed. Notable for suprapubic fullness, guarding and tenderness to palpation, otherwise abdominal exam is benign. Patient is chronic ill-appearing though nontoxic. Given recent admission due to KEVIN, UTI will obtain basic labs, urinalysis. Discussed with patient placing a Sims catheter however she states that she had a bad skin reaction due to the tubing from the catheter lying on her skin for too long. At this point she would prefer to to have a straight cath performed and then attempt to urinate afterwards in order to avoid Sims catheter. Will obtain straight cath urine sample. Pending labs, patient signed out to oncoming physician Dr. Bustamante. ED Signout Transfer of Care Off-going clinician:Dr. Bone Receiving Clinician:Dr. Bustamante Current working diagnosis/ Chief Complaint:Urinary retention Pending at time of sign-out:Labs, UA Anticipated Disposition:Admission Undiagnosed new problem with uncertain prognosis? @ -No Drug Therapy requiring intensive monitoring for toxicity (Heparin, Nitro, Insulin, Cardizem)? @ -No Were any procedures done? @ -No Diagnosis/symptom? Urinary Retention Acute, or Chronic, or Acute on Chronic? @acute Uncomplicated (without systemic symptoms) or Complicated (systemic symptoms)? @ complicated (Djiboutian,Smita) 69 female to the ER for evaluation of decreased urinary output positive UTI this is a recurrent issue. CKD patient does not want a trend towards dialysis, patient will be admitted for IV antibiotics, history of Pseudomonas UTI with Zosyn allergy (Eliu Bustamante) - Lab Data Lab Results 08/20/24 08/20/24 08/20/24 Range/Units 06:56 06:56 07:50 WBC 15.3 H (3.8-10.6) k/uL RBC 4.21 (3.80-5.40) m/uL Hgb 11.7 (11.4-16.0) gm/dL Hct 37.6 (34.0-46.0) % MCV 89.5 (80.0-100.0) fL MCH 27.8 (25.0-35.0) pg MCHC 31.0 (31.0-37.0) g/dL RDW 14.7 (11.5-15.5) % Plt Count 459 H (150-450) k/uL MPV 7.7 Neutrophils % 88 % Lymphocytes % 7 % Monocytes % 3 % Eosinophils % 1 % Basophils % 1 % Neutrophils # 13.4 H (1.3-7.7) k/uL Lymphocytes # 1.1 (1.0-4.8) k/uL Monocytes # 0.5 (0-1.0) k/uL Eosinophils # 0.1 (0-0.7) k/uL Basophils # 0.1 (0-0.2) k/uL Hypochromasia Marked Sodium 138 (137-145) mmol/L Potassium 4.4 (3.5-5.1) mmol/L Chloride 111 H (98-107) mmol/L Carbon Dioxide 16 L (22-30) mmol/L Anion Gap 11 mmol/L BUN 30 H (7-17) mg/dL Creatinine 4.80 H (0.52-1.04) mg/dL Est GFR (CKD-EPI)AfAm 10 (>60 ml/min/1.73 sqM) Est GFR (CKD-EPI)NonAf 9 (>60 ml/min/1.73 sqM) Glucose 96 (74-99) mg/dL Calcium 8.9 (8.4-10.2) mg/dL Total Bilirubin 0.5 (0.2-1.3) mg/dL AST 24 (14-36) U/L ALT 15 (4-34) U/L Alkaline Phosphatase 102 (38-126) U/L Total Protein 6.3 (6.3-8.2) g/dL Albumin 2.8 L (3.5-5.0) g/dL Urine Color Colorless Urine Appearance Cloudy H (Clear) Urine pH 6.0 (5.0-8.0) Ur Specific Concrete 1.009 (1.001-1.035) Urine Protein 1+ H (Negative) Urine Glucose (UA) Negative (Negative) Urine Ketones Negative (Negative) Urine Blood Moderate H (Negative) Urine Nitrite Positive H (Negative) Urine Bilirubin Negative (Negative) Urine Urobilinogen <2.0 (<2.0) mg/dL Ur Leukocyte Esterase Large H (Negative) Urine RBC 29 H (0-5) /hpf Urine WBC >182 H (0-5) /hpf Urine WBC Clumps Few H (None) /hpf Ur Squamous Epith Cells 1 (0-4) /hpf Urine Bacteria Rare H (None) /hpf Disposition <Smita Bone - Last Filed: 08/20/24 22:34> Is patient prescribed a controlled substance at d/c from ED?: No Time of Disposition: 09:05 <Eliu Bustamante - Last Filed: 08/23/24 22:00> Clinical Impression: Acute on chronic renal failure, Leukocytosis, Ureteral stenosis, left, UTI (urinary tract infection), Dehydration, Urinary retention Disposition: ADMITTED IP TO THIS HOSP Condition: Fair
[2024-08-20 08:44] LABS: Appearance,Urine Cloudy (Clear); Bacteria,Urine Rare /hpf; Bilirubin,Urine Negative (Negative); Blood,Urine Moderate (Negative); Color,Urine Colorless; Glucose,Urine (UA) Negative (Negative); Ketones,Urine Negative (Negative); Leukocyte Esterase,Urine Large (Negative); Nitrite,Urine Positive (Negative); Protein,Urine 1+ (Negative); RBC,Urine 29 /hpf (0-5); Specific Gravity,Urine 1.009 (1.001-1.035); Squamous Epithelial Cell,Urine 1 /hpf (0-4); Urobilinogen,Urine <2.0 mg/dL (<2.0); WBC,Urine >182 /hpf (0-5)
[2024-08-20] MEDS ORDERED: ACETAMINOPHEN TAB 325 MG TAB PO PRN (09:02)
[2024-08-20] MEDS ORDERED: MORPHINE SULFATE 4 MG/ML SYRINGE IV PRN (09:02)
[2024-08-20] MEDS ORDERED: ONDANSETRON 4 MG/2 ML VIAL IVP PRN (09:02)
[2024-08-20] MEDS ORDERED: NALOXONE 0.4 MG/ML 1 ML VIAL IV PRN (09:02)
[2024-08-20] MEDS: SODIUM CHLORIDE 0.9% 1,000 ML IV SCH (09:35)
[2024-08-20] MEDS: LEVOFLOXACIN 750MG-D5W PMX 750 MG in DEXTROSE/WATER 1 150ML.BAG IVPB ONE (09:40)
--- NOTE | 2024-08-20 10:35 | P.NPCON ---
History of Present Illness - Reason for Consult chronic renal failure - History of Present Illness Reason for consultation: Chronic kidney disease History of present illness: Patient is a 69-year-old female seen in renal consultation for chronic kidney disease. 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 GFR is at baseline. Patient states she was having low urine output and developed severe suprapubic pain yesterday. She was concerned about a urinary tract infection and came to the hospital. Patient was admitted with similar complaints about a month ago. Patient does have a right ureteral stent which was placed in April 2024 and she follows with urology outpatient. Denies gross hematuria or dysuria. No fever or chills. No chest pain or shortness of breath. Oral intake is fair. Denies metallic taste. Hemodynamically stable. Vital signs are stable. General: No acute distress. HEENT: Head exam is unremarkable. LUNGS: No audible rhonchi or wheezes. HEART: Rate and Rhythm are regular. ABDOMEN: No distention, soft. EXTREMITITES: No edema. Past Medical History Past Medical History: Cancer, CVA/TIA, Eye Disorder, GERD/Reflux, Hypertension, Pneumonia, Renal Disease Additional Past Medical History / Comment(s): Cervical cancer diagnosed 2019-pt states she completed chemotherapy and has had radiation treatments in 2019&2020- she was to have a cervical sleeve inserted then more radiation but the doctors were unable to insert/secure sleeve, Adm. 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, R occular stroke-caused vision changes/received injections, UTI, CKD stage 4, neuropathy in legs and walks with a walker History of Any Multi-Drug Resistant Organisms: None Reported Past Surgical History: Section, Cholecystectomy, Tubal Ligation Additional Past Surgical History / Comment(s): Right ureteral stent, D&C Past Anesthesia/Blood Transfusion Reactions: No Reported Reaction Past Psychological History: Depression Smoking Status: Current every day smoker Past Alcohol Use History: None Reported Past Drug Use History: None Reported - Past Family History Father Family Medical History: Cancer, Diabetes Mellitus Additional Family Medical History / Comment(s): Pt thinks father had prostate cancer. Mother Family Medical History: Diabetes Mellitus, Hyperlipidemia, Hypertension, Myocardial Infarction ([place]), Renal Disease Additional Family Medical History / Comment(s): Mother had a [place] in her 50s. She from renal failure during dialysis. Medications and Allergies Home Medications Medication Instructions Recorded Confirmed Type No Known Home Medications 08/20/24 08/20/24 History Allergies Allergy/AdvReac Type Severity Reaction Status Date / Time piperacillin [From Zosyn] Allergy Rash/Hives Verified 08/20/24 10:25 tazobactam [From Zosyn] Allergy Rash/Hives Verified 08/20/24 10:25 Physical Exam Vitals: Vital Signs Temp Pulse Resp BP Pulse Ox 08/20/24 09:27 98.0 F 84 20 107/70 99 08/20/24 05:14 97.7 F 106 H 18 107/73 99 Intake and Output 08/19/24 08/20/24 08/20/24 22:59 06:59 14:59 Other: Weight 70.307 kg Results - Lab Results Most recent lab results Calcium 8.9 mg/dL (8.4-10.2) 08/20/24 06:56 08/20/24 06:56 08/20/24 06:56 Assessment and Plan Plan: Assessment: 1. Chronic kidney disease stage V secondary to obstructive uropathy with baseline creatinine near 5. GFR at baseline. 2. Metabolic acidosis secondary to chronic kidney disease. 3. Acute cystitis on antibiotics. 4. Hydronephrosis with right ureteral stent. Last exchanged April 2024. Plan: Change IV fluids from normal saline to isotonic sodium bicarb drip to be run at 75 cc an hour. Continue antibiotics. Follow-up cultures. Avoid nephrotoxins. Discussed initiating renal replacement therapy at length with the patient. She continues to refuse at this time. Daughter present at bedside as well. Thank you for the consultation. I will continue to follow the patient with you during her hospital stay.
[2024-08-20] MEDS: DEXTROSE 5% IN WATER 1,000 ML with SODIUM BICARB (1 MEQ/ML) 150 ML IV SCH (12:02)
--- NOTE | 2024-08-21 01:59 | HP ---
HISTORY AND PHYSICAL CHIEF COMPLAINT: 1. Inability to urinate. 2. 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 HISTORY OF PRESENT ILLNESS: This is another admission for this 69-year-old female, who presented to Emergency Room because she is unable to void. Apparently in the emergency room, she was able to urinate somewhat[place] [address] with hemoglobin 11.7 and BUN is 30 with a creatinine of 4.8 and a GFR of 10. REVIEW OF SYSTEMS: Other than the discomfort, she is stable. PHYSICAL EXAMINATION: VITAL SIGNS: Normal. GENERAL: She is pale and cachectic. HEAD, EARS, EYES, NOSE, MOUTH AND THROAT: Normal. CHEST: Demonstrates decreased breath sounds. CARDIAC: Normal. ABDOMEN: Flat and soft. She is tender over the lower abdomen. EXTREMITIES: Normal. IMPRESSION: 1. Urinary retention. 2. Chronic renal failure. 3. Obstructive uropathy. 4. Advanced carcinoma of the cervix. PLAN: 1. Bed rest. 2. IV fluids. 3. Consult with Oncology and Urology. MMODL / IJN: [id number] /
--- NOTE | 2024-08-21 05:37 | P.GSCN ---
History of Present Illness Consult date: 08/20/24 History of present illness: 69-year-old female known to us for hydronephrosis secondary to treatment and carcinoma the cervix. She has had a hysterectomy radiation therapy as well as chemotherapy. She had bilateral hydronephrosis with renal insufficiency. A right stent has been placed and has been exchanged appropriately. Her left kidney was completely obstructed and is now atrophic and nonfunctional. Her baseline creatinine runs around 5. She was seen by last month for the same problem. Her creatinine was stable at that point in time. A CAT scan did not show anything different. She is not due for a catheter change for another month or so. She has urinalysis suggestive of a urine infection. Review of Systems All systems: negative - Constitutional Denies fever, Denies weight loss - EENT Eyes: denies blurred vision Ears, nose, mouth and throat: Denies dysphagia - Cardiovascular Denies chest pain, Denies shortness of breath - Respiratory Denies cough, Denies 7 - Gastrointestinal Reports as per HPI - Genitourinary Genitourinary: Denies dysuria, Denies hematuria - Integumentary Denies rash, Denies unusual bruising - Neurological Denies headaches, Denies syncope - Hematologic/Lymphatic Denies easy bleeding, Denies easy bruising Past Medical History Past Medical History: Cancer, CVA/TIA, Eye Disorder, GERD/Reflux, Hypertension, Pneumonia, Renal Disease Additional Past Medical History / Comment(s): Cervical cancer diagnosed 2019-pt states she completed chemotherapy and has had radiation treatments in 2019&2020- she was to have a cervical sleeve inserted then more radiation but the doctors were unable to insert/secure sleeve, Adm. 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, R occular stroke-caused vision changes/received injections, UTI, CKD stage 4, neuropathy in legs and walks with a walker History of Any Multi-Drug Resistant Organisms: None Reported Past Surgical History: Section, Cholecystectomy, Tubal Ligation Additional Past Surgical History / Comment(s): Right ureteral stent, D&C Past Anesthesia/Blood Transfusion Reactions: No Reported Reaction Past Psychological History: Depression Smoking Status: Current every day smoker Past Alcohol Use History: None Reported Past Drug Use History: None Reported - Past Family History Father Family Medical History: Cancer, Diabetes Mellitus Additional Family Medical History / Comment(s): Pt thinks father had prostate cancer. Mother Family Medical History: Diabetes Mellitus, Hyperlipidemia, Hypertension, Myocardial Infarction ([place]), Renal Disease Additional Family Medical History / Comment(s): Mother had a NC in her 50s. She from renal failure during dialysis. Medications and Allergies Home Medications Medication Instructions Recorded Confirmed Type No Known Home Medications 08/20/24 08/20/24 History Allergies Allergy/AdvReac Type Severity Reaction Status Date / Time piperacillin [From Zosyn] Allergy Rash/Hives Verified 08/20/24 10:25 tazobactam [From Zosyn] Allergy Rash/Hives Verified 08/20/24 10:25 Surgical - Exam Vital Signs Temp Pulse Resp BP Pulse Ox 97.7 F 106 H 18 107/73 99 08/20/24 05:14 08/20/24 05:14 08/20/24 05:14 08/20/24 05:14 08/20/24 05:14 - General well developed, well nourished, no distress - Eyes normal ocular movement, no icteric - ENT no hearing loss, no congestion - Neck no masses, trachea midline - Respiratory normal respiratory effort, clear to auscultation - Abdomen Abdomen: soft, non tender, no guarding, no rigid, no rebound - Integumentary no rash, no abnormal pigmentation - Neurologic no disoriented, no combative - Psychiatric oriented to time, oriented to person, oriented to place, speech is normal, memory intact Results - Labs 08/20/24 06:56 08/20/24 06:56 Abnormal Lab Results - Last 24 Hours (Table) 08/20/24 08/20/24 08/20/24 Range/Units 06:56 06:56 07:50 WBC 15.3 H (3.8-10.6) k/uL Plt Count 459 H (150-450) k/uL Neutrophils # 13.4 H (1.3-7.7) k/uL Chloride 111 H (98-107) mmol/L Carbon Dioxide 16 L (22-30) mmol/L BUN 30 H (7-17) mg/dL Creatinine 4.80 H (0.52-1.04) mg/dL Albumin 2.8 L (3.5-5.0) g/dL Urine Appearance Cloudy H (Clear) Urine Protein 1+ H (Negative) Urine Blood Moderate H (Negative) Urine Nitrite Positive H (Negative) Ur Leukocyte Esterase Large H (Negative) Urine RBC 29 H (0-5) /hpf Urine WBC >182 H (0-5) /hpf Urine WBC Clumps Few H (None) /hpf Urine Bacteria Rare H (None) /hpf Diabetes panel 08/20/24 Range/Units 06:56 Sodium 138 (137-145) mmol/L Potassium 4.4 (3.5-5.1) mmol/L Chloride 111 H (98-107) mmol/L Carbon Dioxide 16 L (22-30) mmol/L BUN 30 H (7-17) mg/dL Creatinine 4.80 H (0.52-1.04) mg/dL Glucose 96 (74-99) mg/dL Calcium 8.9 (8.4-10.2) mg/dL AST 24 (14-36) U/L ALT 15 (4-34) U/L Alkaline Phosphatase 102 (38-126) U/L Total Protein 6.3 (6.3-8.2) g/dL Albumin 2.8 L (3.5-5.0) g/dL Calcium panel 08/20/24 Range/Units 06:56 Calcium 8.9 (8.4-10.2) mg/dL Albumin 2.8 L (3.5-5.0) g/dL Pituitary panel 08/20/24 Range/Units 06:56 Sodium 138 (137-145) mmol/L Potassium 4.4 (3.5-5.1) mmol/L Chloride 111 H (98-107) mmol/L Carbon Dioxide 16 L (22-30) mmol/L BUN 30 H (7-17) mg/dL Creatinine 4.80 H (0.52-1.04) mg/dL Glucose 96 (74-99) mg/dL Calcium 8.9 (8.4-10.2) mg/dL Adrenal panel 08/20/24 Range/Units 06:56 Sodium 138 (137-145) mmol/L Potassium 4.4 (3.5-5.1) mmol/L Chloride 111 H (98-107) mmol/L Carbon Dioxide 16 L (22-30) mmol/L BUN 30 H (7-17) mg/dL Creatinine 4.80 H (0.52-1.04) mg/dL Glucose 96 (74-99) mg/dL Calcium 8.9 (8.4-10.2) mg/dL Total Bilirubin 0.5 (0.2-1.3) mg/dL AST 24 (14-36) U/L ALT 15 (4-34) U/L Alkaline Phosphatase 102 (38-126) U/L Total Protein 6.3 (6.3-8.2) g/dL Albumin 2.8 L (3.5-5.0) g/dL - Imaging CT scan - abdomen: report reviewed CT scan - pelvis: report reviewed Assessment and Plan Assessment: Impression: Metastatic cervical carcinoma with multiple different treatments. Chronic renal insufficiency stable. Urinary tract infection. Double-J catheter right. Recommendations: At this juncture I will check and see when I changed her double-J catheter last on the right side but I believe she is not due for another month. It does not appear as if the infection is related to her upper urinary tract. Her creatinine is stable. I will follow.
--- NOTE | 2024-08-21 07:44 | P.PN ---
Subjective Progress Note Date: 08/21/24 The patient is in the hospital difficulty with voiding. She has a known history of cervical carcinoma with aggressive treatments for that. The disease is metastatic. She has a nonfunctioning left kidney and a stent in her right kidney. She seems to be voiding better. She did have a urine infection. Objective - Vital Signs Vital signs: Vital Signs Temp 97.6 F 08/21/24 04:46 Pulse 69 08/21/24 04:46 Resp 18 08/21/24 04:46 BP 110/54 08/21/24 04:46 Pulse Ox 100 08/21/24 04:46 FiO2 Intake & Output 08/20/24 08/21/24 08/21/24 18:59 06:59 18:59 Intake Total 120 Output Total 143 Balance -23 Weight 70.307 kg Intake: Oral 120 Output: Post Void Residual 143 Other: # Voids 1 3 - Labs CBC & Chem 7: 08/20/24 06:56 08/20/24 06:56 Labs: Abnormal Lab Results - Last 24 Hours (Table) 08/20/24 Range/Units 07:50 Urine Appearance Cloudy H (Clear) Urine Protein 1+ H (Negative) Urine Blood Moderate H (Negative) Urine Nitrite Positive H (Negative) Ur Leukocyte Esterase Large H (Negative) Urine RBC 29 H (0-5) /hpf Urine WBC >182 H (0-5) /hpf Urine WBC Clumps Few H (None) /hpf Urine Bacteria Rare H (None) /hpf Assessment and Plan Assessment: Recommendations: The patient should be treated with antibiotics. At some point in time in the future the stent will need to be changed. I prefer to wait till she is on appropriate antibiotics before doing that. With regard to the christo felipe, if she is unable to void she either would have to wear a catheter to learn self-catheterization. We will follow.
[2024-08-21 08:50] LABS: ALT 9 U/L (8-44); AST 12 U/L (13-35); Albumin 2.2 g/dL (3.8-4.9); Albumin/Globulin Ratio 0.92 Ratio (1.60-3.17); Alkaline Phosphatase 91 U/L (41-126); BUN/Creat Ratio 5.92 Ratio (12.00-20.00); Calcium 8.2 mg/dL (8.7-10.3); Carbon Dioxide 23.3 mmol/L (21.6-31.8); Chloride 109 mmol/L (96-109); Globulin 2.4 g/dL (1.6-3.3); Glucose 72 mg/dL (70-110); Magnesium 1.7 mg/dL (1.5-2.4); Phosphorus 4.9 mg/dL (2.4-5.1); Potassium 4.1 mmol/L (3.5-5.5); Sodium 142 mmol/L (135-145); Total Bilirubin <0.2 mg/dL (0.3-1.2); Total Protein 4.6 g/dL (6.2-8.2)
[2024-08-21 09:02] LABS: Basophils # (A) 0.09 X 10*3/uL (0.00-0.10); Eosinophils % (A) 3.3 %; HGB 9.1 g/dL (12.0-15.0); Lymphocytes # (A) 1.11 X 10*3/uL (0.90-5.00); Lymphocytes % (A) 12.1 %; MCHC 30.3 g/dL (32.0-37.0); Mean Platelet Volume 10.4 FL (9.5-12.2); Monocytes # (A) 0.67 X 10*3/uL (0.20-1.00); Monocytes % (A) 7.3 %; NRBC Per 100 WBC 0 X 10*3/uL (0.00-0.01); Neutrophils # (A) 6.92 X 10*3/uL (1.80-7.70); Neutrophils % (A) 75.4 %; Platelet Count 347 X 10*3/uL (140-440); RBC 3.37 X 10*6/uL (4.10-5.20); RDW 14.7 % (11.5-14.5); WBC 9.17 X 10*3/uL (4.50-10.00)
[2024-08-21] MEDS: SODIUM CHLORIDE 0.9% 1,000 ML IV SCH (11:40)
[2024-08-21] MEDS: SODIUM BICARBONATE TAB 650 MG TAB PO SCH (11:44)
--- NOTE | 2024-08-21 12:00 | P.PN ---
Subjective Progress Note Date: 08/21/24 Patient is seen in follow-up for chronic kidney disease. 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 GFR is at baseline. Denies suprapubic pain. She has right ureteral stent. Denies gross hematuria or dysuria. Has been voiding. Vital signs are stable. General: No acute distress. HEENT: Head exam is unremarkable. LUNGS: No audible rhonchi or wheezes. HEART: Rate and Rhythm are regular. ABDOMEN: No distention, soft. EXTREMITITES: No edema. Objective - Vital Signs Vital signs: Vital Signs Temp 97.6 F 08/21/24 04:46 Pulse 69 08/21/24 04:46 Resp 18 08/21/24 04:46 BP 110/54 08/21/24 04:46 Pulse Ox 100 08/21/24 04:46 FiO2 Intake & Output 08/20/24 08/21/24 08/21/24 18:59 06:59 18:59 Intake Total 120 Output Total 143 Balance -23 Weight 70.307 kg Intake: Oral 120 Output: Post Void Residual 143 Other: # Voids 1 3 - Labs CBC & Chem 7: 08/21/24 05:15 08/21/24 05:15 Labs: Abnormal Lab Results - Last 24 Hours (Table) 08/21/24 08/21/24 Range/Units 05:15 05:15 RBC 3.37 L (4.10-5.20) X 10*6/uL Hgb 9.1 L (12.0-15.0) g/dL Hct 30.0 L (37.2-46.3) % MCHC 30.3 L (32.0-37.0) g/dL RDW 14.7 H (11.5-14.5) % Immature Gran # 0.08 H (0.00-0.04) X 10*3/uL BUN 29.0 H (9.0-27.0) mg/dL Creatinine 4.9 H (0.6-1.5) mg/dL Est GFR (CKD-EPI) 9 L (>=60) BUN/Creatinine Ratio 5.92 L (12.00-20.00) Ratio Calcium 8.2 L (8.7-10.3) mg/dL Total Bilirubin <0.2 L (0.3-1.2) mg/dL AST 12 L (13-35) U/L Total Protein 4.6 L (6.2-8.2) g/dL Albumin 2.2 L (3.8-4.9) g/dL Albumin/Globulin Ratio 0.92 L (1.60-3.17) Ratio Assessment and Plan Plan: Assessment: 1. Chronic kidney disease stage V secondary to obstructive uropathy with baseline creatinine near 5. GFR at baseline. 2. Metabolic acidosis secondary to chronic kidney disease. 3. Acute cystitis on antibiotics. 4. Hydronephrosis with right ureteral stent. Last exchanged April 2024. Plan: Change IV fluids from to NS at 75, begin sodium bicarbonate 650 BID Continue antibiotics. Follow-up cultures. Avoid nephrotoxins. Discussed initiating renal replacement therapy at length with the patient, which she continues to decline at this time. Patient is medically stable for discharge from nephrology standpoint. Recommend to continue sodium bicarbonate and follow-up with nephrology. I have seen and examined the patient with resident and agree with A&P as written.
[2024-08-21 15:13] VITALS: BMI 24.3
[2024-08-21 17:13] VITALS: BP 134/58; PULSE 77; RESP 16; TEMP 97.7
--- NOTE | 2024-08-21 21:02 | DS ---
DISCHARGE SUMMARY CHIEF COMPLAINT: Urinary retention. HISTORY OF PRESENT ILLNESS AND PHYSICAL EXAMINATION: Details of this lady's history and physical can be found in the initial workup. LABORATORY STUDIES: While she was in the hospital, she had laboratory studies, details of which can be found in the laboratory section of her chart. COURSE IN THE HOSPITAL: After admission, she was placed on bedrest, started on intravenous fluids and then she was found to be able to urinate. She did have urinary tract infection, but this is chronic. She was seen by Urology and Nephrology. She is still refusing dialysis. It was felt that she could be discharged back home. She does not take any medication. FINAL DIAGNOSES: 1. Urinary retention. 2. Urinary tract infection. 3. Metastatic carcinoma of the cervix. 4. Stage V chronic kidney disease. OPERATIONS: None. CONSULTATIONS: Urology and Nephrology. NICO / RONALD: [id number] /
[2024-08-22] MEDS ORDERED: LEVOFLOXACIN 500MG-D5W PMX 500 MG in DEXTROSE/WATER 1 100ML.BAG IVPB SCH (09:00)
== END 2024-08-21 18:40 | disposition home or self-care (01) ==
LOC: EC 05:11 → 6NMEDSUR 09:02
PROVIDERS: ADMIT Family Medicine; ATTEND Family Medicine
DX: N13.6 Pyonephrosis (principal); C53.9 Malignant neoplasm of cervix uteri, unspecified; N17.9 Acute kidney failure, unspecified; I12.0 Hypertensive chronic kidney disease with stage 5 chronic kidney disease or end stage renal disease; N18.5 Chronic kidney disease, stage 5; K21.9 Gastro-esophageal reflux disease without esophagitis; F32.A Depression, unspecified; E86.0 Dehydration; E87.20 Acidosis, unspecified; F17.200 Nicotine dependence, unspecified, uncomplicated; Z86.73 Personal history of transient ischemic attack (TIA), and cerebral infarction without residual deficits; Z92.21 Personal history of antineoplastic chemotherapy; Z92.3 Personal history of irradiation; Z88.0 Allergy status to penicillin
CPT/HCPCS: 96365; 96366; 99285; 51798; 36415; 80053 ×2; 83735; 84100; 85025 ×2; 81001; 87086; 87077; 87186; G0378 ×2; J1956

== ENCOUNTER → 2024-09-26 | Outpatient (CLI) | payer MEDICARE, OTHER ==
[2024-09-27 02:08] LABS: Basophils # (A) 0.12 X 10*3/uL (0.00-0.10); Basophils % (A) 1.2 %; Eosinophils # (A) 0.39 X 10*3/uL (0.04-0.35); HCT 36.8 % (37.2-46.3); HGB 11.3 g/dL (12.0-15.0); Lymphocytes # (A) 1.47 X 10*3/uL (0.90-5.00); Lymphocytes % (A) 15.1 %; MCH 27.5 pg (27.0-32.0); MCHC 30.7 g/dL (32.0-37.0); MCV 89.5 FL (80.0-97.0); Mean Platelet Volume 10.7 FL (9.5-12.2); Monocytes # (A) 0.44 X 10*3/uL (0.20-1.00); Monocytes % (A) 4.5 %; NRBC Per 100 WBC 0 X 10*3/uL (0.00-0.01); Neutrophils # (A) 7.25 X 10*3/uL (1.80-7.70); Neutrophils % (A) 74.7 %; Platelet Count 421 X 10*3/uL (140-440); RBC 4.11 X 10*6/uL (4.10-5.20); RDW 17.2 % (11.5-14.5); WBC 9.72 X 10*3/uL (4.50-10.00)
[2024-09-27 02:46] LABS: BUN/Creat Ratio 8.44 Ratio (12.00-20.00); Calcium 8.5 mg/dL (8.7-10.3); Carbon Dioxide 14.6 mmol/L (21.6-31.8); Chloride 116 mmol/L (96-109); Glucose 105 mg/dL (70-110); Potassium 4.2 mmol/L (3.5-5.5); Sodium 143 mmol/L (135-145)
[2024-09-27 04:36] LABS: Appearance,Urine Turbid (Clear); Bilirubin,Urine Negative (Negative); Blood,Urine Large (Negative); Color,Urine Yellow (Yellow); Ketones,Urine Negative (Negative); Nitrite,Urine Positive (Negative); Specific Gravity,Urine 1.011 (1.001-1.030); Urobilinogen,Urine 0.2 E.U./DL
[2024-09-27 05:05] LABS: Bacteria,Urine 3+ (None Seen)
== END | disposition home or self-care (01) ==
LOC: LABPAT 14:38
PROVIDERS: ATTEND Urology
DX: Z01.812 Encounter for preprocedural laboratory examination (principal); N13.30 Unspecified hydronephrosis
CPT/HCPCS: 36415; 80048; 81001; 85025

== ENCOUNTER → 2024-12-13 | Outpatient (CLI) | payer MEDICARE, OTHER ==
[2024-12-13 11:09] LABS: Basophils # (A) 0.13 10*3/uL (0.00-0.10); Basophils % (A) 1.2 %; Eosinophils # (A) 0.21 10*3/uL (0.04-0.35); Eosinophils % (A) 1.9 %; HCT 39.5 % (37.2-46.3); HGB 12.8 g/dL (12.0-15.0); Lymphocytes # (A) 1.21 10*3/uL (0.90-5.00); Lymphocytes % (A) 10.7 %; MCH 29.3 pg (27.0-32.0); MCHC 32.4 g/dL (32.0-37.0); MCV 90.4 fL (80.0-97.0); Mean Platelet Volume 11.4 fL (9.5-12.2); Monocytes # (A) 0.55 10*3/uL (0.20-1.00); Monocytes % (A) 4.9 %; Neutrophils # (A) 9.11 10*3/uL (1.80-7.70); Neutrophils % (A) 80.7 %; Platelet Count 253 10*3/uL (140-440); RBC 4.37 10*6/uL (4.10-5.20); RDW 16.9 % (11.5-14.5); WBC 11.28 10*3/uL (4.50-10.00)
[2024-12-13 11:19] LABS: African American GFR (CKD) 12 (>60 ml/min/1.73 sqM); Anion Gap 14 mmol/L; Blood Urea Nitrogen 53 mg/dL (7-17); Calcium 9.3 mg/dL (8.4-10.2); Carbon Dioxide 10 mmol/L (22-30); Chloride 114 mmol/L (98-107); Glucose 90 mg/dL (74-99); Non-African American GFR(CKD) 11 (>60 ml/min/1.73 sqM); Sodium 138 mmol/L (137-145)
[2024-12-14 06:04] LABS: Appearance,Urine Turbid (Clear); Bilirubin,Urine Negative (Negative); Blood,Urine Moderate (Negative); Color,Urine Yellow (Yellow); Ketones,Urine Negative (Negative); Nitrite,Urine Positive (Negative); Specific Gravity,Urine 1.012 (1.001-1.030); Urobilinogen,Urine 0.2 E.U./DL
[2024-12-14 06:54] LABS: Bacteria,Urine 3+ (None Seen)
== END | disposition home or self-care (01) ==
LOC: LABPAT 09:42
PROVIDERS: ATTEND Urology
DX: Z01.812 Encounter for preprocedural laboratory examination (principal); N13.30 Unspecified hydronephrosis
CPT/HCPCS: 80048; 81001; 85025

== ENCOUNTER 2024-12-17 09:58 | Day surgery (SDC) | payer MEDICARE, OTHER ==
[2024-12-15 15:11] VITALS: BMI 25.0
--- NOTE | 2024-12-16 19:32 | P.GSHP ---
History of Present Illness H&P Date: 12/16/24 69 yo female with a history of cervical cancer sp hysterectomy, radiation and chemo. SHe has an atropic left kidney and a hydronephrotic right kidney due to disease and treatment. She has had a right double j catheter to maintain patecny of her right ureter. She comes for exchange of this catheter,6x24 - Constitutional Constitutional: Denies chills, Denies fever - EENT Eyes: denies blurred vision, denies pain Ears, nose, mouth and throat: Denies headache, Denies sore throat - Cardiovascular Cardiovascular: Denies chest pain, Denies shortness of breath - Respiratory Respiratory: Denies cough, Denies 7 - Gastrointestinal Gastrointestinal: Denies abdominal pain, Denies diarrhea, Denies nausea, Denies vomiting - Genitourinary (Female) Genitourinary: Denies dysuria, Denies hematuria - Genitourinary (Male) Genitourinary: Denies dysuria, Denies hematuria - Musculoskeletal Musculoskeletal: Denies myalgias - Integumentary Integumentary: Denies pruritus, Denies rash - Neurological Neurological: Denies numbness, Denies weakness - Psychiatric Psychiatric: Denies anxiety, Denies depression - Endocrine Endocrine: Denies fatigue, Denies weight change Past Medical History Past Medical History: Cancer, Eye Disorder, GERD/Reflux, Hypertension, Pneumonia, Renal Disease Additional Past Medical History / Comment(s): Cervical cancer diagnosed 2019-pt states she completed chemotherapy and has had radiation treatments in 2019&2020- she was to have a cervical sleeve inserted then more radiation but the doctors were unable to insert/secure sleeve, Adm. 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, R occular stroke-caused vision changes/received injections, UTI, CKD stage 4, neuropathy in legs and walks with a walker History of Any Multi-Drug Resistant Organisms: None Reported Past Surgical History: Section, Cholecystectomy, Tubal Ligation Additional Past Surgical History / Comment(s): Right ureteral stent, D&C Past Anesthesia/Blood Transfusion Reactions: No Reported Reaction Past Psychological History: Depression Additional Psychological History / Comment(s): . Smoking Status: Current every day smoker Past Alcohol Use History: None Reported Additional Past Alcohol Use History / Comment(s): . Past Drug Use History: None Reported - Past Family History Father Family Medical History: Cancer, Diabetes Mellitus Additional Family Medical History / Comment(s): Pt thinks father had prostate cancer. Mother Family Medical History: Diabetes Mellitus, Hyperlipidemia, Hypertension, Myocardial Infarction ([place]), Renal Disease Additional Family Medical History / Comment(s): Mother had a MA in her 50s. She from renal failure during dialysis. Medications and Allergies Home Medications Medication Instructions Recorded Confirmed Type No Known Home Medications 08/20/24 12/15/24 History Allergies Allergy/AdvReac Type Severity Reaction Status Date / Time piperacillin [From Zosyn] Allergy Rash/Hives Verified 12/15/24 15:01 tazobactam [From Zosyn] Allergy Rash/Hives Verified 12/15/24 15:01 Surgical - Exam - General well developed, well nourished, no distress - Eyes normal ocular movement, no icteric - ENT no hearing loss, no congestion - Neck no masses, trachea midline - Respiratory normal respiratory effort, clear to auscultation - Abdomen Abdomen: soft, non tender, no guarding, no rigid, no rebound - Integumentary no rash, no abnormal pigmentation - Neurologic no disoriented, no combative - Psychiatric oriented to time, oriented to person, oriented to place, speech is normal, memory intact Assessment and Plan Assessment: Impression Cervical cancer, metastatic since 2019. right hydronephrosis Plan: Exchange of double j catheter, right
[~2024-12-17 09:58] MED LIST: AMPICILLIN 1,000 MG in SODIUM CHLORIDE 0.9% 50 ML IVPB PRN; GENTAMICIN 100 MG in SODIUM CHLORIDE 0.9% 100 ML IVPB PRN; HYDROmorphone 0.5 MG/0.5 ML SYRINGE IVP PRN; LIDOCAINE 1% (10MG/ML) FOR IV START INTRADERMA PRN; MIDAZOLAM 2 MG/2 ML VIAL IV PRN; fentaNYL (PF) 50 MCG/ML 2 ML AMP IVP PRN
[2024-12-17] MEDS: LACTATED RINGERS 1,000 ML IV SCH (10:43)
[2024-12-17] MEDS: ONDANSETRON 4 MG/2 ML VIAL IVP ONE (10:45)
[2024-12-17] MEDS: IV FLUID CONTINUATION 1,000 ML IV ONE (10:45)
[2024-12-17] MEDS: DEXAMETHASONE SOD PHOSPHATE 4 MG/ML 1 ML VIAL IV ONE (10:45)
[2024-12-17 10:55] VITALS: TEMP 97.7
[2024-12-17] MEDS ORDERED: LIDOCAINE 1% INJ 10MG/ML (20 ML MDV) ONE (11:06)
[2024-12-17] MEDS ORDERED: MIDAZOLAM 2 MG/2 ML VIAL ONE (11:06)
[2024-12-17] MEDS ORDERED: PROPOFOL 10 MG/ML 20 ML VIAL IV ONE (11:06)
--- NOTE | 2024-12-17 11:38 | P.OP ---
Date of Procedure: 12/17/24 Preoperative Diagnosis: Right hydronephrosis with right double-J catheter secondary to metastatic ovarian cancer Postoperative Diagnosis: Same Procedure(s) Performed: Cystoscopy, exchange double-J catheter right 6 x 24 Anesthesia: MAC Surgeon: Benny Mejia Estimated Blood Loss (ml): 0 Pathology: none sent Condition: stable Disposition: PACU Indications for Procedure: Patient is 69. She has hydronephrosis on the right side secondary metastatic cervical cancer. She comes for exchange of double-J catheter previously placed on the right side Description of Procedure: Patient brought to the operating suite. Given IV sedation. Placed in lithotomy position with sterile prep and drape. Cystoscopy Foroblique lens identifies normal urethra. The bladder wall is unremarkable other than edema from the stent. The bladder mckeon washed up. I then grasped the stent and pulled the urethral meatus. An 035 wire was passed through the stent into the kidney. I remove the old stent and passed a new 6 x 24 double-J cath the coils in the renal pelvis and the bladder the bladder is drained the patient is awakened and returned recovery in good condition. Tolerated procedure well and will have the stent exchange again in 6-month
--- NOTE | 2024-12-17 12:02 | FL ---
Fluoroscopy INDICATION: Pain FINDINGS: Fluoroscopy time: 6.2 seconds. Total dose area product (DAP) in uGy*m?, mGy*cm? (or similar): 0.07357 Images obtained: 3. Images document stent exchange IMPRESSION: 1. Documentation of fluoroscopy. [facility], , 12/17/2024 11:59 AM
[2024-12-17 12:03] VITALS: BP 111/55; PULSE 68; RESP 14
== END 2024-12-17 13:37 | disposition home or self-care (01) ==
LOC: OR 09:58
PROVIDERS: ATTEND Urology
DX: C53.9 Malignant neoplasm of cervix uteri, unspecified (principal); C56.9 Malignant neoplasm of unspecified ovary; N13.30 Unspecified hydronephrosis; I12.9 Hypertensive chronic kidney disease with stage 1 through stage 4 chronic kidney disease, or unspecified chronic kidney disease; N18.4 Chronic kidney disease, stage 4 (severe); K21.9 Gastro-esophageal reflux disease without esophagitis; G62.9 Polyneuropathy, unspecified; F17.210 Nicotine dependence, cigarettes, uncomplicated; F32.A Depression, unspecified; Z92.21 Personal history of antineoplastic chemotherapy; Z87.440 Personal history of urinary (tract) infections; Z86.73 Personal history of transient ischemic attack (TIA), and cerebral infarction without residual deficits; Z90.49 Acquired absence of other specified parts of digestive tract; Z98.51 Tubal ligation status; Z83.3 Family history of diabetes mellitus; Z88.0 Allergy status to penicillin; Z82.49 Family history of ischemic heart disease and other diseases of the circulatory system; Z83.49 Family history of other endocrine, nutritional and metabolic diseases; Z88.1 Allergy status to other antibiotic agents; Z88.8 Allergy status to other drugs, medicaments and biological substances
CPT/HCPCS: 52332; C2625; C1769; J2250; J1100; J2405; J2003; J2704